=== PATIENT | male | born 1975 | race Caucasian/White ===

== ENCOUNTER 2021-02-22 15:35 | Emergency (ER) | payer OTHER, SELFPAY ==
--- NOTE | ~2021-02-22 | CT_ITS ---
EXAMINATION: CT CHEST, ABDOMEN AND PELVIS WITHOUT CONTRAST. CLINICAL INFORMATION: Back pain. Possible kidney stone or spine arthritis. Cough. Pneumonia? . COMPARISON: 06/17/2017 CT of the abdomen and pelvis. TECHNIQUE: Multidetector volumetric imaging was performed from the thoracic inlet through the pubic symphysis without intravenous contrast. Sagittal and coronal reformatted images were obtained on the technologist workstation. This CT examination was performed using dose optimization techniques as appropriate, variously including the following: *Automated exposure control *Adjustment of mA and/or kV according to patient size (this includes techniques or standardized protocols for targeted exams where dose is matched to indication/reason for exam; i.e. extremities or head) *Use of iterative reconstruction technique DLP: 3230 mGy-cm FINDINGS: CHEST: Lungs: Multiple tiny calcified granulomas are seen bilaterally minimal basilar atelectasis. No suspicious focal nodularity or dense consolidation. Central airways are grossly unremarkable. Mediastinum: Air is seen throughout the esophagus of uncertain etiology. Oral contrast is seen within the stomach but I do not appreciate any oral contrast in the esophagus to suggest significant reflux or dysmotility. Extensive vascular calcification seen within the coronary vessels for age. Shotty mediastinal lymph nodes are noted but no bulky adenopathy Pericardium/Pleura: No significant effusion. No pleural mass or thickening. Chest Wall/Axilla: Unremarkable. ABDOMEN/PELVIS: Peritoneal Space:No significant free air or free fluid identified. Liver, Gallbladder, Biliary Tree: The non contrast liver is normal in size, shape, and attenuation. No focal hepatic lesion or biliary ductal dilatation is present. The gallbladder is unremarkable with no evidence of radiopaque gallstones, gallbladder wall thickening, or obvious pericholecystic inflammatory changes. Pancreas: Unremarkable. Spleen: Unremarkable. Adrenal Glands: Unremarkable. Kidneys and Ureters: Innumerable low-attenuation cysts are seen scattered throughout the renal parenchyma. These cysts are more prominent when compared to the 2017 study. Patient is on dialysis which may explain these multiple bilateral cysts. No obstructive changes to the kidneys. Bladder: Decompressed Gastrointestinal Tract: The small and large bowel are unremarkable. The appendix is unremarkable. Abdominal Wall: No significant hernia is appreciated. Lymphovascular Structures: Vascular calcification within the aorta iliac system. No bulky adenopathy. Pelvic Viscera: Unremarkable. Osseus Structures: Incidental chronic pars defect at L5 with no significant spondylolisthesis. No acute bony abnormality noted. CT/CT abdomen pelvis wo con IMPRESSION: I do not appreciate any acute intra-abdominal process. Tiny calcified granulomas are seen in the lungs without dense consolidation or suspicious nodularity. Patient is on dialysis which likely explains the multiple bilateral renal cysts that are now present. I do not appreciate any obstructive changes to the [place] kidneys. Bladder is decompressed.
--- NOTE | ~2021-02-22 | XR_ITS ---
EXAMINATION: XR CHEST CLINICAL INFORMATION: Cough x1 week COMPARISON: 09/19/2019 TECHNIQUE: Frontal view of the chest was obtained. FINDINGS: Some minimal increased markings are present at both lung bases which may represent atelectasis. Otherwise, no significant abnormality is noted involving the heart, lungs, mediastinum, bony thorax or soft tissues. XR/XR chest 1V IMPRESSION: Bibasilar atelectasis. No gross consolidation.
--- NOTE | ~2021-02-22 | CT_ITS ---
EXAMINATION: CT HEAD WITHOUT CONTRAST CLINICAL INFORMATION: Elevated blood pressure COMPARISON: CT 08/18/2014. TECHNIQUE: Contiguous axial imaging was performed from the skull base to vertex without intravenous administration of contrast. This CT examination was performed using dose optimization techniques as appropriate, variously including the following: *Automated exposure control *Adjustment of mA and/or kV according to patient size (this includes techniques or standardized protocols for targeted exams where dose is matched to indication/reason for exam; i.e. extremities or head) *Use of iterative reconstruction technique DLP: 3230 mGy-cm FINDINGS: There is no evidence of acute intracranial hemorrhage or territorial infarction. No abnormal mass effect or midline shift is seen. Freeman to white matter differentiation is well preserved. No extra-axial fluid collections are identified. The ventricles are normal in size. There is no abnormal attenuation within the brain parenchyma. The osseous structures and soft tissues are normal. Mucocele in the left maxillary sinus. The mastoid air cells and remainder of the visualized portions of the paranasal sinuses are well aerated. CT/CT head/brain wo con IMPRESSION: No CT evidence of acute intracranial pathology.
[2021-02-22 15:38] VITALS: BP 184/81; PULSE 102; RESP 16; BMI 51.7
[2021-02-22 16:37] VITALS: BP 188/102; PULSE 100; RESP 19; TEMP 36.6; O2SAT 97
--- NOTE | 2021-02-22 17:23 | ECG_ITS ---
Test Reason : CHEST PAIN Blood Pressure : / mmHG Vent. Rate : 099 BPM Atrial Rate : 099 BPM P-R Int : 148 ms QRS Dur : 088 ms QT Int : 362 ms P-R-T Axes : 061 065 046 degrees QTc Int : 464 ms Normal sinus rhythm Normal ECG When compared with ECG of 29-MAY-2019 23:02, ST no longer depressed in Lateral leads Referred By: Celestine Lucas Electronically Signed By:MAYRA SHI MD
--- NOTE | 2021-02-22 17:23 | ED_ITS ---
HPI - General Adult General Chief complaint: General Medical Stated complaint: hi bp Time Seen by Provider: 02/22/21 17:07 Source: patient Mode of arrival: ambulatory Limitations: no limitations History of Present Illness HPI narrative: Patient sent to ED by PCP for referral. Patient was sent to the ED for elevated blood pressure. Patient states 1 week of coughing, body aches, chills, and back pain. Patient states chest pain only when he coughs. Patient denies any fever. Denies any chest pain on inspiration. Patient denies any increased swelling of lower extremities or calf pain. Patient due for dialysis tomorrow. Patient has not missed his dialysis. Patient states he is vaccinated with COVID vaccine Patient states history of asthma. Patient has secondary complaint is lower right eyelid swelling and redness with bump in right lower eyelid. patient denies any pain in the eye, change in vision, loss of vision, or blurry vision. Patient denies any discharge from the eye or yellow crusting. patient denies any shortness of breath Related Data Previous Rx's Medication Instructions Recorded benzonatate [Tessalon Perles] 100 mg PO TID PRN #18 cap 02/22/21 oxycodone-acetaminophen [Percocet] 1 tab PO TID PRN #9 tab 02/22/21 Allergies Allergy/AdvReac Type Severity Reaction Status Date / Time iodine [IODINE] Allergy Severe THROAT Unverified 06/04/20 18:16 SWELLING iron [IRON] Allergy Unknown HOT Unverified 06/04/20 18:16 FEELING, ANXIETY, SOB,M TACHYCARDIA shellfish derived Allergy Unknown UNKNOWN Unverified 06/04/20 18:16 [SHELLFISH DERIVED] Benadryl Allergy Unknown hyperactive Uncoded 06/18/18 00:00 From BENADRYL Allergy Unknown HYPERACTIVE Uncoded 06/04/20 18:16 seafood Allergy Unknown swelling Uncoded 06/18/18 00:00 of throat Review of Systems Review of Systems: Yes all other systems are reviewed and are negative Constitutional: Constitutional: Reports as per HPI, Reports no additional constitutional complaints, Reports body ache(s) and Reports chills Eyes: Eyes: Reports as per HPI and Reports no additional eye complaints Comments: Right lower eyelid swelling, redness, with bump in the IN. ENT: Reports system reviewed and no additional complaints, except as docume nted and Reports as per HPI Cardiovascular: Cardiovascular: Reports as per HPI and Reports no additional cardiovascular complaints Respiratory: Respiratory: Reports as per HPI, Reports no additional respiratory complaints, Reports cough and Reports pain with cough Gastrointestinal: Gastrointestinal: Reports as per HPI and Reports no additional gastrointestinal complaints Genitourinary: Genitourinary: Reports no additional male genitourinary complaints and Reports as per HPI Musculoskeletal: Musculoskeletal: Reports no additional musculoskeletal complaints and Reports as per HPI Neurologic: Reports system reviewed and no additional complaints, except as documented and Reports as per HPI Psychiatric: Psychiatric: Reports no additional psychiatric complaints and Reports as per HPI [facility] Past Medical History Medical History (Updated 02/23/21 @ 00:01 by Background Tracy) Asthma Dialysis patient Hypertension Social History Social History Alcohol intake: never Patient Tobacco Use Status: Never used Tobacco Use of substances other than those prescribed or required for medical reasons: No Advance Directives: No Advance Directives Information Provided: No Physical Exam Vital Signs: Vital Signs: Last Vital Signs Temp 97.8 F 02/22/21 16:37 Pulse 101 H 02/22/21 18:12 Resp 18 02/22/21 18:12 BP 154/95 H 02/22/21 18:12 Pulse Ox 98 02/22/21 18:12 Body Mass Index 51.7 Const: General: cooperative, healthy appearing, comfortable, no acute distress, well developed, alert and awake Orientation/consciousness: patient oriented x3 HENMT: Head: Yes normal to inspection, Yes No palpable skull fracture present, Yes normocephalic and No atraumatic Eyes: Other: Right eye: Positive for swelling and redness of lower eyelid with inner stye. Negative for photophobia. Negative for foreign body. Left eye normal General: appearance normal, both eyes and all related structures Neck: Neck: Yes normal visual inspection, Yes full ROM, Yes no lymphadenopathy, Yes no meningeal signs, Yes trachea midline, Yes supple and No tender Chest: Other: Positive for chest wall tenderness on palpation Chest palpation & inspection: normal inspection of the chest Resp: Effort & Inspection: normal respiratory effort and able to speak in complete sentences Auscultation: clear to auscultation bilaterally Cardio: Jugular venous distension: no JVD Heart sounds: S1 normal heart sound present and S2 normal heart sound present GI: Inspection: Yes normal to inspection and No abdominal wall ecchymosis Palpation (GI): Soft to palpation, not firm, nontender, no guarding and not rigid : General: No CVA tenderness and Yes no CVA tenderness Back/Spine/Pelvis: Back: no CVA tenderness, No CVA tenderness and No back tenderness Skin: General skin exam: no rashes or lesions noted and elasticity normal Neuro: General: patient oriented x3, gait normal, no meningeal signs and CN's II-XI intact bilaterally Cranial nerves: Yes CN's II-XII intact bilaterally Extrem: Other: Lower extremities negative for any swelling, pitting edema, calf tenderness. Course Course Course Narrative: Blood pressure monitor on 130/80. Patient will have EKG and troponin. Patient will have chest x-ray to rule out pneumonia. Patient was sent a COVID swab sent. Patient will be given oxycodone and Robitussin. History physical exam indicate viral cough. Reevaluation(s) Reevaluation #1: EKG negative STEMI. Patient came potassium 5.9. Patient state s he will get his dialysis tomorrow. Patient denies any shortness of breath. X-ray negative for signs of fluid overload. Reevaluation #2: Patient was sent for chest CT to to get better patient shows no pneumonia. Patient was sent for head CT due to elevated blood pressure although patient does not have any neuro deficit. Patient is sent for abdominal CT scan to evaluate for back pain is he does kidney stone. Patient does not produce urine. Patient will have dialysis in the morning. Case discussed with Dr. Finch and he reviewed patient labs. He states Kaxyelate is suffice and patient does not need any other hyperkalemia medication or emergent dialysis. patient is not in fluid overload. He states patient can go for dialysis in the morning. Patient blood pressure improved without any meds given. Patient initial elevated blood pressure most likely due to pain from body aches and the pain for cough. troponin did not increased by 50%. BNP is only about 130. Patient does not need emergent dialysis. Patient is not in fluid overload. EKG negative for peaked T-waves. Patient educated on stye and warm compress. Patient will be discharged with oxycodone for pain and Tessalon Perles for cough. Blood pressure 142/81 on monitor before discharge Time: 22:19 Medical Decision Making [facility] Narrative Medical decision making narrative: . URI. Hypertension Lab Data Result diagrams: 02/22/21 18:26 02/22/21 18:26 Labs: Lab Results 02/22/21 02/22/21 02/22/21 Range/Units 18:26 18:26 18:26 WBC 10.5 (4.8-10.8) X10*3/uL RBC 3.65 L (4.60-5.80) X10*6/uL Hgb 11.3 L (14.0-18.0) g/dl Hct 34.8 L (42-52) % MCV 95.3 (80-98) fL MCH 31.0 (27.0-33.0) pg MCHC 32.5 (31.0-36.0) g/dl RDW 15.3 (11.0-16.0) % Plt Count 220 (160-400) X10*3/uL MPV 10.8 (9.4-12.4) fL Immature Gran % (Auto) 0.4 (0.0-0.4) % Neut % (Auto) 76.7 H (45-73) % Lymph % (Auto) 14.1 L (20-40) % [place] % (Auto) 7.0 (2-11) % Eos % (Auto) 1.7 (0-4) % Baso % (Auto) 0.1 (0-2) % Lymph # (Auto) 1.5 (1.2-4.9) X10*3/uL [place] # (Auto) 0.7 (0.1-1.2) X10*3/uL Eos # (Auto) 0.2 (0.0-0.4) X10*3/uL Baso # (Auto) 0.0 (0.0-0.2) X10*3/uL Abs Immat Gran (auto) 0.04 H (0.00-0.03) X10*3/uL Absolute Neuts (auto) 8.1 (2.0-8.3) X10*3/uL Absolute Nucleated RBC 0.000 (0.0-0.012) X10*3/uL Nucleated RBC % (auto) 0.0 (0.0-0.2) /100WBC PT 13.8 H (10.8-13.0) SEC INR 1.2 H (0.9-1.1) APTT 24.5 (24.1-38.0) SEC Sodium 139 (135-145) mmol/L Potassium 5.9 H (3.3-5.1) mmol/L Chloride 95 L (96-108) mmol/L Carbon Dioxide 21 L (22-29) mmol/L Anion Gap 29 H (12-20) BUN 87 H* (9-16) mg/dL Creatinine 14.68 H* (0.5-1.4) mg/dL Estim Creat Clear Calc 9.4 Estimated GFR 4 Random Glucose 78 (60-115) mg/dL Calcium 8.8 (8.4-10.2) mg/dL Total Bilirubin 0.7 (0.0-1.0) mg/dL AST 34 (5-37) U/L ALT 15 (0-40) U/L Alkaline Phosphatase 113 (39-117) U/L Troponin I High Sens (<3.5-35.0) ng/L B-Natriuretic Peptide (<100) pg/mL Total Protein 7.3 (6.5-8.0) g/dL Albumin 3.9 (3.5-5.0) g/dL COVID-19 ([facility]OR) (Negative) COVID-19 Clin Com 02/22/21 02/22/21 02/22/21 Range/Units 18:26 20:49 20:49 WBC (4.8-10.8) X10*3/uL RBC (4.60-5.80) X10*6/uL Hgb (14.0-18.0) g/dl Hct (42-52) % MCV (80-98) fL MCH (27.0-33.0) pg MCHC (31.0-36.0) g/dl RDW (11.0-16.0) % Plt Count (160-400) X10*3/uL MPV (9.4-12.4) fL Immature Gran % (Auto) (0.0-0.4) % Neut % (Auto) (45-73) % Lymph % (Auto) (20-40) % [place] % (Auto) (2-11) % Eos % (Auto) (0-4) % Baso % (Auto) (0-2) % Lymph # (Auto) (1.2-4.9) X10*3/uL [place] # (Auto) (0.1-1.2) X10*3/uL Eos # (Auto) (0.0-0.4) X10*3/uL Baso # (Auto) (0.0-0.2) X10*3/uL Abs Immat Gran (auto) (0.00-0.03) X10*3/uL Absolute Neuts (auto) (2.0-8.3) X10*3/uL Absolute Nucleated RBC (0.0-0.012) X10*3/uL Nucleated RBC % (auto) (0.0-0.2) /100WBC PT (10.8-13.0) SEC INR (0.9-1.1) APTT (24.1-38.0) SEC Sodium (135-145) mmol/L Potassium (3.3-5.1) mmol/L Chloride (96-108) mmol/L Carbon Dioxide (22-29) mmol/L Anion Gap (12-20) BUN (9-16) mg/dL Creatinine (0.5-1.4) mg/dL Estim Creat Clear Calc Estimated GFR Random Glucose (60-115) mg/dL Calcium (8.4-10.2) mg/dL Total Bilirubin (0.0-1.0) mg/dL AST (5-37) U/L ALT (0-40) U/L Alkaline Phosphatase (39-117) U/L Troponin I High Sens 97.6 H* 101.6 H* (<3.5-35.0) ng/L B-Natriuretic Peptide 130 H (<100) pg/mL Total Protein (6.5-8.0) g/dL Albumin (3.5-5.0) g/dL COVID-19 ([facility]STOR) Negative (Negative) COVID-19 Clin Com See Note ECG Data Interpretation: Normal sinus rhythm. Normal EKG. Nuclear rate 99. Pr interval 148. QRS 88. QTC 464. Negative STEMI. Negative peak T-waves. Discharge Plan Discharge Clinical Impression: URI (upper respiratory infection), Hypertension Patient Disposition: Home, Self-Care Instructions: Stye (ED), Upper Respiratory Infection (ED), Hypertension (ED) Additional Instructions: Regrese al servicio de urgencias de inmediato si tiene dolor de sidney, dolor en el pecho en reposo, dificultad para respirar, hinchaz?n de las extremidades inferiores, dolor en la pantorrilla, debilidad, fiebre, escalofr?os, dificultad para hablar, declive facial, par?lisis de las extremidades, desmayo, dolor abdominal o cualquier otro problema. otros s?ntomas preocupantes. Merritt tomograf?a computarizada de t?rax result? negativa para neumon?a. La tomograf?a computarizada de la sidney result? negativa para cualquier sangrado o accidente cerebrovascular. Tomograf?a computarizada de abdomen negativa para cualquier c?lculo renal o cualquier proceso intraabdominal emergente. Tiene artritis de la columna lumbar. Merritt potasio se elev? a 5.9. Te dimos Kayexalate. Matt un seguimiento con merritt di?lisis ma?leonides. Se recomienda presley compresa tibia en el svetlana derecho 4 veces al d?a eunice 15 minutos. Prescriptions: New benzonatate [Tessalon Perles] 100 mg capsule 100 mg PO TID PRN (Reason: cough) Qty: 18 RF: 0 oxycodone-acetaminophen [Percocet] 5-325 mg tablet 1 tab PO TID PRN (Reason: pain) Qty: 9 RF: 0 Referrals: Justino Rivero [Physician] - 2 days (Right eye stye) Debbie Gallardo MD [Primary Care Provider] - 2 days (Hypertension. URI. Chest CT negative for pneumonia. Head CT negative for bleed or stroke. Abdominal CT negative for any acute intra-abdominal process. EKG negative for STEMI or peaked T-waves. Potassium 5.9 patient given Kayexalate. Patient has dialysis in the morning. Patient is not in fluid overload.) Interventions: ED Discharge Assessment Last Done: 02/22/21 22:51 Discharge Date/Time: 02/22/21 22:51 Print Language: Irish
[2021-02-22 18:12] VITALS: BP 154/95; PULSE 101; RESP 18; O2SAT 98
[2021-02-22 18:31] LABS: MANUAL DIFF FLAG NO
[2021-02-22 18:32] LABS: Basophils Percent Auto 0.1 % (0-2); Eosinophils Absolute Auto 0.2 X10*3/uL (0.0-0.4); Eosinophils Percent Auto 1.7 % (0-4); Hematocrit 34.8 % (42-52); Hemoglobin 11.3 g/dl (14.0-18.0); Imm Gran Abs Auto 0.04 X10*3/uL (0.00-0.03); Imm Gran Pct Auto 0.4 % (0.0-0.4); Lymphocytes Absolute Auto 1.5 X10*3/uL (1.2-4.9); Lymphocytes Percent Auto 14.1 % (20-40); Mean Corpuscular HGB Conc 32.5 g/dl (31.0-36.0); Mean Corpuscular Volume 95.3 fL (80-98); Mean Platelet Volume 10.8 fL (9.4-12.4); Monocytes Absolute Auto 0.7 X10*3/uL (0.1-1.2); Neutrophils Absolute Auto 8.1 X10*3/uL (2.0-8.3); Neutrophils Percent Auto 76.7 % (45-73); Platelet Count 220 X10*3/uL (160-400); Red Blood Count 3.65 X10*6/uL (4.60-5.80); Red Cell Distribution Width 15.3 % (11.0-16.0); White Blood Count 10.5 X10*3/uL (4.8-10.8)
[2021-02-22] MEDS: guaiFENesin 200 MG/10 ML 10 ML LIQUID PO (18:34)
[2021-02-22] MEDS: oxyCODONE HCl Immed Release 5 MG TABLET PO (18:34)
[2021-02-22 18:38] LABS: INTERNATIONAL NORM RATIO 1.2 (0.9-1.1); Prothrombin Time 13.8 SEC (10.8-13.0)
[2021-02-22 18:40] LABS: Partial Thromboplastin Time 24.5 SEC (24.1-38.0)
[2021-02-22 18:59] LABS: Alanine Aminotransferase 15 U/L (0-40); Albumin Level 3.9 g/dL (3.5-5.0); Alkaline Phosphatase 113 U/L (39-117); Anion Gap 29 (12-20); Aspartate Amino Transferase 34 U/L (5-37); Bilirubin Total 0.7 mg/dL (0.0-1.0); Blood Urea Nitrogen 87 mg/dL (9-16); Calcium 8.8 mg/dL (8.4-10.2); Carbon Dioxide 21 mmol/L (22-29); Chloride 95 mmol/L (96-108); Creatinine Clr Calc Pharmacy 9.4; Estimated Glomerular Filt Rate 4; Glucose Random 78 mg/dL (60-115); Potassium 5.9 mmol/L (3.3-5.1); Sodium 139 mmol/L (135-145); Total Protein 7.3 g/dL (6.5-8.0)
[2021-02-22 19:13] LABS: Troponin-I High Sensitivity 97.6 ng/L (<3.5-35.0)
[2021-02-22] MEDS: Sodium Polystyrene Sulfon/Sorb 15 GM/60 ML ORAL.SUSP 60 GM PO (19:44)
[2021-02-22 19:48] LABS: B Type Natriuretic Peptide 130 pg/mL (<100)
[2021-02-22 21:10] LABS: COVID-19 Test Negative (Negative); IDNOW Serial# 08D9AD1C
[2021-02-22 21:39] LABS: Troponin-I High Sensitivity 101.6 ng/L (<3.5-35.0)
== END 2021-02-22 22:51 | disposition home or self-care (01) ==
PROVIDERS: Physician Assistant; Emergency Provider Internal Medicine; PCP Family Medicine
DX: J06.9 Acute upper respiratory infection, unspecified (principal); I10 Essential (primary) hypertension; R07.9 Chest pain, unspecified; N19 Unspecified kidney failure; Z99.2 Dependence on renal dialysis; Z20.822 Contact with and (suspected) exposure to COVID-19
CPT/HCPCS: 36415; 70450; 71045; 71250; 74176; 80053; 83880; 84484; 85025; 85610; 85730; 87635; 93005; 99284

== ENCOUNTER 2021-02-28 23:47 | Emergency (ER) | payer OTHER, SELFPAY ==
--- NOTE | ~2021-02-28 | XR_ITS ---
EXAMINATION: XR SHOULDER, LEFT CLINICAL INFORMATION: Pain COMPARISON: Chest x-ray 02/22/2021 TECHNIQUE: Three views of the left shoulder. FINDINGS: Glenohumeral alignment is anatomic. No acute fracture is seen. Calcification superolateral to the humeral head are suspicious for calcific rotator cuff tendinopathy. The acromioclavicular joint is intact with mild degenerative change. Left axillary stent is noted. XR/XR shoulder LT min 2V IMPRESSION: No acute findings. Calcifications near the humeral head suspicious for calcific rotator cuff tendinopathy.
[2021-03-01 00:38] VITALS: BP 181/111; PULSE 100; RESP 20; TEMP 36.6; O2SAT 98; BMI 51.7
--- NOTE | 2021-03-01 01:38 | ED_ITS ---
HPI - Extremity Problem General Chief complaint: Extremity Injury, Upper Stated complaint: shoulder pain (enforcement officer needed) Time Seen by Provider: 03/01/21 00:51 Source: patient Mode of arrival: ambulatory Limitations: no limitations History of Present Illness HPI Narrative: 45-year-old male presents with left-sided clavicular pain that started earlier today. He does not report any trauma, repetitive motions. States that he did take some oxycodone but the oxycodone did not take the pain away. Is not report any weakness, or loss sensation, decreased range of motion, or any other concerning symptoms. MD Complaint: extremity pain Onset (ago): day(s) (1) Pain Consistency: constant Location: left and upper extremity Severity scale (1-10): 10 Quality: aching Radiation: none Relieving factors: nothing Exacerbating factors: range of motion and palpation Associated symptoms: denies other symptoms Related Data Previous Rx's Medication Instructions Recorded benzonatate [Tessalon Perles] 100 mg PO TID PRN #18 cap 02/22/21 oxycodone-acetaminophen [Percocet] 1 tab PO TID PRN #9 tab 02/22/21 Allergies Allergy/AdvReac Type Severity Reaction Status Date / Time iodine [IODINE] Allergy Severe THROAT Verified 03/01/21 00:38 SWELLING iron [IRON] Allergy Unknown HOT Verified 03/01/21 00:38 FEELING, ANXIETY, SOB,M TACHYCARDIA shellfish derived Allergy Unknown UNKNOWN Verified 03/01/21 00:38 [SHELLFISH DERIVED] Benadryl Allergy Unknown hyperactive Uncoded 06/18/18 00:00 From BENADRYL Allergy Unknown HYPERACTIVE Uncoded 06/04/20 18:16 seafood Allergy Unknown swelling Uncoded 06/18/18 00:00 of throat Review of Systems Review of Systems: Constitutional: No Fever, No Chills ENT/Mouth: No Ear Pain, No Hoarseness, No sore throat Eyes: No Eye Pain, No Swelling, No Redness, No Foreign Body Cardiovascular: No Chest Pain, No SOB Respiratory: No Cough, No Dyspnea Gastrointestinal: No Nausea, No Vomiting, No Diarrhea, No abdominal Pain Genitourinary: No Dysuria, No Hematuria Musculoskeletal: positive left shoulder and clavicular pain, No Myalgias, No Joint Swelling Skin: No Skin lacerations, No rash Neuro: No Weakness, No Numbness, No Paresthesias, No Loss of Consciousness, No Dizziness, No Headache Psych: No Anxiety/Panic, No Depression Heme/Lymph: no easy bruising, no Lymphadenopathy Endocrine: No Polyuria, No Polydipsia Yes all other systems are reviewed and are negative [facility] Past Medical History Attestation statement: The following information was validated with the patient. Source: old records reviewed Medical History Asthma Dialysis patient Hypertension Social History Social History Alcohol intake: never Patient Tobacco Use Status: Never used Tobacco Advance Directives: No Physical Exam Vital Signs: Vital Signs: Last Vital Signs Temp 97.9 F 03/01/21 00:38 Pulse 100 03/01/21 00:38 Resp 20 03/01/21 00:38 BP 181/111 H 03/01/21 00:38 Pulse Ox 98 03/01/21 00:38 Body Mass Index 51.7 Appearance: Alert. Oriented X3. No acute distress. Eyes: Pupils equal, round and reactive to light. ENT: Pharynx normal. Neck: Normal inspection. Neck supple. CVS: Normal heart rate and rhythm. Pulses normal. Respiratory: No respiratory distress. Breath sounds normal. Abdomen: Soft and nontender. Skin: Skin warm and dry. Normal skin color. Normal skin turgor. Extremities: Full range of motion to all extremities, strength 5/5, tenderness noted to the lateral clavicular on the left side, no tenderness to the cervical vertebral bodies, no step-off noted, no muscular skeletal tenderness to the scapula. Neuro: No motor deficit. No sensory deficit. Cranial nerves 2-12 intact. Course Course Course Narrative: 45-year-old male presents with left shoulder pain. Does not r eport any trauma or repetitive motions. Did take some oxycodone earlier today but stated that that did not relieve his pain. Will order x-rays. X-rays positive for arthritis and calcific tendinitis. Will refer to orthopedics. He does have a prescription for oxycodone. I will not be prescribing narcotics for this condition. Patient verbalized understanding of and agrees plan of care discharge home. MDM - Extremity (Nontraumatic) MDM Narrative Medical decision making narrative: Arthritis, dislocation, fracture Medical Records Attestation: I reviewed the patient's medical records. Imaging Data Left shoulder: Attestation: I personally reviewed and interpreted this imaging study as follows: Radiologist's impression: TECHNIQUE: Three views of the left shoulder. FINDINGS: Glenohumeral alignment is anatomic. No acute fracture is seen. Calcification superolateral to the humeral head are suspicious for calcific rotator cuff tendinopathy. The acromioclavicular joint is intact with mild degenerative change. Left axillary stent is noted. XR/XR shoulder LT min 2V IMPRESSION: No acute findings. Calcifications near the humeral head suspicious for calcific rotator cuff tendinopathy. Discharge Plan Discharge Clinical Impression: Arthritis, Tendinopathy of left rotator cuff Patient Disposition: Home, Self-Care Instructions: Calcific Tendinitis (ED), Arthritis (ED) Additional Instructions: Fue evaluado por dolor en el [facility]. Las radiograf?as son negativas para los hallazgos agudos que requieren presley intervenci?n urgente. Matt un seguimiento con el m?dico de atenci?n primaria seg?n sea necesario para el manejo de la artritis y la tendinitis calcificante. Paco por elegir santhosh departamento de emergencias para hernandes evaluaci?n. Matt un seguimiento con hernandes m?dico de atenci?n primaria seg?n sea necesario. Regrese al departamento de emergencias por cualquier s?ntoma nuevo, preocupante o que empeore. You were evaluated for left shoulder pain. X-rays are negative for acute findings requiring emergent intervention. Please follow-up with primary care physician as needed for arthritis and calcific tendinitis management. Thank you for choosing this emergency department for evaluation. Please follow-up with primary care physician as needed. Return to the emergency department for any new, concerning, or worsening symptoms. Prescriptions: No Action benzonatate [Tessalon Perles] 100 mg capsule 100 mg PO TID PRN (Reason: cough) Qty: 18 RF: 0 oxycodone-acetaminophen [Percocet] 5-325 mg tablet 1 tab PO TID PRN (Reason: pain) Qty: 9 RF: 0 Referrals: Nicky Grimes PA-C [Physician [employer] Rod Assembler] - 2 days (Arthritis and calcific tendinopathy to left shoulder)
== END 2021-03-01 02:50 | disposition home or self-care (01) ==
PROVIDERS: Emergency Provider Emergency Medicine Emergency Medical Services; PCP Family Medicine
DX: M75.32 Calcific tendinitis of left shoulder (principal); M19.012 Primary osteoarthritis, left shoulder; I10 Essential (primary) hypertension
CPT/HCPCS: 73030; 99283

== ENCOUNTER → 2021-03-18 10:44 | Outpatient (BNVA) | payer OTHER, SELFPAY | PROVIDERS: PCP Family Medicine; Visit Provider Physician Assistant | DX: M75.32 Calcific tendinitis of left shoulder (principal) | CPT/HCPCS: 20610; 99202; J1040 ==

== ENCOUNTER 2021-04-21 12:43 | Outpatient (RCR) | payer OTHER, SELFPAY ==
--- NOTE | 2021-04-21 14:03 | MHC.PT.EP ---
[facility] [place] Office [place] Office [place] Office [address] [phone] F: [phone] F: [phone] F: [phone] F: [phone] Physical Therapy Plan of Care Date of Evaluation: Date of Surgery: Diagnosis: CALCIFIC TENDONITIS Assessment: 45 YO MALE REF TO PT FOR LEFT SH PAIN, CALCIFIC TENDONITIS- 3[address] EVAL HE DECIDED HIS SHOULDER FELT MUCH BETTER AND HE WAS ABLE TO RESUME REG ADLS, HE IS CHOOSING TO DISCHARGE HIMSELF FROM PT, I WLL CONTACT [facility] Frequency and Duration: The patient will be seen NA Short Term 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 Manual therapy to restore motion and function. Therapeutic exercise to improve strength and flexibility. Neuromuscular re-education for posture and balance. Therapeutic activities to return to functional activities of daily living. Electronically signed by: Marti Nair,PT Please sign and return to therapist. Thank you for your referral.
== END 2021-04-21 14:14 | disposition home or self-care (01) ==
LOC: HO.PT 12:43
PROVIDERS: PCP Family Medicine; Visit Provider Physician Assistant
DX: M75.32 Calcific tendinitis of left shoulder (principal)
CPT/HCPCS: 97110; 97161

== ENCOUNTER → 2021-05-10 09:06 | Outpatient (BNVA) | payer OTHER, SELFPAY | PROVIDERS: PCP Family Medicine; Referring Provider Family Medicine; Visit Provider Internal Medicine Cardiovascular Disease | DX: Z01.810 Encounter for preprocedural cardiovascular examination (principal); I50.30 Unspecified diastolic (congestive) heart failure | CPT/HCPCS: 93005; 99212 ==

== ENCOUNTER → 2021-05-12 07:05 | Outpatient (REF) | payer OTHER, SELFPAY ==
--- NOTE | ~2021-05-12 | NM_ITS ---
Myocardial perfusion study Indication: Preoperative cardiovascular risk stratification Technique: The patient was brought in for a Lexiscan perfusion study on 05/12/2021. Patient performed low-level exercise and was injected 0.4 mg of Lexiscan intravenously. Within a minute of injection, 45 mCi of sestamibi was given intravenously. Images were obtained using the SPECT gamma camera interlaced with the gating device. Images were obtained in supine position. Resting perfusion study was performed on 05/14/2021. Patient was administered 45 mCi of sestamibi intravenously at rest. Images were then obtained in supine position. Images obtained with and without CT attenuation. Total DLP 208 mGy-cm. Images were processed with the software and compared side to side in short axis, horizontal long axis and vertical long axis views. Findings: The stress perfusion study showed nonattenuated images show large area of severely reduced uptake in the inferior wall of the LV myocardium. Remainder of the LV myocardium is normally perfused. Attenuation corrected images show minimally reduced uptake in the distal anterior and moderately reduced uptake in the apex of the LV myocardium.. The gated study shows reduced LV systolic function with calculated LVEF of 37%. LV cavity is mildly dilated size. The gated study shows diffusely reduced wall thickening and contraction of segments. Resting study shows nonattenuated images show partially reversible defect in the inferoapical area of the LV myocardium. Attenuation corrected images show improved uptake in the distal anterior and apex of the LV myocardium. Gating at rest reveals diffusely reduced wall motion with ejection fraction at 37%. The findings are consistent with equivocal findings of mildly reversible defect in the apex and distal anterior wall suggest ischemia.. NM/NM karthik perf SPECT rest & str Impression: 1. Myocardial perfusion imaging study shows low risk finding with equivocal ischemia of the distal anterior and apical wall. 2. Gated LVEF is 37% 3. Transient ischemic dilatation not present EKG is nondiagnostic for ischemia
--- NOTE | 2021-05-12 07:14 | CA_ITS ---
Acquisition Time: 2021-05-12 08:55:59 Total Exercise Time: 00:02:00 Test Indications: Dyspnea Medications: CARVEDILOL SEE H Protocol: LEXISCAN Max HR: 116 BPM 66% of Pred: 174 BPM Max BP: 132/070 mmHG Max Work Load: 1.0 METS Pharmacological stress test with Lexiscan injection, while sitting and kicking his legs, without anginal symptoms, without arrythmia, with normotensive response to injection, with nondiagnostic EKG for ischemia. In recovery he reported shortness of breath and lightheadedness and was treated with Aminophylline 75mg IVP to reverse Lexiscan with resolution of symptoms. Nuclear images pending. Test reviewed with Dr Arroyo. Referred By: Reinier Arroyo Overread By: AR DUARTE
--- NOTE | 2021-05-12 07:14 | CA_ITS ---
Transthoracic Echocardiogram Patient (Last, First, Middle): Omari Mares M Gender: Male Date of : 1975 Age: 45 Procedure Date: 05/12/2021 Procedure Type: Transthoracic Echocardiogram Location: OP Height: 175.26 cm Weight: 156.49 kg BSA: 2.60 m2 Heart Rate: bpm BP: 138 / 80 mmHg Employment Program Representative: Referring MD: Reinier Arroyo MD Bindery Worker: Reinier Arroyo MD Symptoms: Z01.810 - Encounter for preprocedural cardiovascular exam... Study Quality: Fair, good with Contrast ECG Rhythm: Sinus Conclusions: - 1. Normal LV systolic function with grade 2 diastolic dysfunction 2. Normal cardiac valvular Doppler 3. Normal RV systolic pressure 4. No pericardial effusion Findings Procedure Information Contrast agent, definity, is being given per protocol without apparent complications. Left Ventricle Normal left ventricular size, thickness, and systolic function. The visually estimated ejection fraction is between 55-60%. Spectral Doppler is indicative of a pseudonormal filling pattern. E/E prime ratio is >15, consistent with elevated filling pressures. Evidence suggests grade II (moderate) diastolic dysfunction. Right Ventricle Normal right ventricular cavity size and systolic function. Atria The left atrium is mildly dilated. Interatrial shunt cannot be excluded. The right atrium was not well visualized. Aortic Valve The aortic valve was not well visualized. There is no aortic valve stenosis. There is no aortic valve regurgitation. Mitral Valve There is mild anterior and posterior mitral leaflet thickening. There is mild mitral annular calcification. There is trace mitral valve regurgitation. There is no mitral valve stenosis. Pulmonic Valve The pulmonic valve was not well visualized. Tricuspid Valve The tricuspid valve was not well visualized. The right ventricular systolic pressure is normal. There is no evidence of pulmonary hypertension. Great Vessels All visible segments of the aorta are normal in size. The pulmonary artery was not well visualized. Venous The inferior vena cava is normal in size and collapses greater than 50% with inspiration. Pericardium/Pleural There is no evidence of pericardial effusion. Prior Study Comparison Changes noted compared to prior study dated: 01/17/2018. RV systolic pressure is within normal limits Measurements 2D Linear Measurements IVSd: 1.03 0.6-0.9/0.6-1.0 cm LVIDd: 5.82 3.9-5.3/4.2-5.9 cm LVIDd Index: 2.24 2.4-3.2/2.2-3.1 cm/m2 LVIDs: 3.68 2.0-3.6 cm LVPWd: 0.95 0.7-1.1 cm Ao Root: 3.30 2.1-3.5 cm LA Diam: 4.60 2.7-3.8/3.0-4.0 cm LAIDs Index: 1.77 1.5-2.3 cm/m2 LV Mass: 289.27 67-162/88-224 g LV Mass Index: 111.26 43-95/49-115 g/m2 LVOT Diam: 2.10 3.0+(-)1.3 cm 2D Systolic Function EF 4C: 61.00 >55% EF 2C: 49.30 >55% EF BiP: 56.30 >55% Mitral Valve MV Pk E: 1.13 MV PK A: 1.02 MV Decel Time: 134.00 E/A: 1.10 E'Lateral: 8.38 E'Medial: 5.33 E/E' Med: 21.20 E/E' Lat: 13.50 PHT: 39.00 MVA PHT: 5.64 Decel [place]: 8.40 Aortic Valve AoV Pk Tan: 1.60 AoV Mn Tan: 1.04 AoV VTI: 0.33 AoV Pk Grad: 10.00 Aov Mn Grad: 5.00 RUMA Cont.VTI: 2.23 LVOT LVOT Pk Tan: 1.06 LVOT Mn Tan: 0.73 LVOT VTI: 0.21 LVOT Pk Grad: 4.00 LVOT Mn Grad: 3.00 LVOT Diam: 2.10 LVOT Area: 3.46 Diastolic Function MV Pk E: 1.13 MV Pk A: 1.02 E/A: 1.10 E'Medial: 5.33 E/E' Med: 21.20 E' Laterial: 8.38 E/E' Lat: 13.50 Tricuspid Valve TR Pk Tan: 1.61 TR Pk Grad: 10.00 RA Press: 3.00 RVSP: 13.00 Great Vessels Aorta Ao Root-2D: 3.30 2.0-3.7 cm Ao Asc: 3.20 2.1-3.4 cm Pulmonary Valve PV Pk Tan: 1.24 Peak PV Grad: 6.00 Updated in Other Vendor System with Status of Final Reinier Arroyo MD electronically signed on 05/12/2021 1:43:01 PM with status of Final
== END ==
LOC: HO.CARD 07:05
PROVIDERS: PCP Family Medicine; Visit Provider Internal Medicine Cardiovascular Disease
DX: Z01.810 Encounter for preprocedural cardiovascular examination (principal)
CPT/HCPCS: 78452; 93017; 93306; A9500; J0280; J2785; Q9957

== ENCOUNTER 2021-08-03 12:46 | Inpatient (IN) | payer OTHER, SELFPAY ==
--- NOTE | ~2021-08-03 | XR_ITS ---
EXAMINATION: XR CHEST CLINICAL INFORMATION: Dyspnea COMPARISON: None TECHNIQUE: 2 views of the chest were obtained. FINDINGS: The lungs are well-expanded and clear of acute pneumonic process. However there is prominent patchy reticular markings in both lungs suspicious for low-grade inflammatory changes. Heart size and pulmonary vascularity is normal. No gross bony abnormality seen. XR/XR chest 2V IMPRESSION: Prominent patchy reticular markings in both lower lobes suspicious for underlying low-grade inflammatory process.
[2021-08-03 13:29] VITALS: BP 142/101; PULSE 91; RESP 18; TEMP 36.4; O2SAT 98; BMI 52.4
[2021-08-03 14:33] LABS: MANUAL DIFF FLAG NO
[2021-08-03 14:36] LABS: Basophils Percent Auto 0.3 % (0-2); Eosinophils Absolute Auto 0.2 X10*3/uL (0.0-0.4); Eosinophils Percent Auto 1.9 % (0-4); Hematocrit 36.9 % (42.0-52.0); Hemoglobin 11.7 g/dl (14.0-18.0); Imm Gran Abs Auto 0.04 X10*3/uL (0.00-0.03); Imm Gran Pct Auto 0.4 % (0.0-0.4); Lymphocytes Absolute Auto 1.3 X10*3/uL (1.2-4.9); Lymphocytes Percent Auto 13.4 % (20-40); Mean Corpuscular HGB Conc 31.7 g/dl (31.0-36.0); Mean Corpuscular Hemoglobin 30.9 pg (27.0-33.0); Mean Corpuscular Volume 97.4 fL (80.0-98.0); Mean Platelet Volume 10.2 fL (9.4-12.4); Monocytes Absolute Auto 0.6 X10*3/uL (0.1-1.2); Monocytes Percent Auto 6.3 % (2-11); Neutrophils Absolute Auto 7.8 x10*3/uL (2.0-8.3); Neutrophils Percent Auto 77.7 % (45-73); Platelet Count 271 X10*3/uL (160-400); Red Blood Count 3.79 X10*6/uL (4.60-5.80); Red Cell Distribution Width 15.7 % (11.0-16.0)
[2021-08-03 15:01] LABS: Anion Gap 27 (12-20); Blood Urea Nitrogen 99 mg/dL (9-16); Calcium 7.7 mg/dL (8.4-10.2); Carbon Dioxide 20 mmol/L (22-29); Chloride 96 mmol/L (96-108); Creatinine Clr Calc Pharmacy 9.3; Estimated Glomerular Filt Rate 4; Glucose Random 95 mg/dL (60-115); Potassium 7.6 mmol/L (3.3-5.1); Sodium 135 mmol/L (135-145)
[2021-08-03 15:05] VITALS: BP 160/87; PULSE 96; RESP 20; TEMP 36.6; O2SAT 95
--- NOTE | 2021-08-03 15:25 | ECG_ITS ---
Test Reason : Elevated Potassium Blood Pressure : / mmHG Vent. Rate : 086 BPM Atrial Rate : 086 BPM P-R Int : 166 ms QRS Dur : 090 ms QT Int : 390 ms P-R-T Axes : 062 046 056 degrees QTc Int : 466 ms Normal sinus rhythm Normal ECG When compared with ECG of 22-FEB-2021 17:43, No significant change was found Referred By: Tej Worley Electronically Signed By:DESEAN KELLEY MD
--- NOTE | 2021-08-03 15:28 | ED_ITS ---
HPI - General Adult General Chief complaint: General Medical Stated complaint: rt swollen arm Time Seen by Provider: 08/03/21 15:09 Source: patient, RN notes reviewed and old records reviewed History of Present Illness HPI narrative: Patient with a history of end-stage renal disease on dialysis Monday and Monday. Today apparently had an infiltrate in his dialysis shunt. His arm was swollen so they were unable to do dialysis. Plan was to complete dialysis tomorrow. He comes in to the emergency department because he is more dyspnea than he was earlier. He feels generally weak. No pain. He gets dialysis and polio. He does not recall who his echocardiograph tech is. Related Data Home Medications Medication Instructions Recorded Confirmed amlodipine 5 mg tablet 5 mg PO DAILY 05/10/21 05/10/21 aspirin 81 mg tablet,delayed 81 mg PO DAILY 05/10/21 05/10/21 release atorvastatin 20 mg tablet 20 mg PO BEDTIME 05/10/21 05/10/21 carvedilol 12.5 mg tablet 12.5 mg PO BEDTIME 05/10/21 05/10/21 docusate sodium 100 mg capsule 100 mg PO BID 05/10/21 05/10/21 duloxetine 20 mg capsule,delayed 20 mg PO DAILY 05/10/21 05/10/21 release ergocalciferol (vitamin D2) 1,250 0 mcg PO 05/10/21 05/10/21 mcg (50,000 unit) capsule (Vitamin D2) famotidine 40 mg tablet 40 mg PO DAILY 05/10/21 05/10/21 fluticasone propionate 50 1 spray INTRANASAL DAILY 05/10/21 05/10/21 mcg/actuation nasal spray,suspension folic acid 1 mg tablet 1 mg PO QAM 05/10/21 05/10/21 gabapentin 100 mg capsule 200 mg PO 05/10/21 05/10/21 lorazepam 1 mg tablet 1.5 mg PO DAILY PRN 05/10/21 05/10/21 methocarbamol 750 mg tablet 750 mg PO BID 05/10/21 05/10/21 montelukast 10 mg tablet 10 mg PO DAILY 05/10/21 05/10/21 ropinirole 0.25 mg tablet 0.25 mg PO BID 05/10/21 05/10/21 vitamin B complex and vitamin C 1 cap PO QAM 05/10/21 05/10/21 no.20-folic acid 1 mg capsule (Triphrocaps) Previous Rx's Medication Instructions Recorded benzonatate 100 mg capsule 100 mg PO TID PRN #18 cap 02/22/21 (Tessalon Perles) oxycodone-acetaminophen 5 mg-325 1 tab PO TID PRN #9 tab 02/22/21 mg tablet (Percocet) Allergies Allergy/AdvReac Type Severity Reaction Status Date / Time iodine [IODINE] Allergy Severe THROAT Verified 03/01/21 00:38 SWELLING iron [IRON] Allergy Unknown HOT Verified 03/01/21 00:38 FEELING, ANXIETY, SOB,M TACHYCARDIA shellfish derived Allergy Unknown UNKNOWN Verified 03/01/21 00:38 [SHELLFISH DERIVED] Benadryl Allergy Unknown hyperactive Uncoded 06/18/18 00:00 Review of Systems Constitutional: Comments: No fevers. General weakness. Cardiovascular: Comments: No chest pain. Respiratory: Comments: Dyspnea. Gastrointestinal: Comments: Nausea without abdominal pain or vomiting Musculoskeletal: Comments: Right arm pain and swelling secondary to hematoma in attempt to dialysis Integumentary/Breasts: Comments: Ecchymosis right arm Neurologic: Comments: No weakness numbness or paresthesias. No right hand pain PMFSH Past Medical History Medical History (HFpEF) heart failure with preserved ejection fraction Asthma Dialysis patient HTN (hypertension) Social History Social History Alcohol intake: never Patient Tobacco Use Status: Never used Tobacco Advance Directives: No Advance Directives Information Provided: Yes Current occupational status: disabled Current occupation: rt handed Physical Exam Vital Signs: Vital Signs: Last Vital Signs Temp 97.8 F 08/03/21 15:05 Pulse 96 08/03/21 15:05 Resp 20 08/03/21 15:05 BP 160/87 H 08/03/21 15:05 Pulse Ox 95 08/03/21 15:05 Body Mass Index 52.4 Const: Other: Awake alert. Appears uncomfortable Resp: Other: Diminished bilaterally. Rales at the bases. Respiratory rate of 20 with a saturation of 95%. He is currently on his own home and CPAP machine. Cardio: Other: Mildly tachycardic. No murmurs rubs or gallops GI: Other: Soft nontender nondistended Skin: Other: Ecchymosis over right forearm. Positive hematoma near shunt site. Skin is not tense. Neuro: Other: Distal circulation is intact in right hand. Extrem: Other: Full range of motion of all 5 fingers. No discomfort with passive or active range of motion of the right hand or wrist. Course Course Course Narrative: Missed dialysis Fluid overload Hyperkalemia No evidence for compartment syndrome in his right arm Shunt failure Workup in emergency department shows potassium of 7.6. Chest x-ray does show some pulmonary edema. Case discussed with Dr. Trujillo, nephrology. Agrees patient needs urgent dialysis. Will hospitalize for stat dialysis. In the meantime treated with calcium chloride IV, albuterol inhaled, Kayexalate p.o.. Medical Decision Making Lab Data Result diagrams: 08/03/21 14:29 08/03/21 14:29 Labs: Lab Results 08/03/21 08/03/21 Range/Units 14:29 14:29 WBC 10.0 (4.8-10.8) X10*3/uL RBC 3.79 L (4.60-5.80) X10*6/uL Hgb 11.7 L (14.0-18.0) g/dl Hct 36.9 L (42.0-52.0) % MCV 97.4 (80.0-98.0) fL MCH 30.9 (27.0-33.0) pg MCHC 31.7 (31.0-36.0) g/dl RDW 15.7 (11.0-16.0) % Plt Count 271 (160-400) X10*3/uL MPV 10.2 (9.4-12.4) fL Immature Gran % (Auto) 0.4 (0.0-0.4) % Neut % (Auto) 77.7 H (45-73) % Lymph % (Auto) 13.4 L (20-40) % [place] % (Auto) 6.3 (2-11) % Eos % (Auto) 1.9 (0-4) % Baso % (Auto) 0.3 (0-2) % Lymph # (Auto) 1.3 (1.2-4.9) X10*3/uL [place] # (Auto) 0.6 (0.1-1.2) X10*3/uL Eos # (Auto) 0.2 (0.0-0.4) X10*3/uL Baso # (Auto) 0.0 (0.0-0.2) X10*3/uL Abs Immat Gran (auto) 0.04 H (0.00-0.03) X10*3/uL Absolute Neuts (auto) 7.8 (2.0-8.3) x10*3/uL Absolute Nucleated RBC 0.000 (0.0-0.012) X10*3/uL Nucleated RBC % (auto) 0.0 (0.0-0.2) /100WBC Sodium 135 (135-145) mmol/L Potassium 7.6 H* D (3.3-5.1) mmol/L Chloride 96 (96-108) mmol/L Carbon Dioxide 20 L (22-29) mmol/L Anion Gap 27 H (12-20) BUN 99 H* (9-16) mg/dL Creatinine 14.72 H* (0.5-1.4) mg/dL Estim Creat Clear Calc 9.3 Estimated GFR 4 Random Glucose 95 (60-115) mg/dL Calcium 7.7 L D (8.4-10.2) mg/dL Critical Care Time Critical Care Time Critical Care Time: Yes Total Critical Care Time: 90 Attestation: Critical care time secondary to pulmonary edema and severe hyper kalemia in the setting of end-stage renal disease with missed dialysis. Critical care time is outside of any separately billable procedures Discharge Plan Discharge Patient Disposition: Admitted As Inpatient Prescriptions: No Action benzonatate [Tessalon Perles] 100 mg capsule 100 mg PO TID PRN (Reason: cough) Qty: 18 RF: 0 oxycodone-acetaminophen [Percocet] 5-325 mg tablet 1 tab PO TID PRN (Reason: pain) Qty: 9 RF: 0 duloxetine 20 mg capsule,delayed release(DR/EC) 20 mg PO DAILY RF: 0 lorazepam 1 mg tablet 1.5 mg PO DAILY PRN (Reason: panic attack) RF: 0 aspirin 81 mg tablet,delayed release (DR/EC) 81 mg PO DAILY RF: 0 fluticasone propionate 50 mcg/actuation spray,suspension 1 spray intranasal DAILY RF: 0 ergocalciferol (vitamin D2) [Vitamin D2] 1,250 mcg (50,000 unit) capsule 0 mcg PO RF: 0 docusate sodium 100 mg capsule 100 mg PO BID RF: 0 ropinirole 0.25 mg tablet 0.25 mg PO BID RF: 0 famotidine 40 mg tablet 40 mg PO DAILY RF: 0 methocarbamol 750 mg tablet 750 mg PO BID RF: 0 Triphrocaps 1 mg capsule 1 cap PO QAM RF: 0 atorvastatin 20 mg tablet 20 mg PO BEDTIME RF: 0 gabapentin 100 mg capsule 200 mg PO RF: 0 montelukast 10 mg tablet 10 mg PO DAILY RF: 0 folic acid 1 mg tablet 1 mg PO QAM RF: 0 amlodipine 5 mg tablet 5 mg PO DAILY RF: 0 carvedilol 12.5 mg tablet 12.5 mg PO BEDTIME RF: 0
[2021-08-03] MEDS: Calcium Chloride 1 GM/10 ML SYRINGE IVPUSH (15:40)
[2021-08-03] MEDS: Sodium Polystyrene Sulfon/Sorb 15 GM/60 ML ORAL.SUSP 30 GM PO (15:40)
[2021-08-03] MEDS: ondansetron HCL 4 MG/2 ML VIAL IVPUSH (15:40)
--- NOTE | 2021-08-03 15:44 | PC.NURSE ---
patient a&ox3, pt has own cpap on that was brought from home, iv inserted, pt medicated per order, ekg performed, monitor and storage bin tender applied- nsr 80s, rt av fistula + bruit/thrill, will continue to monitor.
--- NOTE | 2021-08-03 15:53 | PC.NURSE ---
dialysis nurse came to see patient and evaluate arm, she is going to hopefully bring patient to dialysis in about 1/2 hr
[2021-08-03] MEDS: Albuterol Sulfate (0.083%) 2.5 MG/3 ML VIAL.NEB INHALE (15:59)
[2021-08-03 16:00] VITALS: PULSE 92; O2SAT 95
[2021-08-03 16:44] LABS: COVID-19 Test Negative (Negative)
--- NOTE | 2021-08-03 16:48 | PC.NURSE ---
pt transported to dialysis
--- NOTE | 2021-08-03 18:38 | P.HPHOSP_ITS ---
History of Present Illness Date of Service: 08/03/21 Attending physician on admission: Sarahy Muller Chief Complaint: Shortness of breath 46-year-old gentleman with past medical history significant for grade 2 diastolic dysfunction related to hypertensive heart disease, end-stage renal disease on hemodialysis Monday and Monday, morbid obesity on CPAP for obesity hypoventilation syndrome, came to [facility] since he was not feeling good with shortness of breath unable to eat and drink since he felt he is fluid overloaded he denies any chest pain, no palpitation patient went for hemodialysis this morning but was un able to undergo dialysis since his right arm fistula did not function and he noted to have significant swelling and bruising therefore he was sent back to have hemodialysis tomorrow per since he became short of breath he return to the emergency room and noted to have an elevated potassium of 7.6, a creatinine of 14.72 with an anion gap of 27 with bicarb of 20, case was discussed with patient's Nephrology and they recommended urgent hemodialysis patient treated in the emergency room with Kayexalate 30 g, ventolin inhaler and calcium chloride, patient is using his CPAP therefore most of the history is obtained from patient's daughter at bedside. Review of Systems Review of Systems: General no headache, no dizziness, no fever chills. CVS no chest pain, no palpitation. Respiratory no cough, shortness of breath Gastrointestinal no nausea, no vomiting, no abdominal pain Musculoskeletal no pain Yes all other systems are reviewed and are negative [facility] Medical History (HFpEF) heart failure with preserved ejection fraction Asthma Dialysis patient HTN (hypertension) Pertinent family history: No family history of premature coronary artery disease Social History Household Members: Family Housing: Apartment Do you presently have visiting nurse or other home services: Yes ([employer] - dtr) Alcohol intake: never Patient Tobacco Use Status: Never used Tobacco Use of substances other than those prescribed or required for medical reasons: No Currently Displaying Signs/Symptoms of Drug Intoxication Withdrawal: No Have you been hit, kicked, punched, or otherwise hurt by someone within the past year? If so, by whom?: No Do you feel safe in your current relationship?: No Current Relationship Is there a partner from a previous relationship who is making you feel unsafe now?: No Are you made to feel afraid or neglected: No Advance Directives: No Advance Directives Information Provided: Yes Do you have thoughts of harming others: None Do you have a plan to hurt others: No Plan Recently lost weight without trying: No service: No Current occupational status: disabled Current occupation: rt handed Meds Allergies Allergy/AdvReac Type Severity Reaction Status Date / Time iodine [IODINE] Allergy Severe THROAT Verified 03/01/21 00:38 SWELLING iron [IRON] Allergy Unknown HOT Verified 03/01/21 00:38 FEELING, ANXIETY, SOB,M TACHYCARDIA shellfish derived Allergy Unknown UNKNOWN Verified 03/01/21 00:38 [SHELLFISH DERIVED] Benadryl Allergy Unknown hyperactive Uncoded 06/18/18 00:00 Active Medications: Current Medications Acetaminophen (Acetaminophen 325 Mg Tablet) 650 mg PO Q6H PRN PRN Reason: Pain, Mild (Pain Scale 1-3) Amlodipine Besylate (Amlodipine Besylate 10 Mg Tablet) 10 mg PO DAILY [facility]; Protocol Aspirin (Aspirin Enteric Coated 81 Mg Tablet.) 81 mg PO DAILY [facility] Atorvastatin Calcium (Atorvastatin Calcium 20 Mg Tablet) 20 mg PO BEDTIME [facility] Carvedilol (Carvedilol 12.5 Mg Tablet) 12.5 mg PO BEDTIME [facility]; Protocol Docusate Sodium (Docusate Sodium 100 Mg Capsule) 100 mg PO BID [facility] Duloxetine HCl (Duloxetine Hcl 30 Mg Capsule.) 30 mg PO DAILY [facility] Ergocalciferol (Ergocalciferol (Vitamin D2) 1,250 Mcg Capsule) 1,250 mcg PO Q7D [facility] Famotidine (Famotidine 20 Mg Tablet) 40 mg PO DAILY [facility] Fluticasone Propionate (Fluticasone Propionate Nasal 16 Gm [place]) 1 spray NOSTRIL-B DAILY [facility] Folic Acid (Folic Acid 1 Mg Tablet) 1 mg PO QAM [facility] Gabapentin (Gabapentin 100 Mg Capsule) 200 mg PO BID [facility] Lorazepam (Lorazepam 1 Mg Tablet) 1 mg PO DAILY PRN PRN Reason: panic attack Melatonin (Melatonin 3 Mg Tablet) 6 mg PO BEDTIME PRN PRN Reason: Insomnia Montelukast Sodium (Montelukast Sodium 10 Mg Tablet) 10 mg PO DAILY [facility] Ondansetron HCl (Ondansetron Hcl 4 Mg/2 Ml Vial) 4 mg IVPUSH Q8H PRN PRN Reason: Nausea and Vomiting Pharmacy Consult (Consult Rx Perform Med Rec) 1 each MISCELLANE ONCE PRN PRN Reason: Consult order Ropinirole HCl (Ropinirole Hcl 0.25 Mg Tablet) 0.25 mg PO BID [facility] Sodium Chloride (0.9 % Sodium Chloride Flush 3 Ml Syringe) 3 ml IVFLUSH QSHIFT [facility] Home Medications Medication Instructions Recorded Confirmed Last Taken Type aspirin 81 mg tablet,delayed 81 mg PO DAILY 05/10/21 08/03/21 08/03/21 History release atorvastatin 20 mg tablet 20 mg PO BEDTIME 05/10/21 08/03/21 08/02/21 History carvedilol 12.5 mg tablet 12.5 mg PO BEDTIME 05/10/21 08/03/21 Unknown History docusate sodium 100 mg capsule 100 mg PO BID 05/10/21 08/03/21 08/03/21 History ergocalciferol (vitamin D2) 1,250 1,250 mcg PO Q7D 05/10/21 08/03/21 Unknown History mcg (50,000 unit) capsule (Vitamin D2) famotidine 40 mg tablet 40 mg PO DAILY 05/10/21 08/03/21 08/03/21 History fluticasone propionate 50 1 spray INTRANASAL DAILY 05/10/21 08/03/21 08/03/21 History mcg/actuation nasal spray,suspension folic acid 1 mg tablet 1 mg PO QAM 05/10/21 08/03/21 08/03/21 History gabapentin 100 mg capsule 200 mg PO BID 05/10/21 08/03/21 08/03/21 History lorazepam 1 mg tablet 1 mg PO DAILY PRN 05/10/21 08/03/21 Unknown History montelukast 10 mg tablet 10 mg PO DAILY 05/10/21 08/03/21 08/03/21 History ropinirole 0.25 mg tablet 0.25 mg PO BID 05/10/21 08/03/21 08/03/21 History amlodipine 10 mg tablet 1 tab PO DAILY 08/03/21 08/03/21 08/03/21 History duloxetine 30 mg capsule,delayed 1 cap PO DAILY 08/03/21 08/03/21 08/03/21 History release methylcellulose (laxative) 500 mg 500 mg PO DAILY 08/03/21 08/03/21 08/03/21 History tablet (Fiber Laxative (methylcellulose)) Physical Exam Vital Signs and Narrative: Vital Signs: Last Vital Signs Temp 97.8 F 08/03/21 15:05 Pulse 92 08/03/21 16:00 Resp 20 08/03/21 15:05 BP 160/87 H 08/03/21 15:05 Pulse Ox 95 08/03/21 15:05 Body Mass Index 52.4 General awake alert x3, no acute distress Neck supple, no JVD. CVS regular rate rhythm, Respiratory lungs diminished breath sounds,no respiratory distress, no wheeze, no rhonchi. Gastrointestinal abdomen soft, nontender, bowel sounds audible,no guarding , no rigidity. Extremities no edema. Neuro nonfocal Skin no rash Psych appropriate affect Musculoskeletal no deformity Results Labs CBC and Chem 7: 08/03/21 14:29 08/04/21 05:46 Labs: Laboratory Results - last 24 hr 08/03/21 08/03/21 08/03/21 14:29 14:29 16:25 MCV 97.4 MCH 30.9 MCHC 31.7 RDW 15.7 Plt Count 271 MPV 10.2 Immature Gran % (Auto) 0.4 Neut % (Auto) 77.7 H Lymph % (Auto) 13.4 L [place] % (Auto) 6.3 Eos % (Auto) 1.9 Baso % (Auto) 0.3 Lymph # (Auto) 1.3 [place] # (Auto) 0.6 Eos # (Auto) 0.2 Baso # (Auto) 0.0 Abs Immat Gran (auto) 0.04 H Absolute Neuts (auto) 7.8 Absolute Nucleated RBC 0.000 Nucleated RBC % (auto) 0.0 Anion Gap 27 H Estim Creat Clear Calc 9.3 Estimated GFR 4 Random Glucose 95 Calcium 7.7 L D COVID-19 (NESTOR) Negative COVID-19 Clin Com See Note Imaging Radiologist's Impressions: Impressions Chest X-Ray 08/03/21 14:55 IMPRESSION: Prominent patchy reticular markings in both lower lobes suspicious for underlying low-grade inflammatory process. Assessment and Plan (1) Acute hyperkalemia: Status: Acute (2) End stage chronic kidney disease: Status: Acute (3) HTN (hypertension): Status: Acute (4) (HFpEF) heart failure with preserved ejection fraction: Status: Acute 46-year-old gentleman with past medical history of end-stage renal disease on hemodialysis Monday and Monday, history of obstructive sleep apnea on CPAP, hypertension chronic heart failure with preserved EF presented to [facility] since he was unable to undergo hemodialysis this a.m. due to malfunctioning of right arm fistula, came to [facility] due to shortness of breath and noted to have significant hyperkalemia with an anion gap acidosis End-stage renal disease with hyperkalemia and anion gap metabolic acidosis Since did not undergo go routine hemodialysis today, Patient will undergo urgent hemodialysis arranged by Nephrology Will follow BMP closely, treated in the emergency room with Kayexalate, and albuterol Fluid overload likely due to missing hemodialysis, chest x-ray showed no pulmonary edema, no evidence of heart failure Hemodialysis as above Chest x-ray showed prominent patchy reticular markings in both lower lobe suspicious for low-grade inflammatory process, patient denies cough, no fever chills, has normal WBC follow clinical course History of grade 2 diastolic dysfunction with preserved EF Obstructive sleep apnea Will place on CPAP History of hypertension Continue home antihypertensive follow clinical course Morbid obesity Strongly recommend to follow low-calorie diet and lose weight since contributing to obstructive sleep apnea hypertension DVT prophylaxis with heparin subQ Quality Stroke Does the patient have a stroke diagnosis?: No VTE Prior VTE?: No VTE Risk Level:: Medical - moderate - high VTE Device Contraindication: N/A - Device Ordered VTE Drug Contraindication: Treatment Not Indicated
[2021-08-03 20:00] VITALS: BP 184/100; PULSE 101; RESP 18; TEMP 36.6; O2SAT 94
[2021-08-03 21:00] VITALS: BMI 52.0
[2021-08-03] MEDS: Gabapentin 100 MG CAPSULE 200 MG PO (21:25)
[2021-08-03] MEDS: Heparin Sodium,Porcine 5,000 UNIT/ML VIAL 5000 UNIT SUBCUT (21:25)
[2021-08-03 21:26] VITALS: BP 170/91; PULSE 97
[2021-08-03] MEDS: rOPINIRole HCL 0.25 MG TABLET PO (21:26)
[2021-08-03] MEDS: Docusate Sodium 100 MG CAPSULE PO (21:26)
[2021-08-03] MEDS: Atorvastatin Calcium 20 MG TABLET PO (21:26)
[2021-08-03] MEDS: carvediloL 12.5 MG TABLET PO (21:26)
[2021-08-03] MEDS: 0.9 % Sodium Chloride Flush 3 ML SYRINGE IVFLUSH (21:28)
[2021-08-03 23:24] VITALS: BP 165/78; PULSE 105; RESP 22; TEMP 36.7; O2SAT 95
[2021-08-04 03:38] VITALS: BP 122/59; PULSE 97; RESP 20; TEMP 36.7; O2SAT 96
[2021-08-04] MEDS: Heparin Sodium,Porcine 5,000 UNIT/ML VIAL 5000 UNIT SUBCUT ×2 (04:24→12:45)
[2021-08-04 07:18] LABS: Anion Gap 27 (12-20); Blood Urea Nitrogen 70 mg/dL (9-16); Calcium 8.1 mg/dL (8.4-10.2); Carbon Dioxide 18 mmol/L (22-29); Chloride 98 mmol/L (96-108); Creatinine Clr Calc Pharmacy 11.2; Estimated Glomerular Filt Rate 4; Glucose Random 69 mg/dL (60-115); Potassium 5.2 mmol/L (3.3-5.1); Sodium 138 mmol/L (135-145)
[2021-08-04 07:31] VITALS: BP 155/81; PULSE 101; RESP 20; TEMP 36.7; O2SAT 99
--- NOTE | 2021-08-04 09:47 | P.CONNP_ITS ---
History of Present Illness Reason for Consult Consult date: 08/04/21 Reason for consult: Hyperkalemia Chief Complaint Chief complaint: Hyperkalemia History of Present Illness Narrative: 46-year-old gentleman with end-stage renal disease on hemodialysis Monday and Monday, presented to [facility] since he was not feeling well. He had worsening dyspnea. He went for hemodialysis yesterday morning but was unable to undergo dialysis since he had infiltration on his right arm fistula. He was meant to have HD as outpatient today but presented to ER with worsening SOB and was found to have potassium of 7.6. Nephrology was consulted to assist in his clinical care during his current hospital stay. Review of Systems Review of Systems Yes all other systems are reviewed and are negative [facility] Past Medical History Medical History (HFpEF) heart failure with preserved ejection fraction Asthma Dialysis patient HTN (hypertension) Social History Social History Household Members: Family Housing: Apartment Do you presently have visiting nurse or other home services: Yes ([employer] - dtr) Alcohol intake: never Patient Tobacco Use Status: Never used Tobacco Use of substances other than those prescribed or required for medical reasons: No Currently Displaying Signs/Symptoms of Drug Intoxication Withdrawal: No Have you been hit, kicked, punched, or otherwise hurt by someone within the past year? If so, by whom?: No Do you feel safe in your current relationship?: No Current Relationship Is there a partner from a previous relationship who is making you feel unsafe now?: No Are you made to feel afraid or neglected: No Advance Directives: No Advance Directives Information Provided: Yes Do you have thoughts of harming others: None Do you have a plan to hurt others: No Plan Recently lost weight without trying: No Current occupational status: disabled Current occupation: rt handed Meds Allergies Allergy/AdvReac Type Severity Reaction Status Date / Time iodine [IODINE] Allergy Severe THROAT Verified 03/01/21 00:38 SWELLING iron [IRON] Allergy Unknown HOT Verified 03/01/21 00:38 FEELING, ANXIETY, SOB,M TACHYCARDIA shellfish derived Allergy Unknown UNKNOWN Verified 03/01/21 00:38 [SHELLFISH DERIVED] Benadryl Allergy Unknown hyperactive Uncoded 06/18/18 00:00 Active Medications: Current Medications Acetaminophen (Acetaminophen 325 Mg Tablet) 650 mg PO Q6H PRN PRN Reason: Pain, Mild (Pain Scale 1-3) Amlodipine Besylate (Amlodipine Besylate 10 Mg Tablet) 10 mg PO DAILY [facility]; Protocol Aspirin (Aspirin Enteric Coated 81 Mg Tablet.) 81 mg PO DAILY [facility] Atorvastatin Calcium (Atorvastatin Calcium 20 Mg Tablet) 20 mg PO BEDTIME [facility] Last Admin: 08/03/21 21:26 Dose: 20 mg Documented by: Carvedilol (Carvedilol 12.5 Mg Tablet) 12.5 mg PO BEDTIME [facility]; Protocol Last Admin: 08/03/21 21:26 Dose: 12.5 mg Documented by: Docusate Sodium (Docusate Sodium 100 Mg Capsule) 100 mg PO BID [facility] Last Admin: 08/03/21 21:26 Dose: 100 mg Documented by: Duloxetine HCl (Duloxetine Hcl 30 Mg Capsule.) 30 mg PO DAILY [facility] Ergocalciferol (Ergocalciferol (Vitamin D2) 1,250 Mcg Capsule) 1,250 mcg PO Tu@1000 [facility] Famotidine (Famotidine 20 Mg Tablet) 20 mg PO DAILY [facility] Fluticasone Propionate (Fluticasone Propionate Nasal 16 Gm [place]) 1 spray NOSTRIL-B DAILY [facility] Folic Acid (Folic Acid 1 Mg Tablet) 1 mg PO DAILY [facility] Gabapentin (Gabapentin 100 Mg Capsule) 200 mg PO BID [facility] Last Admin: 08/03/21 21:25 Dose: 200 mg Documented by: Heparin Sodium (Porcine) (Heparin Sodium,Porcine 5,000 Unit/Ml Vial) 5,000 unit SUBCUT Q8H [facility] Last Admin: 08/04/21 04:24 Dose: 5,000 unit Documented by: Lorazepam (Lorazepam 1 Mg Tablet) 1 mg PO DAILY PRN PRN Reason: panic attack Melatonin (Melatonin 3 Mg Tablet) 6 mg PO BEDTIME PRN PRN Reason: Insomnia Montelukast Sodium (Montelukast Sodium 10 Mg Tablet) 10 mg PO DAILY [facility] Ondansetron HCl (Ondansetron Hcl 4 Mg/2 Ml Vial) 4 mg IVPUSH Q8H PRN PRN Reason: Nausea and Vomiting Pharmacy Consult (Consult Rx Perform Med Rec) 1 each MISCELLANE ONCE PRN PRN Reason: Consult order Ropinirole HCl (Ropinirole Hcl 0.25 Mg Tablet) 0.25 mg PO BID [facility] Last Admin: 08/03/21 21:26 Dose: 0.25 mg Documented by: Sodium Chloride (0.9 % Sodium Chloride Flush 3 Ml Syringe) 3 ml IVFLUSH QSHIFT [facility] Last Admin: 08/03/21 21:28 Dose: 3 ml Documented by: Home Medications Medication Instructions Recorded Confirmed Last Taken Type aspirin 81 mg tablet,delayed 81 mg PO DAILY 05/10/21 08/03/21 08/03/21 History release atorvastatin 20 mg tablet 20 mg PO BEDTIME 05/10/21 08/03/21 08/02/21 History carvedilol 12.5 mg tablet 12.5 mg PO BEDTIME 05/10/21 08/03/21 Unknown History docusate sodium 100 mg capsule 100 mg PO BID 05/10/21 08/03/21 08/03/21 History ergocalciferol (vitamin D2) 1,250 1,250 mcg PO Q7D 05/10/21 08/03/21 Unknown History mcg (50,000 unit) capsule (Vitamin D2) famotidine 40 mg tablet 40 mg PO DAILY 05/10/21 08/03/21 08/03/21 History fluticasone propionate 50 1 spray INTRANASAL DAILY 05/10/21 08/03/21 08/03/21 History mcg/actuation nasal spray,suspension folic acid 1 mg tablet 1 mg PO QAM 05/10/21 08/03/21 08/03/21 History gabapentin 100 mg capsule 200 mg PO BID 05/10/21 08/03/21 08/03/21 History lorazepam 1 mg tablet 1 mg PO DAILY PRN 05/10/21 08/03/21 Unknown History montelukast 10 mg tablet 10 mg PO DAILY 05/10/21 08/03/21 08/03/21 History ropinirole 0.25 mg tablet 0.25 mg PO BID 05/10/21 08/03/21 08/03/21 History amlodipine 10 mg tablet 1 tab PO DAILY 08/03/21 08/03/21 08/03/21 History duloxetine 30 mg capsule,delayed 1 cap PO DAILY 08/03/21 08/03/21 08/03/21 History release methylcellulose (laxative) 500 mg 500 mg PO DAILY 08/03/21 08/03/21 08/03/21 History tablet (Fiber Laxative (methylcellulose)) Physical Exam Vital Signs: Last Vital Signs Temp 98.0 F 08/04/21 07:31 Pulse 101 H 08/04/21 07:31 Resp 20 08/04/21 07:31 BP 155/81 H 08/04/21 07:31 Pulse Ox 99 08/04/21 07:31 Body Mass Index 52.0 Const General: no acute distress Eyes EOM: EOMs intact bilaterally Neck Neck: Yes supple Resp Auscultation: diminished lung sounds Cardio Rate: regular rate GI Palpation (GI): Soft to palpation Neuro General: moves all extremities Results Lab Results Result Diagrams: 08/03/21 14:29 08/04/21 05:46 Lab results: Chemistry 08/03/21 08/04/21 14:29 05:46 Sodium 135 138 Potassium 7.6 H* D 5.2 H D Carbon Dioxide 20 L 18 L BUN 99 H* 70 H Creatinine 14.72 H* 12.26 H* Calcium 7.7 L D 8.1 L Hematology 08/03/21 14:29 WBC 10.0 Hgb 11.7 L Plt Count 271 Assessment and Plan (1) End stage chronic kidney disease: Status: Acute Usually gets HD on TTS Had Urgent HD yesterday with K of 7.6 AVF functioning well; Low K diet Needs to bring dry weight down on HD Low Na, Low K diet with phosphorus and fluid restriction Phosphorus binders with meals Could receive Kayexalate 30 Gram today Shall arrange outpatient HD follow up if D/Alejandro Procedures Date of Service Date of Service: 08/04/21
[2021-08-04 09:48] VITALS: BP 155/81; PULSE 101
[2021-08-04] MEDS: amLODIPine Besylate 10 MG TABLET PO (09:48)
[2021-08-04] MEDS: DULoxetine HCl 30 MG CAPSULE.DR PO (09:48)
[2021-08-04] MEDS: rOPINIRole HCL 0.25 MG TABLET PO (09:49)
[2021-08-04] MEDS: Gabapentin 100 MG CAPSULE 200 MG PO (09:49)
[2021-08-04] MEDS: Aspirin Enteric Coated 81 MG TABLET.DR PO (09:49)
[2021-08-04] MEDS: Folic Acid 1 MG TABLET PO (09:50)
[2021-08-04] MEDS: Docusate Sodium 100 MG CAPSULE PO (09:50)
[2021-08-04] MEDS: 0.9 % Sodium Chloride Flush 3 ML SYRINGE IVFLUSH (09:51)
[2021-08-04] MEDS: Famotidine 20 MG TABLET PO (09:51)
--- NOTE | 2021-08-04 11:40 | MHC.CM.PN ---
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
[2021-08-04 12:00] VITALS: BP 174/110; PULSE 107; RESP 20; TEMP 36.2; O2SAT 98
--- NOTE | 2021-08-04 12:26 | PM.DS ---
DS: Providers Provider Date of Service: 08/04/21 Date of admission: 08/03/21 16:39 Primary care physician: Debbie Gallardo MD DS: Diagnosis Discharge Diagnosis (1) Acute hyperkalemia: Status: Acute (2) End stage chronic kidney disease: Status: Acute (3) HTN (hypertension): Status: Acute (4) (HFpEF) heart failure with preserved ejection fraction: Status: Acute DS: Summary Hospital Course Hospital Course: Chief Complaint: Shortness of breath 46-year-old gentleman with past medical history significant for grade 2 diastolic dysfunction related to hypertensive heart disease, end-stage renal disease on hemodialysis Monday and Monday, morbid obesity on CPAP for obesity hypoventilation syndrome, came to [facility] since he was not feeling good with shortness of breath unable to eat and drink since he felt he is fluid overloaded he denies any chest pain, no palpitation patient went for hemodialysis this morning but was un able to undergo dialysis since his right arm fistula did not function and he noted to have significant swelling and bruising therefore he was sent back to have hemodialysis tomorrow per since he became short of breath he return to the emergency room and noted to have an elevated potassium of 7.6, a creatinine of 14.72 with an anion gap of 27 with bicarb of 20, case was discussed with patient's Nephrology and they recommended urgent hemodialysis patient treated in the emergency room with Kayexalate 30 g, ventolin inhaler and calcium chloride, patient is using his CPAP therefore most of the history is obtained from patient's daughter at bedside. Hospital course 46-year-old gentleman with past medical history of end-stage renal disease on hemodialysis Monday and Monday, history of obstructive sleep apnea on CPAP, hypertension chronic heart failure with preserved EF presented to [facility] since he was unable to undergo hemodialysis this a.m. due to malfunctioning of right arm fistula, came to [facility] due to shortness of breath and noted to have significant hyperkalemia with an anion gap acidosis, chest x-ray did not show pulmonary edema, patient was urgently taken for hemodialysis symptoms of shortness of breath have resolved potassium improved, therefore patient is being discharged home on all his baseline medication he has been strongly advised to follow low-calorie diet and lose weight, and to follow low salt diet. Time Spent with Patient Time attestation: Total time spent providing and/or coordinating discharge services: Discharge coordination time: Greater than 30 minutes Quality: Stroke Does the patient have a stroke diagnosis?: No Physical Exam Vital Signs: Vital Signs: Last Vital Signs Temp 97.1 F 08/04/21 12:00 Pulse 107 H 08/04/21 12:00 Resp 20 08/04/21 12:00 BP 174/110 H 08/04/21 12:00 Pulse Ox 98 08/04/21 12:00 Body Mass Index 52.0 General awake aler t x3, no acute dis tress Neck? supple , no JVD. CVS? reg ular rate rhythm, Respiratory lungs diminished breath sounds,no respirat ory distress, no w heeze, no rhonchi. Gastrointestinal abdomen soft, nont simran, bowel sound s audible,no guard ing , no rigidity. Extremities no ed felton. Neuro nonfoca l Skin no rash Psy ch appropriate aff ect Musculoskeleta l no deformity DS: Data Data Completed and Pending Labs on day of discharge: Laboratory Results - last 24 hr 08/03/21 08/03/21 08/03/21 14:29 14:29 16:25 WBC 10.0 RBC 3.79 L Hgb 11.7 L Hct 36.9 L MCV 97.4 MCH 30.9 MCHC 31.7 RDW 15.7 Plt Count 271 MPV 10.2 Immature Gran % (Auto) 0.4 Neut % (Auto) 77.7 H Lymph % (Auto) 13.4 L [place] % (Auto) 6.3 Eos % (Auto) 1.9 Baso % (Auto) 0.3 Lymph # (Auto) 1.3 [place] # (Auto) 0.6 Eos # (Auto) 0.2 Baso # (Auto) 0.0 Abs Immat Gran (auto) 0.04 H Absolute Neuts (auto) 7.8 Absolute Nucleated RBC 0.000 Nucleated RBC % (auto) 0.0 Sodium 135 Potassium 7.6 H* D Chloride 96 Carbon Dioxide 20 L Anion Gap 27 H BUN 99 H* Creatinine 14.72 H* Estim Creat Clear Calc 9.3 Estimated GFR 4 Random Glucose 95 Calcium 7.7 L D COVID-19 (NESTOR) Negative COVID-19 Clin Com See Note 08/04/21 05:46 WBC RBC Hgb Hct MCV MCH MCHC RDW Plt Count MPV Immature Gran % (Auto) Neut % (Auto) Lymph % (Auto) [place] % (Auto) Eos % (Auto) Baso % (Auto) Lymph # (Auto) [place] # (Auto) Eos # (Auto) Baso # (Auto) Abs Immat Gran (auto) Absolute Neuts (auto) Absolute Nucleated RBC Nucleated RBC % (auto) Sodium 138 Potassium 5.2 H D Chloride 98 Carbon Dioxide 18 L Anion Gap 27 H BUN 70 H Creatinine 12.26 H* Estim Creat Clear Calc 11.2 Estimated GFR 4 Random Glucose 69 Calcium 8.1 L COVID-19 ([facility]) COVID-19 Clin Com Discharge Plan Discharge Patient Disposition: Home, Self-Care Discharge Diagnosis: Hyperkalemia Referrals: [facility] [Other] - 1 Week Debbie Gallardo MD [Primary Care Provider] - 1 Week Discharge Medications: Continued amlodipine 10 mg tablet 1 tab PO DAILY RF: 0 Fiber Laxative (methylcellulo) 500 mg tablet 500 mg PO DAILY RF: 0 duloxetine 30 mg capsule,delayed release(DR/EC) 1 cap PO DAILY RF: 0 lorazepam 1 mg tablet 1 mg PO DAILY PRN (Reason: panic attack) RF: 0 aspirin 81 mg tablet,delayed release (DR/EC) 81 mg PO DAILY RF: 0 fluticasone propionate 50 mcg/actuation spray,suspension 1 spray intranasal DAILY RF: 0 ergocalciferol (vitamin D2) [Vitamin D2] 1,250 mcg (50,000 unit) capsule 1,250 mcg PO Q7D RF: 0 docusate sodium 100 mg capsule 100 mg PO BID RF: 0 ropinirole 0.25 mg tablet 0.25 mg PO BID RF: 0 famotidine 40 mg tablet 40 mg PO DAILY RF: 0 atorvastatin 20 mg tablet 20 mg PO BEDTIME RF: 0 gabapentin 100 mg capsule 200 mg PO BID RF: 0 montelukast 10 mg tablet 10 mg PO DAILY RF: 0 folic acid 1 mg tablet 1 mg PO QAM RF: 0 carvedilol 12.5 mg tablet 12.5 mg PO BEDTIME RF: 0 Discharge Orders: Discharge Order (Routine); Ordered 08/04/21 Ordered By: Sarahy Muller Diet: low fat, low cholesterol Activity on Discharge: As tolerated Stand Alone Forms: Patient Portal Discharge page Care Plan Goals: Continue hemodialysis 3 times per week, follow low-calorie and low-fat diet, exercise Health Concerns: End-stage renal disease, heart failure continue all prior medications Plan of Treatment: Outpatient follow-up with primary care physician as well as Nephrology, in 1-2 weeks, continue hemodialysis as before Assessment: as above
[2021-08-04] MEDS: Sodium Polystyrene Sulfon/Sorb 15 GM/60 ML ORAL.SUSP 30 GM PO (12:46)
== END 2021-08-04 14:37 | disposition home or self-care (01) | DRG 640 ==
LOC: HO.ED 15:37 → HO.EDOVER 16:44 → HO.IMC 18:12
PROVIDERS: Admitting Provider Hospitalist; Emergency Provider Emergency Medicine; PCP Family Medicine; Visit Provider Hospitalist
DX: E87.70 Fluid overload, unspecified (principal); N18.6 End stage renal disease; I13.2 Hypertensive heart and chronic kidney disease with heart failure and with stage 5 chronic kidney disease, or end stage renal disease; E66.2 Morbid (severe) obesity with alveolar hypoventilation; Z68.43 Body mass index [BMI] 50.0-59.9, adult; I50.32 Chronic diastolic (congestive) heart failure; E87.5 Hyperkalemia; Z91.15 Patient's noncompliance with renal dialysis; Z99.2 Dependence on renal dialysis; Z99.89 Dependence on other enabling machines and devices; Z20.822 Contact with and (suspected) exposure to COVID-19; Z79.51 Long term (current) use of inhaled steroids; Z79.82 Long term (current) use of aspirin; Z79.899 Other long term (current) drug therapy
CPT/HCPCS: 36415; 71046; 80048; 85025; 87635; 90999; 93005; 94640; 96374; 96375; 99284; 99291; 99292; J2405

== ENCOUNTER 2021-10-23 08:37 | Emergency (ER) | payer OTHER, SELFPAY ==
--- NOTE | ~2021-10-23 | CT_ITS ---
EXAMINATION: CT HEAD WITHOUT CONTRAST CLINICAL INFORMATION: Dizziness. COMPARISON: CT of the head done on 02/22/2021 and 08/18/2014. TECHNIQUE: Contiguous axial imaging was performed from the skull base to vertex without intravenous administration of contrast. This CT examination was performed using dose optimization techniques as appropriate, variously including the following: *Automated exposure control *Adjustment of mA and/or kV according to patient size (this includes techniques or standardized protocols for targeted exams where dose is matched to indication/reason for exam; i.e. extremities or head) *Use of iterative reconstruction technique DLP: 940.0 mGy-cm FINDINGS: There is no evidence of acute intracranial hemorrhage or territorial infarction. No abnormal mass effect or midline shift is seen. Freeman to white matter differentiation is well preserved. No extra-axial fluid collections are identified. The ventricles are normal in size. 1.5 cm hypodensity is noted within the right basal ganglia/subinsular white matter (155:5), appear relatively unchanged since 02/22/2021 and appears slightly more pronounced since 08/18/2014, consistent with old lacunar infarction versus prominent varicose Kyle space. . The osseous structures and soft tissues are normal. The mastoid air cells and visualized portions of the paranasal sinuses are well aerated, except for stable mucous retention cyst versus polyp within the left maxillary sinus, unchanged since 08/18/2014.. CT/CT head/brain wo con IMPRESSION: No acute intracranial pathology. No significant change since prior studies dated 02/22/2021 and 08/18/2014.
--- NOTE | ~2021-10-23 | XR_ITS ---
EXAMINATION: XR CHEST CLINICAL INFORMATION: Dizziness with shortness of breath COMPARISON: August 03, 2021 TECHNIQUE: AP portable view of the chest was obtained. FINDINGS: There is no evidence of acute parenchymal disease, pneumothorax, or pleural effusion. Heart normal size. No evidence of pulmonary edema. Right axillary stent seen in place. XR/XR chest 1V IMPRESSION: No acute disease.
[2021-10-23 08:46] VITALS: BP 150/94; PULSE 83; RESP 16; TEMP 36.7; O2SAT 96
[2021-10-23 09:03] VITALS: BP 138/88; BP 150/94; PULSE 83; PULSE 86; RESP 18; O2SAT 98; BMI 51.3
--- NOTE | 2021-10-23 09:34 | ECG_ITS ---
Test Reason : DIZZINESS Blood Pressure : / mmHG Vent. Rate : 084 BPM Atrial Rate : 084 BPM P-R Int : 160 ms QRS Dur : 098 ms QT Int : 392 ms P-R-T Axes : 116 140 140 degrees QTc Int : 463 ms Suspect limb lead reversal, interpretation assumes no reversal Normal sinus rhythm Right axis deviation Pulmonary disease pattern Abnormal ECG When compared with ECG of 03-AUG-2021 15:36, QRS axis Shifted right Referred By: Ramón Weiss Electronically Signed By:EMIGDIO HERNANDEZ
--- NOTE | 2021-10-23 09:43 | ED_ITS ---
HPI - Nausea/Vomiting/Diarrhea General Chief complaint: Nausea/Vomiting/Diarrhea Stated complaint: DIZZY,NAUSEA @ DIALYSIS: 2HRS 10MIN COMPLETE Time Seen by Provider: 10/23/21 09:31 Source: patient and EMS Mode of arrival: EMS Limitations: no limitations History of Present Illness HPI Narrative: this is a 46 years old patient presented to the emergency department via ambulance with the chief complaint of nausea, dizziness since 04:00 . Patient has history of chronic renal failure is on hemodialysis he was dialyzed this morning of 05:30 am he received a 2.5 hour treatment and then was sent to the emergency room for evaluation, he denies chest pain, shortness of breath. His common BD are hypertension CPAP been obesity cardiomyopathy CHF a chronic renal failure secondary to glomerulonephritis MD elicited complaint: nausea and vomiting Onset (ago): hour(s) (6) Description of vomiting: watery Associated abdominal pain: No Exacerbating factors: none Relieving factors: none Related Data Home Medications Medication Instructions Recorded Confirmed aspirin 81 mg tablet,delayed 81 mg PO DAILY 05/10/21 08/03/21 release atorvastatin 20 mg tablet 20 mg PO BEDTIME 05/10/21 08/03/21 carvedilol 12.5 mg tablet 12.5 mg PO BEDTIME 05/10/21 08/03/21 docusate sodium 100 mg capsule 100 mg PO BID 05/10/21 08/03/21 ergocalciferol (vitamin D2) 1,250 mcg PO Q7D 05/10/21 08/03/21 1,250 mcg (50,000 unit) capsule (Vitamin D2) famotidine 40 mg tablet 40 mg PO DAILY 05/10/21 08/03/21 fluticasone propionate 50 1 spray INTRANASAL DAILY 05/10/21 08/03/21 mcg/actuation nasal spray,suspension folic acid 1 mg tablet 1 mg PO QAM 05/10/21 08/03/21 gabapentin 100 mg capsule 200 mg PO BID 05/10/21 08/03/21 lorazepam 1 mg tablet 1 mg PO DAILY PRN 05/10/21 08/03/21 montelukast 10 mg tablet 10 mg PO DAILY 05/10/21 08/03/21 ropinirole 0.25 mg tablet 0.25 mg PO BID 05/10/21 08/03/21 amlodipine 10 mg tablet 1 tab PO DAILY 08/03/21 08/03/21 duloxetine 30 mg 1 cap PO DAILY 08/03/21 08/03/21 capsule,delayed release methylcellulose (laxative) 500 500 mg PO DAILY 08/03/21 08/03/21 mg tablet (Fiber Laxative (methylcellulose)) Allergies Allergy/AdvReac Type Severity Reaction Status Date / Time iodine [IODINE] Allergy Severe THROAT Verified 03/01/21 00:38 SWELLING iron [IRON] Allergy Unknown HOT Verified 03/01/21 00:38 FEELING, ANXIETY, SOB,M TACHYCARDIA shellfish derived Allergy Unknown UNKNOWN Verified 03/01/21 00:38 [SHELLFISH DERIVED] Benadryl Allergy Unknown hyperactive Uncoded 06/18/18 00:00 Review of Systems Verdana 4l Constitutional: Verdana 4d Constitutional: Verdana 4d Verdana 4d Reports no additional constitutional complaints Verdana 4l ENT: Verdana 4d Reports dizziness Verdana 4l Cardiovascular: Verdana 4d Cardiovascular: Verdana 4d Verdana 4d Reports no additional cardiovascular complaints Verdana 4l Gastrointestinal: Verdana 4d Gastrointestinal: Verdana 4d Verdana 4d Reports no additional gastrointestinal complaints Verdana 4l Neurologic: Verdana 4d Reports dizziness PMFSH Past Medical History Medical History (HFpEF) heart failure with preserved ejection fraction Asthma Dialysis patient End stage chronic kidney disease HTN (hypertension) Pulmonary edema Social History Social History Household Members: Family Housing: Apartment Do you presently have visiting nurse or other home services: Yes (CLINICAL INFORMATICS SPECIALIST - dtr) Alcohol intake: never Patient Tobacco Use Status: Never used Tobacco Use of substances other than those prescribed or required for medical reasons: No Advance Directives: No Advance Directives Information Provided: No service: No Current occupational status: disabled Current occupation: rt handed Physical Exam Verdana 4l Vital Signs: Verdana 4d Verdana 4d Vital Signs: Verdana 4d Verdana 4Bd Last Vital Signs Verdana 4d [employer] Clerk New 4d [employer] Clerk New 4d Temp 98.0 F 10/23/21 08:46 [employer] Library Clerk New 4d Pulse 83 10/23/21 09:03 [employer] Library Clerk New 4d Resp 18 10/23/21 09:03 BP 150/94 H 10/23/21 09:03 Pulse Ox 98 10/23/21 09:03 BMI result Body Mass Index 51.3 Const: General: cooperative and anxious Limitations: no limitations HENMT: Head: Yes normal to inspection Face and sinus: Yes normal facial exam Neck: Neck: Yes normal visual inspection and Yes full ROM Chest: Chest palpation & inspection: normal inspection of the chest Resp: Effort & Inspection: normal respiratory effort Auscultation: clear to auscultation bilaterally Cardio: Jugular venous distension: no JVD Rate: regular rate Rhythm: regular rhythm GI: Inspection: Yes normal to inspection Palpation (GI): Soft to palpation, not firm, nontender and no guarding Skin: General skin exam: no rashes or lesions noted Course Reevaluation(s) Reevaluation #1: patient is feeling much better, no dizziness no nausea head CT was negative his blood work shows a chronic elevated high sensitive troponin which is common in dialysis patient. He wants to go home. Reevaluation #2: STILL ASYMPTOMATIC AMBULATING W/O PROBLEMS,SPOKE WITH PROJECT CONTROL OFFICER dR YENY GRAYSON TO D/C HOME MDM - Nausea/Vomiting/Diarrhea Lab Data Result diagrams: 10/23/21 09:59 10/23/21 09:58 Labs: Lab Results 10/23/21 10/23/21 10/23/21 Range/Units 09:58 09:58 09:58 WBC (4.8-10.8) X10*3/uL RBC (4.60-5.80) X10*6/uL Hgb (14.0-18.0) g/dl Hct (42.0-52.0) % MCV (80.0-98.0) fL MCH (27.0-33.0) pg MCHC (31.0-36.0) g/dl RDW (11.0-16.0) % Plt Count (160-400) X10*3/uL MPV (9.4-12.4) fL Immature Gran % (Auto) (0.0-0.4) % Neut % (Auto) (45-73) % Lymph % (Auto) (20-40) % [place] % (Auto) (2-11) % Eos % (Auto) (0-4) % Baso % (Auto) (0-2) % Lymph # (Auto) (1.2-4.9) X10*3/uL [place] # (Auto) (0.1-1.2) X10*3/uL Eos # (Auto) (0.0-0.4) X10*3/uL Baso # (Auto) (0.0-0.2) X10*3/uL Abs Immat Gran (auto) (0.00-0.03) X10*3/uL Absolute Neuts (auto) (2.0-8.3) x10*3/uL Absolute Nucleated RBC (0.0-0.012) X10*3/uL Nucleated RBC % (auto) (0.0-0.2) /100WBC PT 12.9 (9.9-13.0) SEC INR 1.1 (0.9-1.1) APTT 29.2 (24.1-38.0) SEC Sodium 142 (135-145) mmol/L Potassium 4.4 (3.3-5.1) mmol/L Chloride 96 (96-108) mmol/L Carbon Dioxide 33 H (22-29) mmol/L Anion Gap 17 (12-20) BUN 43 H (9-16) mg/dL Creatinine 10.20 H* (0.5-1.4) mg/dL Estim Creat Clear Calc 13.3 Estimated GFR 5 Random Glucose 104 D (60-115) mg/dL Calcium 10.8 H D (8.4-10.2) mg/dL Total Bilirubin 0.6 (0.0-1.0) mg/dL AST 18 D (5-37) U/L ALT 14 (0-40) U/L Alkaline Phosphatase 88 D (39-117) U/L Troponin I High Sens 92.3 H (<3.5-35.0) ng/L Total Protein 7.7 (6.5-8.0) g/dL Albumin 4.2 (3.5-5.0) g/dL 10/23/21 Range/Units 09:59 WBC 7.9 (4.8-10.8) X10*3/uL RBC 4.34 L (4.60-5.80) X10*6/uL Hgb 13.2 L (14.0-18.0) g/dl Hct 41.1 L (42.0-52.0) % MCV 94.7 (80.0-98.0) fL MCH 30.4 (27.0-33.0) pg MCHC 32.1 (31.0-36.0) g/dl RDW 15.7 (11.0-16.0) % Plt Count 248 (160-400) X10*3/uL MPV 10.6 (9.4-12.4) fL Immature Gran % (Auto) 0.4 (0.0-0.4) % Neut % (Auto) 76.5 H (45-73) % Lymph % (Auto) 14.6 L (20-40) % [place] % (Auto) 5.8 (2-11) % Eos % (Auto) 2.4 (0-4) % Baso % (Auto) 0.3 (0-2) % Lymph # (Auto) 1.2 (1.2-4.9) X10*3/uL [place] # (Auto) 0.5 (0.1-1.2) X10*3/uL Eos # (Auto) 0.2 (0.0-0.4) X10*3/uL Baso # (Auto) 0.0 (0.0-0.2) X10*3/uL Abs Immat Gran (auto) 0.03 (0.00-0.03) X10*3/uL Absolute Neuts (auto) 6.1 (2.0-8.3) x10*3/uL Absolute Nucleated RBC 0.000 (0.0-0.012) X10*3/uL Nucleated RBC % (auto) 0.0 (0.0-0.2) /100WBC PT (9.9-13.0) SEC INR (0.9-1.1) APTT (24.1-38.0) SEC Sodium (135-145) mmol/L Potassium (3.3-5.1) mmol/L Chloride (96-108) mmol/L Carbon Dioxide (22-29) mmol/L Anion Gap (12-20) BUN (9-16) mg/dL Creatinine (0.5-1.4) mg/dL Estim Creat Clear Calc Estimated GFR Random Glucose (60-115) mg/dL Calcium (8.4-10.2) mg/dL Total Bilirubin (0.0-1.0) mg/dL AST (5-37) U/L ALT (0-40) U/L Alkaline Phosphatase (39-117) U/L Troponin I High Sens (<3.5-35.0) ng/L Total Protein (6.5-8.0) g/dL Albumin (3.5-5.0) g/dL Imaging Data CT scan - head: Radiologist's impression: FINDINGS: There is no evidence of acute intracranial hemorrhage or territorial infarction. No abnormal mass effect or midline shift is seen. Freeman to white matter differentiation is well preserved. No extra-axial fluid collections are identified. The ventricles are normal in size. 1.5 cm hypodensity is noted within the right basal ganglia/subinsular white matter (155:5), appear relatively unchanged since 02/22/2021 and appears slightly more pronounced since 08/18/2014, consistent with old lacunar infarction versus prominent varicose Kyle space. . The osseous structures and soft tissues are normal. The mastoid air cells and visualized portions of the paranasal sinuses are well aerated, except for stable mucous retention cyst versus polyp within the left maxillary sinus, unchanged since 08/18/2014.. ? CT/CT head/brain wo con IMPRESSION: No acute intracranial pathology. No significant change since prior studies dated 02/22/2021 and 08/18/2014. Dictated By: HARESH JACK MD Signed By: <Electronically signed by HARESH JACK MD in OV> 10/23/21 1040 Chest x-ray: Radiologist's impression: CLINICAL INFORMATION: Dizziness with shortness of breath COMPARISON: August 03, 2021 TECHNIQUE: AP portable view of the chest was obtained. FINDINGS: There is no evidence of acute parenchymal disease, pneumothorax, or pleural effusion. Heart normal size. No evidence of pulmonary edema. Right axillary stent seen in place. XR/XR chest 1V IMPRESSION: No acute disease. ? Dictated By: Brice Borges MD Signed By: <Electronically signed by Brice Borges MD in OV> 10/23/21 1037 DD/ 1021 ECG Data Attestation: I personally reviewed and interpreted this ECG as follows: ECG interpretation date: 10/23/21 ECG interpretation time: 11:05 Pacemaker model: NSR 84 no ischemic changes Discharge Plan Discharge Clinical Impression: Dizziness Patient Disposition: Home, Self-Care Instructions: Dizziness (ED) Additional Instructions: Return to the emergency room if you worse, fever vomiting recurrent dizziness Prescriptions: No Action amlodipine 10 mg tablet 1 tab PO DAILY 0RF Fiber Laxative (methylcellulo) 500 mg tablet 500 mg PO DAILY 0RF duloxetine 30 mg capsule,delayed release(DR/EC) 1 cap PO DAILY 0RF lorazepam 1 mg tablet 1 mg PO DAILY PRN (Reason: panic attack) 0RF aspirin 81 mg tablet,delayed release (DR/EC) 81 mg PO DAILY 0RF fluticasone propionate 50 mcg/actuation spray,suspension 1 spray intranasal DAILY 0RF ergocalciferol (vitamin D2) [Vitamin D2] 1,250 mcg (50,000 unit) capsule 1,250 mcg PO Q7D 0RF docusate sodium 100 mg capsule 100 mg PO BID 0RF ropinirole 0.25 mg tablet 0.25 mg PO BID 0RF famotidine 40 mg tablet 40 mg PO DAILY 0RF atorvastatin 20 mg tablet 20 mg PO BEDTIME 0RF gabapentin 100 mg capsule 200 mg PO BID 0RF montelukast 10 mg tablet 10 mg PO DAILY 0RF folic acid 1 mg tablet 1 mg PO QAM 0RF carvedilol 12.5 mg tablet 12.5 mg PO BEDTIME 0RF Referrals: Debbie Gallardo MD [Primary Care Provider] - 2 days
[2021-10-23] MEDS: ondansetron HCL 4 MG/2 ML VIAL IVPUSH (10:02)
[2021-10-23] MEDS: Meclizine HCl 25 MG TABLET PO (10:02)
[2021-10-23 10:07] LABS: MANUAL DIFF FLAG NO
[2021-10-23 10:19] LABS: INTERNATIONAL NORM RATIO 1.1 (0.9-1.1); Prothrombin Time 12.9 SEC (9.9-13.0)
[2021-10-23 10:22] LABS: Partial Thromboplastin Time 29.2 SEC (24.1-38.0)
[2021-10-23 10:39] LABS: Troponin-I High Sensitivity 92.3 ng/L (<3.5-35.0)
[2021-10-23 10:47] LABS: Alanine Aminotransferase 14 U/L (0-40); Albumin Level 4.2 g/dL (3.5-5.0); Alkaline Phosphatase 88 U/L (39-117); Anion Gap 17 (12-20); Aspartate Amino Transferase 18 U/L (5-37); Bilirubin Total 0.6 mg/dL (0.0-1.0); Blood Urea Nitrogen 43 mg/dL (9-16); Calcium 10.8 mg/dL (8.4-10.2); Carbon Dioxide 33 mmol/L (22-29); Chloride 96 mmol/L (96-108); Creatinine Clr Calc Pharmacy 13.3; Estimated Glomerular Filt Rate 5; Glucose Random 104 mg/dL (60-115); Potassium 4.4 mmol/L (3.3-5.1); Sodium 142 mmol/L (135-145); Total Protein 7.7 g/dL (6.5-8.0)
[2021-10-23 11:55] LABS: Basophils Percent Auto 0.3 % (0-2); Eosinophils Absolute Auto 0.2 X10*3/uL (0.0-0.4); Eosinophils Percent Auto 2.4 % (0-4); Hematocrit 41.1 % (42.0-52.0); Hemoglobin 13.2 g/dl (14.0-18.0); Imm Gran Abs Auto 0.03 X10*3/uL (0.00-0.03); Imm Gran Pct Auto 0.4 % (0.0-0.4); Lymphocytes Absolute Auto 1.2 X10*3/uL (1.2-4.9); Lymphocytes Percent Auto 14.6 % (20-40); Mean Corpuscular HGB Conc 32.1 g/dl (31.0-36.0); Mean Corpuscular Hemoglobin 30.4 pg (27.0-33.0); Mean Corpuscular Volume 94.7 fL (80.0-98.0); Mean Platelet Volume 10.6 fL (9.4-12.4); Monocytes Absolute Auto 0.5 X10*3/uL (0.1-1.2); Monocytes Percent Auto 5.8 % (2-11); Neutrophils Absolute Auto 6.1 x10*3/uL (2.0-8.3); Neutrophils Percent Auto 76.5 % (45-73); Platelet Count 248 X10*3/uL (160-400); Red Blood Count 4.34 X10*6/uL (4.60-5.80); Red Cell Distribution Width 15.7 % (11.0-16.0); White Blood Count 7.9 X10*3/uL (4.8-10.8)
== END 2021-10-23 13:16 | disposition home or self-care (01) ==
PROVIDERS: Emergency Provider Emergency Medicine; PCP Family Medicine
DX: R42 Dizziness and giddiness (principal); R11.0 Nausea; I13.2 Hypertensive heart and chronic kidney disease with heart failure and with stage 5 chronic kidney disease, or end stage renal disease; N18.6 End stage renal disease; I50.9 Heart failure, unspecified; Z99.2 Dependence on renal dialysis; Z86.711 Personal history of pulmonary embolism; Z79.82 Long term (current) use of aspirin; Z79.02 Long term (current) use of antithrombotics/antiplatelets
CPT/HCPCS: 36415; 70450; 71045; 80053; 84484; 85025; 85610; 85730; 93005; 96374; 99284; J2405

== ENCOUNTER 2022-04-30 09:11 | Emergency (ER) | payer OTHER, SELFPAY ==
--- NOTE | ~2022-04-30 | XR_ITS ---
EXAMINATION: XR CHEST CLINICAL INFORMATION: Chest pain COMPARISON: Previous chest x-ray October 2021 TECHNIQUE: Frontal view of the chest was obtained. FINDINGS: The cardiac and mediastinal contours are stable. The lungs are clear. There is no pleural effusion or pneumothorax. There are degenerative changes of the spine. There is a stent in the left upper arm. XR/XR chest 1V IMPRESSION: No evidence for acute disease in the chest.
--- NOTE | 2022-04-30 09:13 | ECG_ITS ---
Test Reason : CHEST PAIN Blood Pressure : / mmHG Vent. Rate : 091 BPM Atrial Rate : 091 BPM P-R Int : 150 ms QRS Dur : 086 ms QT Int : 394 ms P-R-T Axes : 056 035 083 degrees QTc Int : 484 ms Normal sinus rhythm Cannot rule out Anterior infarct , age undetermined Abnormal ECG When compared with ECG of 23-OCT-2021 10:59, QRS axis Shifted left Referred By: Generic ED Physician Electronically Signed By:EMIGDIO HERNANDEZ
[2022-04-30 09:31] VITALS: BP 134/92; BP 147/81; PULSE 106; PULSE 96; RESP 20; TEMP 37.1; O2SAT 95; O2SAT 98; BMI 52.4
[2022-04-30 09:37] VITALS: PULSE 88; PULSE 94; RESP 20; O2SAT 99
--- NOTE | 2022-04-30 09:54 | ED.CHESTPAIN ---
HPI - Chest Pain General Chief Complaint: Chest Pain Stated Complaint: 06/27 chest pain Time Seen by Provider: 04/30/22 09:27 Source: patient Mode of arrival: ambulatory Limitations: no limitations History of Present Illness HPI narrative: 46-year-old male with a history of morbid obesity, anxiety, HLD, ESRD on HD T//Mon, HTN, asthma, heart failure with preserved EF, AIDA on CPAP who presents to the ER via EMS from dialysis for evaluation of 06/27 chest pain. Patient reports chest pain started 4 days ago, he cannot recall what he was doing the time. It was in the middle and left side of his chest and has been described as constant. He has been worsening over the last few days. He states he was seen at [facility] emergency department yesterday and had a full workup there. He was discharged with improvement in his pain. While at dialysis today patient reports he developed worsening chest pain on the left side that newly radiated to the left arm. He was very anxious. He was given Ativan. He was placed on his own CPAP machine for associated shortness of breath. His blood pressures reportedly 200. He was also given sublingual nitro there. He had no improvement in the pain and was transferred to the ER for further evaluation 1 hour prior to completion of his dialysis. MD complaint: chest pain Pertinent past history: asthma Onset (ago): day(s) (4) Timing of current episode: constant Prior episodes: Yes Onset: during rest Pain location: left chest Pain radiation: left arm Severity: severe Pain scale (0-10): 10 Quality: aching and sharp Relieving factors: nothing Exacerbating factors: inspiration, palpation, movement and stress Context: non compliance with medication (did not take his meds today due to HD) Treatment prior to arrival: nitroglycerin and other (CPAP) Risk Factors Coronary artery disease risk factors: hypertension Related Data Home Medications Medication Instructions Recorded Confirmed aspirin 81 mg tablet,delayed 81 mg PO DAILY 05/10/21 08/03/21 release atorvastatin 20 mg tablet 20 mg PO BEDTIME 05/10/21 08/03/21 carvedilol 12.5 mg tablet 12.5 mg PO BEDTIME 05/10/21 08/03/21 docusate sodium 100 mg capsule 100 mg PO BID 05/10/21 08/03/21 ergocalciferol (vitamin D2) 1,250 1,250 mcg PO Q7D 05/10/21 08/03/21 mcg (50,000 unit) capsule (Vitamin D2) famotidine 40 mg tablet 40 mg PO DAILY 05/10/21 08/03/21 fluticasone propionate 50 1 spray intranasal DAILY 05/10/21 08/03/21 mcg/actuation nasal spray,suspension folic acid 1 mg tablet 1 mg PO QAM 05/10/21 08/03/21 gabapentin 100 mg capsule 200 mg PO BID 05/10/21 08/03/21 lorazepam 1 mg tablet 1 mg PO DAILY PRN panic attack 05/10/21 08/03/21 montelukast 10 mg tablet 10 mg PO DAILY 05/10/21 08/03/21 ropinirole 0.25 mg tablet 0.25 mg PO BID 05/10/21 08/03/21 amlodipine 10 mg tablet 1 tab PO DAILY 08/03/21 08/03/21 duloxetine 30 mg capsule,delayed 1 cap PO DAILY 08/03/21 08/03/21 release methylcellulose (laxative) 500 mg 500 mg PO DAILY 08/03/21 08/03/21 tablet (Fiber Laxative (methylcellulose)) Allergies Allergy/AdvReac Type Severity Reaction Status Date / Time iodine [IODINE] Allergy Severe THROAT Verified 03/01/21 00:38 SWELLING iron [IRON] Allergy Unknown HOT Verified 03/01/21 00:38 FEELING, ANXIETY, SOB,M TACHYCARDIA shellfish derived Allergy Unknown UNKNOWN Verified 03/01/21 00:38 [SHELLFISH DERIVED] Benadryl Allergy Unknown hyperactive Uncoded 06/18/18 00:00 Review of Systems Review of Systems: Constitutional: No Fever, No Chills ENT/Mouth: No sore throat, No Rhinorrhea, No Swallowing Difficulty Eyes: No Eye Pain, No Swelling, No Redness Cardiovascular: + Chest Pain, No SOB, No Orthopnea, No Edema Respiratory: No Cough, No Sputum, No Wheezing, No dyspnea Gastrointestinal: No Nausea, No Vomiting, No Diarrhea, No abdominal Pain, No Hematochezia, No Melena Genitourinary: No Dysuria, No Urinary Frequency, No Hematuria Musculoskeletal: No joint pain, No Myalgias Skin: No Skin Lesions, No rash Neuro: No Weakness, No Numbness, No Dizziness, No Headache Psych: + Anxiety/Panic, No Depression Heme/Lymph: No Bruising, No Lymphadenopathy Endocrine: No Polyuria, No Polydipsia [facility] Past Medical History Medical History (HFpEF) heart failure with preserved ejection fraction Asthma Dialysis patient End stage chronic kidney disease HTN (hypertension) Pulmonary edema Social History Social History Household Members: Family Housing: Apartment Do you presently have visiting nurse or other home services: Yes ([employer] - dtr) Alcohol intake: never Patient Tobacco Use Status: Never used Tobacco Use of substances other than those prescribed or required for medical reasons: No Advance Directives: No Advance Directives Information Provided: No service: No Current occupational status: disabled Current occupation: rt handed Physical Exam Vital Signs: Vital Signs: Last Vital Signs Temp 98.7 F 04/30/22 09:31 Pulse 94 04/30/22 09:37 Resp 20 04/30/22 09:37 BP 147/81 H 04/30/22 09:31 Pulse Ox 99 04/30/22 09:37 O2 Del Method 04/30/22 09:37 BMI result Body Mass Index 52.4 Appearance: Alert. Oriented X3. No acute distress. Eyes: Pupils equal, round and reactive to light. ENT: Pharynx normal. Neck: Normal inspection. Neck supple. CVS: Normal heart rate and rhythm. Pulses normal. Respiratory: No respiratory distress. Breath sounds normal. Anterior chest wall on the left with exquisite tenderness of the soft tissues. Abdomen: Morbidly obese, Soft and nontender. +BS x4 Skin: Skin warm and dry. Normal skin color. Normal skin turgor. No rashes. Extremities: No lower extremity edema. Neuro: Oriented X 3. No motor deficit. No sensory deficit. Course Course Course Narrative: 46-year-old male with hx ESRD on HD, anxiety, HTN, HLD, AIDA on CPAP who presents to the ER with ongoing non-traumatic left sided chest pain for the last 4 days. On exam his pain is very reproducible on the left side. Doubt ACS, no STEMI on EKG. Will get records from [facility] from yesterday and proceed with cardiac workup. Hold off on Nitro for now. Reevaluation(s) Reevaluation #1: Spoke with provider at dialysis center - she reports patient developed acute anxiety during the session and his chest pain went from a 6/10 when he arrived to a 10/10. He was given ativan and SL nitro. His BP shot up to 200 systolic and he was placed on his own CPAP machine. He was never hypoxic. She reported his pain was reproducible on exam as well. EMS was called. Patient's troponin is elevated 108.4. Upon review his troponin is chronically elevated in the 90-100 range on his prior visits. He has had pain for 4 days. There is no clinical need to repeat the troponin today, given the duration of his pain, his physical exam findings. His pain is improved with a dose of oral oxycodone. At this time is asking to go home, he is feeling better. He will follow-up with his doctor next week. MDM - Chest Pain Medical Records Data Attestation: I reviewed the patient's medical records. Lab Data Attestation: I reviewed the patient's lab results. Result diagrams: 04/30/22 09:59 04/30/22 09:59 Labs: Lab Results 04/30/22 04/30/22 04/30/22 Range/Units 09:59 09:59 09:59 WBC 9.1 (4.8-10.8) X10*3/uL RBC 4.56 L (4.60-5.80) X10*6/uL Hgb 13.0 L (14.0-18.0) g/dl Hct 41.0 L (42.0-52.0) % MCV 89.9 (80.0-98.0) fL MCH 28.5 (27.0-33.0) pg MCHC 31.7 (31.0-36.0) g/dl RDW 15.8 (11.0-16.0) % Plt Count 281 (160-400) X10*3/uL MPV 9.9 (9.4-12.4) fL Immature Gran % (Auto) 0.6 H (0.0-0.4) % Neut % (Auto) 74.4 H (45-73) % Lymph % (Auto) 14.5 L (20-40) % Clinton % (Auto) 8.3 (2-11) % Eos % (Auto) 1.9 (0-4) % Baso % (Auto) 0.3 (0-2) % Lymph # (Auto) 1.3 (1.2-4.9) X10*3/uL Clinton # (Auto) 0.8 (0.1-1.2) X10*3/uL Eos # (Auto) 0.2 (0.0-0.4) X10*3/uL Baso # (Auto) 0.0 (0.0-0.2) X10*3/uL Abs Immat Gran (auto) 0.05 H (0.00-0.03) X10*3/uL Absolute Neuts (auto) 6.8 (2.0-8.3) x10*3/uL Absolute Nucleated RBC 0.000 (0.0-0.012) X10*3/uL Nucleated RBC % (auto) 0.0 (0.0-0.2) /100WBC PT 12.1 (10.0-13.1) SEC INR 1.1 (0.9-1.1) APTT 30.9 (26.0-36.4) SEC Sodium 141 (135-145) mmol/L Potassium 4.2 (3.3-5.1) mmol/L Chloride 92 L (96-108) mmol/L Carbon Dioxide 33 H (22-29) mmol/L Anion Gap 20 (12-20) BUN 34 H (9-16) mg/dL Creatinine 7.64 H* (0.5-1.4) mg/dL Estim Creat Clear Calc 18.0 Estimated GFR 8 Random Glucose 107 (60-115) mg/dL Calcium 8.9 D (8.4-10.2) mg/dL Magnesium 1.9 (1.6-2.6) mg/dL Total Bilirubin 0.6 (0.0-1.0) mg/dL Direct Bilirubin 0.2 (0.0-0.5) mg/dL AST 15 (5-37) U/L ALT 18 (0-40) U/L Alkaline Phosphatase 64 D (39-117) U/L Troponin I High Sens (<3.5-35.0) ng/L Total Protein 8.2 H (6.5-8.0) g/dL Albumin 4.4 (3.5-5.0) g/dL COVID-19 (NESTOR) (Negative) COVID-19 Clin Com 04/30/22 04/30/22 Range/Units 09:59 09:59 WBC (4.8-10.8) X10*3/uL RBC (4.60-5.80) X10*6/uL Hgb (14.0-18.0) g/dl Hct (42.0-52.0) % MCV (80.0-98.0) fL MCH (27.0-33.0) pg MCHC (31.0-36.0) g/dl RDW (11.0-16.0) % Plt Count (160-400) X10*3/uL MPV (9.4-12.4) fL Immature Gran % (Auto) (0.0-0.4) % Neut % (Auto) (45-73) % Lymph % (Auto) (20-40) % Clinton % (Auto) (2-11) % Eos % (Auto) (0-4) % Baso % (Auto) (0-2) % Lymph # (Auto) (1.2-4.9) X10*3/uL Clinton # (Auto) (0.1-1.2) X10*3/uL Eos # (Auto) (0.0-0.4) X10*3/uL Baso # (Auto) (0.0-0.2) X10*3/uL Abs Immat Gran (auto) (0.00-0.03) X10*3/uL Absolute Neuts (auto) (2.0-8.3) x10*3/uL Absolute Nucleated RBC (0.0-0.012) X10*3/uL Nucleated RBC % (auto) (0.0-0.2) /100WBC PT (10.0-13.1) SEC INR (0.9-1.1) APTT (26.0-36.4) SEC Sodium (135-145) mmol/L Potassium (3.3-5.1) mmol/L Chloride (96-108) mmol/L Carbon Dioxide (22-29) mmol/L Anion Gap (12-20) BUN (9-16) mg/dL Creatinine (0.5-1.4) mg/dL Estim Creat Clear Calc Estimated GFR Random Glucose (60-115) mg/dL Calcium (8.4-10.2) mg/dL Magnesium (1.6-2.6) mg/dL Total Bilirubin (0.0-1.0) mg/dL Direct Bilirubin (0.0-0.5) mg/dL AST (5-37) U/L ALT (0-40) U/L Alkaline Phosphatase (39-117) U/L Troponin I High Sens 108.4 H* (<3.5-35.0) ng/L Total Protein (6.5-8.0) g/dL Albumin (3.5-5.0) g/dL COVID-19 ([facility]) Negative (Negative) COVID-19 Clin Com See Note ECG Data ECG #1: Attestation: I personally reviewed and interpreted this ECG as follows: ECG interpretation date: 04/30/22 ECG interpretation time: 11:12 Prior ECG tracings: available for review Interpretation: Normal sinus rhythm, ventricular rate 91 beats per minute, normal WV interval, normal QRS, no ST segment elevations or depressions. No concern for acute ischemia. Discharge Plan Discharge Clinical Impression: Anterior chest wall pain Patient Disposition: Home, Self-Care Instructions: Chest Wall Pain (ED) Additional Instructions: Your workup today was unremarkable. Your pain is thought to be due to muscular pain in the chest wall. Recommend taking Tylenol 975 mg every 6 hours around the clock for your pain. Rest, no strenuous activity. Recommend following up with your primary care doctor. If you develop new or worsening symptoms call 911 or come back to the ER for further evaluation. Prescriptions: No Action amlodipine 10 mg tablet 1 tab PO DAILY Fiber Laxative (methylcellulo) 500 mg tablet 500 mg PO DAILY duloxetine 30 mg capsule,delayed release(DR/EC) 1 cap PO DAILY lorazepam 1 mg tablet 1 mg PO DAILY PRN (Reason: panic attack) aspirin 81 mg tablet,delayed release (DR/EC) 81 mg PO DAILY fluticasone propionate 50 mcg/actuation spray,suspension 1 spray intranasal DAILY ergocalciferol (vitamin D2) [Vitamin D2] 1,250 mcg (50,000 unit) capsule 1,250 mcg PO Q7D docusate sodium 100 mg capsule 100 mg PO BID ropinirole 0.25 mg tablet 0.25 mg PO BID famotidine 40 mg tablet 40 mg PO DAILY atorvastatin 20 mg tablet 20 mg PO BEDTIME gabapentin 100 mg capsule 200 mg PO BID montelukast 10 mg tablet 10 mg PO DAILY folic acid 1 mg tablet 1 mg PO QAM carvedilol 12.5 mg tablet 12.5 mg PO BEDTIME Print Language: Botswanan
[2022-04-30 10:07] LABS: MANUAL DIFF FLAG NO
[2022-04-30 10:09] LABS: Basophils Percent Auto 0.3 % (0-2); Eosinophils Absolute Auto 0.2 X10*3/uL (0.0-0.4); Eosinophils Percent Auto 1.9 % (0-4); Imm Gran Abs Auto 0.05 X10*3/uL (0.00-0.03); Imm Gran Pct Auto 0.6 % (0.0-0.4); Lymphocytes Absolute Auto 1.3 X10*3/uL (1.2-4.9); Lymphocytes Percent Auto 14.5 % (20-40); Mean Corpuscular HGB Conc 31.7 g/dl (31.0-36.0); Mean Corpuscular Hemoglobin 28.5 pg (27.0-33.0); Mean Corpuscular Volume 89.9 fL (80.0-98.0); Mean Platelet Volume 9.9 fL (9.4-12.4); Monocytes Absolute Auto 0.8 X10*3/uL (0.1-1.2); Monocytes Percent Auto 8.3 % (2-11); Neutrophils Absolute Auto 6.8 x10*3/uL (2.0-8.3); Neutrophils Percent Auto 74.4 % (45-73); Platelet Count 281 X10*3/uL (160-400); Red Blood Count 4.56 X10*6/uL (4.60-5.80); Red Cell Distribution Width 15.8 % (11.0-16.0); White Blood Count 9.1 X10*3/uL (4.8-10.8)
[2022-04-30 10:16] LABS: INTERNATIONAL NORM RATIO 1.1 (0.9-1.1); Prothrombin Time 12.1 SEC (10.0-13.1)
[2022-04-30 10:19] LABS: Partial Thromboplastin Time 30.9 SEC (26.0-36.4)
[2022-04-30 10:23] LABS: COVID-19 Test Negative (Negative)
[2022-04-30 10:44] LABS: Troponin-I High Sensitivity 108.4 ng/L (<3.5-35.0)
[2022-04-30 10:58] LABS: Alanine Aminotransferase 18 U/L (0-40); Albumin Level 4.4 g/dL (3.5-5.0); Alkaline Phosphatase 64 U/L (39-117); Anion Gap 20 (12-20); Aspartate Amino Transferase 15 U/L (5-37); Bilirubin Direct 0.2 mg/dL (0.0-0.5); Bilirubin Total 0.6 mg/dL (0.0-1.0); Blood Urea Nitrogen 34 mg/dL (9-16); Calcium 8.9 mg/dL (8.4-10.2); Carbon Dioxide 33 mmol/L (22-29); Chloride 92 mmol/L (96-108); Estimated Glomerular Filt Rate 8; Glucose Random 107 mg/dL (60-115); Magnesium 1.9 mg/dL (1.6-2.6); Potassium 4.2 mmol/L (3.3-5.1); Sodium 141 mmol/L (135-145); Total Protein 8.2 g/dL (6.5-8.0)
[2022-04-30] MEDS: oxyCODONE HCl Immed Release 5 MG TABLET PO (11:42)
== END 2022-04-30 12:08 | disposition home or self-care (01) ==
PROVIDERS: Physician Assistant; Emergency Provider Student in an Organized Health Care Education/Training Program
DX: R07.89 Other chest pain (principal); I13.2 Hypertensive heart and chronic kidney disease with heart failure and with stage 5 chronic kidney disease, or end stage renal disease; N18.6 End stage renal disease; I50.9 Heart failure, unspecified; Z99.2 Dependence on renal dialysis; E66.01 Morbid (severe) obesity due to excess calories; Z68.43 Body mass index [BMI] 50.0-59.9, adult; Z79.82 Long term (current) use of aspirin; Z79.02 Long term (current) use of antithrombotics/antiplatelets; Z79.899 Other long term (current) drug therapy; Z20.822 Contact with and (suspected) exposure to COVID-19
CPT/HCPCS: 71045; 80048; 80076; 83735; 84484; 85025; 85610; 85730; 87635; 93005; 99283; 99285

== ENCOUNTER → 2022-10-07 08:52 | Outpatient (BNVA) | payer OTHER, SELFPAY | PROVIDERS: PCP Family Medicine; Visit Provider Nurse Practitioner Family | DX: G47.33 Obstructive sleep apnea (adult) (pediatric) (principal); Z99.89 Dependence on other enabling machines and devices | CPT/HCPCS: 99202 ==

== ENCOUNTER → 2023-01-09 13:11 | Outpatient (BNVA) | payer OTHER, SELFPAY | PROVIDERS: PCP Family Medicine; Referring Provider Family Medicine; Visit Provider Internal Medicine Cardiovascular Disease | DX: I50.30 Unspecified diastolic (congestive) heart failure (principal) | CPT/HCPCS: 99212 ==

== ENCOUNTER → 2023-02-06 08:00 | Outpatient (REF) | payer OTHER, SELFPAY ==
--- NOTE | 2023-02-06 08:03 | CA_ITS ---
Transthoracic Echocardiogram Patient (Last, First, Middle): Omari Mares M Gender: Male Date of : 1975 Age: 47 Procedure Date: 02/06/2023 Procedure Type: Transthoracic Echocardiogram Location: OP Height: 175.26 cm Weight: 158.76 kg BSA: 2.62 m2 Heart Rate: 95 bpm BP: 138 / 82 mmHg Control Systems Technician: Referring MD: Reinier Arroyo MD Symptoms: I50.30 - Unspecified diastolic (congestive) heart failure Study Quality: Fair/Contrast ECG Rhythm: Sinus Conclusions: - The left ventricular systolic function is normal. The visually estimated ejection fraction is between 55-60%. - There is mild mitral annular calcification. - No obvious valvular pathology seen on this study. Findings Procedure Information Contrast agent, definity, is being given per protocol without apparent complications. Left Ventricle Normal left ventricular cavity size. There is mildly increased left ventricular wall thickness. The left ventricular systolic function is normal. The visually estimated ejection fraction is between 55-60%. There is no evidence of regional wall motion abnormalities. Diastolic function is normal for age. Right Ventricle Normal right ventricular cavity size and systolic function. Atria Both atria are normal in size. Aortic Valve There is a normal trileaflet aortic valve. There is no aortic valve stenosis. There is no aortic valve regurgitation. Mitral Valve There is mild mitral annular calcification. There is no mitral valve regurgitation. There is no mitral valve stenosis. Pulmonic Valve The pulmonic valve is likely normal. Tricuspid Valve There is trace tricuspid valve regurgitation. There is no evidence of pulmonary hypertension. Great Vessels The asc aorta is normal in size. Venous The inferior vena cava is normal in size and collapses greater than 50% with inspiration. Pericardium/Pleural There is no evidence of pericardial effusion. Prior Study Comparison Changes noted compared to prior study dated: 05/12/2021. No clear evidence of grade 2 diastolic dysfunction. Recommendations, Care & Conclusions No obvious valvular pathology seen on this study. Measurements 2D Linear Measurements IVSd: 1.23 0.6-0.9/0.6-1.0 cm LVIDd: 5.13 3.9-5.3/4.2-5.9 cm LVIDd Index: 1.96 2.4-3.2/2.2-3.1 cm/m2 LVIDs: 3.47 2.0-3.6 cm LVPWd: 1.23 0.7-1.1 cm LA Diam: 3.80 2.7-3.8/3.0-4.0 cm LAIDs Index: 1.45 1.5-2.3 cm/m2 LV Mass: 314.33 67-162/88-224 g LV Mass Index: 119.97 43-95/49-115 g/m2 LVOT Diam: 2.20 3.0+(-)1.3 cm 2D Systolic Function EF 4C: 57.80 >55% EF 2C: 70.00 >55% EF BiP: 65.80 >55% Mitral Valve MV Pk E: 0.91 MV PK A: 0.92 MV Decel Time: 132.00 E/A: 1.00 E'Lateral: 8.38 E'Medial: 5.87 E/E' Med: 15.50 E/E' Lat: 10.80 PHT: 39.00 MVA PHT: 5.64 Decel Nicol[place]: 6.89 Aortic Valve AoV Pk Tan: 1.60 AoV Mn Tan: 1.02 AoV VTI: 0.31 AoV Pk Grad: 10.00 Aov Mn Grad: 5.00 RUMA Cont.VTI: 2.28 LVOT LVOT Pk Tan: 0.93 LVOT Mn Tan: 0.61 LVOT VTI: 0.18 LVOT Pk Grad: 3.00 LVOT Mn Grad: 2.00 LVOT Diam: 2.20 LVOT Area: 3.80 Diastolic Function MV Pk E: 0.91 MV Pk A: 0.92 E/A: 1.00 E'Medial: 5.87 E/E' Med: 15.50 E' Laterial: 8.38 E/E' Lat: 10.80 Right Ventricle TAPSE (mm): 29.00 TVS' Tan: 14.40 Tricuspid Valve TR Pk Tan: 1.95 TR Pk Grad: 15.00 Great Vessels Aorta Sinus of Valsalva: 2.70 2.0-3.5 cm Ao Asc: 2.80 2.1-3.4 cm Pulmonary Valve PV Pk Tan: 1.44 Peak PV Grad: 8.00 Updated in Other Vendor System with Status of Final Alexys Reece MD electronically signed on 02/06/2023 10:03:33 AM with status of Final
== END ==
LOC: HO.CARD 08:00
PROVIDERS: PCP Family Medicine; Visit Provider Internal Medicine Cardiovascular Disease
DX: I50.30 Unspecified diastolic (congestive) heart failure (principal)
CPT/HCPCS: 93306; Q9957

== ENCOUNTER 2023-04-10 11:42 | Outpatient (AMB) | payer OTHER, SELFPAY ==
--- NOTE | 2023-04-10 12:01 | MHC.OFFVIS ---
Intake Intake Visit Reasons: Penile pain/Penile discharge Intake Note: New Patient presents for penile pain/penile discharge Urology Medications: none Blood Thinner: aspirin Costume Cutter Required: Yes Accompanied by: Unknown Allergies iodine [IODINE] Allergy (Severe, Verified 04/10/23 21:03) THROAT SWELLING iron [IRON] Allergy (Unknown, Verified 04/10/23 21:03) HOT FEELING, ANXIETY, SOB,M TACHYCARDIA shellfish derived [SHELLFISH DERIVED] Allergy (Unknown, Verified 04/10/23 21:03) UNKNOWN Benadryl Allergy (Unknown, Uncoded 04/10/23 21:03) hyperactive Medication List - Last Reconciled 04/10/23 by MARISOL Dao- albuterol sulfate 90 mcg/actuation (Ventolin HFA) 0 mcg inhalation amlodipine 10 mg PO DAILY aspirin 81 mg PO DAILY atorvastatin 20 mg PO BEDTIME B complex with C 20-folic acid 1 mg (Triphrocaps) 1 cap PO DAILY carvedilol 12.5 mg PO .am docusate sodium 100 mg PO BID duloxetine 60 mg PO DAILY duloxetine 20 mg PO DAILY ergocalciferol (vitamin D2) (Vitamin D2) 1,250 mcg PO Q7D famotidine 40 mg PO DAILY ferrous sulfate (FeroSul) 325 mg PO fluticasone propionate 50 mcg/actuation 1 spray intranasal DAILY folic acid 1 mg PO QAM gabapentin 200 mg PO BID lorazepam 1 mg PO DAILY PRN methylcellulose (laxative) (Fiber Laxative (methylcellulose)) 500 mg PO DAILY montelukast 10 mg PO DAILY ropinirole 0.5 mg PO QPM sucroferric oxyhydroxide (Velphoro) 500 mg PO TID HPI HPI Comments History of Present Illness Details Omari is a very pleasant Occitan-speaking 47-year-old male patient of Dr. Gallardo who was accompanied by his daughter and granddaughter at today's visit. He has a past medical history of heart failure with preserved ejection fracture, asthma, end-stage chronic renal disease on dialysis treatment Tuesdays and Saturdays, hypertension, and pulmonary edema. He presents to the office today as a new patient for ongoing penile discharge and pressure for like burning sensation to his penis. He reports symptoms presented approximately 2-3 months ago. He reports following up with his PCP regarding this issue at which time recommendations were made for Urology follow-up. He discusses feeling as episodes of penile pain and discharge are accompanied by his increase in water weight when waiting for his dialysis treatments. When asked he reports to be and uric over the last 10 years. He otherwise denies flank pain, fever, and or chills. During assessment evaluation of the patient today patient declines physical assessment of penis, scrotum, and or testicles as well as in office NELSY. Discussed at length importance of physical examination however he continues to decline assessment at this time. Patient's daughter was accompanied with the patient today reports patient finds it difficult to undergo physical assessment. Offered appointment with Dr. Stanley if more comfortable with male provider. However, patient is not interested at this time. [facility] Medical History (HFpEF) heart failure with preserved ejection fraction Asthma Dialysis patient End stage chronic kidney disease HTN (hypertension) Pulmonary edema Surgical History History of surgery Family History Mother Diabetes Father Heart problem Diabetes Social History Household Members: Family Housing: Apartment Do you presently have visiting nurse or other home services: Yes ([employer] - dtr) Alcohol intake: never Patient Tobacco Use Status: Never used Tobacco service: No Current occupational status: disabled Current occupation: rt handed Review of Systems Const Reports as per HPI Eyes Reports no additional complaints ENT Reports no additional complaints Card Reports as per HPI Resp Reports as per HPI GI Reports no additional complaints Reports as per HPI Musc Reports no additional complaints Neuro Reports no additional complaints Psych Reports no additional complaints Endo Reports no additional complaints Physical Exam Const General: cooperative, comfortable, no acute distress, well developed, alert and awake Nutritional Appearance: overweight Orientation/consciousness: patient oriented x3 Limitations: no limitations HEENT Head: Yes normal to inspection, Yes normocephalic and Yes atraumatic Eyes General: appearance normal, both eyes and all related structures Neck Neck: Yes normal visual inspection Chest Chest palpation & inspection: normal inspection of the chest Cardio Rate: regular rate GI Inspection: Yes normal to inspection and Yes Abdominal panniculus present General: Yes no CVA tenderness Back/Spine/Pelvis Back: no CVA tenderness Skin General skin exam: no rashes or lesions noted Neuro General: patient oriented x3 Extrem General: Yes normal to inspection Psych Appearance: grossly normal Mental Status: mental status grossly normal Speech and movement: Normal speech and movement present Affect: normal affect Attitude: cooperative and Avoids eye contact (attititude/behavior) Thought content: Normal thought content present Insight: Fair insight present (Psych) Judgement: Fair judgement present (Psych) Assessment & Plan Assessment & Plan (1) Penile discharge: Code(s): R36.9 - Urethral discharge, unspecified Plan Unable to obtain urine for urinalysis as patient is anuric and is a dialysis patient Unable to physically assess penis, scrotum, and or testicles Unable to perform NELSY as patient declines at this time Discussed further treatment options penile discharge; however patient declines treatment options at this time Offered male provider for further assessment evaluation however patient continues to refuse assessment Discussed follow up PRN Patient Instructions: The patient had an opportunity to ask questions regarding the treatment plan. All questions were answered. Physical exam, labs, and imaging were discussed and reviewed in detail. As well as risks, benefits, and discussion of treatment choices. No major barriers to understanding were identified. The patient expressed understanding and agreement with the above treatment plan. The patient was made aware they should contact our office by phone for worsening of their current condition, the appearance of new symptoms, or with any questions or concerns. Compliance is encouraged with any medications and follow up testing that is ordered. It is a privilege to be allowed the opportunity to participate in? your urological care.? Again, if you have any questions or concerns If you have any questions or concerns please do not hesitate to contact me. The office is [phone]. This note is constructed using voice recognition software. While every effort has been made to ensure accuracy catering director errors may have been included. Yours sincerely, CANDIDA Dao Coding Level of Care Code New Pt Level 3 (23908) Diagnoses Penile discharge R36.9
== END 2023-04-10 13:39 | disposition home or self-care (01) ==
PROVIDERS: PCP Family Medicine; Visit Provider Nurse Practitioner Family
DX: R36.9 Urethral discharge, unspecified (principal)
CPT/HCPCS: 99203

== ENCOUNTER → 2023-04-10 11:42 | Outpatient (BNVA) | payer OTHER, SELFPAY | PROVIDERS: PCP Family Medicine; Visit Provider Nurse Practitioner Family | DX: R36.9 Urethral discharge, unspecified (principal) | CPT/HCPCS: 99202 ==

== ENCOUNTER 2023-10-09 12:34 | Inpatient (IN) | payer OTHER, SELFPAY ==
[2023-10-09] VITALS (8 sets, daily range): BP systolic 145–167; BP diastolic 72–108; PULSE 99–111; RESP 14–32; TEMP 36.4–36.9; O2SAT 82–95; BMI 51.7
--- NOTE | 2023-10-09 | ECG_ITS ---
Test Reason : SOB Blood Pressure : / mmHG Vent. Rate : 104 BPM Atrial Rate : 104 BPM P-R Int : 162 ms QRS Dur : 084 ms QT Int : 360 ms P-R-T Axes : 072 034 059 degrees QTc Int : 473 ms Sinus tachycardia Anterior infarct (cited on or before 30-APR-2022) Abnormal ECG When compared with ECG of 30-APR-2022 09:20, No significant change was found Referred By: Generic ED Physician Electronically Signed By:Martin Garcia
--- NOTE | ~2023-10-09 | XR_ITS ---
EXAMINATION: XR CHEST CLINICAL INFORMATION: Shortness of breath COMPARISON: 04/30/2022 TECHNIQUE: Frontal view of the chest was obtained. FINDINGS: Heart size upper limits of normal. Compared to the prior study, there is mild increase in interstitial markings with some probable groundglass changes. No focal consolidations with air bronchograms are seen. No large pleural effusions. XR/XR chest 1V IMPRESSION: Mild increase in interstitial markings with some groundglass changes. Findings may represent mild pulmonary edema. Atypical viral infection should be considered in the differential.
--- NOTE | 2023-10-09 13:06 | PC.NURSE ---
a&ox4. vss and up to date. nsr/sinus tachy on the shelter monitor. pt presents to the ED after not feeling well x a few days. pt had sudden onset of sob this morning when waking up. 88% on RA upon EMS arrival. pt received duoneb/IM solumedrol via EMS - went up to 95% on 4L. pt currently sitting in tripod position w/ sob/wob displayed. slight wheezing noted throughout. pt attempted no O2 - 94% on RA. pt states he feels better on O2 - so this RN placed pt back on 3L via NC to promote comfort. swabs obtained/sent to lab. pt seen by ED provider. family bedside for support. call martin placed within reach.
--- NOTE | 2023-10-09 13:08 | ED.SOB ---
HPI - SOB/Dyspnea General Chief Complaint: Dyspnea Stated Complaint: DIFF BREATHING X DAYS,HIGH 80'S, 95%/DUO PER EMS Time Seen by Provider: 10/09/23 13:02 Source: patient and family Mode of arrival: EMS Limitations: no limitations History of Present Illness HPI Narrative: Emergency room complaining of sudden onset of shortness of breath. Patient states that he was doing well morning, suddenly he started wheezing and had chest tightness and severe shortness of breath. EMS was called. Per EMS, oxygen saturation was in the high 80s Patient was given a dose of IM Solu-Medrol and a DuoNeb, patient states that he started feeling much better, breathing normal, oxygen saturation improved to 95% on arrival. Patient denies chest pain, no shortness of breath at this time. No recent illnesses. No URIs Related Data Home Medications Medication Instructions Recorded Confirmed aspirin 81 mg tablet,delayed 81 mg PO DAILY 05/10/21 01/09/23 release atorvastatin 20 mg tablet 20 mg PO BEDTIME 05/10/21 01/09/23 docusate sodium 100 mg capsule 100 mg PO BID 05/10/21 01/09/23 ergocalciferol (vitamin D2) 1,250 1,250 mcg PO Q7D 05/10/21 01/09/23 mcg (50,000 unit) capsule (Vitamin D2) famotidine 40 mg tablet 40 mg PO DAILY 05/10/21 01/09/23 fluticasone propionate 50 1 spray intranasal DAILY 05/10/21 01/09/23 mcg/actuation nasal spray,suspension folic acid 1 mg tablet 1 mg PO QAM 05/10/21 01/09/23 gabapentin 100 mg capsule 200 mg PO BID 05/10/21 01/09/23 lorazepam 1 mg tablet 1 mg PO DAILY PRN panic attack 05/10/21 01/09/23 montelukast 10 mg tablet 10 mg PO DAILY 05/10/21 01/09/23 methylcellulose (laxative) 500 mg 500 mg PO DAILY 08/03/21 01/09/23 tablet (Fiber Laxative (methylcellulose)) albuterol sulfate 90 mcg/actuation 0 mcg inhalation 10/07/22 01/09/23 aerosol inhaler (Ventolin HFA) duloxetine 60 mg capsule,delayed 60 mg PO DAILY 10/07/22 01/09/23 release ferrous sulfate 325 mg (65 mg 325 mg PO 10/07/22 01/09/23 iron) tablet (FeroSul) ropinirole 0.5 mg tablet 0.5 mg PO QPM 10/07/22 01/09/23 sucroferric oxyhydroxide 500 mg 500 mg PO TID 10/07/22 01/09/23 chewable tablet (Velphoro) vitamin B complex and vitamin C 1 cap PO DAILY 10/07/22 01/09/23 no.20-folic acid 1 mg capsule (Triphrocaps) amlodipine 10 mg tablet 10 mg PO DAILY 01/09/23 01/09/23 carvedilol 12.5 mg tablet 12.5 mg PO .am 01/09/23 01/09/23 duloxetine 30 mg capsule,delayed 20 mg PO DAILY 01/09/23 01/09/23 release Allergies Allergy/AdvReac Type Severity Reaction Status Date / Time iodine [IODINE] Allergy Severe THROAT Verified 10/09/23 12:46 SWELLING iron [IRON] Allergy Unknown HOT Verified 10/09/23 12:46 FEELING, ANXIETY, SOB,M TACHYCARDIA shellfish derived Allergy Unknown UNKNOWN Verified 10/09/23 12:46 [SHELLFISH DERIVED] Benadryl Allergy Unknown hyperactive Uncoded 10/09/23 12:46 Review of Systems Review of Systems: Constitutional : No Weight loss, No Fever, No Chills, No Night Sweats, No Fatigue, No Malaise ENT/Mouth : No Hearing loss, No Ear Pain, No Nasal Congestion, No Sinus Pain, No Hoarseness, No sore throat, No Rhinorrhea, No Swallowing Difficulty Eyes: No Eye Pain, No Swelling, No Redness, No Foreign Body, No Discharge, No Vision Changes Cardiovascular : No Chest Pain, No SOB, No Dyspnea on Exertion, No Orthopnea, No Edema, No Palpitations Respiratory : Complaining of shortness of breath, wheezing, chest tightness with no pain Gastrointestinal : No Nausea, No Vomiting, No Diarrhea, No Constipation, No abdominal Pain, No Hematochezia, No Melena Genitourinary : no irregular bleeding, No Dysuria, No Urinary Frequency, No Hematuria, No Urinary Incontinence, No Urgency, No Flank Pain, No Urinary Flow Changes, No Hesitancy Musculoskeletal : No joint pain, No Myalgias, No Joint Swelling Skin : No Skin Lesions, No rash Neuro : No Weakness, No Numbness, No Paresthesias, No Loss of Consciousness, No Dizziness, No Headache Psych : No Anxiety/Panic, No Depression, No SI/HI/AH/VH, No Social Issues, Heme/Lymph: No Bruising, No Bleeding,No Lymphadenopathy Endocrine : No Polyuria, No Polydipsia, No Temperature Intolerance [facility] Past Medical History Medical History Pulmonary edema End stage chronic kidney disease HTN (hypertension) (HFpEF) heart failure with preserved ejection fraction Asthma Dialysis patient Surgical History History of surgery Family History Family History Mother Diabetes Father Heart problem Diabetes Social History Social History Household Members: Family Housing: Apartment Do you presently have visiting nurse or other home services: Yes ([employer] - dtr) Alcohol intake: never Patient Tobacco Use Status: Never used Tobacco Smoked in Last 30 Days: No Use of substances other than those prescribed or required for medical reasons: No Advance Directives: No Advance Directives Information Provided: Yes service: No Current occupational status: disabled Current occupation: rt handed Physical Exam Vital Signs: Vital Signs: Last Vital Signs Temp 97.8 F 10/09/23 16:08 Pulse 102 H 10/09/23 16:08 Resp 22 H 10/09/23 16:08 BP 163/94 H 10/09/23 16:08 Pulse Ox 88 L 10/09/23 17:11 O2 Del Method Nasal Cannula 10/09/23 16:08 O2 Flow Rate 4 10/09/23 16:08 BMI result Body Mass Index 51.7 Const: Other: Appearance: Alert. Oriented X3. No acute distress. Bilirubin Eyes: Pupils equal, round and reactive to light. ENT: Pharynx normal. Neck: Normal inspection. Neck supple. No lymph nodes noted. No crepitus CVS: Normal heart rate and rhythm. Pulses normal. Normal S1 and S2 Respiratory: No respiratory distress. Breath sounds normal. No Wheezing. No rales Abdomen: Soft and nontender. No rigidity. No distention. Skin: Skin warm and dry. Normal skin color. Normal skin turgor. Extremities: No lower extremity edema. No Lacerations. No Rash Neuro: Oriented X 3. No motor deficit. No sensory deficit. Moving all extremities. No slurred speech. CN 2 through 12 grossly intact Psych: calm, cooperative, normal affect Course Course Course Narrative: -patient already received a dose of Solu-Medrol IM and DuoNeb. At this time, patient is not wheezing, moving air normally, no shortness of breath, oxygen saturation 99% on room air -all of patient's labs and imaging pending Medical Decision Making Medical Decision Making [facility] Narrative: -my interpretation of labs: Increased white blood cell count, likely secondary to steroid use prior to arrival. Chemistry shows a creatinine of 11.39, patient is at baseline, patient goes to dialysis, states he is compliant. Troponin 47.9, patient's baseline. BNP not obtained, patient is on dialysis, it will be elevated. -my interpretation of chest x-ray, mild pulmonary edema -radiology report: Mild pulmonary edema -at this time, sepsis is not suspected, patient has a combination of asthma exacerbation and mild CHF exacerbation. -oxygen saturation drops to 87-88% with ambulation, patient is not oxygen dependent. -I discussed the patient with the hospitalist team, patient being admitted Differential Diagnosis Differential Diagnoses: The differential diagnosis associated with the presentation includes (Asthma exacerbation, pneumonia, COVID, CHF) Admission/Observation Consideration of admission/observation: Escalation of care including admission/observation considered Consult Healthcare Provider Management of the patient was discussed with: Hospitalist Lab Data [facility] Lab Attestation statement: I reviewed the patient's lab results. 10/09/23 14:05 10/09/23 13:27 Labs: Lab Results 10/09/23 10/09/23 10/09/23 Range/Units 13:01 13:27 13:56 WBC (4.8-10.8) X10*3/uL RBC (4.60-5.80) X10*6/uL Hgb (14.0-18.0) g/dl Hct (42.0-52.0) % MCV (80.0-98.0) fL MCH (27.0-33.0) pg MCHC (31.0-36.0) g/dl RDW (11.0-16.0) % Plt Count (160-400) X10*3/uL MPV (9.4-12.4) fL Immature Gran % (Auto) (0.0-0.4) % Neut % (Auto) (45-73) % Lymph % (Auto) (20-40) % [place] % (Auto) (2-11) % Eos % (Auto) (0-4) % Baso % (Auto) (0-2) % Lymph # (Auto) (1.2-4.9) X10*3/uL [place] # (Auto) (0.1-1.2) X10*3/uL Eos # (Auto) (0.0-0.4) X10*3/uL Baso # (Auto) (0.0-0.2) X10*3/uL Abs Immat Gran (auto) (0.00-0.03) X10*3/uL Absolute Neuts (auto) (2.0-8.3) x10*3/uL Absolute Nucleated RBC (0.0-0.012) X10*3/uL Nucleated RBC % (auto) (0.0-0.2) /100WBC VBG pH 7.42 (7.32-7.43) VBG pCO2 50 mmHg VBG pO2 40 mmHg VBG HCO3 33 H (22-26) mmol/L VBG O2 Saturation 56.0 % VBG Base Excess 7.7 mmol/L Sodium 141 (135-145) mmol/L Potassium 5.4 H (3.3-5.1) mmol/L Chloride 96 (96-108) mmol/L Carbon Dioxide 30 H (22-29) mmol/L Anion Gap 20 (12-20) BUN 63 H (9-16) mg/dL Creatinine 11.39 H* (0.5-1.4) mg/dL Estim Creat Clear Calc 11.7 Estimated GFR 5 Fasting Glucose 87 (60-99) mg/dL Calcium 9.6 D (8.4-10.2) mg/dL Troponin I High Sens 47.9 H (<3.5-35.0) ng/L COVID-19 ([facility]) Negative (Negative) COVID-19 Clin Com See Note Influenza Type A ([facility]) Invalid (Negative) Influenza Type B ([facility]) Invalid (Negative) Influenza A & B Note See Note 10/09/23 10/09/23 Range/Units 14:05 14:33 WBC 12.0 H (4.8-10.8) X10*3/uL RBC 3.94 L (4.60-5.80) X10*6/uL Hgb 11.8 L (14.0-18.0) g/dl Hct 37.2 L (42.0-52.0) % MCV 94.4 (80.0-98.0) fL MCH 29.9 (27.0-33.0) pg MCHC 31.7 (31.0-36.0) g/dl RDW 15.7 (11.0-16.0) % Plt Count 294 (160-400) X10*3/uL MPV 9.8 (9.4-12.4) fL Immature Gran % (Auto) 0.6 H (0.0-0.4) % Neut % (Auto) 85.4 H (45-73) % Lymph % (Auto) 8.6 L (20-40) % [place] % (Auto) 3.6 (2-11) % Eos % (Auto) 1.5 (0-4) % Baso % (Auto) 0.3 (0-2) % Lymph # (Auto) 1.0 L (1.2-4.9) X10*3/uL [place] # (Auto) 0.4 (0.1-1.2) X10*3/uL Eos # (Auto) 0.2 (0.0-0.4) X10*3/uL Baso # (Auto) 0.0 (0.0-0.2) X10*3/uL Abs Immat Gran (auto) 0.07 H (0.00-0.03) X10*3/uL Absolute Neuts (auto) 10.3 H (2.0-8.3) x10*3/uL Absolute Nucleated RBC 0.000 (0.0-0.012) X10*3/uL Nucleated RBC % (auto) 0.0 (0.0-0.2) /100WBC VBG pH (7.32-7.43) VBG pCO2 mmHg VBG pO2 mmHg VBG HCO3 (22-26) mmol/L VBG O2 Saturation % VBG Base Excess mmol/L Sodium (135-145) mmol/L Potassium (3.3-5.1) mmol/L Chloride (96-108) mmol/L Carbon Dioxide (22-29) mmol/L Anion Gap (12-20) BUN (9-16) mg/dL Creatinine (0.5-1.4) mg/dL Estim Creat Clear Calc Estimated GFR Fasting Glucose (60-99) mg/dL Calcium (8.4-10.2) mg/dL Troponin I High Sens (<3.5-35.0) ng/L COVID-19 ([facility]) (Negative) COVID-19 Clin Com Influenza Type A ([facility]) Negative (Negative) Influenza Type B ([facility]) Negative (Negative) Influenza A & B Note See Note Independent Interpretation I performed an independent interpretation of an: EKG (My interpretation of EKG: Sinus tachycardia, heart rate 104, no ST segment depression or elevation, no T-wave inversion, QTC 473. ) and Plain X-Ray Radiology Impression Discussion of test interpretation with radiology: I have reviewed the radiologist's reading. Radiologist Impression: FINDINGS: Heart size upper limits of normal. Compared to the prior study, there is mild increase in interstitial markings with some probable groundglass changes. No focal consolidations with air bronchograms are seen. No large pleural effusions. XR/XR chest 1V IMPRESSION: Mild increase in interstitial markings with some groundglass changes. Findings may represent mild pulmonary edema. Atypical viral infection should be considered in the differential. Independent Historian Clinical information obtained from an independent historian. History obtained from or confirmed by: Spouse Critical Care Time Critical Care Time Critical Care Time: Yes Total Critical Care Time: 75 Attestation: I have personally provided critical care time. Time includes review of lab data, radiology results, discussion with consultants, and monitoring for potential decompensation. Intervention performed as documented. Discharge Plan Discharge Clinical Impression: Asthma, CHF (congestive heart failure) Patient Disposition: Admitted As Inpatient Prescriptions: No Action Fiber Laxative(methylcellulos) 500 mg tablet 500 mg PO DAILY amlodipine 10 mg tablet 10 mg PO DAILY duloxetine 30 mg capsule,delayed release(DR/EC) 20 mg PO DAILY lorazepam 1 mg tablet 1 mg PO DAILY PRN (Reason: panic attack) aspirin 81 mg tablet,delayed release (DR/EC) 81 mg PO DAILY fluticasone propionate 50 mcg/actuation spray,suspension 1 spray intranasal DAILY ergocalciferol (vitamin D2) [Vitamin D2] 1,250 mcg (50,000 unit) capsule 1,250 mcg PO Q7D docusate sodium 100 mg capsule 100 mg PO BID famotidine 40 mg tablet 40 mg PO DAILY atorvastatin 20 mg tablet 20 mg PO BEDTIME gabapentin 100 mg capsule 200 mg PO BID montelukast 10 mg tablet 10 mg PO DAILY folic acid 1 mg tablet 1 mg PO QAM carvedilol 12.5 mg tablet 12.5 mg PO .am Triphrocaps 1 mg capsule 1 cap PO DAILY duloxetine 60 mg capsule,delayed release(DR/EC) 60 mg PO DAILY ropinirole 0.5 mg tablet 0.5 mg PO QPM ferrous sulfate [FeroSul] 325 mg (65 mg iron) tablet 325 mg PO albuterol sulfate [Ventolin HFA] 90 mcg/actuation HFA aerosol inhaler 0 mcg inhalation Velphoro 500 mg tablet,chewable 500 mg PO TID
[2023-10-09 13:27] LABS: COVID-19 Test Negative (Negative); IDNOW Serial# 08D9AD1C
--- NOTE | 2023-10-09 13:31 | PC.NURSE ---
pt to xray at this time.
--- OUTSIDE RECORDS SUMMARY | 2023-10-09 13:42 | XMS_ITS | Continuity of Care Document ---
Author Name Unknown Organization [facility] Address [address] [place] [address] ve [address] [place] [address]- Care Team Providers Care Land Survey Technician Name Role Phone Paulina NG, Debbie Primary Care Physician [place] [facility] [place] - 02/11/[address] [place] [address]- Attending Physician: Joanie NG, Marquita Referring Physician: Tim Thomson MD Allergies, Adverse Reactions, Alerts Substance Reaction Severity Status shellfish Diff Breathing Active Benadryl very anxious Active Latex 1 skin redness Active 1per patient he uses rubber/latex products all the time without issues Immunizations Given and Recorded Vaccine Date Status Refusal Reason pneumococcal 23-valent vaccine 04/11/13 Given Not Given Vaccine Date Status Refusal Reason influenza virus vaccine, inactivated 07/29/19 Not Given Patient Refuses Medications albuterol 0.083% inhalation solution 3 mL = 2.5 mg, Inhalation, Every 4 hours, PRN for wheezing, # 60 each, 0 Refills, Maintenance, 12/12/17 16:40:12 EDT, Solution Start Date: 12/12/17 Status: Ordered amLODIPine 2.5 mg oral tablet 2.5 mg, 1, tablet, By Mouth, Daily, # 30 tablet, Refills 0, Maintenance, 06/12/19 22:29:16 EDT Start Date: 06/12/19 Status: Ordered Artificial Tears preserved solution 1 drops, Eyes, Both, 2 times a day, PRN for dry eyes, # 5 mL, 0 Refills, Maintenance, 06/23/19 0:21:15 EDT, Solution Start Date: 06/23/19 Stop Date: 06/30/19 Status: Ordered aspirin 81 mg oral tablet, chewable 81 mg, By Mouth, Daily, # 30 tablet, Refills 0, Tot. Refills 0, Maintenance, 06/26/19 12:04:36 EDT,Route to Pharmacy Electronically, [id number], [facility]/pharmacy #[id number] Start Date: 06/26/19 Status: Ordered atorvastatin 20 mg oral tablet = 20 mg, By Mouth, Daily at bedtime, # 30 tablet, 0 Refills, Maintenance, 06/26/19 12:12:53 EDT, Tablet Start Date: 06/26/19 Status: Ordered Auryxia 210 mg oral tablet 3 tablet = 630 mg, By Mouth, 3 times a day with meals, # 200 each, 0 Refills, Maintenance, 06/12/1922:28:36 EDT, Tablet Start Date: 06/12/19 Status: Ordered carvedilol 12.5 mg oral tablet 12.5 mg, 1, tablet, By Mouth, Daily, Refills 0, Maintenance, 02/04/21 15:21:00 EDT, Partial fill upon patient request if the prescription is for a schedule II opioid drug. Start Date: 02/04/21 Status: Ordered carvedilol 25 mg oral tablet TOME WIHT TABLETA POR VIA ORAL DOS VECES AL [place] CON ALIMENTO Start Date: 11/11/14 Status: Ordered Cetirizine = 5 mg, By Mouth, Daily, PRN Other, 0 Refills, Maintenance, 09/18/16 0:52:10 Start Date: 09/18/16 Status: Ordered Colace sodium 100 mg oral capsule 100 mg, 1, capsule, By Mouth, 2 times a day, PRN, # 60 capsule, Refills 3, Tot. Refills 3, Maintenance, for constipation, 09/07/16 14:53:42, Route to Pharmacy Electronically, [id number], [facility]/pharmacy #[id number] Start Date: 09/07/16 Status: Ordered [facility] ASPIRIN 81 MG CHEWABLE TAB TOME WHIT TABLETA TODOS LOS D? Start Date: 07/03/19 Status: Ordered duloxetine 20 mg oral enteric coated capsule 1 capsule = 20 mg, By Mouth, daily, # 180 capsule, 0 Refills, Maintenance, 07/28/19 19:43:10 EST, EC Capsule Start Date: 07/28/19 Status: Ordered ergocalciferol 91435 iu oral capsule 50,000 International_Units, 1, capsule, By Mouth, Every week, # 30 capsule, Refills 0, Maintenance,02/04/21 15:23:00 EDT, Partial fill upon patient request if the prescription is for a schedule II opioid drug. Start Date: 02/04/21 Status: Ordered Flovent HFA 110 mcg/inh inhalation aerosol TAKE 2 PUFFS TWICE A DAY WITH SPACER Start Date: 11/11/14 Status: Ordered fluticasone 50 mcg/inh nasal spray SPRAY 1 SPRAY INTO EACH NOSTRIL TODOS LOS D? Start Date: 07/03/19 Status: Ordered folic acid 1 mg oral tablet 1 tablet = 1 mg, By Mouth, Daily, # 30 tablet, 0 Refills, Maintenance, Tablet Start Date: 03/11/13 Status: Ordered gabapentin 100 mg oral capsule 2 capsule = 200 mg, By Mouth, Daily, 0 Refills, Maintenance, 09/13/12 16:32:10 Start Date: 09/13/12 Status: Ordered Incruse Ellipta 62.5 mcg/inh inhalation powder 1 each, Inhalation, Every 24 hours, doses should be taken at least 24 hours apart, # 30 each, 0 Refills, Maintenance, 02/04/21 15:23:00 EDT, Powder, Partial fill upon patient request if the prescription is for a schedule II opioid drug. Start Date: 02/04/21 Status: Ordered Lorazepam = 1 mg, By Mouth, Daily, PRN as needed for anxiety, 0 Refills, Maintenance, 11/11/14 17:45:49 Start Date: 11/11/14 Status: Ordered omeprazole 20 mg oral enteric coated capsule 1 capsule = 20 mg, By Mouth, Daily, # 30 capsule, 0 Refills, Maintenance, EC Capsule Start Date: 03/11/13 Status: Ordered ProAir HFA 2 puffs, Inhalation, 4 times a day, PRN Wheezing/Shortness of Breath, 0 Refills, Maintenance, 11/11/14 15:26:17 Start Date: 11/11/14 Status: Ordered Renal Caps oral capsule 1 capsule, By Mouth, Daily, # 30 capsule, 0 Refills, Maintenance, 06/12/19 22:30:32 EDT, Capsule Start Date: 06/12/19 Status: Ordered Sensipar 90 mg oral tablet See Instructions, 2 tablet By Mouth Daily, 0 Refills, Maintenance, Tablet Start Date: 04/10/13 Status: Ordered sevelamer carbonate 800 mg oral tablet 3 tablet = 2,400 mg, By Mouth, 3 times a day with meals, # 270 tablet, 1 Refills, Maintenance, 12/26/13 17:35:32, Tablet, 3 tablet By Mouth 3 times a day with meals,x30 days Start Date: 12/26/13 Stop Date: 02/24/14 Status: Ordered Singulair 10 mg oral tablet 10 mg, 1, tablet, By Mouth, Daily in PM, # 30 tablet, Refills 0, Maintenance, 06/12/19 22:28:57 EDT Start Date: 06/12/19 Status: Ordered Triphrocaps oral capsule 1 capsule, By Mouth, Daily, 0 Refills, Maintenance, 02/04/21 15:24:00 EDT, Partial fill upon patient request if the prescription is for a schedule II opioid drug. Start Date: 02/04/21 Status: Ordered venlafaxine 75 mg oral capsule, extended release 1 capsule = 75 mg, By Mouth, Daily, # 30 capsule, 0 Refills, Maintenance, 07/28/19 19:43:36 EST, ERCapsule Start Date: 07/28/19 Status: Ordered Zantac 150 oral tablet 1 tablet = 150 mg, By Mouth, 2 times a day, # 180 tablet, 0 Refills, Maintenance, 06/12/19 22:28:17EDT, Tablet Start Date: 06/12/19 Status: Ordered Problem List Condition Effective Dates Status Health Status Inform ant Anemia(Confirmed) Active Anemia of chronic illness(Confirmed) Active Dialysis patient(Confirmed) Active ESRD on dialysis(Confirmed) Active Encounter for diagnostic col onoscopy due to change in bowel habits(Confirmed) Active GERD (gastroesophageal reflu x disease)(Confirmed) Active Heart failure(Confirmed) Active HLD (hyperlipidemia)(Confirmed) Active Obesity (BMI 30-39.9)(Confirmed) Active Chronic shoulder pain(Confirmed) Active Vital Signs Most recent to oldest [Reference Range]: 1 Height 176 cm (02/04/21 2:27 PM) Weight 155.6 kg (02/04/21 2:27 PM) Pulse Rate [55-90 bpm] 96 bpm *H* (02/04/21 2:27 PM) Body Mass Index [18.5-24.99] 50.23 *>HHI* (02/04/21 2:27 PM) Blood Pressure [90-138/55-84 mm Hg] 123/ 75mm Hg (02/04/21 2:27 PM) Respiratory Rate [16-30 br/min] 18 br/mi n (02/04/21 2:27 PM) Temperature [96.8-100.4 DegF] 98.3 DegF (02/04/21 2:27 PM) Blood pressure sites Arm, left (02/04/21 2:27 PM) Temperature Route Temporal (02/04/21 2:27 PM) Weight Obtained Via Standing scale (02/04/21 2:27 PM) Social History Social History Type Response Smoking Status Never (less than 100 in lifetime) entered on: 06/29/19 Sex Male
--- OUTSIDE RECORDS SUMMARY | 2023-10-09 13:42 | XMS_ITS | Continuity of Care Document ---
Author Name Unknown Organization [facility] As sociates Address [address] [place] [address] [address] [place] [address]- Care Team Providers Care Senior It Security Analyst Name Role Phone Paulina NG, Debbie Primary Care Physician [phone] Encounter [facility] Date(s): 07/12/23 - 08/19/[address] [place] [address]- Attending Physician: Colette MS,RD,LDN, Sandhya Malloy Allergies, Adverse Reactions, Alerts Substance Reaction Severity Status shellfish Diff Breathing Active Benadryl very anxious Active Immunizations Given and Recorded Vaccine Date Status Refusal Reason pneumococcal 23-valent vaccine 04/11/13 Given Medications albuterol 0.083% inhalation solution 3 mL = 2.5 mg, Inhalation, Every 4 hours, PRN for wheezing, # 60 each, 0 Refills, Maintenance, 12/12/17 16:40:12 EDT, Solution Start Date: 12/12/17 Status: Ordered amLODIPine 10 mg oral tablet 10 mg, 1, tablet, By Mouth, Daily, # 30 tablet, Refills 0, Maintenance, 06/06/22 10:04:00 EDT, Partial fill upon patient request if the prescription is for a schedule II opioid drug. Start Date: 06/06/22 Status: Ordered amLODIPine 5 mg oral tablet 1 tablet = 5 mg, By Mouth, Daily, # 30 tablet, 0 Refills, Maintenance, 04/14/21 8:39:00 EDT, Tablet, Partial fill upon patient request if the prescription is for a schedule II opioid drug. Start Date: 04/14/21 Status: Ordered Artificial Tears preserved solution 1 drops, Eyes, Both, 2 times a day, PRN for dry eyes, # 5 mL, 0 Refills, Maintenance, 06/23/19 0:21:15 EDT, Solution Start Date: 06/23/19 Stop Date: 06/30/19 Status: Ordered aspirin 81 mg oral tablet, chewable 81 mg, By Mouth, Daily, # 30 tablet, Refills 0, Tot. Refills 0, Maintenance, 06/26/19 12:04:36 EDT,Route to Pharmacy Electronically, [id number], [facility]/pharmacy #[id number] Start Date: 06/26/19 Status: Ordered atorvastatin 20 [...] EDT, Tablet Start Date: 06/12/19 Status: Ordered calcitriol 0.5 mcg oral capsule 1 capsule = 0.5 mcg, By Mouth, Every 12 hours, # 90 capsule, 0 Refills, Maintenance, 09/06/21 14:06:00 EST, Capsule, [facility]/pharmacy #[id number], Partial fill upon patient request if the prescription is for aschedule II opioid drug., 165.1, cm, 09/02/21 7:42:... Start Date: 09/06/21 Status: Ordered calcium (as citrate)-vitamin D 315 mg-250 intl units oral tablet 4 tablet, By Mouth, 4 times a day, # 480 tablet, 1 Refills, Maintenance, 09/02/21 17:49:00 EST, [facility]/pharmacy #[id number], Partial fill upon patient request if the prescription is for a schedule II opioid drug., 4 tablet By Mouth 4 times a day,x30 days, 165.... Start Date: 09/02/21 Stop Date: 11/01/21 Status: Ordered calcium carbonate 1250 mg (500 mg elemental calcium) oral tablet 1,250 mg, 1, tablet, By Mouth, 2 times a day, Start taking 08/27/21. Take 1 tablet 2 times a day for 5 days before surgery., # 10 tablet, Refills 0, Tot. Refills 0, Maintenance, 08/23/21 11:58:00 EST, Route to Pharmacy Electronically, [facility]/pharmacy #20... Start Date: 08/23/21 Stop Date: 08/29/21 Status: Ordered carvedilol 12.5 mg oral tablet 12.5 mg, 1, tablet, By Mouth, Daily, Refills 0, Maintenance, 02/04/21 15:21:00 EDT, Partial fill upon patient request if the prescription is for a schedule II opioid drug. Start Date: 02/04/21 Status: Ordered Cetirizine = 5 mg, By Mouth, Daily, PRN Other, 0 Refills, Maintenance, 09/18/16 0:52:10 Start Date: 09/18/16 Status: Ordered cholecalciferol 50,000 intl units oral capsule 1 capsule = 50,000 International_Units, By Mouth, Every week, # 100 capsule, 0 Refills, Maintenance, 04/14/21 8:41:00 EDT, Capsule, Partial fill upon patient request if the prescription is for a schedule II opioid drug. Start Date: 04/14/21 Status: Ordered Colace sodium 100 mg oral capsule 100 mg, 1, capsule, By Mouth, 2 times a day, PRN, # 60 capsule, Refills 3, Tot. Refills 3, Maintenance, for constipation, 09/07/16 14:53:42, Route to Pharmacy Electronically, [id number], [facility]/pharmacy #[id number] Start Date: 09/07/16 Status: Ordered famotidine 40 mg oral tablet 1 tablet = 40 mg, By Mouth, Daily at bedtime, # 30 tablet, 0 Refills, Maintenance, 04/14/21 8:41:00EDT, Tablet, Partial fill upon patient request if the prescription is for a schedule II opioid drug. Start Date: 04/14/21 Status: Ordered Flovent HFA 110 mcg/inh inhalation [...] 2 capsule = 200 mg, By Mouth, 2 times a day, 0 Refills, Maintenance, 09/13/12 16:32:10 EST Start Date: 09/13/12 Status: Ordered Incruse Ellipta 62.5 mcg/inh inhalation powder 1 each, Inhalation, Every 24 hours, doses should be taken at least 24 hours apart, # 30 each, 0 Refills, Maintenance, 02/04/21 15:23:00 EDT, Powder, Partial fill upon patient request if the prescription is for a schedule II opioid drug. Start Date: 02/04/21 Status: Ordered lidocaine 5% topical ointment 1 application, Topically, 3 times a day, # 35 Gm, 0 Refills, Maintenance, 04/14/21 8:42:00 EDT, Ointment, Partial fill upon patient request if the prescription is for a schedule II opioid drug. Start Date: 04/14/21 Status: Ordered Lorazepam = 1 mg, By Mouth, Daily, PRN as needed for anxiety, 0 Refills, Maintenance, 11/11/14 17:45:49 Start Date: 11/11/14 Status: Ordered methocarbamol 750 mg oral tablet 2 tablet = 1,500 mg, By Mouth, 3 times a day, # 60 tablet, 0 Refills, Maintenance, 04/14/21 8:43:00EDT, Tablet, Partial fill upon patient request if the prescription is for a schedule II opioid drug. Start Date: 04/14/21 Stop Date: 04/24/21 Status: Ordered omeprazole 20 mg oral enteric coated capsule 1 capsule = 20 mg, By Mouth, Daily, # 30 capsule, 0 Refills, Maintenance, EC Capsule Start Date: 03/11/13 Status: Ordered ProAir HFA 2 puffs, Inhalation, 4 times a day, PRN Wheezing/Shortness of Breath, 0 Refills, Maintenance, 11/11/14 15:26:17 Start Date: 11/11/14 Status: Ordered sevelamer carbonate 800 mg oral [...] opioid drug. Start Date: 02/04/21 Status: Ordered Zantac 150 oral tablet 1 tablet = 150 mg, By Mouth, 2 times a day, # 180 tablet, 0 Refills, Maintenance, 06/12/19 22:28:17EDT, Tablet Start Date: 06/12/19 Status: Ordered Problem List Condition Confirmation Course Effective Dates Status Health St atus Informant Anemia of chronic illness Confirmed Active Morbid obesity with BMI of 50.0-59.9, adult Confirmed Active OA (osteoarthritis) of shoulder Confirmed Active ESRD on dialysis Confirmed Active GERD (gastroesophageal reflux disease) Confirmed Active Heart failure Confirmed Active Chronic heart failure with preserved ejection fraction (HFpEF) Confirmed Active HLD (hyperlipidemia) Confirmed Active HTN (hypertension) Confirmed Active Anxiety and depression Confirmed Active OA (osteoarthritis) of hip Confirmed Active RLS (restless legs syndrome) Confirmed Active Hyperparathyroidis m, secondary Confirmed Active Severe obesity Confirmed Active Chronic shoulder pain Confirmed Active Social History Social History Type Response Smoking Status Never (less than 100 in lifetime) entered on: 06/29/19 Sex Male Patient Care team information Care Team Personnel Name: Ana Maria Oviedo RN Position: [facility] AMB Nurse Member Role: Primary Care Nurse Name: Keron Monson MD Position: [facility] Renal MD Member Role: Lifetime Consulting Physician Address: Address: [address] [place] [address] [address] [place] [address]- Name: Barbara Parr NP Position: [facility] Associate Professional Member Role: Lifetime Consulting Provider Address: Address: [address] [facility], [address] [facility] [place] [address]- [place] Name: Lisa Rogers NP Position: [facility] PCO Associate Professional Member Role: Primary Care Nurse Address: Address: [address] [place] [address]- Name: Kings Bauer RN Position: [facility] RN Member Role: Primary Care Nurse Name: April Wagner RN Position: S RN Member Role: Primary Care Nurse Name: Joanna Burger RN Position: [facility] SN RN Member Role: Primary Care Nurse Name: Peyton Watson Position: [facility] Outreach Member Role: Lifetime Consulting Physician Name: Lewis Borrero RN Position: [facility] RN Member Role: Primary Care Nurse Name: Esperanza Ronquillo RN Position: [facility] RN Member Role: Primary Care Nurse Name: Ken Ma NP Position: [facility] PCO Associate Professional Member Role: Primary Care Nurse Address: Address: [address] [place] [address]- Name: Odin Grider MD Position: [facility] Renal MD Member Role: Lifetime Consulting Physician Address: Address: [address] [place] [address] [address] [facility] [place] [address]- Name: Chad Rivera MD Position: [facility] Renal MD Member Role: Lifetime Consulting Physician Address: Address: [address] [place] [address] [address] [facility] [place] [address]- Name: Debbie Gallardo MD Position: [facility] Outreach Member Role: PCP Address: Address: [address] [place] [address]- Name: Trevor Reyes MD Position: [facility] Renal MD Member Role: Lifetime Consulting Physician Address: Address: [address] [place] [address] [facility] [place] [address]- Name: Katerine Menjivar RN Position: [facility] OB RN Member Role: Primary Care Nurse Name: Leslie Montenegro RN Position: [facility] SN RN Member Role: Primary Care Nurse Name: Myesha Negrete RN Position: S RN Member Role: Primary Care Nurse Name: Sarah Goldsmith RN Position: [facility] RN Member Role: Primary Care Nurse Name: Joanna Perez RN Position: [facility] Onco RN Member Role: Primary Care Nurse Care Team Related Persons Name: LEENA BENJAMIN Address: [address] [address] Name: RANDI BENJAMIN Address: home [address] [address] Name: SHAINA BENJAMIN Address: [address] [address]
--- OUTSIDE RECORDS SUMMARY | 2023-10-09 13:42 | XMS_ITS | Continuity of Care Document ---
Author Name Unknown Organization [facility] As [facility] Address [address] [place] [address] [address] [place] [address]- Care Team Providers Care Settlement Agent Name Role Phone Paulina NG, Debbie Primary Care Physician [phone] Encounter [facility] Date(s): 09/01/23 - 09/08/[address] [place] [address]- Attending Physician: Colette MS,RD,LDN, Sandhya Malloy Allergies, [...] Maintenance, 06/26/19 12:04:36 EDT,Route to Pharmacy Electronically, [id number], [facility]/pharmacy #[id number] Start Date: 06/26/19 Status: Ordered atorvastatin [...] 0 Refills, Maintenance, 09/06/21 14:06:00 EST, Capsule, [facility]/pharmacy #[id number], Partial fill upon patient request if the prescription is for aschedule II opioid drug., 165.1, cm, 09/02/21 7:42:... Start Date: 09/06/21 Status: Ordered calcium (as citrate)-vitamin D 315 mg-250 intl units oral tablet 4 tablet, By Mouth, 4 times a day, # 480 tablet, 1 Refills, Maintenance, 09/02/21 17:49:00 EST, [facility]/pharmacy #[id number], Partial fill upon patient request if [...] 08/23/21 11:58:00 EST, Route to Pharmacy Electronically, [facility]/pharmacy #20... Start Date: 08/23/21 Stop Date: 08/29/21 [...] constipation, 09/07/16 14:53:42, Route to Pharmacy Electronically, [id number], [facility]/pharmacy #[id number] Start Date: 09/07/16 Status: Ordered famotidine 40 [...] Personnel Name: Ana Maria Oviedo RN Position: [facility] AMB Nurse Member Role: Primary Care Nurse Name: Keron Monson MD Position: [facility] Renal MD Member Role: Lifetime Consulting Physician Address: Address: [address] [place] [address] [address] [facility] [place] [address]- Name: Barbara Parr NP Position: [facility] Associate Professional Member Role: Lifetime Consulting Provider Address: Address: [address] [facility], [address] [facility] [place] [address]- [place] Name: Lisa Rogers NP Position: [facility] PCO Associate Professional Member Role: Primary Care Nurse Address: Address: [address] [place] [address]- Name: Kings Bauer RN Position: [facility] RN Member Role: Primary Care Nurse Name: April Wagner RN Position: S RN Member Role: Primary Care Nurse Name: Joanna Burger RN Position: [facility] SN RN Member Role: Primary Care Nurse Name: Peyton Watson Position: [facility] Outreach Member Role: Lifetime Consulting Physician Name: Lewis Borrero RN Position: [facility] RN Member Role: Primary Care Nurse Name: Esperanza Ronquillo RN Position: [facility] RN Member Role: Primary Care Nurse Name: Ken Ma NP Position: [facility] PCO Associate Professional Member Role: Primary Care Nurse Address: Address: [address] [facility] [address] [place] [address]- Name: Odin Grider MD Position: [facility] Renal MD Member Role: Lifetime Consulting Physician Address: Address: [address] [place] [address] [address] [facility] [place] [address]- Name: Chad Rivera MD Position: [facility] Renal MD Member Role: Lifetime Consulting Physician Address: Address: [address] [place] [address] [address] [facility] [place] [address]- Name: Debbie Gallardo MD Position: [facility] Outreach Member Role: PCP Address: Address: [address] [place] [address]- Name: Trevor Reyes MD Position: [facility] Renal MD Member Role: Lifetime Consulting Physician Address: Address: [address] [place] [address] [facility] [place] [address]- Name: Katerine Menjivar RN Position: [facility] OB RN Member Role: Primary Care Nurse Name: Leslie Montenegro RN Position: [facility] SN RN Member Role: Primary Care Nurse Name: Myesha Negrete RN Position: S RN Member Role: Primary Care Nurse Name: Sarah Goldsmith RN Position: [facility] RN Member Role: Primary Care Nurse Name: Joanna Perez RN Position: [facility] Onco RN Member Role: Primary Care Nurse Care Team Related Persons Name: LEENA BENJAMIN Address: [address] [address] Name: RANDI BENJAMIN Address: [address] [address] Name: SHAINA BENJAMIN Address: [address] [address]
--- OUTSIDE RECORDS SUMMARY | 2023-10-09 13:42 | XMS_ITS | Continuity of Care Document ---
Author Name Unknown Organization [facility] Address [address] [place] [address]- Care Team Providers Care Correctional Supervisor Name Role Phone Paulina NG, Debbie Primary Care Physician [place] [facility] [place](s[place] 07/29/23 - 09/27/23 [facility] [address] [place] [address]- Attending Physician: Chad Rivera MD Admitting Physician: Chad Rivera MD Allergies, Adverse Reactions, Alerts Substance Reaction [...] Maintenance, 06/26/19 12:04:36 EDT,Route to Pharmacy Electronically, [id number], [facility]/pharmacy #[id number] Start Date: 06/26/19 Status: Ordered atorvastatin [...] 0 Refills, Maintenance, 09/06/21 14:06:00 EST, Capsule, [facility]/pharmacy #[id number], Partial fill upon patient request if the prescription is for aschedule II opioid drug., 165.1, cm, 09/02/21 7:42:... Start Date: 09/06/21 Status: Ordered calcium (as citrate)-vitamin D 315 mg-250 intl units oral tablet 4 tablet, By Mouth, 4 times a day, # 480 tablet, 1 Refills, Maintenance, 09/02/21 17:49:00 EST, [facility]/pharmacy #[id number], Partial fill upon patient request if [...] 08/23/21 11:58:00 EST, Route to Pharmacy Electronically, [facility]/pharmacy #20... Start Date: 08/23/21 Stop Date: 08/29/21 [...] constipation, 09/07/16 14:53:42, Route to Pharmacy Electronically, [id number], [facility]/pharmacy #[id number] Start Date: 09/07/16 Status: Ordered famotidine 40 [...] Active OA (osteoarthritis) of hip Confirmed Active AIDA (obstructive sleep apnea) Confirmed Active RLS (restless legs syndrome) Confirmed Active Hyperparathyroidis m, secondary Confirmed Active Severe obesity Confirmed Active Chronic shoulder pain Confirmed Active Social History Social History Type Response Smoking Status Never (less than 100 in lifetime) entered on: 06/29/19 Sex Male Patient Care team information Care Team Personnel Name: Ana Maria Oviedo RN Position: [facility] AMB Nurse Member Role: Primary Care Nurse Name: Keron Monson MD Position: [facility] Renal MD Member Role: Lifetime Consulting Physician Address: Address: [address] [place] [address] [address] [facility] [place] [address]- [place] Name: Barbara Parr NP Position: [facility] Associate Professional Member Role: Lifetime Consulting Provider Address: Address: [address] [place] [address], [address] [facility] [place] [address]- Name: Lisa Rogers NP Position: [facility] PCO Associate Professional Member Role: Primary Care Nurse Address: Address: [address] [place] [address]- [place] Name: Kings Bauer RN Position: [facility] RN Member Role: Primary Care Nurse Name: April Wagner RN Position: S RN Member Role: Primary Care Nurse Name: Joanna Burger RN Position: [facility] SN RN Member Role: Primary Care Nurse Name: Peyton Watson Position: [facility] Outreach Member Role: Lifetime Consulting Physician Name: Lewis Borrero RN Position: [facility] RN Member Role: Primary Care Nurse Name: Esperanza Ronquillo RN Position: [facility] RN Member Role: Primary Care Nurse Name: Ken Ma NP Position: [facility] PCO Associate Professional Member Role: Primary Care Nurse Address: Address: [address] [place] [address]- Name: Odin Grider MD Position: [facility] Renal MD Member Role: Lifetime Consulting Physician Address: Address: [address] [place] [address] [address] [facility] [place] [address]- Name: Chad Rivera MD Position: [facility] Renal MD Member Role: Lifetime Consulting Physician Address: Address: [address] [place] [address] [address] [facility] [place] [address]- Name: Debbie Gallardo MD Position: [facility] Outreach Member Role: PCP Address: Address: [address] [place] [address]- Name: Trevor Reyes MD Position: [facility] Renal MD Member Role: Lifetime Consulting Physician Address: Address: [address] [place] [address] [facility] [place] [address]- Name: Katerine Menjivar RN Position: [facility] OB RN Member Role: Primary Care Nurse Name: Leslie Montenegro RN Position: [facility] SN RN Member Role: Primary Care Nurse Name: Myesha Negrete RN Position: [facility] RN Member Role: Primary Care Nurse Name: Sarah Goldsmith RN Position: [facility] RN Member Role: Primary Care Nurse Name: Joanna Perez RN Position: [facility] Onco RN Member Role: Primary Care Nurse Care Team Related Persons Name: LEENA BENJAMIN Address: [address] [address] Name: RANDI BENJAMIN Address: home [address] [address] Name: SHAINA BENJAMIN Address: [address] [address]
--- OUTSIDE RECORDS SUMMARY | 2023-10-09 13:42 | XMS_ITS | Continuity of Care Document ---
Author Name Unknown Organization [facility] Address [address] [place] [address]- Care Team Providers Care Grain Shoveler Name Role Phone Paulina NG, Debbie Primary Care Physician Encounter [facility] Date(s): 09/09/19 - 09/19/19 [facility] [address] [place] [address] [facility] Attending Physician: Nargis Torres Admitting Physician: Nargis Torres Referring Physician: Nargis Torres Referring Physician: Marika De Leon Allergies, Adverse Reactions, Alerts Substance Reaction Severity [...] Maintenance, 06/26/19 12:04:36 EDT,Route to Pharmacy Electronically, [id number], [facility]/pharmacy #[id number] Start Date: 06/26/19 Status: Ordered atorvastatin [...] Tablet Start Date: 06/12/19 Status: Ordered carvedilol 25 mg oral tablet TOME WHIT TABLETA POR VIA ORAL DOS VECES AL [...] constipation, 09/07/16 14:53:42, Route to Pharmacy Electronically, [id number], [facility]/pharmacy #[id number] Start Date: 09/07/16 Status: Ordered [facility] ASPIRIN 81 MG CHEWABLE TAB TOME WHIT TABLETA TODOS LOS D? Start Date: 07/03/19 Status: Ordered duloxetine 20 mg oral enteric coated capsule 1 capsule = 20 mg, By Mouth, daily, # 180 capsule, 0 Refills, Maintenance, 07/28/19 19:43:10 EST, EC Capsule Start Date: 07/28/19 Status: Ordered Flovent HFA 110 mcg/inh inhalation aerosol TAKE 2 PUFFS TWICE A DAY WITH SPACER Start Date: 11/11/14 Status: Ordered fluticasone 50 mcg/inh nasal spray SPRAY 1 SPRAY INTO EACH NOSTRIL TORECIO D? Start Date: 07/03/19 Status: Ordered folic acid 1 mg oral tablet 1 tablet = 1 mg, By Mouth, Daily, # 30 tablet, 0 Refills, Maintenance, Tablet Start Date: 03/11/13 Status: Ordered gabapentin 100 mg oral capsule 2 capsule = 200 mg, By Mouth, Daily, 0 Refills, Maintenance, 09/13/12 16:32:10 Start Date: 09/13/12 Status: Ordered Lorazepam = 1 mg, By [...] 22:28:57 EDT Start Date: 06/12/19 Status: Ordered venlafaxine 75 mg oral capsule, [...] (BMI 30-39.9)(Confirmed) Active Chronic shoulder pain(Confirmed) Active Social History Social History Type Response Smoking Status Never (less than 100 in lifetime) entered on: 06/29/19 Sex Male
--- OUTSIDE RECORDS SUMMARY | 2023-10-09 13:42 | XMS_ITS | Continuity of Care Document ---
Author Name Unknown Organization [facility] Address Unknown Care Team Providers Care Clarifying Plant Operator Name Role Phone Paulina NG, Debbie Primary Care Physician Encounter [facility] [place] Date(s): 03/16/21 - 07/04/21 [facility] Attending Physician: Joanie NG, Marquita Allergies, Adverse Reactions, Alerts Substance Reaction Severity [...] Solution Start Date: 12/12/17 Status: Ordered amLODIPine 5 mg oral tablet [...] Maintenance, 06/26/19 12:04:36 EDT,Route to Pharmacy Electronically, [id number], [facility]/pharmacy #207 Start Date: 06/26/19 Status: Ordered [...] constipation, 09/07/16 14:53:42, Route to Pharmacy Electronically, [id number], [facility]/pharmacy #[id number] Start Date: 09/07/16 Status: Ordered duloxetine 20 mg oral enteric coated capsule 1 capsule = 20 mg, By Mouth, daily, # 180 capsule, 0 Refills, Maintenance, 07/28/19 19:43:10 EST, EC Capsule Start Date: 07/28/19 Status: Ordered famotidine 40 mg oral tablet [...] 11/11/14 15:26:17 Start Date: 11/11/14 Status: Ordered Sensipar 90 mg oral tablet [...] Effective Dates Status Health Status Inform ant Anemia of chronic illness(Confirmed) Active Morbid obesity with BMI of 5 0.0-59.9, adult(Confirmed) Active OA (osteoarthritis) of shoulder(Confirmed) Active ESRD on dialysis(Confirmed) Active GERD (gastroesophageal reflu x disease)(Confirmed) Active Heart failure(Confirmed) Active Chronic heart failure with p reserved ejection fraction (HFpEF)(Confirmed) Active HLD (hyperlipidemia)(Confirmed) Active HTN (hypertension)(Confirmed) Active Anxiety and depression(Confirmed) Active OA (osteoarthritis) of hip(Confirmed) Active RLS (restless legs syndrome)(Confirmed) Active Hyperparathyroidism, secondary(Confirmed) Active Chronic shoulder pain(Confirmed) Active Social History Social History Type Response Smoking Status Never (less than 100 in lifetime) entered on: 06/29/19 Sex Male
--- OUTSIDE RECORDS SUMMARY | 2023-10-09 13:42 | XMS_ITS | Continuity of Care Document ---
Author Name Unknown Organization [facility] Address [address] [place] [address] ve [address] [place] [address]- Care Team Providers Care Zoogler Name Role Phone Paulina NG, Debbie Primary Care Physician [phone] [place] [facility] [place] - 05/03/[address] [place] [address]- Attending Physician: Richi Dillon MD Referring Physician: Debbie Gallardo MD Allergies, Adverse Reactions, Alerts Substance Reaction [...] Maintenance, 06/26/19 12:04:36 EDT,Route to Pharmacy Electronically, [id number], [facility]/pharmacy #207 Start Date: 06/26/19 Status: Ordered atorvastatin [...] constipation, 09/07/16 14:53:42, Route to Pharmacy Electronically, [id number], [facility]/pharmacy #207 Start Date: 09/07/16 Status: Ordered duloxetine 20 [...] Hyperparathyroidism, secondary(Confirmed) Active Chronic shoulder pain(Confirmed) Active Vital Signs Most recent to oldest [Reference Range]: 1 Height 176 cm (04/26/21 1:43 PM) Weight 156.7 kg (04/26/21 1:43 PM) Body Mass Index [18.5-24.99] 50.59 *>HHI* (04/26/21 1:43 PM) Social History Social History Type Response Smoking Status Never (less than 100 in lifetime) entered on: 06/29/19 Sex Male
--- OUTSIDE RECORDS SUMMARY | 2023-10-09 13:42 | XMS_ITS | Continuity of Care Document ---
Author Name Unknown Organization [facility] Address [address] [place] [address]- Care Team Providers Care Urologic Nurse Name Role Phone Paulina NG, Debbie Primary Care Physician Encounter [facility] [place] Date(s): 03/12/21 - 05/14/[address] [address] Attending Physician: Marquita Nair MD Admitting Physician: Marquita Nair MD Allergies, Adverse Reactions, Alerts Substance Reaction [...] Maintenance, 06/26/19 12:04:36 EDT,Route to Pharmacy Electronically, [id number], [facility]/pharmacy #207 Start Date: 06/26/19 [...] constipation, 09/07/16 14:53:42, Route to Pharmacy Electronically, [id number], [facility]/pharmacy #207 Start Date: 09/07/16 Status: Ordered duloxetine [...]
--- OUTSIDE RECORDS SUMMARY | 2023-10-09 13:42 | XMS_ITS | Continuity of Care Document ---
Author Name Unknown Organization [facility] Address [address] [place] [address] [address] [place] [address]- Care Team Providers Care Icebox Worker Name Role Phone Paulina NG, Debbie Primary Care Physician [phone] [place] [facility] [place] - 03/22/[address] [place] [address]- Encounter Diagnosis Morbid obesity with BMI of 50.0-59.9, adult(Discharge Diagnosis) - 03/15/21 Attending Physician: Brice Ray Referring Physician: Debbie Gallardo MD Allergies, Adverse [...] Maintenance, 06/26/19 12:04:36 EDT,Route to Pharmacy Electronically, [id number], [facility]/pharmacy #207 Start Date: 06/26/19 [...] constipation, 09/07/16 14:53:42, Route to Pharmacy Electronically, [id number], [id number] Start Date: 09/07/16 Status: Ordered [facility] ASPIRIN 81 MG CHEWABLE TAB TOME WHIT TABLETA TODOS LOS D? Start Date: 07/03/19 Status: Ordered duloxetine 20 mg oral enteric coated capsule 1 capsule = 20 mg, By Mouth, daily, # 180 capsule, 0 Refills, Maintenance, 07/28/19 19:43:10 EST, EC Capsule Start Date: 07/28/19 Status: Ordered ergocalciferol 91142 iu oral capsule 50,000 International_Units, 1, capsule, [...] Anemia(Confirmed) Active Anemia of chronic illness(Confirmed) Active Morbid obesity with BMI of 5 0.0-59.9, adult(Confirmed) Active Dialysis patient(Confirmed) Active ESRD on dialysis(Confirmed) Active Encounter for diagnostic col onoscopy due to change in bowel habits(Confirmed) Active GERD (gastroesophageal reflu x disease)(Confirmed) Active Heart failure(Confirmed) Active HLD (hyperlipidemia)(Confirmed) Active HTN (hypertension)(Confirmed) Active Chronic shoulder pain(Confirmed) Active Diagnosis Diagnosis Type Effective Dates Health Status Cl inical Service Informant Morbid obesity with BMI of 50.0-59.9, adult Discharge Diagnosis 03/15/21 Vital Signs Most recent to oldest [Reference Range]: 1 Height 176 cm (03/15/21 2:06 PM) Weight 159.9 kg (03/15/21 2:06 PM) Pulse Rate [55-90 bpm] 101 bpm *H* (03/15/21 2:06 PM) Body Mass Index [18.5-24.99] 51.62 *>HHI* (03/15/21 2:06 PM) Blood Pressure [90-138/55-84 mm Hg] 180/ 97mm Hg *H* (03/15/21 2:06 PM) Temperature [96.8-100.4 DegF] 98.5 DegF (03/15/21 2:06 PM) Blood pressure sites Arm, left (03/15/21 2:06 PM) Temperature Route Temporal (03/15/21 2:06 PM) Weight Obtained Via Standing scale (03/15/21 2:06 PM) Social History Social History Type Response Smoking Status Never (less than 100 in lifetime) entered on: 06/29/19 Sex Male
--- OUTSIDE RECORDS SUMMARY | 2023-10-09 13:42 | XMS_ITS | Continuity of Care Document ---
Author Name Unknown Organization [facility] Address [address] [place] [address] [address] [place] [address]- Care Team Providers Care Fortune Teller Name Role Phone Paulina NG, Debbie Primary Care Physician Encounter [facility] [place] Date(s): 02/02/21 - 03/04/[address] [place] [address]- Allergies, Adverse Reactions, Alerts Substance Reaction Severity [...] Maintenance, 06/26/19 12:04:36 EDT,Route to Pharmacy Electronically, [id number], [facility]/pharmacy #207 Start Date: 06/26/19 [...] constipation, 09/07/16 14:53:42, Route to Pharmacy Electronically, [id number], [facility]/pharmacy #[id number] Start Date: 09/07/16 Status: Ordered [facility] ASPIRIN 81 MG CHEWABLE TAB TOME WHIT TABLETA TODOS LOS D? Start Date: 07/03/19 Status: Ordered duloxetine 20 mg oral enteric coated capsule 1 capsule = 20 mg, By Mouth, daily, # 180 capsule, 0 Refills, Maintenance, 07/28/19 19:43:10 EST, EC Capsule Start Date: 07/28/19 Status: Ordered ergocalciferol 45907 iu oral capsule 50,000 International_Units, 1, capsule, [...]
--- OUTSIDE RECORDS SUMMARY | 2023-10-09 13:42 | XMS_ITS | Continuity of Care Document ---
Author Name Unknown Organization [facility] Address [address] [place] [address] [address] [place] [address]- Care Team Providers Care Recruitment And Outreach Assistant Name Role Phone Paulina NG, Debbie Primary Care Physician [phone] Encounter [facility] [place] Date(s): 02/28/23 - 05/24/[address] [place] [address]- Attending Physician: Tejinder Giraldo MD Referring Physician: Debbie Gallardo MD Allergies, [...] Maintenance, 06/26/19 12:04:36 EDT,Route to Pharmacy Electronically, [id number], [facility]/pharmacy #[id number] Start Date: 06/26/19 Status: [...] 0 Refills, Maintenance, 09/06/21 14:06:00 EST, Capsule, [facility]/pharmacy #[id number], Partial fill upon patient request if the prescription is for aschedule II opioid drug., 165.1, cm, 09/02/21 7:42:... Start Date: 09/06/21 Status: Ordered calcium (as citrate)-vitamin D 315 mg-250 intl units oral tablet 4 tablet, By Mouth, 4 times a day, # 480 tablet, 1 Refills, Maintenance, 09/02/21 17:49:00 EST, [facility]/pharmacy #[id number], Partial fill upon patient [...] 08/23/21 11:58:00 EST, Route to Pharmacy Electronically, [facility]/pharmacy #20... Start Date: 08/23/21 Stop [...] constipation, 09/07/16 14:53:42, Route to Pharmacy Electronically, [id number], [facility]/pharmacy #[id number] Start Date: 09/07/16 Status: Ordered duloxetine 20 mg oral enteric coated capsule 1 capsule = 20 mg, By Mouth, daily, # 180 capsule, 0 Refills, Maintenance, 07/28/19 19:43:10 EST, EC Capsule Start Date: 07/28/19 Status: Ordered duloxetine 60 mg oral enteric coated capsule 1 capsule = 60 mg, By Mouth, Daily, # 30 capsule, 0 Refills, Maintenance, 06/06/22 10:04:00 EDT, ECCapsule, Partial fill upon patient request if the prescription is for a schedule II opioid drug. Start Date: 06/06/22 Status: Ordered famotidine 40 mg oral tablet [...] Personnel Name: Ana Maria Oviedo RN Position: [facility] AMB Nurse Member Role: Primary Care Nurse Name: Keron Monson MD Position: [facility] Renal MD Member Role: Lifetime Consulting Physician Address: Address: [address] [place] [address], [facility] [address] [facility] [place] [address]- Name: Keshav POWDER AND PRIMER CANNING LEADER, Barbara Nunez Position: [facility] Associate Professional Member Role: Lifetime Consulting Provider Address: Address: [address] [place] [address], [facility] [address] [facility] [place] [address]- Name: Lisa Rogers NP Position: [facility] Associate Professional Member Role: Primary Care Nurse Address: Address: [address] [place] [address]- Name: Kings Bauer RN Position: [facility] RN Member Role: Primary Care Nurse Name: April Wagner RN Position: [facility] RN Member Role: Primary Care Nurse Name: Joanna Burger RN Position: [facility] SN RN Member Role: Primary Care Nurse Name: Peyton Watson Position: [facility] Outreach Member Role: Lifetime Consulting Physician Name: Lewis Borrero RN Position: [facility] ED RN W/OE and Tasks Member Role: Primary Care Nurse Name: Esperanza Ronquillo RN Position: [facility] RN Member Role: Primary Care Nurse Name: Ken Ma NP Position: [facility] Associate Professional Member Role: Primary Care Nurse Address: Address: [address] [place] [address] [address]rd [place] [address]- [place] Name: Odin Grider MD Position: [facility] Renal MD Member Role: Lifetime Consulting Physician Address: Address: [address] [place] [address] [address] [facility] [place] [address]- [place] Name: Chad Rivera MD Position: [facility] Renal MD Member Role: Lifetime Consulting Physician Address: Address: [address] [place] [address] [address] [facility] [place] [address]- [place] Name: Debbie Gallardo MD Position: [facility] Outreach Member Role: PCP Address: Address: [address] [place] [address]- Name: Trevor Reyes MD Position: [facility] Renal MD Member Role: Lifetime Consulting Physician Address: Address: [address] [place] [address] [facility] [place] [address]- Name: Katerine Menjivar RN Position: [facility] OB RN Member Role: Primary Care Nurse Name: Leslie Montenegro RN Position: [facility] SN RN Member Role: Primary Care Nurse Name: Myesha Negrete RN Position: [facility] RN Member Role: Primary Care Nurse Name: Sarah Goldsmith RN Position: [facility] RN Member Role: Primary Care Nurse Name: Ana RN, Joanna Whitehead Position: [facility] Onco RN Member Role: Primary Care Nurse Care Team Related Persons Name: LEENA BENJAMIN Address: [address] Name: RANDI BENJAMIN Address: [address] Name: SHAINA BENJAMIN Address: [address] [address]
--- OUTSIDE RECORDS SUMMARY | 2023-10-09 13:42 | XMS_ITS | Continuity of Care Document ---
Author Name Unknown Organization [facility] Address [address] [place] [address]- Care Team Providers Care Instrument Technician Name Role Phone Paulina NG, Debbie Primary Care Physician Encounter [facility] [place] Date(s): 11/18/19 - 11/18/[address] [address]- [facility] Discharge Disposition: A-D/C Home Attending Physician: Juan A Addison MD Admitting Physician: Davonte Stephens DO Referring Physician: Not on Staff, Referring MD Allergies, Adverse Reactions, Alerts Substance Reaction [...] Maintenance, 06/26/19 12:04:36 EDT,Route to Pharmacy Electronically, [id number], [facility]/pharmacy #207 Start Date: 06/26/19 Status: [...] constipation, 09/07/16 14:53:42, Route to Pharmacy Electronically, [id number], [facility]/pharmacy #207 Start Date: 09/07/16 Status: Ordered [facility] ASPIRIN 81 MG CHEWABLE TAB TOME WHIT TABLETA TODOS LOS D? Start Date: 07/03/19 Status: Ordered duloxetine 20 mg oral enteric coated capsule 1 capsule = 20 mg, By Mouth, daily, # 180 capsule, 0 Refills, Maintenance, 07/28/19 19:43:10 EST, EC Capsule Start Date: 07/28/19 Status: Ordered Flovent HFA 110 mcg/inh inhalation aerosol TAKE 2 PUFFS TWICE A DAY WITH SPACER Start Date: 2/24/15 Status: Ordered fluticasone 50 mcg/inh nasal spray [...] EC Capsule Start Date: 03/11/13 Status: Ordered Percocet-5/325 325 mg-5 mg oral tablet 1, tablet, By Mouth, Every 6 hours, PRN, for 2 days, # 10 tablet, Refills 0, Tot. Refills 0, Acute,as needed for pain, 11/20/19 8:24:00 EST, 11/18/19 8:24:00 EST, Route to Pharmacy Electronically, [facility]/pharmacy #[id number] Tablet, Partial fill upon patient... Start Date: 11/18/19 Stop Date: 11/20/19 Status: Ordered predniSONE 20 mg oral tablet 2 tablet = 40 mg, By Mouth, Daily, for 5 days, # 10 tablet, 0 Refills, Acute 11/23/19 8:24:00 EST, 11/18/19 8:24:00 EST, Tablet, [facility]/pharmacy #[id number], 176, cm, 07/30/19 12:11:00 EST, Height, 160.1, kg,07/28/19 22:26:00 EST, Dry Weight Start Date: 11/18/19 Stop Date: 11/23/19 Status: Ordered ProAir HFA 2 puffs, Inhalation, [...] (BMI 30-39.9)(Confirmed) Active Chronic shoulder pain(Confirmed) Active Results Radiology Reports * Exam Date Time Procedure Performing Provider Status 11/18/19 3:01 AM Chest 2 Views Frontal and Lat Shaun Stallings (Verified) Notes: (Chest 2 Views Frontal and Lat) Reason For Exam: Chest Pain;Other: RESULT: Chest 2 Views Frontal and Lat Chest 2 Views Frontal and Lat INDICATION: Chest Pain; Clinical Question(s): CHF; Hx of Present Illness: Patient with 10 10 midsternal chest pain and shortness of breath that started at rest. Dialysis patient- last treatment done on Monday.; Other Objective Findings: patient alert, anxious, increased work of breathing. lungs clear mando. skin p w d. COMPARISON: 07/29/2019 FINDINGS: LINES AND TUBES: None. LUNGS AND PLEURA: The central pulmonary vasculature is prominent and indistinct. No pleural effusion. No pneumothorax. HEART, MEDIASTINUM AND DAVID: Mild prominence of the cardiac silhouette, unchanged. Normal mediastinal and hilar contour. BONES AND SOFT TISSUES: No acute abnormality. IMPRESSION: Mild pulmonary vascular congestion. WSN: [id number] Dictated By: Delgado Reyes MD Dictated Date/Time: 11/18/19 9:07 am Reviewed By: Delgado Reyes MD Signed By: Delgado Reyes MD Signed Date/Time: 11/18/19 9:07 am Transcribed By: NICKY Transcribed Date/Time: 11/18/19 9:05 am Vital Signs Most recent to oldest [Reference Range]: 1 2 3 Oxygen Saturation [94-100 %] 97 % (11/18/19 6:29 AM) 98 % (11/18/19 4:13 AM) 100 % (11/18/19 2:18 AM) Pulse Rate [55-90 bpm] 92 bpm *H* (11/18/19 6:29 AM) 87 bpm (11/18/19 4:13 AM) 96 bpm *H* (11/18/19 2:18 AM) Blood Pressure [90-138/55-84 mm Hg] 153/88mm Hg *H* (11/18/19 6:29 AM) 121/72mm Hg (11/18/19 4:13 AM) 168/112mm Hg *H* (11/18/19 2:18 AM) Respiratory Rate [16-30 br/min] 18 br/min (11/18/19 9:36 AM) 22 br/min (11/18/19 6:29 AM) 22 br/min (11/18/19 4:13 AM) Temperature [96.8-100.4 DegF] 97.8 DegF (11/18/19 2:18 AM) Mode of Delivery (Oxygen) Room air (11/18/19 6:29 AM) Nasal CPAP (11/18/19 4:13 AM) Room air (11/18/19 2:18 AM) Blood pressure sites Arm, left (11/18/19 6:29 AM) Arm, left (11/18/19 4:13 AM) Arm, left (11/18/19 2:18 AM) Temperature Route Oral (11/18/19 2:18 AM) Social History Social History Type Response Smoking Status Never (less than 100 in lifetime) entered on: 06/29/19 Sex Male
--- OUTSIDE RECORDS SUMMARY | 2023-10-09 13:42 | XMS_ITS | Continuity of Care Document ---
Author Name Unknown Organization [facility] Address [address] [place] [address]- Care Team Providers Care Grinding Room Supervisor Name Role Phone Paulina NG, Debbie Primary Care Physician [phone] Encounter [facility] [place] Date(s): 06/11/19 - 10/09/19 [facility] [address] [place] [address]- [facility] Attending Physician: Golden Kelly MD Admitting Physician: Golden Kelly MD Referring Physician: Debbie Gallardo MD Allergies, [...] Maintenance, 06/26/19 12:04:36 EDT,Route to Pharmacy Electronically, [id number], [facility]/pharmacy #[id number] Start Date: 06/26/19 Status: Ordered [...] constipation, 09/07/16 14:53:42, Route to Pharmacy Electronically, [id number], [facility]/pharmacy #[id number] Start Date: 09/07/16 Status: Ordered [facility] [...] spray SPRAY 1 SPRAY INTO EACH NOSTRIL TOS LOS D? Start Date: 07/03/19 Status: Ordered [...]
--- OUTSIDE RECORDS SUMMARY | 2023-10-09 13:43 | XMS_ITS | Continuity of Care Document ---
Author Name Unknown Organization [facility] Address Unknown Care Team Providers Care Proofer Apprentice Name Role Phone Paulina NG, Debbie Primary Care Physician [phone] [place] [facility] [place] Date(s): 09/21/21 - 09/28/21 [facility] Encounter Diagnosis Hyperparathyroidism, secondary(Discharge Diagnosis) - 09/21/21 Attending Physician: Not on Staff, Attending MD Referring Physician: Debbie Gallardo MD Allergies, [...] inactivated 07/29/19 Not Given Patient Refuses Medications acetaminophen 325 mg oral tablet 650 mg, 2, tablet, By Mouth, Every 4 hours, # 50 tablet, Refills 0, Tot. Refills 0, Acute 09/02/22 14:39:00 EST, 09/01/21 14:39:00 EST, Route to Pharmacy Electronically, [facility], Partial fill upon patient request if the prescription i... Start Date: 09/01/21 Stop Date: 09/02/22 Status: Ordered albuterol 0.083% inhalation solution 3 mL = [...] Maintenance, 06/26/19 12:04:36 EDT,Route to Pharmacy Electronically, [id number], [facility]/pharmacy #207 Start Date: 06/26/19 Status: [...] 0 Refills, Maintenance, 09/06/21 14:06:00 EST, Capsule, [facility]/pharmacy #[id number], Partial fill upon patient request if the prescription is for aschedule II opioid drug., 165.1, cm, 09/02/21 7:42:... Start Date: 09/06/21 Status: Ordered calcium (as citrate)-vitamin D 315 mg-250 intl units oral tablet 4 tablet, By Mouth, 4 times a day, # 480 tablet, 1 Refills, Maintenance, 09/02/21 17:49:00 EST, [facility]/pharmacy #[id number], Partial fill upon patient [...] 08/23/21 11:58:00 EST, Route to Pharmacy Electronically, [facility]/pharmacy #20... Start Date: 08/23/21 Stop [...] constipation, 09/07/16 14:53:42, Route to Pharmacy Electronically, [id number], [facility]/pharmacy #0904 Start Date: 09/07/16 Status: Ordered duloxetine 20 [...] EC Capsule Start Date: 03/11/13 Status: Ordered oxyCODONE 5 mg oral tablet 5 mg, 1, tablet, By Mouth, Every 6 hours, PRN, # 10 tablet, Refills 0, Tot. Refills 0, Acute 09/02/22 14:40:00 EST, Pain , Severe, 09/01/21 14:39:00 EST, Route to Pharmacy Electronically, [facility], Partial fill upon patient request if... Start Date: 09/01/21 Stop Date: 09/02/22 Status: Ordered ProAir HFA 2 puffs, Inhalation, [...] (restless legs syndrome)(Confirmed) Active Hyperparathyroidism, secondary(Confirmed) Active Severe obesity(Confirmed) Active Chronic shoulder pain(Confirmed) Active Diagnosis Diagnosis Type Effective Dates Health Status Cl inical Service Informant Hyperparathyroid ism, secondary Discharge Diagnosis 09/21/21 Social History Social History Type Response Smoking Status Never (less than 100 in lifetime) entered on: 06/29/19 Sex Male
--- OUTSIDE RECORDS SUMMARY | 2023-10-09 13:43 | XMS_ITS | Continuity of Care Document ---
Author Name Unknown Organization [facility] Address [address] [place] [address]- Care Team Providers Care Customs Guard Name Role Phone Paulina NG, Debbie Primary Care Physician En[place] [facility] [place] Date(s): 09/15/20 - 10/15/20 [facility] [address] [place] [address] Attending Physician: Nargis Torres Admitting Physician: Nargis [...] Maintenance, 06/26/19 12:04:36 EDT,Route to Pharmacy Electronically, [id number], [facility]/pharmacy #[id number] Start Date: 06/26/19 Status: Ordered [...] constipation, 09/07/16 14:53:42, Route to Pharmacy Electronically, [id number], [facility]/pharmacy #[id number] Start Date: 09/07/16 Status: Ordered [facility] ASPIRIN 81 MG CHEWABLE TAB TOME WHIT [...]
--- OUTSIDE RECORDS SUMMARY | 2023-10-09 13:43 | XMS_ITS | Continuity of Care Document ---
Author Name Unknown Organization [facility] Address [address] [place] [address]- Care Team Providers Care Acid Patroller Name Role Phone Paulina NG, Debbie Primary Care Physician Encounter [facility] Date(s): 06/09/21 - 07/09/21 [facility] [address] [place] [id number] Attending Physician: Nargis Torres Admitting Physician: AdmtrNargis Referring Physician: Admtr, Nargis Allergies, Adverse Reactions, Alerts Substance Reaction Severity [...] Maintenance, 06/26/19 12:04:36 EDT,Route to Pharmacy Electronically, [id number], [facility]/pharmacy #[id number] Start [...] constipation, 09/07/16 14:53:42, Route to Pharmacy Electronically, [id number], [facility]/pharmacy #207 Start Date: 09/07/16 Status: Ordered duloxetine [...]
--- OUTSIDE RECORDS SUMMARY | 2023-10-09 13:43 | XMS_ITS | Continuity of Care Document ---
Author Name Unknown Organization [facility] Address [address] [place] [address] [address] [place] [address]- Care Team Providers Care Cribbing Setter Name Role Phone Paulina NG, Debbie Primary Care Physician Encounter [facility] Date(s): 07/20/23 - 08/19/[address] [place] [address]- Attending Physician: Nargis Torres Admitting Physician: AdmtrNargis Referring Physician: Admtr, Ar8 Allergies, Adverse Reactions, Alerts Substance Reaction Severity [...] Maintenance, 06/26/19 12:04:36 EDT,Route to Pharmacy Electronically, [id number], [facility]/pharmacy #[id number] Start Date: 06/26/19 Status: Ordered [...] 0 Refills, Maintenance, 09/06/21 14:06:00 EST, Capsule, [facility]/pharmacy #[id number], Partial fill upon patient request if the prescription is for aschedule II opioid drug., 165.1, cm, 09/02/21 7:42:... Start Date: 09/06/21 Status: Ordered calcium (as citrate)-vitamin D 315 mg-250 intl units oral tablet 4 tablet, By Mouth, 4 times a day, # 480 tablet, 1 Refills, Maintenance, 09/02/21 17:49:00 EST, [facility]/pharmacy #[id number], Partial fill upon patient request [...] 08/23/21 11:58:00 EST, Route to Pharmacy Electronically, [facility]/pharmacy #20... Start Date: 08/23/21 Stop Date: [...] constipation, 09/07/16 14:53:42, Route to Pharmacy Electronically, [id number], [facility]/pharmacy #[id number] Start Date: 09/07/16 Status: Ordered famotidine 40 [...] in lifetime) entered on: 06/29/19 Sex Male Laboratory * Event Display: Non Lab Results Authored Date: Patient Care team information Care Team Personnel Name: Ana Maria Oviedo RN Position: [facility] AMB Nurse Member Role: Primary Care Nurse Name: Keron Monson MD Position: [facility] Renal MD Member Role: Lifetime Consulting Physician Address: Address: [address] [place] [address] [address] [place] [address]- Name: Barbara Parr NP Position: [facility] Associate Professional Member Role: Lifetime Consulting Provider Address: Address: [address] [place] [address], [address] [facility] [place] [address]- Name: Ken SHI, Lisa Pickens Position: [facility] PCO Associate Professional Member Role: Primary Care Nurse Address: Address: [address] [place] [address]- [place] Name: Kings Bauer RN Position: [facility] RN Member Role: Primary Care Nurse Name: April Wagner RN Position: S RN Member Role: Primary Care Nurse Name: Joanna Burger RN Position: [facility] SN RN Member Role: Primary Care Nurse Name: Peyton Watson Position: [facility] Outreach Member Role: Lifetime Consulting Physician Name: Lewis Borrero RN Position: [facility] RN Member Role: Primary Care Nurse Name: Esperanza Ronquillo RN Position: [facility] RN Member Role: Primary Care Nurse Name: Ken Ma NP Position: [facility] PCO Associate Professional Member Role: Primary Care Nurse Address: Address: [address] [place] [address]- [place] Name: Odin Grider MD Position: [facility] Renal MD Member Role: Lifetime Consulting Physician Address: Address: [address] [place] [address] [address] [facility] [place] [address]- [place] Name: Chad Rivera MD Position: [facility] Renal MD Member Role: Lifetime Consulting Physician Address: Address: [address] [place] [address] [address] [facility] [place] [address]- [place] Name: Debbie Gallardo MD Position: [facility] Outreach Member Role: PCP Address: Address: [address] [place] [address]- [place] Name: Trevor Reyes MD Position: [facility] Renal MD Member Role: Lifetime Consulting Physician Address: Address: [address] [place] [address] [facility] [place] [address]- [place] Name: Katerine Menjivar RN Position: [facility] OB RN Member Role: Primary Care Nurse Name: Leslie Montenegro RN Position: [facility] SN RN Member Role: Primary Care Nurse Name: Myesha Negrete RN Position: [facility] RN Member Role: Primary Care Nurse Name: Sarah Goldsmith RN Position: [facility] RN Member Role: Primary Care Nurse Name: Joanna Perez RN Position: [facility] Onco RN Member Role: Primary Care Nurse Care Team Related Persons Name: SOURAV LEENA Address: home [address] [place] [address] Name: RANDI BENJAMIN Address: home [address] [place] [address] Name: SHAINA BENJAMIN Address: home [address] [place] [address]
--- OUTSIDE RECORDS SUMMARY | 2023-10-09 13:43 | XMS_ITS | Continuity of Care Document ---
Author Name Unknown Organization [facility] Address [address] [place] [address] [address] [place] [address]- Care Team Providers Care Time Study Observer Name Role Phone Paulina NG, Debbie Primary Care Physician Encounter [facility] Date(s): 07/12/23 - 07/19/[address] [place] [address]- Attending Physician: Tejinder Giraldo MD Referring Physician: [...] Maintenance, 06/26/19 12:04:36 EDT,Route to Pharmacy Electronically, [id number], [facility]/pharmacy #[id number] Start Date: 06/26/19 Status: Ordered [...] 0 Refills, Maintenance, 09/06/21 14:06:00 EST, Capsule, [facility]/pharmacy #[id number], Partial fill upon patient request if the prescription is for aschedule II opioid drug., 165.1, cm, 09/02/21 7:42:... Start Date: 09/06/21 Status: Ordered calcium (as citrate)-vitamin D 315 mg-250 intl units oral tablet 4 tablet, By Mouth, 4 times a day, # 480 tablet, 1 Refills, Maintenance, 09/02/21 17:49:00 EST, [facility]/pharmacy #[id number], Partial fill upon patient request [...] 08/23/21 11:58:00 EST, Route to Pharmacy Electronically, [facility]/pharmacy #20... Start Date: 08/23/21 Stop Date: [...] constipation, 09/07/16 14:53:42, Route to Pharmacy Electronically, [id number], [facility]/pharmacy #[id number] Start Date: 09/07/16 Status: Ordered famotidine 40 [...] Confirmed Active Chronic shoulder pain Confirmed Active Vital Signs Most recent to oldest [Reference Range]: 1 Height 175.5 cm (07/12/23 1:48 PM) Weight 155.8 kg (07/12/23 1:48 PM) Pulse Rate [55-90 bpm] 97 bpm *H* (07/12/23 1:48 PM) Body Mass Index [18.5-24.99 kg/m2] 50.58 kg/m2 *>HHI* (07/12/23 1:48 PM) Blood Pressure [90-138/55-84 mm Hg] 144/ 85mm Hg *H* (07/12/23 1:48 PM) Temperature [96.8-100.4 DegF] 96.5 DegF *L* (07/12/23 1:48 PM) Blood pressure sites Arm, left (07/12/23 1:48 PM) Temperature Route Temporal (07/12/23 1:48 PM) Social History Social History Type Response Smoking Status Never (less than 100 in lifetime) entered on: 06/29/19 Sex Male Patient Care team information Care Team Personnel Name: Ana Maria Oviedo RN Position: [facility] AMB Nurse Member Role: Primary Care Nurse Name: Keron Monson MD Position: [facility] Renal MD Member Role: Lifetime Consulting Physician Address: Address: [address] [place] [address] [address] [facility] [place] [address]- [place] Name: Barbara Parr NP Position: [facility] Associate Professional Member Role: Lifetime Consulting Provider Address: Address: [address], [address] [facility] [place] [address]- [place] Name: Lisa Rogers NP Position: [facility] Associate Professional Member Role: Primary Care Nurse Address: Address: [address] [place] [address] - Name: Kings Bauer RN Position: [facility] RN Member Role: Primary Care Nurse Name: April Wagner RN Position: [facility] RN Member Role: Primary Care Nurse Name: Joanna Burger RN Position: [facility] SN RN Member Role: Primary Care Nurse Name: Peyton Watson Position: [facility] Outreach Member Role: Lifetime Consulting Physician Name: Lewis Borrero RN Position: [facility] RN Member Role: Primary Care Nurse Name: Esperanza Ronquillo RN Position: [facility] RN Member Role: Primary Care Nurse Name: Ken Ma NP Position: [facility] Associate Professional Member Role: Primary Care Nurse Address: Address: [address] [place] [address] 3rd [place] [address]- [place] Name: Odin Grider MD Position: [facility] Renal MD Member Role: Lifetime Consulting Physician Address: Address: [address] [facility] [address] [facility] [place] [address]- [place] Name: Chad Rivera MD Position: [facility] Renal MD Member Role: Lifetime Consulting Physician Address: Address: [address] [place] [address] [address] [facility] [place], [place] - [place] Name: Debbie Gallardo MD Position: [facility] Outreach Member Role: PCP Address: Address: [address] [place] [address]- [place] Name: Trevor Reyes MD Position: [facility] Renal MD Member Role: Lifetime Consulting Physician Address: Address: [address] [facility] [place] [address]- Name: Katerine Menjivar RN Position: [facility] OB RN Member Role: Primary Care Nurse Name: Leslie Montenegro RN Position: [facility] SN RN Member Role: Primary Care Nurse Name: Myesha Negrete RN Position: [facility] RN Member Role: Primary Care Nurse Name: Agus RNSarah Position: [facility] RN Member Role: Primary Care Nurse Name: Ana RN, Joanna Whitehead Position: [facility] Onco RN Member Role: Primary Care Nurse Care Team Related Persons Name: LUAN BENJAMINS Address: [address] [address] Name: RANDI BENJAMIN Address: home [address] [address] Name: SHAINA BENJAMIN Address: [address] [address]
--- OUTSIDE RECORDS SUMMARY | 2023-10-09 13:43 | XMS_ITS | Continuity of Care Document ---
Author Name Unknown Organization [facility] Address Unknown Care Team Providers Care Ultrasound Technician Name Role Phone Paulina NG, Debbie Primary Care Physician [phone] [place] [facility] Date(s): 06/04/21 - 07/04/21 [facility] Attending Physician: Nargis Torres Admitting Physician: Nargis Torres Referring Physician: AdmtrNargis Allergies, Adverse Reactions, Alerts Substance Reaction Severity [...] Maintenance, 06/26/19 12:04:36 EDT,Route to Pharmacy Electronically, [id number], [facility]/pharmacy #[id number] Start Date: 06/26/19 Status: [...] constipation, 09/07/16 14:53:42, Route to Pharmacy Electronically, [id number], [facility]/pharmacy #[id number] Start Date: 09/07/16 Status: Ordered duloxetine 20 [...]
--- OUTSIDE RECORDS SUMMARY | 2023-10-09 13:43 | XMS_ITS | Continuity of Care Document ---
Author Name Unknown Organization [facility] Address [address] [place] [address] [address] [place] [address]- Care Team Providers Care Electric Utility Lineworker Name Role Phone Paulina NG, Debbie Primary Care Physician [phone] Encounter [facility] Date(s): 04/21/21 - 04/28/[address] [place] [address]- Attending Physician: Colette MS,RD,LDN, Sandhya Malloy Referring Physician: Brice Ray Allergies, Adverse Reactions, Alerts Substance Reaction Severity [...] Maintenance, 06/26/19 12:04:36 EDT,Route to Pharmacy Electronically, [id number], [facility]/pharmacy #207 Start Date: 06/26/19 Status: Ordered [...] constipation, 09/07/16 14:53:42, Route to Pharmacy Electronically, [id number], [facility]/pharmacy #[id number] Start Date: 09/07/16 Status: Ordered duloxetine 20 [...] 0 Refills, Maintenance, 11/11/14 17:45:49 Start Date: 2/24/15 Status: Ordered methocarbamol 750 mg oral tablet [...]
--- OUTSIDE RECORDS SUMMARY | 2023-10-09 13:43 | XMS_ITS | Continuity of Care Document ---
Author Name Unknown Organization [facility] Address [address] [place] [address]- Care Team Providers Care Patient Ombudsperson Name Role Phone Paulina NG, Debbie Primary Care Physician Encounter [facility] Date(s): 09/01/21 - 09/02/[address] [address] Discharge Disposition: A-D/C Home Attending Physician: Marquita Nair MD Admitting Physician: Marquita Nair MD Referring Physician: Marquita Nair MD Allergies, Adverse Reactions, [...] acetaminophen 325 mg oral tablet 650 mg, Tablet, By Mouth, 09/02/21 18:00:00 EST Start Date: 09/02/21 Stop Date: 09/02/21 Status: Completed acetaminophen 325 mg oral tablet 650 mg, 2, tablet, By Mouth, Every 4 hours, # 50 tablet, Refills 0, Tot. Refills 0, Acute 09/02/22 14:39:00 EST, 09/01/21 14:39:00 EST, Route to Pharmacy Electronically, [facility], Partial fill upon patient request if the prescription i... Start Date: 09/01/21 Stop Date: 09/02/22 Status: Ordered acetaminophen 325 mg oral tablet 650 mg, Tablet, By Mouth, 09/02/21 10:00:00 EST Start Date: 09/02/21 Stop Date: 09/02/21 Status: Completed albuterol 0.083% inhalation solution 3 mL = 2.5 mg, Inhalation, Every 4 hours, PRN for wheezing, # 60 each, 0 Refills, Maintenance, 12/12/17 16:40:12 EDT, Solution Start Date: 12/12/17 Status: Ordered amLODIPine 5 mg oral tablet 5 mg, Tablet, By Mouth, 09/02/21 9:00:00 EST Start Date: 09/02/21 Stop Date: 09/02/21 Status: Completed amLODIPine 5 mg oral tablet 1 tablet [...] Maintenance, 06/26/19 12:04:36 EDT,Route to Pharmacy Electronically, [id number], [facility]/pharmacy #207 Start Date: 06/26/19 Status: Ordered [...] Tablet Start Date: 06/12/19 Status: Ordered calcitriol 0.25 mcg oral capsule 3 capsule = 0.75 mcg, By Mouth, 2 times a day, # 180 capsule, 0 Refills, Maintenance, 09/02/21 16:29:00 EST, Capsule, [facility]/pharmacy #[id number], Partial fill upon patient request if the prescription is for a schedule II opioid drug., 165.1, cm, 09/02/21 7:42... Start Date: 09/02/21 Status: Ordered calcium (as citrate)-vitamin D 315 mg-250 intl units oral tablet 4 tablet, By Mouth, 4 times a day, # 480 tablet, 1 Refills, Maintenance, 09/02/21 17:49:00 EST, [facility]/pharmacy #[id number], Partial fill upon patient request [...] 08/23/21 11:58:00 EST, Route to Pharmacy Electronically, [facility]/pharmacy #20... Start Date: 08/23/21 Stop Date: 08/29/21 Status: Ordered carvedilol 12.5 mg oral tablet 12.5 mg, Tablet, By Mouth, 09/02/21 9:00:00 EST Start Date: 09/02/21 Stop Date: 09/02/21 Status: Completed carvedilol 12.5 mg oral tablet 12.5 mg, [...] constipation, 09/07/16 14:53:42, Route to Pharmacy Electronically, [id number], [facility]/pharmacy #[id number] Start Date: 09/07/16 Status: Ordered duloxetine 20 [...] 09/01/21 14:39:00 EST, Route to Pharmacy Electronically, [facility], Partial fill upon patient request [...] Severe obesity(Confirmed) Active Chronic shoulder pain(Confirmed) Active Procedures Procedure Date Related Diagnosis Body Site Status Subtotal Parathyroidectomy 09/01/21 Completed Vital Signs Most recent to oldest [Reference Range]: 1 2 3 Height 165.1 cm (09/02/21 7:42 AM) 165.1 cm (09/01/21 10:14 AM) 165.1 cm (08/30/21 8:45 AM) Weight 155 kg (09/01/21 10:14 AM) 161.3 kg (08/30/21 8:45 AM) Oxygen Saturation [94-100 %] 99 % (09/02/21 7:42 AM) 100 % (09/02/21 3:00 AM) 100 % (09/01/21 11:00 PM) Pulse Rate [55-90 bpm] 91 bpm *H* (09/02/21 8:28 AM) 91 bpm *H* (09/02/21 7:42 AM) 94 bpm *H* (09/02/21 3:00 AM) Body Mass Index [18.5-24.99] 56.86 *>HHI* (09/01/21 10:14 AM) 59.18 *>HHI* (08/30/21 8:45 AM) Blood Pressure [90-138/55-84 mm Hg] 171/98mm Hg *H* (09/02/21 8:28 AM) 171/98mm Hg *H* (09/02/21 8:28 AM) 171/98mm Hg *H* (09/02/21 7:42 AM) Respiratory Rate [16-30 br/min] 20 br/min (09/02/21 4:40 PM) 20 br/min (09/02/21 9:28 AM) 19 br/min (09/02/21 7:42 AM) Temperature [96.8-100.4 DegF] 98.0 DegF (09/02/21 3:00 AM) 97.6 DegF (09/01/21 11:00 PM) 97.6 DegF (09/01/21 7:00 PM) Liters per Minute 2 L/min (09/01/21 7:00 PM) 2 L/min (09/01/21 4:30 PM) 2 L/min (09/01/21 4:00 PM) Mode of Delivery (Oxygen) Room air (09/02/21 7:42 AM) Room air (09/02/21 3:00 AM) Room air (09/01/21 11:00 PM) Blood pressure sites Arm, left (09/02/21 3:00 AM) Arm, left (09/01/21 11:00 PM) Arm, left (09/01/21 7:00 PM) Temperature Route Oral (09/02/21 3:00 AM) Oral (09/01/21 11:00 PM) Oral (09/01/21 7:00 PM) Dry Weight 155 kg (09/01/21 10:14 AM) Social History Social History Type Response Smoking Status Never (less than 100 in lifetime) entered on: 06/29/19 Sex Male
--- OUTSIDE RECORDS SUMMARY | 2023-10-09 13:43 | XMS_ITS | Continuity of Care Document ---
Author Name Unknown Organization [facility] Address [address] [place] [address] [address] [place] [address]- Care Team Providers Care Player Services Representative Name Role Phone Paulina NG, Debbie Primary Care Physician Encounter [facility] Date(s): 04/24/23 - 05/24/[address] [place] [address]- Attending Physician: Nargis Torres Admitting Physician: AdmtrNargis [...] Maintenance, 06/26/19 12:04:36 EDT,Route to Pharmacy Electronically, [id number], [facility]/pharmacy #[id number] Start Date: 06/26/19 Status: Ordered atorvastatin [...] Refills, Maintenance, 09/06/21 14:06:00 EST, Capsule, [facility]/pharmacy #[id number], Partial fill upon patient request if the prescription is for aschedule II opioid drug., 165.1, cm, 09/02/21 7:42:... Start Date: 09/06/21 Status: Ordered calcium (as citrate)-vitamin D 315 mg-250 intl units oral tablet 4 tablet, By Mouth, 4 times a day, # 480 tablet, 1 Refills, Maintenance, 09/02/21 17:49:00 EST, [facility]/pharmacy #[id number], Partial fill upon patient request if [...] 11:58:00 EST, Route to Pharmacy Electronically, [facility]/pharmacy #20... Start Date: 08/23/21 Stop Date: 08/29/21 [...] constipation, 09/07/16 14:53:42, Route to Pharmacy Electronically, [id number], [facility]/pharmacy #[id number] Start Date: 09/07/16 Status: Ordered duloxetine 20 [...] Member Role: Lifetime Consulting Physician Address: Address: [address] [place] [address], [address] [facility] [place] [address]- Name: Barbara Parr NP Position: [facility] Associate Professional Member Role: Lifetime Consulting Provider Address: Address: [address] [place] [address], [address] [facility] [place] [address]- Name: Lisa Rogers NP [facility] Associate Professional Member Role: Primary Care Nurse Address: Address: [address] [place] [address]- [place] Name: Kings Bauer RN [facility] Care Nurse Name: Ken Ma NP Position: [facility] Associate Professional Member Role: Primary Care Nurse Address: Address: [address] [place] [address] 3rd [place] [address]- [place] Name: Odin Grider MD Position: [facility] Renal MD Member Role: Lifetime Consulting Physician Address: Address: [address] [place] [address] [address] [facility] [place] [address]- [place] Name: Chad Rivera MD Position: [facility] Renal MD Member Role: Lifetime Consulting Physician Address: Address: [address] [facility] [address] [facility] [place] [address]- [place] Name: Debbie Gallardo MD Position: [facility] Outreach Member Role: PCP Address: Address: [address] [place] [address]- [place] Name: Trevor Reyes MD Position: [facility] Renal MD Member Role: Lifetime Consulting Physician Address: Address: [address] [facility] [place] [address]- [place] Name: Katerine Menjivar RN Position: [facility] OB RN Member Role: Primary Care Nurse Name: Leslie Montenegro RN Position: [facility] SN RN Member Role: Primary Care Nurse Name: Myesha Negrete RN Position: [facility] RN Member Role: Primary Care Nurse Name: Sarah Goldsmith RN Position: [facility] RN Member Role: Primary Care Nurse Name: Joanna Perez RN Position: [facility] Onco RN Member Role: Primary Care Nurse Care Team Related Persons Name: LEENA BENJAMIN Address: home [address] [address] Name: RANDI BENJAMIN Address: home [address] [address] Name: SHAINA BENJAMIN Address: home [address] [place] [address]
--- OUTSIDE RECORDS SUMMARY | 2023-10-09 13:43 | XMS_ITS | Continuity of Care Document ---
Author Name Unknown Organization [facility] ter Address [address] [place] [address]- Care Team Providers Care Detective Homicide Squad Name Role Phone Paulina NG, Debbie Primary Care Physician [place] [facility] [place]/07/[place] - 09/18/[address] [address]- [facility] Attending Physician: Farida Bauer MD Admitting Physician: Farida Bauer MD Referring Physician: Paddy Stover DO Allergies, Adverse Reactions, Alerts Substance Reaction Severity [...] Maintenance, 06/26/19 12:04:36 EDT,Route to Pharmacy Electronically, [id number], [facility]/pharmacy #207 Start Date: 06/26/19 Status: Ordered [...] constipation, 09/07/16 14:53:42, Route to Pharmacy Electronically, [id number], [facility]/pharmacy #207 Start Date: 09/07/16 Status: Ordered [facility] ASPIRIN 81 MG CHEWABLE TAB TOME [...] spray SPRAY 1 SPRAY INTO EACH NOSTRIL JACINTA Ramos Start Date: 07/03/19 Status: Ordered folic acid [...]
--- OUTSIDE RECORDS SUMMARY | 2023-10-09 13:43 | XMS_ITS | Continuity of Care Document ---
Author Name Unknown Organization Pre Op Overflow Address [address] [place] [id number]- Care Team Providers Care Masonry Supervisor Name Role Phone Paulina NG, Debbie Primary Care Physician [place] [facility] [id number] Date(s): 04/23/21 - 06/11/21 Pre Op Overflow [address] [place] [id number] Attending Physician: Anne Marie Valles MD Admitting Physician: Anne Marie Valles MD Referring Physician: Wilfredo Louis MD Allergies, Adverse Reactions, Alerts Substance Reaction [...] Maintenance, 06/26/19 12:04:36 EDT,Route to Pharmacy Electronically, [id number], [facility]/pharmacy #[id number] Start Date: 06/26/19 Status: Ordered atorvastatin [...] constipation, 09/07/16 14:53:42, Route to Pharmacy Electronically, [id number], [facility]/pharmacy #[id number] Start Date: 09/07/16 Status: Ordered duloxetine 20 [...]
--- OUTSIDE RECORDS SUMMARY | 2023-10-09 13:43 | XMS_ITS | Continuity of Care Document ---
Author Name Unknown Organization [facility] Address Unknown Care Team Providers Care Professor Computer Science Name Role Phone Paulina NG, Debbie Primary Care Physician [place] [facility] [place]21 [place] 10[place]21/21 [facility] Attending Physician: Nargis Torres Admitting Physician: AdmtrNargis [...] 09/01/21 14:39:00 EST, Route to Pharmacy Electronically, [facility], Partial fill upon patient request [...] Maintenance, 06/26/19 12:04:36 EDT,Route to Pharmacy Electronically, [id number], [facility]/pharmacy #[id number] Start Date: 06/26/19 Status: Ordered [...] 0 Refills, Maintenance, 09/06/21 14:06:00 EST, Capsule, [facility]/pharmacy #[id number], Partial fill upon patient request if the prescription is for aschedule II opioid drug., 165.1, cm, 09/02/21 7:42:... Start Date: 09/06/21 Status: Ordered calcium (as citrate)-vitamin D 315 mg-250 intl units oral tablet 4 tablet, By Mouth, 4 times a day, # 480 tablet, 1 Refills, Maintenance, 09/02/21 17:49:00 EST, [facility]/pharmacy #[id number], Partial fill upon patient request [...] 08/23/21 11:58:00 EST, Route to Pharmacy Electronically, [facility]/pharmacy #20... Start Date: 08/23/21 Stop Date: [...] constipation, 09/07/16 14:53:42, Route to Pharmacy Electronically, [id number], [facility]/pharmacy #[id number] Start Date: 09/07/16 Status: Ordered duloxetine 20 [...] 09/01/21 14:39:00 EST, Route to Pharmacy Electronically, [facility], Partial fill upon patient request if... [...] Severe obesity(Confirmed) Active Chronic shoulder pain(Confirmed) Active Social History Social History Type Response Smoking Status Never (less than 100 in lifetime) entered on: 06/29/19 Sex Male
--- OUTSIDE RECORDS SUMMARY | 2023-10-09 13:43 | XMS_ITS | Continuity of Care Document ---
Author Name Unknown Organization [facility] ter Address [address] [place] [id number]- Care Team Providers Care Business Executive Name Role Phone Paulina NG, Debbie Primary Care Physician Encounter [facility] [place] Date(s): 09/13/19 - 10/27/[address] [address]- [facility] Attending Physician: Paddy Stover DO Admitting Physician: Paddy Stover DO Allergies, Adverse Reactions, [...] Maintenance, 06/26/19 12:04:36 EDT,Route to Pharmacy Electronically, [id number], [facility]/pharmacy #[id number] Start Date: 06/26/19 Status: Ordered [...] constipation, 09/07/16 14:53:42, Route to Pharmacy Electronically, [id number], [facility]/pharmacy #[id number] Start Date: 09/07/16 Status: Ordered [facility] ASPIRIN 81 MG CHEWABLE TAB TOME [...] SPRAY 1 SPRAY INTO EACH NOSTRIL TODOS MYAH Rachel Start Date: 07/03/19 Status: Ordered folic acid [...]
[2023-10-09 13:49] LABS: IDNOW Serial# 08D9AD1C
[2023-10-09 13:50] LABS: Influenza A Invalid (Negative); Influenza B2 Invalid (Negative)
[2023-10-09 14:01] LABS: Venous Blood Gas Refer to POC result
[2023-10-09 14:02] LABS: VBG Base Excess 7.7 mmol/L; VBG HCO3 33 mmol/L (22-26); VBG pCO2 50 mmHg; VBG pH 7.42 (7.32-7.43); VBG pO2 40 mmHg
[2023-10-09 14:11] LABS: Basophils Percent Auto 0.3 % (0-2); Eosinophils Absolute Auto 0.2 X10*3/uL (0.0-0.4); Eosinophils Percent Auto 1.5 % (0-4); Hematocrit 37.2 % (42.0-52.0); Hemoglobin 11.8 g/dl (14.0-18.0); Imm Gran Abs Auto 0.07 X10*3/uL (0.00-0.03); Imm Gran Pct Auto 0.6 % (0.0-0.4); Lymphocytes Percent Auto 8.6 % (20-40); Mean Corpuscular HGB Conc 31.7 g/dl (31.0-36.0); Mean Corpuscular Hemoglobin 29.9 pg (27.0-33.0); Mean Corpuscular Volume 94.4 fL (80.0-98.0); Mean Platelet Volume 9.8 fL (9.4-12.4); Monocytes Absolute Auto 0.4 X10*3/uL (0.1-1.2); Monocytes Percent Auto 3.6 % (2-11); Neutrophils Absolute Auto 10.3 x10*3/uL (2.0-8.3); Neutrophils Percent Auto 85.4 % (45-73); Platelet Count 294 X10*3/uL (160-400); Red Blood Count 3.94 X10*6/uL (4.60-5.80); Red Cell Distribution Width 15.7 % (11.0-16.0)
[2023-10-09 14:12] LABS: Troponin-I High Sensitivity 47.9 ng/L (<3.5-35.0)
[2023-10-09 14:24] LABS: Anion Gap 20 (12-20); Blood Urea Nitrogen 63 mg/dL (9-16); Calcium 9.6 mg/dL (8.4-10.2); Carbon Dioxide 30 mmol/L (22-29); Chloride 96 mmol/L (96-108); Creatinine Clr Calc Pharmacy 11.7; Estimated Glomerular Filt Rate 5; Glucose Fasting 87 mg/dL (60-99); Potassium 5.4 mmol/L (3.3-5.1); Sodium 141 mmol/L (135-145)
--- NOTE | 2023-10-09 14:58 | PC.NURSE ---
vss and up to date. pt remains sinus tachy on the teletypesetter monitor. pt still presenting in tripod position/sob at this time. respirations even/slightly labored. pt denies pain at this time. tech performing ekg. pt waiting on xray results at this time. family bedside. call martin placed within reach.
[2023-10-09 15:05] LABS: IDNOW Serial# 58CA691E; Influenza A Negative (Negative); Influenza B2 Negative (Negative)
[2023-10-09 15:24] LABS: MANUAL DIFF FLAG NO
--- NOTE | 2023-10-09 17:39 | PM.IMHP ---
History of Present Illness Date of Service: 10/09/23 Attending physician on admission: Justino Cheng Chief Complaint: sob, wheezing 48-year-old male with history of heart failure preserved ejection fraction, hypertension, AIDA compliant with CPAP, ESRD on dialysis TTHSa with RUE fistula, who is morbidly obese with BMI greater than 51 presented to the ED via EMS earlier today for evaluation of shortness of breath and wheezing. The patient reports he has been experiencing dyspnea on exertion for several days but felt symptoms acutely worsened earlier today. There has been associated wheezing and occasional cough with clear sputum production. He is also noted increasing bilateral lower extremity edema today. Reports chronic orthopnea, no PND. Reports compliance with dialysis schedule and medications. 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 No known sick contacts. No fevers, shaking chills, sore throat, congestion, abd pain, n/v/d, lightheadedness, sob at rest, palps, chest pain. On arrival, pt slightly tachycardic in the 100s, tachypneic to 22. Afebile, no hypotension. Sat 80s per EMS placed on 2L supplemental O2, desat to 88% with ambulation. No leukocytosis. Creat 11.39, BUN 63. K 5.4. VBG with ph 7.42, pCO2 50, bicarb 33. Trop 47.9. Negative for COVID-19, influenza. CXR with mild increase in interstitial markings with some groundglass changes possibly representing pulmonary edema vs atypical viral infection. He was given 125mg IV solumedrol and duoneb by EMS with some improvement in symptoms. Review of Systems Review of Systems: General: No fevers, malaise, unintentional weight loss HEENT: No blurred vision, diplopia. No sore throat, nasal congestion, rhinorrhea, sinus pain, ear pain Cardiovascular: No chest pain, palpitations, or leg edema Respiratory: +jama, +wheezing, +cough, +orthopnea. No sob at rest, PND GI: No abdominal pain, nausea, vomiting, diarrhea : No dysuria, hematuria, increased urinary frequency MSK: No myalgia, back pain Neuro: No headaches, weakness, paresthesias Skin: No rashes or lesions [facility] Medical History Pulmonary edema End stage chronic kidney disease HTN (hypertension) (HFpEF) heart failure with preserved ejection fraction Asthma Dialysis patient Family History Mother Diabetes Father Heart problem Diabetes Surgical History History of surgery Social History Household Members: Family Housing: Apartment Do you presently have visiting nurse or other home services: Yes ([employer]TRESS [employer]KER - dtr) Alcohol intake: never Patient Tobacco Use Status: Never used Tobacco Smoked in Last 30 Days: No Use of substances other than those prescribed or required for medical reasons: No Advance Directives: No Advance Directives Information Provided: Yes service: No Current occupational status: disabled Current occupation: rt handed Meds Allergies Allergy/AdvReac Type Severity Reaction Status Date / Time iodine [IODINE] Allergy Severe THROAT Verified 10/09/23 12:46 SWELLING iron [IRON] Allergy Unknown HOT Verified 10/09/23 12:46 FEELING, ANXIETY, SOB,M TACHYCARDIA shellfish derived Allergy Unknown UNKNOWN Verified 10/09/23 12:46 [SHELLFISH DERIVED] Benadryl Allergy Unknown hyperactive Uncoded 10/09/23 12:46 Home Medications Medication Instructions Recorded Confirmed Last Taken Type aspirin 81 mg tablet,delayed 81 mg PO DAILY 05/10/21 01/09/23 08/03/21 History release atorvastatin 20 mg tablet 20 mg PO BEDTIME 05/10/21 01/09/23 08/02/21 History docusate sodium 100 mg capsule 100 mg PO BID 05/10/21 01/09/23 08/03/21 History ergocalciferol (vitamin D2) 1,250 1,250 mcg PO Q7D 05/10/21 01/09/23 Unknown History mcg (50,000 unit) capsule (Vitamin D2) famotidine 40 mg tablet 40 mg PO DAILY 05/10/21 01/09/23 08/03/21 History fluticasone propionate 50 1 spray intranasal DAILY 05/10/21 01/09/23 08/03/21 History mcg/actuation nasal spray,suspension folic acid 1 mg tablet 1 mg PO QAM 05/10/21 01/09/23 08/03/21 History gabapentin 100 mg capsule 200 mg PO BID 05/10/21 01/09/23 08/03/21 History lorazepam 1 mg tablet 1 mg PO DAILY PRN panic attack 05/10/21 01/09/23 Unknown History montelukast 10 mg tablet 10 mg PO DAILY 05/10/21 01/09/23 08/03/21 History methylcellulose (laxative) 500 mg 500 mg PO DAILY 08/03/21 01/09/23 08/03/21 History tablet (Fiber Laxative (methylcellulose)) albuterol sulfate 90 mcg/actuation 0 mcg inhalation 10/07/22 01/09/23 Unknown History aerosol inhaler (Ventolin HFA) duloxetine 60 mg capsule,delayed 60 mg PO DAILY 10/07/22 01/09/23 Unknown History release ferrous sulfate 325 mg (65 mg 325 mg PO 10/07/22 01/09/23 Unknown History iron) tablet (FeroSul) ropinirole 0.5 mg tablet 0.5 mg PO QPM 10/07/22 01/09/23 Unknown History sucroferric oxyhydroxide 500 mg 500 mg PO TID 10/07/22 01/09/23 Unknown History chewable tablet (Velphoro) vitamin B complex and vitamin C 1 cap PO DAILY 10/07/22 01/09/23 Unknown History no.20-folic acid 1 mg capsule (Triphrocaps) amlodipine 10 mg tablet 10 mg PO DAILY 01/09/23 01/09/23 Unknown History carvedilol 12.5 mg tablet 12.5 mg PO .am 01/09/23 01/09/23 Unknown History duloxetine 30 mg capsule,delayed 20 mg PO DAILY 01/09/23 01/09/23 Unknown History release Physical Exam Vital Signs and Narrative: Vital Signs: Last Vital Signs Temp 97.8 F 10/09/23 16:08 Pulse 102 H 10/09/23 16:08 Resp 22 H 10/09/23 16:08 BP 163/94 H 10/09/23 16:08 Pulse Ox 88 L 10/09/23 17:11 O2 Del Method Nasal Cannula 10/09/23 16:08 O2 Flow Rate 4 10/09/23 16:08 BMI result Body Mass Index 51.7 Constitutional - Awake and Alert, No apparent distress Eyes - PERRLA, EOMI Cardiovascular - S1S2, RRR, 1+ ble edema Respiratory - Normal lung expansion, Normal respiratory effort, No respiratory distress on 2L supplemental O2, CTA bilaterally Gastrointestinal - NT / ND; +BS; No rebound or guarding Extremities - no calf tenderness bilaterally, no swelling Skin - Warm/Dry Neurological - Alert & oriented x3 Psychological - Appropriate affect Results Labs 10/09/23 14:05 10/09/23 13:27 Labs: Laboratory Results - last 24 hr 10/09/23 10/09/23 10/09/23 13:01 13:27 13:56 MCV MCH MCHC RDW Plt Count MPV Immature Gran % (Auto) Neut % (Auto) Lymph % (Auto) [place] % (Auto) Eos % (Auto) Baso % (Auto) Lymph # (Auto) [place] # (Auto) Eos # (Auto) Baso # (Auto) Abs Immat Gran (auto) Absolute Neuts (auto) Absolute Nucleated RBC Nucleated RBC % (auto) VBG pH 7.42 VBG pCO2 50 VBG pO2 40 VBG HCO3 33 H VBG O2 Saturation 56.0 VBG Base Excess 7.7 Anion Gap 20 Estim Creat Clear Calc 11.7 Estimated GFR 5 Fasting Glucose 87 Calcium 9.6 D COVID-19 (NESTOR) Negative COVID-19 Clin Com See Note Influenza Type A (LULU) Invalid Influenza Type B (LULU) Invalid Influenza A & B Note See Note 10/09/23 10/09/23 14:05 14:33 MCV 94.4 MCH 29.9 MCHC 31.7 RDW 15.7 Plt Count 294 MPV 9.8 Immature Gran % (Auto) 0.6 H Neut % (Auto) 85.4 H Lymph % (Auto) 8.6 L [place] % (Auto) 3.6 Eos % (Auto) 1.5 Baso % (Auto) 0.3 Lymph # (Auto) 1.0 L [place] # (Auto) 0.4 Eos # (Auto) 0.2 Baso # (Auto) 0.0 Abs Immat Gran (auto) 0.07 H Absolute Neuts (auto) 10.3 H Absolute Nucleated RBC 0.000 Nucleated RBC % (auto) 0.0 VBG pH VBG pCO2 VBG pO2 VBG HCO3 VBG O2 Saturation VBG Base Excess Anion Gap Estim Creat Clear Calc Estimated GFR Fasting Glucose Calcium COVID-19 (NESTOR) COVID-19 Clin Com Influenza Type A (LULU) Negative Influenza Type B (LULU) Negative Influenza A & B Note See Note Imaging Radiologist's Impressions: Impressions Chest X-Ray 10/09/23 13:34 IMPRESSION: Mild increase in interstitial markings with some groundglass changes. Findings may represent mild pulmonary edema. Atypical viral infection should be considered in the differential. Assessment and Plan (1) CHF (congestive heart failure): Status: Acute (2) Asthma: Status: Acute (3) Acute hypoxemic respiratory failure: Status: Acute Plan 48-year-old male with history of heart failure preserved ejection fraction, hypertension, AIDA compliant with CPAP, ESRD on dialysis TTHSa with RUE fistula, who is morbidly obese with BMI greater than 51 admitted for further management of CHF exacerbation with acute hypoxemic respiratory failure. #Acute CHF exacerbation with acute hypoxemic respiratory failure (likely has underlying obesity hypoventilation syndrome as well) -backround HFpEF in ESRD pt -CXR with increased interstitial markings. BNP unlikely to be diagnostic/useful given ESRD. Clinically pt volume overloaded -IV lasix 40mg daily -strict I&O -daily weights -low sodium diet, fluid restrict to 1.2 L -Echo 02/06/23: Normal LV systolic fx with EF 55-60% -continue supplemental O2 to maintain oximetry >92% -Continue HD as scheduled -Follow renal function/lytes #Acute mild asthma exacerbation -lungs cta with clinical improvement following iv steroid/nebs, however appear volume overloaded as above -neg for covid-19, flu. CXR shows possible atypical viral infection. Full viral resp panel ordered -hold on abx at this time -hold on addl steroids for now -duonebs prn -continue maintenance inhalers #ESRD on HD -unsure who player development manager is, but on review on chart there does not appear to be any notes from [facility] [place]. Will place consult to RTANE -Continue HD TThSa, RUE fistula in place -follow renal fx, lytes #Acute hyperkalemia -due to esrd -10mg lokelma x 1 -HD as above -follow renal fx/lytes #HTN -bp reasonably controlled -continue home meds #Tachycardia -due to albuterol administration, no sepsis #AIDA -cpap bedtime #Morbid obesity with BMI >51 -weight loss efforts encouraged #Unspecified mood disorder -continue home meds DVT prophylaxis- heparin subq Full code Pt requires inpt stay at least 2 midnights for IV diuresis given volume overload in setting on CHF exacerbation and ESRD requiring HD as well as electrolyte abnormality. He will require expert consultation, HD, and close monitoring of renal function and electrolyte levels Quality Stroke Does the patient have a stroke diagnosis?: No VTE Prior VTE?: No VTE Risk Level:: Medical - moderate - high VTE Device Contraindication: Treatment Not Indicated VTE Drug Contraindication: N/A - Med Ordered
[2023-10-09] MEDS: Furosemide 40 MG/4 ML VIAL IVPUSH (18:28)
[2023-10-09] MEDS: Heparin Sodium,Porcine 5,000 UNIT/ML VIAL 5000 UNIT SUBCUT (18:28)
[2023-10-09] MEDS: Sodium Zirconium Cyclosilicate 10 GM POWD.PACK PO (18:28)
--- NOTE | 2023-10-09 18:33 | PC.NURSE ---
pt medicated per mar.
--- NOTE | 2023-10-09 18:41 | PC.NURSE ---
pt set up with dinner at this time. no acute distress noted.
--- NOTE | 2023-10-09 19:54 | MHC.EDTECH ---
2000 ROUNDING DONE ,VITALS TAKEN ,PT HAD 2 HAM SANDWICH AND NADER KALIE FOR SNACK .
--- NOTE | 2023-10-09 21:41 | PM.EVENT ---
Event Note Date of Service: 10/09/23 Event Note: Chart reviewed / Full consult to follow Pt with ESRD on HD SOB/ CHF/ Vol Overload High K HD arranged for AM HD TTS Low Na diet Fluid restriction 1.2 liters Lasix 60 mg x 1 extra dose ordered Low K diet Lokelma as ordered Thx Dr. Galvan Time Spent With Patient Time: Total time managing care of this patient today ____ minutes.
--- NOTE | 2023-10-09 22:24 | PHA.MEDREC ---
Pharmacy Consult ? Medication Reconciliation Pharmacy has completed the medication reconciliation. Spoke to daughter Charity over the phone and she read off of the prescription bottles that are at home. The medications that are entered and confirmed are the ones that daughter says patient takes right now.
[2023-10-09] MEDS: Furosemide 100 MG/10 ML VIAL 60 MG IVPUSH (22:33)
[2023-10-09] MEDS: 0.9 % Sodium Chloride Flush 3 ML SYRINGE IVFLUSH (22:34)
--- NOTE | 2023-10-09 22:50 | PC.NURSE ---
this rn reached out to patient sitter dr Galvan regarding lasix dose as pt states to this rn does not urinate at all. this rn made md aware. per md precede with lasix dose to aid with venodialation and reducing after load. per md may urinate 100-200 ml and may improve BP . this rn medicated pt according to mar. fire extinguisher charger aware
[2023-10-10] VITALS (8 sets, daily range): BP systolic 111–175; BP diastolic 67–94; PULSE 91–108; RESP 16–20; TEMP 36.4–37.1; O2SAT 92–97; BMI 50.8
[2023-10-10] MEDS: Gabapentin 100 MG CAPSULE 200 MG PO ×3 (02:18→20:43)
[2023-10-10] MEDS: Heparin Sodium,Porcine 5,000 UNIT/ML VIAL 5000 UNIT SUBCUT ×2 (04:49→16:52)
[2023-10-10] MEDS: amLODIPine Besylate 10 MG TABLET PO ×2 (04:49→08:03)
[2023-10-10] MEDS: carvediloL 12.5 MG TABLET PO ×2 (04:49→08:03)
[2023-10-10 06:51] LABS: Basophils Percent Auto 0.1 % (0-2); Hematocrit 34.5 % (42.0-52.0); Hemoglobin 11.3 g/dl (14.0-18.0); Imm Gran Abs Auto 0.11 X10*3/uL (0.00-0.03); Imm Gran Pct Auto 0.9 % (0.0-0.4); Lymphocytes Absolute Auto 0.7 X10*3/uL (1.2-4.9); Lymphocytes Percent Auto 5.5 % (20-40); MANUAL DIFF FLAG SCAN; Mean Corpuscular HGB Conc 32.8 g/dl (31.0-36.0); Mean Corpuscular Hemoglobin 30.5 pg (27.0-33.0); Mean Platelet Volume 10.2 fL (9.4-12.4); Monocytes Absolute Auto 0.2 X10*3/uL (0.1-1.2); Monocytes Percent Auto 1.8 % (2-11); Neutrophils Absolute Auto 11.6 x10*3/uL (2.0-8.3); Neutrophils Percent Auto 91.7 % (45-73); Platelet Count 279 X10*3/uL (160-400); Red Blood Count 3.71 X10*6/uL (4.60-5.80); Red Cell Distribution Width 15.5 % (11.0-16.0); SCAN SMEAR FLAG 1; White Blood Count 12.7 X10*3/uL (4.8-10.8)
--- NOTE | 2023-10-10 07:00 | CA_ITS ---
Transthoracic Echocardiogram Patient (Last, First, Middle): Omari Mares M Gender: Male Date of : 1975 Age: 48 Procedure Date: 10/10/2023 Procedure Type: Transthoracic Echocardiogram Location: [facility] [place] Height: 175.26 cm Weight: 155.58 kg BSA: 2.60 m2 Heart Rate: 95 bpm BP: 167 / 92 mmHg Field Talent Qualification Specialist: DANYELLE Referring MD: Justino Cheng DO Symptoms: CHF Study Quality: Fair/w Contrast ECG Rhythm: Sinus Conclusions: - Mildly increased left ventricular cavity size. There is normal left ventricular wall thickness. The left ventricular systolic function is normal. The visually estimated ejection fraction is between 55-60%. - Mildly increased right ventricular cavity size. There is normal right ventricular systolic function. Findings Procedure Information Contrast agent, definity, is being given per protocol without apparent complications. Left Ventricle Mildly increased left ventricular cavity size. There is normal left ventricular wall thickness. The left ventricular systolic function is normal. The visually estimated ejection fraction is between 55-60%. There is no evidence of regional wall motion abnormalities. Diastolic function is indeterminate on the basis of available data. Right Ventricle Mildly increased right ventricular cavity size. There is normal right ventricular systolic function. Atria The left atrium is normal in size. The right atrium is normal in size. Aortic Valve Normal aortic valve structure and function. There is no aortic valve stenosis. There is no aortic valve regurgitation. Mitral Valve There is mild mitral annular calcification. There is no mitral valve regurgitation. There is no mitral valve stenosis. Pulmonic Valve Normal pulmonic valve structure and function. There is no pulmonic valve regurgitation. Tricuspid Valve Normal tricuspid valve structure. There is no tricuspid valve regurgitation. Tricuspid regurgitation envelope is inadequate for calculation of right ventricular systolic pressure. Normal right atrial pressure. Great Vessels There is mild dilatation of the ascending aorta measuring 3.40 cm. The visualized portions of the pulmonary artery and branches are normal. Venous The inferior vena cava is normal in size and collapses greater than 50% with inspiration. Pericardium/Pleural There is no evidence of pericardial effusion. Prior Study Comparison Changes noted compared to prior study dated: 02/06/2023. LV cavity is mildly dilated. Measurements 2D Linear Measurements IVSd: 0.98 0.6-0.9/0.6-1.0 cm LVIDd: 6.03 3.9-5.3/4.2-5.9 cm LVIDd Index: 2.32 2.4-3.2/2.2-3.1 cm/m2 LVIDs: 3.70 2.0-3.6 cm LVPWd: 1.06 0.7-1.1 cm LA Diam: 4.10 2.7-3.8/3.0-4.0 cm LAIDs Index: 1.58 1.5-2.3 cm/m2 LV Mass: 317.54 67-162/88-224 g LV Mass Index: 122.13 43-95/49-115 g/m2 LVOT Diam: 2.10 3.0+(-)1.3 cm 2D Systolic Function EF 4C: 40.50 >55% EF 2C: 39.40 >55% EF BiP: 37.70 >55% Mitral Valve MV Pk E: 1.38 MV PK A: 1.16 MV Decel Time: 144.00 E/A: 1.20 E'Lateral: 6.92 E'Medial: 5.34 E/E' Med: 25.80 E/E' Lat: 19.90 PHT: 42.00 MVA PHT: 5.24 Decel [place]: 9.56 Aortic Valve AoV Pk Tan: 1.70 AoV Mn Tan: 1.29 AoV VTI: 0.34 AoV Pk Grad: 12.00 Aov Mn Grad: 7.00 RUMA Cont.VTI: 2.93 LVOT LVOT Pk Tan: 1.49 LVOT Mn Tan: 1.02 LVOT VTI: 0.29 LVOT Pk Grad: 9.00 LVOT Mn Grad: 5.00 LVOT Diam: 2.10 LVOT Area: 3.46 Diastolic Function MV Pk E: 1.38 MV Pk A: 1.16 E/A: 1.20 E'Medial: 5.34 E/E' Med: 25.80 E' Laterial: 6.92 E/E' Lat: 19.90 Right Ventricle TAPSE (mm): 22.50 TVS' Tan: 11.50 Tricuspid Valve RA Press: 3.00 Great Vessels Aorta Sinus of Valsalva: 3.20 2.0-3.5 cm Ao Asc: 3.40 2.1-3.4 cm Pulmonary Valve PV Pk Tan: 1.13 Peak PV Grad: 5.00 Updated in Other Vendor System with Status of Final Martin Garcia MD electronically signed on 10/10/2023 6:13:38 PM with status of Final
[2023-10-10 07:25] LABS: Anion Gap 24 (12-20); Blood Urea Nitrogen 92 mg/dL (9-16); Calcium 9.3 mg/dL (8.4-10.2); Carbon Dioxide 27 mmol/L (22-29); Chloride 95 mmol/L (96-108); Creatinine Clr Calc Pharmacy 10.1; Estimated Glomerular Filt Rate 4; Glucose Random 170 mg/dL (60-115); Potassium 6.2 mmol/L (3.3-5.1); Sodium 140 mmol/L (135-145)
[2023-10-10 07:39] LABS: SLIDE REVIEW VERIFIED
[2023-10-10] MEDS: Folic Acid 1 MG TABLET PO (08:02)
[2023-10-10] MEDS: Multivitamin TABLET 1 TAB PO (08:02)
[2023-10-10] MEDS: Sodium Zirconium Cyclosilicate 10 GM POWD.PACK PO (08:03)
[2023-10-10] MEDS: Furosemide 40 MG/4 ML VIAL IVPUSH (08:03)
[2023-10-10] MEDS: Montelukast Sodium 10 MG TABLET PO (08:03)
[2023-10-10] MEDS: 0.9 % Sodium Chloride Flush 3 ML SYRINGE IVFLUSH ×2 (08:04→16:52)
--- NOTE | 2023-10-10 11:35 | MHC.CM.PN ---
IMM 10/10/23, CM met with pt. with this assistance of an commercial helicopter pilot. He lives with his daughter and she is his SSRS REPORT DEVELOPER. He gets the SSRS REPORT DEVELOPER hours from [facility], he could not say # of hours, he did say that he does have enough assistance. He said that a nurse from [facility] visits him once a month. He has used VNA services in the past, but could not recall which agency. He said his daughter Jodi is his HCP, for med equip he has a CPAP machine, a cane and a shower chair. Family will transport him home upon DC.
[2023-10-10 11:37] LABS: Adenovirus PCR Not Detected (Not Detect.); Bordetella parapertussis PCR Not Detected (Not Detect.); Bordetella pertussis PCR Not Detected (Not Detect.); Chlamydia pneumoniae PCR Not Detected (Not Detect.); Coronavirus 229E PCR Not Detected (Not Detect.); Coronavirus HKU1 PCR Not Detected (Not Detect.); Coronavirus NL63 PCR Not Detected (Not Detect.); Coronavirus OC43 PCR Not Detected (Not Detect.); Human metapneumovirus PCR Not Detected (Not Detect.); Influenza A PCR Not Detected (Not Detect.); Influenza B PCR Not Detected (Not Detect.); Mycoplasma pneumoniae PCR Not Detected (Not Detect.); Parainfluenza 1 PCR Not Detected (Not Detect.); Parainfluenza 2 PCR Not Detected (Not Detect.); Parainfluenza 3 PCR Not Detected (Not Detect.); Parainfluenza 4 PCR Not Detected (Not Detect.); RSV PCR Not Detected (Not Detect.); Rhino/Enterovirus PCR Not Detected (Not Detect.)
--- NOTE | 2023-10-10 11:39 | P.PNNP_ITS ---
Subjective Subjective Date of Service: 10/10/23 Physical Exam 2 Vital Signs: Vital Signs: Last Vital Signs Temp 98.4 F 10/10/23 07:21 Pulse 104 H 10/10/23 07:21 Resp 20 10/10/23 07:21 BP 167/92 H 10/10/23 07:21 Pulse Ox 94 10/10/23 07:21 O2 Del Method Room Air 10/10/23 07:21 O2 Flow Rate 2 10/10/23 01:44 BMI result Body Mass Index 50.8 Const: Other: Appearance: Alert. Oriented X3. No acute distress. Bilirubin Eyes: Pupils equal, round and reactive to light. ENT: Pharynx normal. Neck: Normal inspection. Neck supple. No lymph nodes noted. No crepitus CVS: Normal heart rate and rhythm. Pulses normal. Normal S1 and S2 Respiratory: No respiratory distress. Breath sounds normal. No Wheezing. No rales Abdomen: Soft and nontender. No rigidity. No distention. Skin: Skin warm and dry. Normal skin color. Normal skin turgor. Extremities: No lower extremity edema. No Lacerations. No Rash Neuro: Oriented X 3. No motor deficit. No sensory deficit. Moving all extremities. No slurred speech. CN 2 through 12 grossly intact Psych: calm, cooperative, normal affect Objective Data Labs 10/10/23 06:13 10/10/23 06:13 Labs: Laboratory Results - last 24 hr 10/09/23 10/09/23 10/09/23 13:01 13:27 13:56 WBC RBC Hgb Hct MCV MCH MCHC RDW Plt Count MPV Immature Gran % (Auto) Neut % (Auto) Lymph % (Auto) [place] % (Auto) Eos % (Auto) Baso % (Auto) Lymph # (Auto) [place] # (Auto) Eos # (Auto) Baso # (Auto) Abs Immat Gran (auto) Absolute Neuts (auto) Absolute Nucleated RBC Nucleated RBC % (auto) Smear Tech's Comments VBG pH 7.42 VBG pCO2 50 VBG pO2 40 VBG HCO3 33 H VBG O2 Saturation 56.0 VBG Base Excess 7.7 Sodium 141 Potassium 5.4 H Chloride 96 Carbon Dioxide 30 H Anion Gap 20 BUN 63 H Creatinine 11.39 H* Estim Creat Clear Calc 11.7 Estimated GFR 5 Random Glucose Fasting Glucose 87 Calcium 9.6 D Troponin I High Sens 47.9 H COVID-19 ([facility]) Negative COVID-19 Clin Com See Note Influenza Type A ([facility]) Invalid Influenza Type B ([facility]) Invalid Influenza A & B Note See Note 10/09/23 10/09/23 10/10/23 14:05 14:33 06:13 WBC 12.0 H 12.7 H RBC 3.94 L 3.71 L Hgb 11.8 L 11.3 L Hct 37.2 L 34.5 L MCV 94.4 93.0 MCH 29.9 30.5 MCHC 31.7 32.8 RDW 15.7 15.5 Plt Count 294 279 MPV 9.8 10.2 Immature Gran % (Auto) 0.6 H 0.9 H Neut % (Auto) 85.4 H 91.7 H Lymph % (Auto) 8.6 L 5.5 L [place] % (Auto) 3.6 1.8 L Eos % (Auto) 1.5 0.0 Baso % (Auto) 0.3 0.1 Lymph # (Auto) 1.0 L 0.7 L [place] # (Auto) 0.4 0.2 Eos # (Auto) 0.2 0.0 Baso # (Auto) 0.0 0.0 Abs Immat Gran (auto) 0.07 H 0.11 H Absolute Neuts (auto) 10.3 H 11.6 H Absolute Nucleated RBC 0.000 0.000 Nucleated RBC % (auto) 0.0 0.0 Smear Tech's Comments VERIFIED VBG pH VBG pCO2 VBG pO2 VBG HCO3 VBG O2 Saturation VBG Base Excess Sodium 140 Potassium 6.2 H* Chloride 95 L Carbon Dioxide 27 Anion Gap 24 H BUN 92 H Creatinine 12.99 H* Estim Creat Clear Calc 10.1 Estimated GFR 4 Random Glucose 170 H Fasting Glucose Calcium 9.3 Troponin I High Sens COVID-19 ([facility]) COVID-19 Clin Com Influenza Type A ([facility]) Negative Influenza Type B ([facility]) Negative Influenza A & B Note See Note Procedures Date of Service Date of Service: 10/10/23 Assessment & Plan Assessment and plan (1) Acute hypoxemic respiratory failure: Status: Acute Assessment and Plan: Pt with ESRD on HD SOB/ CHF/ Vol Overload High K Continue Hd today HD TTS Low Na diet Fluid restriction 1.2 liters Low K diet Lokelma as needed (2) CHF (congestive heart failure): Status: Acute (3) AIDA on CPAP: Status: Acute Time Spent With Patient Time: Total time managing care of this patient today ____ minutes. Progress Note: Quality Stroke Does the patient have a stroke diagnosis?: No
--- NOTE | 2023-10-10 11:39 | HO.PM.IMPN ---
Subjective Subjective Date of Service: 10/10/23 Interval History: Notes improvement overnight after Solu-Medrol. States improvement started prior to dialysis. Review of Systems Denies chest pain Denies shortness of breath Denies nausea vomiting diarrhea Denies fever chills Physical Exam Vital Signs: Vital Signs: Last Vital Signs Temp 98.4 F 10/10/23 07:21 Pulse 104 H 10/10/23 07:21 Resp 20 10/10/23 07:21 BP 167/92 H 10/10/23 07:21 Pulse Ox 94 10/10/23 07:21 O2 Del Method Room Air 10/10/23 07:21 O2 Flow Rate 2 10/10/23 01:44 BMI result Body Mass Index 50.8 Const: Other: Awake alert no acute distress Resp: Other: Clear to auscultation bilaterally no rales rhonchi or wheezes Cardio: Other: No S4; positive S1-S2; no S3 murmurs rubs or gallops GI: Other: Soft nontender nondistended normoactive bowel sounds Extrem: Other: No edema bilaterally Objective Data Active Medications Acetaminophen (Acetaminophen 325 Mg Tablet) 650 mg PO Q6H PRN PRN Reason: Pain, Mild (Pain Scale 1-3) Albuterol/Ipratropium (Albuterol/Iprat 2.5/0.5mg 3 Ml Ampul.Neb) 3 ml INHALE RQ4H WHILE AWAKE PRN PRN Reason: shortness of breath/wheezing Amlodipine Besylate (Amlodipine Besylate 10 Mg Tablet) 10 mg PO DAILY [facility]; Protocol Last Admin: 10/10/23 08:03 Dose: 10 mg Documented By: GUIDO Atorvastatin Calcium (Atorvastatin Calcium 20 Mg Tablet) 20 mg PO BEDTIME [facility] Carvedilol (Carvedilol 12.5 Mg Tablet) 12.5 mg PO DAILY@0900 [facility]; Protocol Last Admin: 10/10/23 08:03 Dose: 12.5 mg Documented By: GUIDO Ergocalciferol (Ergocalciferol (Vitamin D2) 1,250 Mcg Capsule) 1,250 mcg PO [place]@0900 [facility] Folic Acid (Folic Acid 1 Mg Tablet) 1 mg PO DAILY [facility] Last Admin: 10/10/23 08:02 Dose: 1 mg Documented By: GUIDO Furosemide (Furosemide 40 Mg/4 Ml Vial) 40 mg IVPUSH DAILY [facility]; Protocol Last Admin: 10/10/23 08:03 Dose: 40 mg Documented By: GUIDO Gabapentin (Gabapentin 100 Mg Capsule) 200 mg PO BID [facility] Last Admin: 10/10/23 08:02 Dose: 200 mg Documented By: GUIDO Heparin Sodium (Porcine) (Heparin Sodium,Porcine 5,000 Unit/Ml Vial) 5,000 unit SUBCUT Q12H [facility] Last Admin: 10/10/23 04:49 Dose: 5,000 unit Documented By: HIRO Montelukast Sodium (Montelukast Sodium 10 Mg Tablet) 10 mg PO DAILY [facility] Last Admin: 10/10/23 08:03 Dose: 10 mg Documented By: GUIDO Multivitamins/Vitamin C (Multivitamin Tablet) 1 tab PO DAILY [facility] Last Admin: 10/10/23 08:02 Dose: 1 tab Documented By: GUIDO Ondansetron HCl (Ondansetron Hcl 4 Mg/2 Ml Vial) 4 mg IVPUSH Q8H PRN PRN Reason: Nausea and Vomiting Senna (Sennosides 8.6 Mg Tablet) 17.2 mg PO BEDTIME PRN PRN Reason: Constipation Sodium Chloride (0.9 % Sodium Chloride Flush 3 Ml Syringe) 3 ml IVFLUSH QSHIFT [facility] Last Admin: 10/10/23 08:04 Dose: 3 ml Documented By: GUIDO Labs 10/10/23 06:13 10/10/23 06:13 Labs: Laboratory Results - last 24 hr 10/09/23 10/09/23 10/09/23 13:01 13:27 13:56 MCV MCH MCHC RDW Plt Count MPV Immature Gran % (Auto) Neut % (Auto) Lymph % (Auto) [place] % (Auto) Eos % (Auto) Baso % (Auto) Lymph # (Auto) [place] # (Auto) Eos # (Auto) Baso # (Auto) Abs Immat Gran (auto) Absolute Neuts (auto) Absolute Nucleated RBC Nucleated RBC % (auto) Smear Tech's Comments VBG pH 7.42 VBG pCO2 50 VBG pO2 40 VBG HCO3 33 H VBG O2 Saturation 56.0 VBG Base Excess 7.7 Anion Gap 20 Estim Creat Clear Calc 11.7 Estimated GFR 5 Random Glucose Fasting Glucose 87 Calcium 9.6 D COVID-19 ([facility]) Negative COVID-19 Clin Com See Note Influenza Type A ([facility]) Invalid Influenza Type B ([facility]) Invalid Influenza A & B Note See Note 10/09/23 10/09/23 10/10/23 14:05 14:33 06:13 MCV 94.4 93.0 MCH 29.9 30.5 MCHC 31.7 32.8 RDW 15.7 15.5 Plt Count 294 279 MPV 9.8 10.2 Immature Gran % (Auto) 0.6 H 0.9 H Neut % (Auto) 85.4 H 91.7 H Lymph % (Auto) 8.6 L 5.5 L [place] % (Auto) 3.6 1.8 L Eos % (Auto) 1.5 0.0 Baso % (Auto) 0.3 0.1 Lymph # (Auto) 1.0 L 0.7 L [place] # (Auto) 0.4 0.2 Eos # (Auto) 0.2 0.0 Baso # (Auto) 0.0 0.0 Abs Immat Gran (auto) 0.07 H 0.11 H Absolute Neuts (auto) 10.3 H 11.6 H Absolute Nucleated RBC 0.000 0.000 Nucleated RBC % (auto) 0.0 0.0 Smear Tech's Comments VERIFIED VBG pH VBG pCO2 VBG pO2 VBG HCO3 VBG O2 Saturation VBG Base Excess Anion Gap 24 H Estim Creat Clear Calc 10.1 Estimated GFR 4 Random Glucose 170 H Fasting Glucose Calcium 9.3 COVID-19 ([facility]) COVID-19 Clin Com Influenza Type A ([facility]) Negative Influenza Type B ([facility]) Negative Influenza A & B Note See Note Assessment and Plan (1) Acute diastolic CHF (congestive heart failure): Status: Acute (2) (HFpEF) heart failure with preserved ejection fraction: Status: Acute (3) Asthma: Status: Acute Plan 48-year-old male with history of heart failure preserved ejection fraction, hypertension, AIDA compliant with CPAP, ESRD on dialysis TTHSa with RUE fistula, who is morbidly obese with BMI greater than 51 admitted for further management of CHF exacerbation with acute hypoxemic respiratory failure. 1.Hypoxemic respiratory failure from likely diastolic congestive heart failure -backround HFpEF in ESRD pt -IV lasix 40mg daily -Echo 02/06/23: Normal LV systolic fx with EF 55-60% -continue supplemental O2 to maintain oximetry >92% 2.Acute mild asthma exacerbation -no acute issues this admission -duonebs prn -continue maintenance inhalers 3.ESRD on HD -Continue HD TThSa, RUE fistula in place -follow renals/divalents 4.Acute hyperkalemia -10mg lokelma x 1 -HD as above -follow renal/divalents 5.HTN -bp reasonably controlled... Follow after dialysis -continue home meds heparin Full code Patient requires ongoing hospitalization to complete dialysis and follow-up respiratory status Quality Stroke Does the patient have a stroke diagnosis?: No VTE Prior VTE?: No VTE Risk Level:: Medical - moderate - high VTE Device Contraindication: Treatment Not Indicated VTE Drug Contraindication: N/A - Med Ordered
[2023-10-10 11:55] LABS: SARS-CoV-2 PCR Not Detected (Not Detect.)
--- NOTE | 2023-10-10 14:03 | CONS_ITS ---
DATE OF SERVICE: 10/10/2023 REASON FOR CONSULTATION: Consult requested by the medical team to evaluate and help in management of patient with ESRD on hemodialysis, admitted with shortness of breath and wheezing. HISTORY OF PRESENT ILLNESS: The patient is a 48-year-old male with past medical history of CHF with preserved ejection fraction, history of hypertension, obstructive sleep apnea, compliant with CPAP, ESRD on hemodialysis on Monday, , Monday, who presents to the hospital with the above-mentioned complaint. He has been experiencing dyspnea for several days, but the symptoms worsened yesterday. He also had wheezing and cough. He does complain of orthopnea and PND, which is chronic. He apparently has been complaint with his medication regimen. REVIEW OF SYSTEMS: As noted above. Other system review negative. PAST MEDICAL HISTORY: History of ESRD on hemodialysis, pulmonary edema, hypertension, history of heart failure with preserved ejection fraction, and asthma. FAMILY HISTORY: History of mother who is with diabetes. Father had heart problem. PAST SURGICAL HISTORY: History of AV fistula surgery. PERSONAL AND SOCIAL HISTORY: The patient lives with his family, but does not drink alcohol. Does not use drugs or tobacco. ALLERGIES: TO IODINE, IRON, SELFISH, AND BENADRYL. MEDICATIONS: As an outpatient were reviewed in detail. PHYSICAL EXAMINATION: GENERAL: The patient is resting in the bed. Awake, alert, oriented x3. VITAL SIGNS: Blood pressure was 148/76, pulse is 88, afebrile. HEENT: Shows pupils are equal, round and reactive bilaterally to light. No jugular venous distention is noted. NECK: Supple. CARDIOVASCULAR SYSTEM: S1, S2 without rub or murmur. RESPIRATORY SYSTEM: Mildly decreased in the bases. ABDOMEN: Obese, soft. Bowel sounds normal. EXTREMITIES: Show no edema. Upper extremity AV fistula with good bruit and thrill was noted. LABORATORY DATA: Labs done recently: Sodium 140, potassium 6.2, chloride 95, CO2 of 27, BUN 92, creatinine 12.99, glucose 170, calcium 9.3. Hemoglobin 11.2, hematocrit 34.5, platelets were normal. IMPRESSION: A middle-aged male with, 1. End-stage renal disease, on hemodialysis. 2. Congestive heart failure/volume overload. 3. Asthma exacerbation. 4. Anemia of chronic disease. 5. Mild hyperkalemia. RECOMMENDATIONS: We will arrange for hemodialysis for the patient as an inpatient dialysis unit. We will try to remove fluid as tolerated. Potassium per protocol. The patient needs to be on a low-potassium diet and fluid restriction. He also needs to be on a sodium restrictive diet. Asthma management as per medical team and rule out other cardiac causes for CHF. No need for erythropoietin injection at the present time. We will continue with phosphate binders for now. Thank you for allowing me to participate in medical management of the patient. MD TOMMY Christopher/BECCA / [id number]
--- NOTE | 2023-10-10 15:09 | P.CDIM_ITS ---
PROVIDER RESPONSE TEXT: To clarify, the appropriate diagnosis supported by the clinical indicators: Mild intermittent: without exacerbation QUERY TEXT: PHYSICIAN'S DOCUMENTATION REQUEST Date of Query: 10/10/2023 11:38 AM EST Patient Name: Omari Mares Admit Date: 10/09/2023 Dear Justino Cheng, A review of the medical record indicates additional documentation may be needed. Please review below and update the documentation accordingly. Clinical indicators: H&P: Acute mild asthma exacerbation hold on addl steroids for now duonebs prn continue maintenance inhalers Based on the above, please clarify in the Progress Notes further specificity regarding the type and a cuity of the asthma: Mild intermittent Please specify if with or without acute exacerbation or status asthmaticus Mild persistent Please specify if with or without acute exacerbation or status asthmaticus Moderate persistent Please specify if with or without acute exacerbation or status asthmaticus Severe persistent Please specify if with or without acute exacerbation or status asthmaticus Exercise induced Please specify if with or without acute exacerbation or status asthmaticus Other (explain) Clinically unable to determine (explain) Thank you, Melanie Taylor, CCS, CDIS Use of terms such as suspected, likely, concern for, or probable (associated with a specific diagnosi s that is being evaluated, monitored, or treated as if it exists) are acceptable and can be coded in the inpatient se tting, when documented at the time of discharge. Please use your independent medical judgment in providing your response. THIS QUERY IS PART OF THE PERMANENT MEDICAL RECORD
[2023-10-10] MEDS: Atorvastatin Calcium 20 MG TABLET PO (20:43)
[2023-10-11] MEDS: 0.9 % Sodium Chloride Flush 3 ML SYRINGE IVFLUSH ×2 (00:49→07:40)
[2023-10-11 04:00] VITALS: BP 165/91; PULSE 88; RESP 18; TEMP 36; O2SAT 97
[2023-10-11 06:00] VITALS: BMI 50.5
[2023-10-11] MEDS: Heparin Sodium,Porcine 5,000 UNIT/ML VIAL 5000 UNIT SUBCUT (06:04)
[2023-10-11 07:26] VITALS: BP 146/102; PULSE 88; RESP 20; TEMP 36.2; O2SAT 96
[2023-10-11] MEDS: Montelukast Sodium 10 MG TABLET PO (07:39)
[2023-10-11] MEDS: carvediloL 12.5 MG TABLET PO (07:39)
[2023-10-11] MEDS: Furosemide 40 MG/4 ML VIAL IVPUSH (07:39)
[2023-10-11] MEDS: Gabapentin 100 MG CAPSULE 200 MG PO (07:39)
[2023-10-11] MEDS: Folic Acid 1 MG TABLET PO (07:39)
[2023-10-11] MEDS: amLODIPine Besylate 10 MG TABLET PO (07:40)
[2023-10-11] MEDS: Multivitamin TABLET 1 TAB PO (07:40)
[2023-10-11 11:05] VITALS: BP 144/89; PULSE 86; RESP 18; TEMP 36.3
[2023-10-11 11:08] VITALS: O2SAT 98
--- NOTE | 2023-10-11 11:10 | MHC.CM.PN ---
Pt has been medically cleared for DC. His family will transport him home. Update HCP completed and added to paper and electronic chart, copies given to pt.
--- NOTE | 2023-10-11 13:20 | PM.DS ---
DS: Providers Provider Date of Service: 10/11/23 Date of admission: 10/09/23 17:37 Date of discharge: 10/11/23 Primary care physician: Debbie Gallardo MD Consults: 10/09/23 17:43 Consult to Nephrology Routine Consulting Provider: Trevor Reyes Reason for consultation: ESRD on dialysis DS: Diagnosis Discharge Diagnosis (1) Acute diastolic CHF (congestive heart failure): Status: Acute (2) (HFpEF) heart failure with preserved ejection fraction: Status: Acute (3) Asthma: Status: Acute (4) AIDA on CPAP: Status: Acute DS: Summary Hospital Course Hospital Course: 48-year-old male with history of heart failure preserved ejection fraction, hypertension, AIDA compliant with CPAP, ESRD on dialysis TTHSa with RUE fistula, who is morbidly obese with BMI greater than 51 presented to the ED via EMS earlier today for evaluation of shortness of breath and wheezing. The patient reports he has been experiencing dyspnea on exertion for several days but felt symptoms acutely worsened earlier today. There has been associated wheezing and occasional cough with clear sputum production. He is also noted increasing bilateral lower extremity edema today. Reports chronic orthopnea, no PND. Reports compliance with dialysis schedule and medications. 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 No known sick contacts. No fevers, shaking chills, sore throat, congestion, abd pain, n/v/d, lightheadedness, sob at rest, palps, chest pain. On arrival, pt slightly tachycardic in the 100s, tachypneic to 22. Afebile, no hypotension. Sat 80s per EMS placed on 2L supplemental O2, desat to 88% with ambulation. No leukocytosis. Creat 11.39, BUN 63. K 5.4. VBG with ph 7.42, pCO2 50, bicarb 33. Trop 47.9. Negative for COVID-19, influenza. CXR with mild increase in interstitial markings with some groundglass changes possibly representing pulmonary edema vs atypical viral infection. He was given 125mg IV solumedrol and duoneb by EMS with some improvement in symptoms. Hospital Course Patient admitted to telemetry where his rhythm remained stable. He was given 2 doses of IV Lasix with complete resolution of his symptoms. Repeat echo was done and failed to demonstrate any changes from last. 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 Time Attestation Discharge coordination time: Greater than 30 minutes Quality: Safe Use of Opioids Does Pt have an Active Cancer Diagnosis on the Problem List?: No Quality: Stroke Does the patient have a stroke diagnosis?: No Physical Exam Vital Signs: Vital Signs: Last Vital Signs Temp 97.4 F 10/11/23 11:05 Pulse 86 10/11/23 11:05 Resp 18 10/11/23 11:05 BP 144/89 H 10/11/23 11:05 Pulse Ox 98 10/11/23 11:08 O2 Del Method Room Air 10/11/23 11:08 O2 Flow Rate 2 10/10/23 01:44 BMI result Body Mass Index 50.5 Const: Other: Awake alert no acute distress Resp: Other: Clear to auscultation bilaterally no rales rhonchi or wheezes Cardio: Other: No S4; positive S1-S2; no S3 murmurs rubs or gallops GI: Other: Soft nontender nondistended normoactive bowel sounds Extrem: Other: No edema bilaterally DS: Data Data Completed and Pending Completed studies during hospitalization [Text1]: Procedures Assistance with Respiratory Ventilation, Less than 24 Consecutive Hours, Continuous Positive Airway Pressure (08/03/21) Performance of Urinary Filtration, Intermittent, Less than 6 Hours Per Day (08/03/21) Discharge Plan Discharge Anticipated Discharge Date/Time: 10/11/23 13:18 Patient Disposition: Home, Self-Care Discharge Diagnosis: Acute diastolic congestive heart failure Referrals: Debbie Gallardo MD [Primary Care Provider] - 1 Week Discharge Medications: Continued Fiber Laxative(methylcellulos) 500 mg tablet 500 mg PO BID amlodipine 10 mg tablet 10 mg PO DAILY Triphrocaps 1 mg capsule 1 cap PO DAILY gabapentin 100 mg capsule 200 mg PO lorazepam 1 mg tablet 1.5 mg PO DAILY PRN (Reason: panic attack) aspirin 81 mg tablet,delayed release (DR/EC) 81 mg PO DAILY ergocalciferol (vitamin D2) [Vitamin D2] 1,250 mcg (50,000 unit) capsule 1,250 mcg PO Q7D docusate sodium 100 mg capsule 100 mg PO BID atorvastatin 20 mg tablet 20 mg PO BEDTIME gabapentin 100 mg capsule 200 mg PO BID montelukast 10 mg tablet 10 mg PO DAILY folic acid 1 mg tablet 1 mg PO QAM carvedilol 12.5 mg tablet 12.5 mg PO DAILY@0900 duloxetine 60 mg capsule,delayed release(DR/EC) 60 mg PO DAILY ferrous sulfate [FeroSul] 325 mg (65 mg iron) tablet 325 mg PO DAILY albuterol sulfate [Ventolin HFA] 90 mcg/actuation HFA aerosol inhaler 2 puff inhalation Q4H PRN (Reason: Shortness Of Breath Or Wheezing) Velphoro 500 mg tablet,chewable 1,500 mg PO TID Discharge Orders: Discharge Order (Routine); Ordered 10/11/23 Ordered By: Justino Cheng Diet: Advance to usual diet Activity on Discharge: As tolerated Stand Alone Forms: Patient Portal Discharge page Care Plan Goals: Resume all medicines as taken prior to hospitalization Health Concerns: Follow-up with cardiology next available appointment Plan of Treatment: Follow-up with PCP next available appointment. Return if symptoms reoccur Assessment: See discharge summary
== END 2023-10-11 13:53 | disposition home or self-care (01) | DRG 291 ==
LOC: HO.ED 17:24 → HO.EDOVER 17:45 → HO.IMC 10-10 00:33
PROVIDERS: Admitting Provider Physician Assistant; Emergency Provider Emergency Medicine; PCP Family Medicine; Visit Provider Hospitalist
DX: I13.2 Hypertensive heart and chronic kidney disease with heart failure and with stage 5 chronic kidney disease, or end stage renal disease (principal); I50.33 Acute on chronic diastolic (congestive) heart failure; N18.6 End stage renal disease; E66.2 Morbid (severe) obesity with alveolar hypoventilation; Z68.43 Body mass index [BMI] 50.0-59.9, adult; D63.1 Anemia in chronic kidney disease; E87.5 Hyperkalemia; J45.20 Mild intermittent asthma, uncomplicated; Z20.822 Contact with and (suspected) exposure to COVID-19; Z99.2 Dependence on renal dialysis; Z79.82 Long term (current) use of aspirin; Z79.899 Other long term (current) drug therapy
CPT/HCPCS: 36415; 71045; 80048; 82803; 84484; 85025; 87502; 87633; 87635; 90999; 93005; 93306; 94660; 99285; J1644; J1940; Q9957

== ENCOUNTER → 2023-10-09 15:03 | Outpatient (BNV) | payer OTHER, SELFPAY | PROVIDERS: Emergency Provider Emergency Medicine; PCP Family Medicine; Visit Provider Internal Medicine Cardiovascular Disease | DX: R00.0 Tachycardia, unspecified (principal) | CPT/HCPCS: 93010 ==

== ENCOUNTER 2023-10-09 17:37 | Outpatient (BNV) | payer OTHER, SELFPAY | END 2023-10-10 07:00 | PROVIDERS: Admitting Provider Physician Assistant; Emergency Provider Emergency Medicine; PCP Family Medicine; Visit Provider Internal Medicine Cardiovascular Disease | DX: I34.81 Nonrheumatic mitral (valve) annulus calcification (principal) | CPT/HCPCS: 93306 ==

== ENCOUNTER → 2023-10-09 17:37 | Outpatient (BNV) | payer OTHER, SELFPAY | PROVIDERS: Admitting Provider Physician Assistant; Emergency Provider Emergency Medicine; PCP Family Medicine; Visit Provider Physician Assistant | DX: I50.31 Acute diastolic (congestive) heart failure (principal); J45.909 Unspecified asthma, uncomplicated; G47.33 Obstructive sleep apnea (adult) (pediatric); Z99.89 Dependence on other enabling machines and devices | CPT/HCPCS: 99223; 99233; 99239 ==

== ENCOUNTER 2023-10-19 05:49 | Inpatient (IN) | payer OTHER, SELFPAY ==
[2023-10-19] VITALS (9 sets, daily range): BP systolic 124–154; BP diastolic 75–97; PULSE 90–112; RESP 18–24; TEMP 36.7–37.9; O2SAT 86–98; BMI 51.3
--- NOTE | 2023-10-19 | ECG_ITS ---
Test Reason : CHEST PAIN Blood Pressure : / mmHG Vent. Rate : 095 BPM Atrial Rate : 095 BPM P-R Int : 166 ms QRS Dur : 086 ms QT Int : 378 ms P-R-T Axes : 064 021 080 degrees QTc Int : 475 ms Normal sinus rhythm Cannot rule out Inferior infarct , age undetermined Cannot rule out Anterior infarct (cited on or before 30-APR-2022) Abnormal ECG When compared with ECG of 09-OCT-2023 15:03, No significant change was found Referred By: Generic ED Physician Electronically Signed By:MAYRA SHI MD
--- NOTE | ~2023-10-19 | XR_ITS ---
EXAMINATION: XR CHEST CLINICAL INFORMATION: Shortness of breath. Cough COMPARISON: 10/09/2023 TECHNIQUE: 2 views of the chest were obtained. FINDINGS: Mild cardiomegaly with mild distention of the pulmonary vessels. Mild bibasilar edema. Findings however are improved. ekg monitor tech leads are present. XR/XR chest 2V IMPRESSION: Congestive changes noted with some improvement from the prior study.
--- NOTE | ~2023-10-19 | US_ITS ---
EXAMINATION: BILATERAL LOWER EXTREMITY DEEP VENOUS ULTRASOUND CLINICAL INFORMATION: Edema COMPARISON: No similar prior examinations are available for comparison. TECHNIQUE: Duplex Doppler imaging with compression maneuvers were performed of the bilateral lower extremity deep venous systems. FINDINGS: The bilateral visualized common femoral, femoral and popliteal veins demonstrate normal compressibility and color flow without evidence of venous thrombosis. Visualized portions of the bilateral calf veins demonstrate normal color fill-in suggesting patency. There is no evidence of a Bryant's cyst. US/US venous duplex LE BI IMPRESSION: No evidence of deep venous thrombosis involving the bilateral lower extremities.
[2023-10-19 06:24] LABS: Basophils Percent Auto 0.2 % (0-2); Eosinophils Absolute Auto 0.2 X10*3/uL (0.0-0.4); Eosinophils Percent Auto 2.2 % (0-4); Hematocrit 31.7 % (42.0-52.0); Hemoglobin 10.5 g/dl (14.0-18.0); Imm Gran Abs Auto 0.06 X10*3/uL (0.00-0.03); Imm Gran Pct Auto 0.6 % (0.0-0.4); Lymphocytes Absolute Auto 1.2 X10*3/uL (1.2-4.9); Lymphocytes Percent Auto 12.1 % (20-40); MANUAL DIFF FLAG NO; Mean Corpuscular HGB Conc 33.1 g/dl (31.0-36.0); Mean Corpuscular Hemoglobin 30.4 pg (27.0-33.0); Mean Corpuscular Volume 91.9 fL (80.0-98.0); Mean Platelet Volume 9.5 fL (9.4-12.4); Monocytes Absolute Auto 0.6 X10*3/uL (0.1-1.2); Monocytes Percent Auto 5.8 % (2-11); Neutrophils Percent Auto 79.1 % (45-73); Platelet Count 278 X10*3/uL (160-400); Red Blood Count 3.45 X10*6/uL (4.60-5.80); Red Cell Distribution Width 15.4 % (11.0-16.0); White Blood Count 10.1 X10*3/uL (4.8-10.8)
[2023-10-19 06:42] LABS: COVID-19 Test Negative (Negative); IDNOW Serial# 152EDE1D
[2023-10-19 06:44] LABS: IDNOW Serial# 08D9AD1C; Influenza A Negative (Negative); Influenza B2 Negative (Negative)
[2023-10-19 06:45] LABS: Alanine Aminotransferase 16 U/L (0-40); Albumin Level 3.9 g/dL (3.5-5.0); Alkaline Phosphatase 62 U/L (39-117); Anion Gap 23 (12-20); Aspartate Amino Transferase 10 U/L (5-37); Bilirubin Total 0.5 mg/dL (0.0-1.0); Blood Urea Nitrogen 80 mg/dL (9-16); Calcium 8.7 mg/dL (8.4-10.2); Carbon Dioxide 27 mmol/L (22-29); Chloride 95 mmol/L (96-108); Glucose Random 80 mg/dL (60-115); Potassium 4.8 mmol/L (3.3-5.1); Sodium 140 mmol/L (135-145); Total Protein 7.6 g/dL (6.5-8.0); Troponin-I High Sensitivity 69.7 ng/L (<3.5-35.0)
[2023-10-19 06:46] LABS: Creatinine Clr Calc Pharmacy 10.4; Estimated Glomerular Filt Rate 4
--- NOTE | 2023-10-19 07:24 | PC.NURSE ---
Alert and oriented, reports feeling better, denies pain or discomfort. VSS.
--- NOTE | 2023-10-19 07:46 | ED.CHESTPAIN ---
HPI - Chest Pain General Chief Complaint: Chest Pain Stated Complaint: cp Time Seen by Provider: 10/19/23 07:45 Source: patient and RN notes reviewed Mode of arrival: ambulatory Limitations: no limitations History of Present Illness HPI narrative: This is a 48-year-old male, with a history of history of heart failure preserved ejection fraction, hypertension, AIDA compliant with CPAP, ESRD on dialysis [facility] with RUE fistula, who is morbidly obese with BMI greater than 51 presented to the ED, presenting to the emergency department for evaluation of ongoing shortness of breath and chest pain. Patient states that over the last month he has had a dry cough, shortness of breath, and intermittent chest pain. He states that while he was at his dialysis center he had a coughing fit where he had worsening chest pain shortness and breath and was brought via EMS for further evaluation. He was recently admitted to the hospital on 10/09/2023 due to acute CHF exacerbation with acute hypoxemic respiratory failure. He denies any fevers. He states that he is unable to walk around or lay flat given worsening shortness of breath and cough. He states that while he was in dialysis he did experience tightening in his chest which lasted for several minutes and had associated coughing. He denies any pain radiating from his chest. Reports that the pain resolved on its own. MD complaint: chest pain Timing of current episode: episodic Prior episodes: Yes Onset: during rest and during exertion Pain location: substernal Pain radiation: none Severity: moderate Quality: tightness Relieving factors: sitting upright Exacerbating factors: nothing Treatment prior to arrival: none Risk Factors Coronary artery disease risk factors: diabetes, hyperlipidemia and hypertension Pulmonary embolism risk factors: morbid obesity Related Data Home Medications Medication Instructions Recorded Confirmed aspirin 81 mg tablet,delayed 81 mg PO DAILY 05/10/21 10/19/23 release atorvastatin 20 mg tablet 20 mg PO BEDTIME 05/10/21 10/19/23 docusate sodium 100 mg capsule 100 mg PO BID 05/10/21 10/19/23 ergocalciferol (vitamin D2) 1,250 1,250 mcg PO FRASER 05/10/21 10/19/23 mcg (50,000 unit) capsule (Vitamin D2) folic acid 1 mg tablet 1 mg PO DAILY 05/10/21 10/19/23 gabapentin 100 mg capsule 200 mg PO BID 05/10/21 10/19/23 lorazepam 1 mg tablet 1.5 mg PO DAILY PRN panic attack 05/10/21 10/19/23 montelukast 10 mg tablet 10 mg PO DAILY 05/10/21 10/19/23 albuterol sulfate 90 mcg/actuation 2 puff inhalation Q4H PRN 10/07/22 10/19/23 aerosol inhaler (Ventolin HFA) Shortness Of Breath Or Wheezing duloxetine 60 mg capsule,delayed 60 mg PO DAILY 10/07/22 10/19/23 release ferrous sulfate 325 mg (65 mg 325 mg PO DAILY 10/07/22 10/19/23 iron) tablet (FeroSul) sucroferric oxyhydroxide 500 mg 1,500 mg PO TID 10/07/22 10/19/23 chewable tablet (Velphoro) amlodipine 10 mg tablet 10 mg PO DAILY 01/09/23 10/19/23 carvedilol 12.5 mg tablet 12.5 mg PO DAILY 01/09/23 10/19/23 vitamin B complex and vitamin C 1 cap PO DAILY 10/09/23 10/19/23 no.20-folic acid 1 mg capsule (Triphrocaps) calcium acetate(phosphat bind) 667 1,334 mg PO TID 10/19/23 10/19/23 mg capsule calcium acetate(phosphat bind) 667 667 mg PO DAILY 10/19/23 10/19/23 mg capsule calcium polycarbophil 625 mg 625 mg PO BID 10/19/23 10/19/23 tablet (Fiber-Lax) fluticasone propionate 45 1 puff inhalation BID 10/19/23 10/19/23 mcg-salmeterol 21 mcg/actuation HFA inhaler (Advair HFA) fluticasone propionate 50 1 spray intranasal DAILY 10/19/23 10/19/23 mcg/actuation nasal spray,suspension ropinirole 0.5 mg tablet 0.5 mg PO BEDTIME 10/19/23 10/19/23 sevelamer carbonate 800 mg tablet 800 mg PO TIDWMEAL 10/19/23 10/19/23 Allergies Allergy/AdvReac Type Severity Reaction Status Date / Time iodine [IODINE] Allergy Severe THROAT Verified 10/09/23 12:46 SWELLING iron [IRON] Allergy Unknown HOT Verified 10/09/23 12:46 FEELING, ANXIETY, SOB,M TACHYCARDIA shellfish derived Allergy Unknown UNKNOWN Verified 10/09/23 12:46 [SHELLFISH DERIVED] Benadryl Allergy Unknown hyperactive Uncoded 10/09/23 12:46 Review of Systems Review of Systems: Yes all other systems are reviewed and are negative Constitutional: Constitutional: Reports as per HPI [facility] Past Medical History Medical History CHF (congestive heart failure) Asthma AIDA on CPAP Pulmonary edema End stage chronic kidney disease HTN (hypertension) (HFpEF) heart failure with preserved ejection fraction Asthma Dialysis patient Surgical History History of surgery Family History Family History Mother Diabetes Father Heart problem Diabetes Social History Social History Household Members: Family Housing: Apartment Do you presently have visiting nurse or other home services: Yes (drt is [employer]) Alcohol intake: never Patient Tobacco Use Status: Never used Tobacco Advance Directives Date on File: 10/12/23 service: No Current occupational status: disabled Current occupation: rt handed Physical Exam Vital Signs: Vital Signs: Last Vital Signs Temp 98.0 F 10/19/23 15:17 Pulse 102 H 10/19/23 15:17 Resp 24 H 10/19/23 15:17 BP 152/87 H 10/19/23 15:17 Pulse Ox 89 L 10/19/23 15:17 O2 Del Method CPAP 10/19/23 15:17 BMI result Body Mass Index 51.3 Const: General: cooperative, comfortable and no acute distress Nutritional Appearance: obese Orientation/consciousness: patient oriented x3 Limitations: no limitations HEENT: Head: Yes normal to inspection, Yes normocephalic and Yes atraumatic Ears: hearing grossly normal bilaterally General nose exam: Normal external nose present Face and sinus: Yes normal facial exam Mouth: Normal oral and palatal mucosa present, oropharynx normal and moist mucous membranes Throat: Yes posterior oropharynx normal Eyes: General: appearance normal, both eyes and all related structures Eyelids: Yes eyelids normal Conjunctivae: conjunctivae normal Sclerae: sclerae normal Pupils: Equal, round and reactive pupils present EOM: EOMs intact bilaterally Neck: Neck: Yes normal visual inspection, Yes full ROM and Yes no lymphadenopathy Lymphatic: no lymphadenopathy noted Chest: Chest palpation & inspection: normal inspection of the chest Resp: Other: Diminished lung sounds throughout all lung hernández, no wheezes, rales, or rhonchi Effort & Inspection: normal respiratory effort and able to speak in complete sentences Cardio: Rate: regular rate Rhythm: regular rhythm Heart sounds: S1 normal heart sound present and S2 normal heart sound present GI: Inspection: Yes normal to inspection Skin: General skin exam: no rashes or lesions noted Trauma: no lacerations or abrasions Wounds: no wounds Neuro: General: patient oriented x3 and moves all extremities Cranial nerves: Yes Equal, round and reactive pupils present Extrem: Other: 1+ pitting edema noted bilaterally, no calf tenderness, negative Homans' sign General: Yes normal to inspection Right upper extremity: normal to inspection Left upper extremity: normal to inspection Course Reevaluation(s) Reevaluation #1: Labs return, no leukocytosis, normocytic anemia noted at 10.5/31.7, normal sodium, chloride 95, patient does have a creatinine of 12.76, he is on dialysis and was supposed to receive this today. BUN 80 troponin 69.7, repeat after 3 hours was 60.0, BNP today 147. Patient tested negative for COVID and flu. Ultrasound of lower extremities did not reveal any DVTs. Chest x-ray revealing congestive changes noted with some improvement from the prior study. Ambulation trial was performed, and hypoxia did occur at 89% on room air. Given hypoxia, will attempt to admit for CHF exacerbation and CKD. Time: 10:56 Reevaluation #2: Patient was seen and evaluated by my attending physician, Dr. Hays. He recommends Lasix 80 mg IV to offset CHF exacerbation and to help with shortness of breath. Will continue to closely monitor. Time: 11:30 Reevaluation #3: Repeat ambulation trial revealing 86% on RA. Discussed case with Dr. Huerta, hospitalist. Given hypoxemia and CHF, will need to be admitted for further care, Transfer of care initiated. Time: 12:23 Medications Administered Generic Name Dose Route Start Last Admin Trade Name Freq PRN Reason Stop Dose Admin Calcium Acetate 1,334 mg 10/19/23 15:00 10/19/23 17:47 Calcium Acetate 667 Mg Capsule PO Not Given TID SMILEY Heparin Sodium (Porcine) 5,000 unit 10/19/23 15:00 10/19/23 17:47 Heparin Sodium,Porcine 5,000 Unit/Ml Vial SUBCUT Not Given Q8H SMILEY Sevelamer Carbonate 800 mg 10/19/23 17:00 10/19/23 18:01 Sevelamer Carbonate Tablet 800 Mg Tablet PO Not Given TIDWM SMILEY Sodium Chloride 3 ml 10/19/23 16:00 10/19/23 17:48 0.9 % Sodium Chloride Flush 3 Ml Syringe IVFLUSH Not Given QSHIFT SMILEY Discontinued Medications Generic Name Dose Route Start Last Admin Trade Name Freq PRN Reason Stop Dose Admin Albuterol/Ipratropium 3 ml 10/19/23 08:36 10/19/23 08:39 Albuterol/Iprat 2.5/0.5mg 3 Ml Ampul.Neb INHALE 10/19/23 08:37 3 ml ONCE ONE Administration Furosemide 80 mg 10/19/23 11:39 10/19/23 11:48 Furosemide 100 Mg/10 Ml Vial IVPUSH 10/19/23 11:40 80 mg ONCE ONE Administration Protocol Medical Decision Making Medical Decision Making MDM Narrative: This is a 48-year-old male, with a history of history of heart failure preserved ejection fraction, hypertension, AIDA compliant with CPAP, ESRD on dialysis [facility] with RUE fistula, who is morbidly obese with BMI greater than 51 presenting to the ED with complaints of cough, shortness of breath, and chest pain x1 month. He was recently admitted to the hospital for heart failure, discharged after receiving IV Lasix in symptomatic improvement. He had an episode of chest pain, shortness for breath while he was at his dialysis this morning and was brought to the emergency room for further evaluation. On arrival, blood pressure mildly elevated at 154/97, respirations 21. Oxygen saturation 96% on room air. Lungs are clear to auscultation bilaterally however diminished in all lung hernández. Patient has 1+ pitting edema noted bilaterally. Respirations 21. Frequent dry cough heard during examination. Plan: Labs, EKG, chest x-ray, viral swabs, ultrasound bilateral lower extremities given 1+ pitting edema noted bilaterally, and recent hospitalization and shortness of breath. Differential Diagnosis Differential Diagnoses: The differential diagnosis associated with the presentation includes CHF, pneumonia, asthma exacerbatio. Admission/Observation Consideration of admission/observation: Escalation of care including admission/observation considered Lab Data MDM Lab Attestation statement: I reviewed the patient's lab results. 10/19/23 06:19 10/19/23 06:19 Labs: Lab Results 10/19/23 10/19/23 Range/Units 06:19 09:30 WBC 10.1 (4.8-10.8) X10*3/uL RBC 3.45 L (4.60-5.80) X10*6/uL Hgb 10.5 L (14.0-18.0) g/dl Hct 31.7 L (42.0-52.0) % MCV 91.9 (80.0-98.0) fL MCH 30.4 (27.0-33.0) pg MCHC 33.1 (31.0-36.0) g/dl RDW 15.4 (11.0-16.0) % Plt Count 278 (160-400) X10*3/uL MPV 9.5 (9.4-12.4) fL Immature Gran % (Auto) 0.6 H (0.0-0.4) % Neut % (Auto) 79.1 H (45-73) % Lymph % (Auto) 12.1 L (20-40) % [place] % (Auto) 5.8 (2-11) % Eos % (Auto) 2.2 (0-4) % Baso % (Auto) 0.2 (0-2) % Lymph # (Auto) 1.2 (1.2-4.9) X10*3/uL [place] # (Auto) 0.6 (0.1-1.2) X10*3/uL Eos # (Auto) 0.2 (0.0-0.4) X10*3/uL Baso # (Auto) 0.0 (0.0-0.2) X10*3/uL Abs Immat Gran (auto) 0.06 H (0.00-0.03) X10*3/uL Absolute Neuts (auto) 8.0 (2.0-8.3) x10*3/uL Absolute Nucleated RBC 0.000 (0.0-0.012) X10*3/uL Nucleated RBC % (auto) 0.0 (0.0-0.2) /100WBC Sodium 140 (135-145) mmol/L Potassium 4.8 D (3.3-5.1) mmol/L Chloride 95 L (96-108) mmol/L Carbon Dioxide 27 (22-29) mmol/L Anion Gap 23 H (12-20) BUN 80 H (9-16) mg/dL Creatinine 12.76 H* (0.5-1.4) mg/dL Estim Creat Clear Calc 10.4 Estimated GFR 4 Random Glucose 80 (60-115) mg/dL Calcium 8.7 D (8.4-10.2) mg/dL Total Bilirubin 0.5 (0.0-1.0) mg/dL AST 10 (5-37) U/L ALT 16 (0-40) U/L Alkaline Phosphatase 62 (39-117) U/L Troponin I High Sens 69.7 H 60.0 H (<3.5-35.0) ng/L B-Natriuretic Peptide 147 H (<100) pg/mL Total Protein 7.6 (6.5-8.0) g/dL Albumin 3.9 (3.5-5.0) g/dL COVID-19 ([facility]STOR) Negative (Negative) COVID-19 Clin Com See Note Influenza Type A ([facility]) Negative (Negative) Influenza Type B ([facility]) Negative (Negative) Influenza A & B Note See Note Independent Interpretation I performed an independent interpretation of an: EKG and Plain X-Ray Interpretation: EKG NSR at a venticular rate of 95BPM, no ST elevation or depression, QTCC 475 I have reviewed the CXR and agree with the radiology report. Radiology Impression Discussion of test interpretation with radiology: I have reviewed the radiologist's reading. Radiologist Impression: EXAMINATION: BILATERAL LOWER EXTREMITY DEEP VENOUS ULTRASOUND CLINICAL INFORMATION: Edema COMPARISON: No similar prior examinations are available for comparison. TECHNIQUE: Duplex Doppler imaging with compression maneuvers were performed of the bilateral lower extremity deep venous systems. FINDINGS: The bilateral visualized common femoral, femoral and popliteal veins demonstrate normal compressibility and color flow without evidence of venous thrombosis. Visualized portions of the bilateral calf veins demonstrate normal color fill-in suggesting patency. There is no evidence of a Bryant's cyst. US/US venous duplex LE BI IMPRESSION: No evidence of deep venous thrombosis involving the bilateral lower extremities. Dictated By: Aayush Culp MD EXAMINATION: XR CHEST CLINICAL INFORMATION: Shortness of breath. Cough COMPARISON: 10/09/2023 TECHNIQUE: 2 views of the chest were obtained. FINDINGS: Mild cardiomegaly with mild distention of the pulmonary vessels. Mild bibasilar edema. Findings however are improved. clinical research monitor leads are present. XR/XR chest 2V IMPRESSION: Congestive changes noted with some improvement from the prior study. Dictated By: Sergo Bradley MD Chronic Conditions Patient?s care impacted by: Diabetes, Hypertension and Other Chronic kidney disease Critical Care Time Critical Care Time Critical Care Time: Yes Total Critical Care Time: 40 Attestation: I have personally provided critical care time exclusive of time spent on separately billable procedures. Time includes review of lab data, radiology results, discussion with consultants, and monitoring for potential decompensation. Intervention performed as documented. Discharge Plan Discharge Clinical Impression: CHF exacerbation, Hypoxia Patient Disposition: Admitted As Inpatient Interventions: Admission Worksheet (ED) Last Done: 10/19/23 15:53 Discharge Date/Time: 10/19/23 16:38
[2023-10-19] MEDS: Albuterol/Iprat 2.5/0.5MG 3 ML AMPUL.NEB INHALE (08:39)
[2023-10-19 08:58] LABS: B Type Natriuretic Peptide 147 pg/mL (<100)
[2023-10-19] MEDS: Furosemide 100 MG/10 ML VIAL 80 MG IVPUSH (11:48)
--- NOTE | 2023-10-19 11:54 | PC.NURSE ---
Walking trial completed, patient became sob, coughing dropping down to 86% on RA. Returned to room,patient placed cpap on sating 93%
--- NOTE | 2023-10-19 13:41 | P.HPHOSP_ITS ---
History of Present Illness Date of Service: 10/19/23 Attending physician on admission: Jesus Newsome Chief Complaint: SOB, cough Pt is a 48-year-old male with a PMH significant for?HFpEF, HTN, AIDA on CPAP, ESRD on hemodialysis T/Th/Sat with RUE fistula, and moderate persistent asthma who presents to the ED from hemodialysis with nonproductive cough and shortness of breath. Pt was recently admitted to the hospital for similar symptoms last week on 10/09-10/11 and was treated for acute hypoxic respiratory failure in the setting of CHF exacerbation. Patient was treated with 2 doses of IV Lasix and had repeat echocardiogram which failed to show any significant changes from previous. Patient received dialysis in the hospital and was discharged home. Patient states that since discharge symptoms have not improved much, complains of having persistent nonproductive cough, difficult time breathing, and central chest pressure/tightness associated with cough and deep breathing. Patient says he has been compliant with all of his medications and has not missed any dialysis appointments. Presented today for dialysis but experienced persistent nonproductive cough and was unable to get dialysis, and was instead sent to ED for further evaluation. He has also been having some chills and nausea, but no vomiting. No measurable fever. Patient reports that he does not make any urine. Patient received DuoNebs while in the ED, but states they did not help. Does get some relief though from CPAP. In the ED pt was tachycardic up to 108, tachypneic up to 22, hypertensive up to 154/97, and satting as low as 86% on RA. Labs were significant for stable microcytic anemia of 10.5/31.7, BUN of 80, creatinine 12.76, troponin 69.7 with repeat 60.0, BNP 147. Tested negative for COVID and influenza type a and B. CXR showed cardiomegaly, mildly distended pulmonary vessels, and mild bibasilar edema, improved from prior study. Venous duplex studies of bilateral lower extremities found no evidence of DVT. EKG demonstrated normal sinus rhythm with no evidence of significant ST elevations or depressions. Pt was treated with furosemide 80 mg IV and DuoNebs. Pt will be admitted to the hospital for treatment further evaluation of acute hypoxic respiratory failure in the setting of HFpEF exacerbation in a patient on hemodialysis. Review of Systems 2 Review of Systems: Shortness of breath, difficulty breathing Central nonradiating chest pressure/tightness Nonproductive cough Nausea, no vomiting Chills, no via Denies abdominal pain [facility] Medical History CHF (congestive heart failure) Asthma AIDA on CPAP Pulmonary edema End stage chronic kidney disease HTN (hypertension) (HFpEF) heart failure with preserved ejection fraction Asthma Dialysis patient Family History Mother Diabetes Father Heart problem Diabetes Surgical History History of surgery Social History Household Members: Family Housing: Apartment Do you presently have visiting nurse or other home services: Yes (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) Alcohol intake: never Patient Tobacco Use Status: Never used Tobacco Smoked in Last 30 Days: No Use of substances other than those prescribed or required for medical reasons: No Advance Directives: Yes Advance Directives on File: Yes Advance Directives Date on File: 10/12/23 service: No Current occupational status: disabled Current occupation: rt handed Meds Allergies Allergy/AdvReac Type Severity Reaction Status Date / Time iodine [IODINE] Allergy Severe THROAT Verified 10/09/23 12:46 SWELLING iron [IRON] Allergy Unknown HOT Verified 10/09/23 12:46 FEELING, ANXIETY, SOB,M TACHYCARDIA shellfish derived Allergy Unknown UNKNOWN Verified 10/09/23 12:46 [SHELLFISH DERIVED] Benadryl Allergy Unknown hyperactive Uncoded 10/09/23 12:46 Home Medications Medication Instructions Recorded Confirmed Last Taken Type aspirin 81 mg tablet,delayed 81 mg PO DAILY 05/10/21 10/19/23 10/18/23 History release atorvastatin 20 mg tablet 20 mg PO BEDTIME 05/10/21 10/19/23 10/18/23 History docusate sodium 100 mg capsule 100 mg PO BID 05/10/21 10/19/23 10/18/23 History ergocalciferol (vitamin D2) 1,250 1,250 mcg PO FRASER 05/10/21 10/19/23 Unknown History mcg (50,000 unit) capsule (Vitamin D2) folic acid 1 mg tablet 1 mg PO DAILY 05/10/21 10/19/23 10/18/23 History gabapentin 100 mg capsule 200 mg PO BID 05/10/21 10/19/23 10/18/23 History lorazepam 1 mg tablet 1.5 mg PO DAILY PRN panic attack 05/10/21 10/19/23 Unknown History montelukast 10 mg tablet 10 mg PO DAILY 05/10/21 10/19/23 10/18/23 History albuterol sulfate 90 mcg/actuation 2 puff inhalation Q4H PRN 10/07/22 10/19/23 Unknown History aerosol inhaler (Ventolin HFA) Shortness Of Breath Or Wheezing duloxetine 60 mg capsule,delayed 60 mg PO DAILY 10/07/22 10/19/23 10/18/23 History release ferrous sulfate 325 mg (65 mg 325 mg PO DAILY 10/07/22 10/19/23 10/18/23 History iron) tablet (FeroSul) sucroferric oxyhydroxide 500 mg 1,500 mg PO TID 10/07/22 10/19/23 10/18/23 History chewable tablet (Velphoro) amlodipine 10 mg tablet 10 mg PO DAILY 01/09/23 10/19/23 10/18/23 History carvedilol 12.5 mg tablet 12.5 mg PO DAILY 01/09/23 10/19/23 10/18/23 History vitamin B complex and vitamin C 1 cap PO DAILY 10/09/23 10/19/23 10/18/23 History no.20-folic acid 1 mg capsule (Triphrocaps) calcium acetate(phosphat bind) 667 1,334 mg PO TID 10/19/23 10/19/23 10/18/23 History mg capsule calcium acetate(phosphat bind) 667 667 mg PO DAILY 10/19/23 10/19/23 Unknown History mg capsule calcium polycarbophil 625 mg 625 mg PO BID 10/19/23 10/19/23 10/18/23 History tablet (Fiber-Lax) fluticasone propionate 45 1 puff inhalation BID 10/19/23 10/19/23 10/18/23 History mcg-salmeterol 21 mcg/actuation HFA inhaler (Advair HFA) fluticasone propionate 50 1 spray intranasal DAILY 10/19/23 10/19/23 10/18/23 History mcg/actuation nasal spray,suspension ropinirole 0.5 mg tablet 0.5 mg PO BEDTIME 10/19/23 10/19/23 10/18/23 History sevelamer carbonate 800 mg tablet 800 mg PO TIDWMEAL 10/19/23 10/19/23 10/18/23 History Physical Exam 2 Vital Signs and Narrative: Vital Signs: Last Vital Signs Temp 98.7 F 10/19/23 11:50 Pulse 108 H 10/19/23 11:54 Resp 20 10/19/23 11:50 BP 124/91 H 10/19/23 11:50 Pulse Ox 86 L 10/19/23 11:54 O2 Del Method Room Air 10/19/23 11:54 BMI result Body Mass Index 51.3 Constitutional: Alert, looking uncomfortable, in no acute distress. Mental Status: Oriented to person, place and time. Eyes: Pupils are equal, round, and reactive to light. Ear, Nose, and Throat: Oropharynx clear, mucous membranes moist. Ears and nose without deformities. Trachea midline. Respiratory: Clear to auscultation bilaterally. No wheezing, rales, or rhonchi. Cardiovascular: S1, S2, tachy. No murmurs, rubs, or gallops. Gastrointestinal: Abdomen soft, non-tender, obese. Normal bowel sounds. Neurologic: Cranial nerves II-XII are grossly intact bilaterally. No focal neurological deficits. Moves all extremities spontaneously. Skin: Warm, dry. Musculoskeletal: No cyanosis or clubbing. Extremities: 2+ edema. Psychiatric: Normal mood and affect. Results Labs 10/19/23 06:19 10/19/23 06:19 Labs: Laboratory Results - last 24 hr 10/19/23 06:19 MCV 91.9 MCH 30.4 MCHC 33.1 RDW 15.4 Plt Count 278 MPV 9.5 Immature Gran % (Auto) 0.6 H Neut % (Auto) 79.1 H Lymph % (Auto) 12.1 L [place] % (Auto) 5.8 Eos % (Auto) 2.2 Baso % (Auto) 0.2 Lymph # (Auto) 1.2 [place] # (Auto) 0.6 Eos # (Auto) 0.2 Baso # (Auto) 0.0 Abs Immat Gran (auto) 0.06 H Absolute Neuts (auto) 8.0 Absolute Nucleated RBC 0.000 Nucleated RBC % (auto) 0.0 Anion Gap 23 H Estim Creat Clear Calc 10.4 Estimated GFR 4 Random Glucose 80 Calcium 8.7 D Total Bilirubin 0.5 AST 10 ALT 16 Alkaline Phosphatase 62 B-Natriuretic Peptide 147 H Total Protein 7.6 Albumin 3.9 COVID-19 ([facility]) Negative COVID-19 Clin Com See Note Influenza Type A ([facility]) Negative Influenza Type B ([facility]) Negative Influenza A & B Note See Note Imaging Radiologist's Impressions: Impressions Chest X-Ray 10/19/23 08:20 IMPRESSION: Congestive changes noted with some improvement from the prior study. Venous Duplex 10/19/23 09:43 IMPRESSION: No evidence of deep venous thrombosis involving the bilateral lower extremities. Assessment and Plan (1) Hypoxia: Status: Acute (2) CHF exacerbation: Status: Acute Plan Pt is a 48-year-old male with a PMH significant for?HFpEF, HTN, AIDA on CPAP, ESRD on hemodialysis //Mon with RUE fistula, and moderate persistent asthma who presents to the ED from hemodialysis with nonproductive cough and shortness of breath. Pt will be admitted to the hospital for treatment further evaluation of acute hypoxic respiratory failure in the setting of HFpEF exacerbation in a patient on hemodialysis. Acute hypoxic respiratory failure in the setting of HFpEF exacerbation in pt with ESRD Increasing shortness of breath, difficulty breathing, nonproductive cough, satting at 86% on RA, 2+ pitting edema CXR showing cardiomegaly, mildly distended pulmonary vessels, and mild bibasilar edema Admitted for similar volume overload 10 days prior on 10/09-10/11 Received Lasix 80 mg IV in ED, will hold on additional diuretics pending nephrology consult; pt reports he does not make urine Strict I&O Daily weights Low sodium and potassium diet, fluid restrict to 1.2 L Echo 10/10/2023: Normal LV systolic fx with EF 55-60% Continue supplemental O2 to maintain oximetry >92% Continue HD as scheduled Follow renal function/lytes ESRD on HD Mon//Mon Unable to receive HD today d/t symptoms Nephrology consult: Dr. Galvan Continue HD inhospital Follow BMP Tacycardia Secondary to albuterol use, not sepsis No evidence of bacterial infection Moderate persistent asthma Not in acute exacerbation: lungs CTA Continue home inhalers AIDA CPAP at nighttime Obesity Class III Weight loss encouraged Mood disorder Continue home meds Full Code Attending:?Dr. Newsome DVT Prophylaxis: Heparin Pt will require a hospitalization of at least two nights for treatment of? with . Quality Stroke Does the patient have a stroke diagnosis?: No VTE Prior VTE?: No VTE Risk Level:: Medical - moderate - high VTE Device Contraindication: Treatment Not Indicated VTE Drug Contraindication: N/A - Med Ordered
--- NOTE | 2023-10-19 13:53 | PHA.MEDREC ---
Pharmacy Consult ? Medication Reconciliation Pharmacy has completed the medication reconciliation. Patient was unable to confirm any medication except gabapentin. He said he takes whatever medications are in the med box from [facility] so med rec was done according to pharmacy claim history.
--- NOTE | 2023-10-19 15:48 | P.CONNP_ITS ---
History of Present Illness Reason for Consult Consult date: 10/19/23 Reason for consult: ESRD management Chief Complaint Chief complaint: CHF Exacerbation History of Present Illness Narrative: Pt is a 48-year-old male with a PMH significant for?HFpEF, HTN, AIDA on CPAP, ESRD on hemodialysis T//Sat with RUE fistula, and moderate persistent asthma who presents to the ED from hemodialysis with nonproductive cough and shortness of breath. Was at the dialysis unit but did not undergo dialysis and was sent straight to the ED. Admitted for CHF. Currently patient is placed on BIPAP. Review of Systems Constitutional: Reports no additional constitutional complaints Cardiovascular: Reports dyspnea Respiratory: Reports cough and Reports dyspnea Gastrointestinal: Denies nausea and Denies vomiting PMFSH Past Medical History Medical History CHF (congestive heart failure) Asthma AIDA on CPAP Pulmonary edema End stage chronic kidney disease HTN (hypertension) (HFpEF) heart failure with preserved ejection fraction Asthma Dialysis patient Family History Family History Mother Diabetes Father Heart problem Diabetes Surgical History Surgical History History of surgery Social History Social History Household Members: Family Housing: Apartment Do you presently have visiting nurse or other home services: Yes (drt is [employer]) Alcohol intake: never Patient Tobacco Use Status: Never used Tobacco Smoked in Last 30 Days: No Use of substances other than those prescribed or required for medical reasons: No Advance Directives: Yes Advance Directives on File: Yes Advance Directives Date on File: 10/12/23 service: No Current occupational status: disabled Current occupation: rt handed Meds Allergies Allergy/AdvReac Type Severity Reaction Status Date / Time iodine [IODINE] Allergy Severe THROAT Verified 10/09/23 12:46 SWELLING iron [IRON] Allergy Unknown HOT Verified 10/09/23 12:46 FEELING, ANXIETY, SOB,M TACHYCARDIA shellfish derived Allergy Unknown UNKNOWN Verified 10/09/23 12:46 [SHELLFISH DERIVED] Benadryl Allergy Unknown hyperactive Uncoded 10/09/23 12:46 Active Medications: Current Medications Acetaminophen (Acetaminophen 325 Mg Tablet) 650 mg PO Q6H PRN PRN Reason: Pain, Mild (Pain Scale 1-3) Albuterol Sulfate (Albuterol Sulfate 90 Mcg 8 Gm Inhaler) 2 puff INHALE Q4H PRN PRN Reason: Shortness Of Breath Or Wheezing Amlodipine Besylate (Amlodipine Besylate 10 Mg Tablet) 10 mg PO DAILY [facility]; Protocol Aspirin (Aspirin Enteric Coated 81 Mg Tablet.) 81 mg PO DAILY [facility] Atorvastatin Calcium (Atorvastatin Calcium 20 Mg Tablet) 20 mg PO BEDTIME [facility] Benzonatate (Benzonatate 100 Mg Capsule) 100 mg PO TID PRN PRN Reason: Cough Calcium Acetate (Calcium Acetate 667 Mg Capsule) 667 mg PO DAILY PRN PRN Reason: WITH SNACK Calcium Acetate (Calcium Acetate 667 Mg Capsule) 1,334 mg PO TID [facility] Calcium Polycarbophil (Calcium Polycarbophil Tablet) 1 tab PO BID [facility] Carvedilol (Carvedilol 12.5 Mg Tablet) 12.5 mg PO DAILY [facility]; Protocol Docusate Sodium (Docusate Sodium 100 Mg Capsule) 100 mg PO BID [facility] Duloxetine HCl (Duloxetine Hcl 60 Mg Capsule.) 60 mg PO DAILY [facility] Ergocalciferol (Ergocalciferol (Vitamin D2) 1,250 Mcg Capsule) 1,250 mcg PO FRASER [facility] Ferrous Sulfate (Ferrous Sulfate 324 Mg Tablet.) 324 mg PO DAILY [facility] Fluticasone Propionate (Fluticasone Propionate Nasal 16 Gm [place]) 1 spray NOSTRIL-B DAILY [facility] Fluticasone/Vilanterol (Fluticasone/Vilanterol 100/25 Blst.W.Dev) 1 puff INHALE RDAILY [facility] Folic Acid (Folic Acid 1 Mg Tablet) 1 mg PO DAILY [facility] Gabapentin (Gabapentin 100 Mg Capsule) 200 mg PO BID [facility] Heparin Sodium (Porcine) (Heparin Sodium,Porcine 5,000 Unit/Ml Vial) 5,000 unit SUBCUT Q8H [facility] Lorazepam (Lorazepam 0.5 Mg Tablet) 1.5 mg PO DAILY PRN PRN Reason: panic attack Melatonin (Melatonin 3 Mg Tablet) 6 mg PO BEDTIME PRN PRN Reason: Insomnia Montelukast Sodium (Montelukast Sodium 10 Mg Tablet) 10 mg PO DAILY [facility] Multivitamins/Vitamin C (Multivitamin Tablet) 1 tab PO DAILY [facility] Non-Formulary Medication (Sucroferric Oxyhydroxide [Velphoro]) 1,500 mg PO TID [facility] Ondansetron HCl (Ondansetron Hcl 4 Mg/2 Ml Vial) 4 mg IVPUSH Q8H PRN PRN Reason: Nausea and Vomiting Ropinirole HCl (Ropinirole Hcl 0.5 Mg Tablet) 0.5 mg PO BEDTIME [facility] Sevelamer Carbonate (Sevelamer Carbonate Tablet 800 Mg Tablet) 800 mg PO TIDWM [facility] Sodium Chloride (0.9 % Sodium Chloride Flush 3 Ml Syringe) 3 ml IVFLUSH QSHIFT [facility] Home Medications Medication Instructions Recorded Confirmed Last Taken Type aspirin 81 mg tablet,delayed 81 mg PO DAILY 05/10/21 10/19/23 10/18/23 History release atorvastatin 20 mg tablet 20 mg PO BEDTIME 05/10/21 10/19/23 10/18/23 History docusate sodium 100 mg capsule 100 mg PO BID 05/10/21 10/19/23 10/18/23 History ergocalciferol (vitamin D2) 1,250 1,250 mcg PO FRASER 05/10/21 10/19/23 Unknown History mcg (50,000 unit) capsule (Vitamin D2) folic acid 1 mg tablet 1 mg PO DAILY 05/10/21 10/19/23 10/18/23 History gabapentin 100 mg capsule 200 mg PO BID 05/10/21 10/19/23 10/18/23 History lorazepam 1 mg tablet 1.5 mg PO DAILY PRN panic attack 05/10/21 10/19/23 Unknown History montelukast 10 mg tablet 10 mg PO DAILY 05/10/21 10/19/23 10/18/23 History albuterol sulfate 90 mcg/actuation 2 puff inhalation Q4H PRN 10/07/22 10/19/23 Unknown History aerosol inhaler (Ventolin HFA) Shortness Of Breath Or Wheezing duloxetine 60 mg capsule,delayed 60 mg PO DAILY 10/07/22 10/19/23 10/18/23 History release ferrous sulfate 325 mg (65 mg 325 mg PO DAILY 10/07/22 10/19/23 10/18/23 History iron) tablet (FeroSul) sucroferric oxyhydroxide 500 mg 1,500 mg PO TID 10/07/22 10/19/23 10/18/23 History chewable tablet (Velphoro) amlodipine 10 mg tablet 10 mg PO DAILY 01/09/23 10/19/23 10/18/23 History carvedilol 12.5 mg tablet 12.5 mg PO DAILY 01/09/23 10/19/23 10/18/23 History vitamin B complex and vitamin C 1 cap PO DAILY 10/09/23 10/19/23 10/18/23 History no.20-folic acid 1 mg capsule (Triphrocaps) calcium acetate(phosphat bind) 667 1,334 mg PO TID 10/19/23 10/19/23 10/18/23 History mg capsule calcium acetate(phosphat bind) 667 667 mg PO DAILY 10/19/23 10/19/23 Unknown History mg capsule calcium polycarbophil 625 mg 625 mg PO BID 10/19/23 10/19/23 10/18/23 History tablet (Fiber-Lax) fluticasone propionate 45 1 puff inhalation BID 10/19/23 10/19/23 10/18/23 History mcg-salmeterol 21 mcg/actuation HFA inhaler (Advair HFA) fluticasone propionate 50 1 spray intranasal DAILY 10/19/23 10/19/23 10/18/23 History mcg/actuation nasal spray,suspension ropinirole 0.5 mg tablet 0.5 mg PO BEDTIME 10/19/23 10/19/23 10/18/23 History sevelamer carbonate 800 mg tablet 800 mg PO TIDWMEAL 10/19/23 10/19/23 10/18/23 History Physical Exam Vital Signs: Last Vital Signs Temp 98.0 F 10/19/23 15:17 Pulse 102 H 10/19/23 15:17 Resp 24 H 10/19/23 15:17 BP 152/87 H 10/19/23 15:17 Pulse Ox 89 L 10/19/23 15:17 O2 Del Method CPAP 10/19/23 15:17 BMI result Body Mass Index 51.3 Const Other: on BIPAP, obese male General: no acute distress Orientation/consciousness: oriented to person, oriented to place, oriented to time and patient oriented x3 Resp Auscultation: no crackles, no rales, no rhonchi, no wheezes and diminished lung sounds Cardio Rate: regular rate Rhythm: regular rhythm Heart sounds: S1 normal heart sound present and S2 normal heart sound present GI Auscultation: normal bowel sounds Neuro General: oriented to person, oriented to place, oriented to time and patient oriented x3 Results Lab Results 10/19/23 06:19 10/19/23 06:19 Lab results: Chemistry 10/19/23 06:19 Sodium 140 Potassium 4.8 D Carbon Dioxide 27 BUN 80 H Creatinine 12.76 H* Calcium 8.7 D Hematology 10/19/23 06:19 WBC 10.1 Hgb 10.5 L Plt Count 278 Assessment and Plan (1) ESRD (end stage renal disease) on dialysis: Status: Acute Plan Pt is a 48-year-old male with a PMH significant for?HFpEF, HTN, AIDA on CPAP, ESRD on hemodialysis //Mon with RUE fistula, and moderate persistent asthma who presents to the ED from hemodialysis with nonproductive cough and shortness of breath. Admitted for CHF. Nephrology consulted for ESRD management. 1. ESRD On HD TTS Last HD was on Monday 2. HTN BP at target range Pt takes Norvasc 10 mg oral daily and coreg 12.5 mg oral BID at home 3. Anemia Hb currently at target range 4. Bone metabolism On sevelemer 800 mg oral TID with meals Recommendations: Will arrange for HD today for volume overload, and continue his TTS schedule Resume home BP meds Resume home phos binders Dose meds per hd Procedures Date of Service Date of Service: 10/19/23
[2023-10-19] MEDS: Atorvastatin Calcium 20 MG TABLET PO (23:29)
[2023-10-19] MEDS: Calcium Acetate 667 MG CAPSULE 1334 MG PO (23:30)
[2023-10-19] MEDS: Gabapentin 100 MG CAPSULE 200 MG PO (23:31)
[2023-10-19] MEDS: rOPINIRole HCL 0.5 MG TABLET PO (23:31)
[2023-10-19] MEDS: calcium polycarbophiL TABLET 1 TAB PO (23:32)
[2023-10-19] MEDS: Docusate Sodium 100 MG CAPSULE PO (23:32)
[2023-10-19] MEDS: 0.9 % Sodium Chloride Flush 3 ML SYRINGE IVFLUSH (23:35)
[2023-10-19] MEDS: Heparin Sodium,Porcine 5,000 UNIT/ML VIAL 5000 UNIT SUBCUT (23:36)
[2023-10-20 04:00] VITALS: BP 165/79; PULSE 106; RESP 18; TEMP 37.7; O2SAT 98
[2023-10-20] MEDS: Heparin Sodium,Porcine 5,000 UNIT/ML VIAL 5000 UNIT SUBCUT (06:59)
[2023-10-20 07:08] LABS: Anion Gap 18 (12-20); Blood Urea Nitrogen 51 mg/dL (9-16); Calcium 8.1 mg/dL (8.4-10.2); Carbon Dioxide 26 mmol/L (22-29); Chloride 97 mmol/L (96-108); Creatinine Clr Calc Pharmacy 13.5; Estimated Glomerular Filt Rate 6; Glucose Random 103 mg/dL (60-115); Potassium 4.4 mmol/L (3.3-5.1); Sodium 137 mmol/L (135-145)
[2023-10-20 07:24] VITALS: BP 118/71; PULSE 91; RESP 20; TEMP 36.2; O2SAT 98
[2023-10-20] MEDS: Fluticasone/Vilanterol 100/25 BLST.W.DEV 1 PUFF INHALE (08:12)
[2023-10-20] MEDS: calcium polycarbophiL TABLET 1 TAB PO (08:38)
[2023-10-20] MEDS: Montelukast Sodium 10 MG TABLET PO (08:38)
[2023-10-20] MEDS: Sevelamer Carbonate Tablet 800 MG TABLET PO (08:38)
--- NOTE | 2023-10-20 08:38 | P.DS_ITS ---
DS: Providers Provider Date of Service: 10/20/23 Date of admission: 10/19/23 14:25 Primary care physician: Unknown Physician Consults: 10/19/23 14:30 Consult to Nephrology Routine Consulting Provider: Emmanuel Galvan Reason for consultation: Pt missed HD today, CHF exacerbation -- second in past 10 days DS: Diagnosis Discharge Diagnosis (1) ESRD (end stage renal disease) on dialysis: Status: Acute DS: Summary Hospital Course Hospital Course: from initial hpi: 48-year-old male with a PMH significant for?HFpEF, HTN, AIDA on CPAP, ESRD on hemodialysis T/Th/Sat with RUE fistula, and moderate persistent asthma who presents to the ED from hemodialysis with nonproductive cough and shortness of breath. Pt was recently admitted to the hospital for similar symptoms last week on 10/09-10/11 and was treated for acute hypoxic respiratory failure in the setting of CHF exacerbation. Patient was treated with 2 doses of IV Lasix and had repeat echocardiogram which failed to show any significant changes from previous. Patient received dialysis in the hospital and was discharged home. Patient states that since discharge symptoms have not improved much, complains of having persistent nonproductive cough, difficult time breathing, and central chest pressure/tightness associated with cough and deep breathing. Patient says he has been compliant with all of his medications and has not missed any kimberly lysis appointments. Presented today for dialysis but experienced persistent nonproductive cough and was unable to get dialysis, and was instead sent to ED for further evaluation. He has also been having some chills and nausea, but no vomiting. No measurable fever. Patient reports that he does not make any urine. Patient received DuoNebs while in the ED, but states they did not help. Does get some relief though from CPAP. In the ED pt was tachycardic up to 108, tachypneic up to 22, hypertensive up to 154/97, and satting as low as 86% on RA. Labs were significant for stable microcytic anemia of 10.5/31.7, BUN of 80, creatinine 12.76, troponin 69.7 with repeat 60.0, BNP 147. Tested negative for COVID and influenza type a and B. CXR showed cardiomegaly, mildly distended pulmonary vessels, and mild bibasilar edema, improved from prior study. Venous duplex studies of bilateral lower extremities found no evidence of DVT. EKG demonstrated normal sinus rhythm with no evidence of significant ST elevations or depressions. Pt was treated with furosemide 80 mg IV and DuoNebs. Pt will be admitted to the hospital for treatment further evaluation of acute hypoxic respiratory failure in the setting of HFpEF exacerbation in a patient on hemodialysis. hospital course: Patient was admitted for acute hypoxic respiratory failure secondary to acute on chronic diastolic CHF in the setting of end-stage renal disease. He underwent hemodialysis with significant improvement in symptoms and weaned off oxygen. Patient was educated on importance of low-salt, low fluid diet. For moderate p ersistent asthma he remained stable. For AIDA he uses CPAP at night. For morbid obesity weight loss is recommended. For mood disorder he was continued on Cymbalta. Patient is feeling back to baseline and will be discharged home. Time Attestation Discharge coordination time: Greater than 30 minutes Quality: Safe Use of Opioids Does Pt have an Active Cancer Diagnosis on the Problem List?: No Quality: Stroke Does the patient have a stroke diagnosis?: No Physical Exam Vital Signs: Vital Signs: Last Vital Signs Temp 97.1 F 10/20/23 07:24 Pulse 91 10/20/23 07:24 Resp 20 10/20/23 07:24 BP 118/71 10/20/23 07:24 Pulse Ox 98 10/20/23 07:24 O2 Del Method CPAP 10/20/23 07:24 BMI result Body Mass Index 51.3 General: AO X 3, no acute distress Resp: CTA bilateral, no accessory muscles used CVS: S1,S2,RRR GI: soft, non tender, non distended Neuro: motor grossly intact, alert Psych: appropriate affect, appropriate insight DS: Data Data Completed and Pending Completed studies during hospitalization [Text1]: Procedures Assistance with Respiratory Ventilation, Less than 24 Consecutive Hours, Continuous Positive Airway Pressure (10/09/23) Performance of Urinary Filtration, Intermittent, Less than 6 Hours Per Day (10/09/23) Labs on day of discharge: Laboratory Results - last 24 hr 10/19/23 10/19/23 10/20/23 06:19 09:30 06:01 Hold Purple Top SEE NOTE Sodium 137 Potassium 4.4 Chloride 97 Carbon Dioxide 26 Anion Gap 18 BUN 51 H Creatinine 9.84 H* Estim Creat Clear Calc 13.5 Estimated GFR 6 Random Glucose 103 Calcium 8.1 L D Troponin I High Sens 60.0 H B-Natriuretic Peptide 147 H Discharge Plan Discharge Anticipated Discharge Date/Time: 10/20/23 08:37 Patient Disposition: Home, Self-Care Discharge Diagnosis: chf, esrd Referrals: Physician,Unknown J [Primary Care Provider] - 1 Week Discharge Medications: Continued amlodipine 10 mg tablet 10 mg PO DAILY Triphrocaps 1 mg capsule 1 cap PO DAILY calcium polycarbophil [Fiber-Lax] 625 mg tablet 625 mg PO BID ropinirole 0.5 mg tablet 0.5 mg PO BEDTIME fluticasone propionate 50 mcg/actuation spray,suspension 1 spray intranasal DAILY calcium acetate(phosphat bind) 667 mg capsule 1,334 mg PO TID sevelamer carbonate 800 mg tablet 800 mg PO TIDWMEAL calcium acetate(phosphat bind) 667 mg capsule 667 mg PO DAILY Rx Instructions: WITH SNACK fluticasone propion-salmeterol [Advair HFA] 45-21 mcg/actuation HFA aerosol inhaler 1 puff INHALATION BID lorazepam 1 mg tablet 1.5 mg PO DAILY PRN (Reason: panic attack) aspirin 81 mg tablet,delayed release (DR/EC) 81 mg PO DAILY ergocalciferol (vitamin D2) [Vitamin D2] 1,250 mcg (50,000 unit) capsule 1,250 mcg PO FRASER docusate sodium 100 mg capsule 100 mg PO BID atorvastatin 20 mg tablet 20 mg PO BEDTIME gabapentin 100 mg capsule 200 mg PO BID montelukast 10 mg tablet 10 mg PO DAILY folic acid 1 mg tablet 1 mg PO DAILY carvedilol 12.5 mg tablet 12.5 mg PO DAILY duloxetine 60 mg capsule,delayed release(DR/EC) 60 mg PO DAILY ferrous sulfate [FeroSul] 325 mg (65 mg iron) tablet 325 mg PO DAILY albuterol sulfate [Ventolin HFA] 90 mcg/actuation HFA aerosol inhaler 2 puff inhalation Q4H PRN (Reason: Shortness Of Breath Or Wheezing) Velphoro 500 mg tablet,chewable 1,500 mg PO TID Discharge Orders: Discharge Order (Routine); Ordered 10/20/23 Ordered By: Jesus Newsome Diet: Low salt diet Activity on Discharge: As tolerated Stand Alone Forms: Patient Portal Discharge page Care Plan Goals: recovery Health Concerns: fluid overload Plan of Treatment: avoid excess salt or fluids, follow up with dialysis, weight loss recommended Assessment: see above
[2023-10-20] MEDS: Docusate Sodium 100 MG CAPSULE PO (08:39)
[2023-10-20] MEDS: Multivitamin TABLET 1 TAB PO (08:39)
[2023-10-20] MEDS: Gabapentin 100 MG CAPSULE 200 MG PO (08:39)
[2023-10-20] MEDS: DULoxetine HCl 60 MG CAPSULE.DR PO (08:39)
[2023-10-20] MEDS: amLODIPine Besylate 10 MG TABLET PO (08:39)
[2023-10-20] MEDS: Aspirin Enteric Coated 81 MG TABLET.DR PO (08:39)
[2023-10-20] MEDS: carvediloL 12.5 MG TABLET PO (08:39)
[2023-10-20] MEDS: Ferrous Sulfate 324 MG TABLET.DR PO (08:39)
[2023-10-20] MEDS: Folic Acid 1 MG TABLET PO (08:39)
[2023-10-20] MEDS: Benzonatate 100 MG CAPSULE PO (08:39)
[2023-10-20] MEDS: 0.9 % Sodium Chloride Flush 3 ML SYRINGE IVFLUSH (08:39)
[2023-10-20] MEDS: Calcium Acetate 667 MG CAPSULE 1334 MG PO (08:42)
== END 2023-10-20 08:54 | disposition home or self-care (01) | DRG 291 ==
LOC: HO.ED 12:02 → HO.EDOVER 14:42 → HO.IMC 14:55
PROVIDERS: Physician Assistant Medical; Admitting Provider Student in an Organized Health Care Education/Training Program; Emergency Provider Emergency Medicine; Visit Provider Internal Medicine
DX: I13.2 Hypertensive heart and chronic kidney disease with heart failure and with stage 5 chronic kidney disease, or end stage renal disease (principal); I50.33 Acute on chronic diastolic (congestive) heart failure; N18.6 End stage renal disease; Z68.43 Body mass index [BMI] 50.0-59.9, adult; D50.9 Iron deficiency anemia, unspecified; D63.1 Anemia in chronic kidney disease; E66.01 Morbid (severe) obesity due to excess calories; J45.40 Moderate persistent asthma, uncomplicated; Z99.2 Dependence on renal dialysis; G47.33 Obstructive sleep apnea (adult) (pediatric); Z79.51 Long term (current) use of inhaled steroids; Z79.82 Long term (current) use of aspirin; Z79.899 Other long term (current) drug therapy
CPT/HCPCS: 36415; 71046; 80048; 80053; 83880; 84484; 85025; 87502; 87635; 90999; 93005; 93970; 94640; 94660; 99232; 99285; J1644; J1940

== ENCOUNTER → 2023-10-19 06:02 | Outpatient (BNV) | payer OTHER, SELFPAY | PROVIDERS: Emergency Provider Emergency Medicine; Visit Provider Internal Medicine Cardiovascular Disease | DX: R94.31 Abnormal electrocardiogram [ECG] [EKG] (principal) | CPT/HCPCS: 93010 ==

== ENCOUNTER → 2023-10-19 14:25 | Outpatient (BNV) | payer OTHER, SELFPAY | PROVIDERS: Admitting Provider Student in an Organized Health Care Education/Training Program; Emergency Provider Emergency Medicine; Visit Provider Student in an Organized Health Care Education/Training Program | DX: N18.6 End stage renal disease (principal); Z99.2 Dependence on renal dialysis; J96.01 Acute respiratory failure with hypoxia; I50.33 Acute on chronic diastolic (congestive) heart failure | CPT/HCPCS: 99223; 99239 ==

== ENCOUNTER 2024-03-25 12:05 | Outpatient (AMB) | payer OTHER, SELFPAY ==
[2024-03-25 12:31] VITALS: BP 120/68; PULSE 99; BMI 48.8
--- NOTE | 2024-03-25 12:31 | A.OFFVIS_ITS ---
Vital Signs 03/25/24 12:31 Height 5 ft 9 in Weight 330 lb 11.094 oz BMI 48.8 BP 120/68 Blood Pressure Location Rt brachial Pulse 99 Pulse Source Pulse Oximeter Intake Visit Reasons: r/s from [id number] Intake Note: pt is here for follow up pt Center Lead Consultant Required: Yes Center Lead Consultant Name: MARI [id number] Allergies iodine [IODINE] Allergy (Severe, Verified 10/09/23 12:46) THROAT SWELLING iron [IRON] Allergy (Unknown, Verified 10/09/23 12:46) HOT FEELING, ANXIETY, SOB,M TACHYCARDIA shellfish derived [SHELLFISH DERIVED] Allergy (Unknown, Verified 10/09/23 12:46) UNKNOWN Benadryl Allergy (Unknown, Uncoded 10/09/23 12:46) hyperactive Medication List - Last Reconciled 03/25/24 by Reinier Arroyo MD albuterol sulfate 90 mcg/actuation (Ventolin HFA) 2 puffs inhalation Q4H PRN amlodipine 10 mg PO DAILY aspirin 81 mg PO DAILY atorvastatin 20 mg PO BEDTIME B complex with C 20-folic acid 1 mg (Triphrocaps) 1 cap PO DAILY calcium acetate(phosphat bind) 667 mg PO DAILY calcium acetate(phosphat bind) 1,334 mg PO TID calcium polycarbophil (Fiber-Lax) 625 mg PO BID carvedilol 12.5 mg PO DAILY docusate sodium 100 mg PO BID duloxetine 60 mg PO DAILY ergocalciferol (vitamin D2) (Vitamin D2) 1,250 mcg PO FRASER ferrous sulfate (FeroSul) 325 mg PO DAILY fluticasone propion-salmeterol 45-21 mcg/actuation (Advair HFA) 1 puff inhalation BID fluticasone propionate 50 mcg/actuation 1 spray intranasal DAILY folic acid 1 mg PO DAILY gabapentin 200 mg PO BID lorazepam 1.5 mg PO DAILY PRN montelukast 10 mg PO DAILY ropinirole 0.5 mg PO BEDTIME sevelamer carbonate 800 mg PO TIDWMEAL sucroferric oxyhydroxide (Velphoro) 1,500 mg PO TID HPI Comments Details: Omari comes for follow-up after 1 year. History was obtained with help of a timber setter over the telephone. He had intervening admission in October with what appears to be decompensated congestive heart failure. Etiology is unclear. He was dialyzed and subsequently did well. He comes for follow-up today. Denies any worsening exertional shortness of breath or chest discomfort. Denies any clear orthopnea, PND, leg edema. Says intermittently does get cramps at nighttime. Dialysis 3 days a week with dry weight around 146.5 kg as per him. He denies any prolonged palpitation irregular heartbeat. Takes all his medications. He uses CPAP at nighttime. [facility] Medical History (Updated 03/25/24 @ 12:54 by Reinier Arroyo MD) (HFpEF) heart failure with preserved ejection fraction CHF (congestive heart failure) Asthma AIDA on CPAP Pulmonary edema End stage chronic kidney disease HTN (hypertension) Asthma Dialysis patient Surgical History History of surgery Family History Mother Diabetes Father Heart problem Diabetes Social History Household Members: Family Housing: Apartment Do you presently have visiting nurse or other home services: Yes (drt is [employer]) Alcohol intake: never Patient Tobacco Use Status: Never used Tobacco Advance Directives Date on File: 10/12/23 service: No Current occupational status: disabled Current occupation: rt handed Review of Systems Const Denies weakness ENT Denies dizziness Card Denies chest pain, Denies chest pain with activity, Denies syncope, Denies rapid heart rate, Denies pedal edema, Denies edema, Denies leg edema, Denies lightheadedness, Denies palpitations, Denies dyspnea, Denies dyspnea on exertion and Denies orthopnea Resp Denies cough, Denies dyspnea and Denies dyspnea on exertion GI Denies hematochezia and Denies change in stool character Musc Denies abnormal gait, Denies muscle cramps, Denies muscle weakness, Denies numbness, Denies radiating pain into limb and Denies tingling Neuro Denies abnormal gait, Denies dizziness, Denies syncope, Denies numbness, Denies tingling and Denies weakness Endo Denies palpitations Physical Exam Vital Signs: Last Vital Signs Pulse 99 03/25/24 12:31 BP 120/68 03/25/24 12:31 BMI result Body Mass Index 48.8 Const General: cooperative, comfortable, no acute distress, alert and awake Nutritional Appearance: obese morbidly obese Orientation/consciousness: patient oriented x3 Neck Neck: Yes trachea midline, Yes supple and Yes no JVD Resp Effort & Inspection: normal respiratory effort Auscultation: clear to auscultation bilaterally Cardio Jugular venous distension: no JVD Rate: regular rate Rhythm: regular rhythm Heart sounds: S1 normal heart sound present, S2 normal heart sound present, no click, no gallops, no murmurs and no rubs Skin General skin exam: no rashes or lesions noted Neuro General: patient oriented x3 and no focal motor deficits Extrem General: Yes no clubbing, cyanosis or edema and Yes other (Functioning fistula in the left forearm) Assessment & Plan Assessment & Plan (1) (HFpEF) heart failure with preserved ejection fraction: Code(s): I50.30 - Unspecified diastolic (congestive) heart failure Category: Medical Plan: Heart failure preserved ejection fraction this middle-aged man with multiple comorbidities including morbid obesity, prior hypertension with hypertensive heart disease with diastolic dysfunction as well as end-stage renal disease on hemodialysis. Clinically today appears to be euvolemic and well compensated. His major risk factor remain chronic kidney disease. This was discussed with him. He is advised to continue religiously with his dialysis sessions and maintain his current dry weight. Signs and symptoms of heart failure were discussed. Importance of compliance with medication especially with blood pressure control was discussed. He is advised to carry his medication list with him. Target goal blood pressure less than 130/84 at all times. Daily weight monitoring is advised. Avoidance of salt loading was discussed. Importance of CPAP compliance was discussed as well. Understands agrees. Advise aggressive weight loss program. Follow up in the clinic in 1 year's time, sooner p.r.n.. Thank you for allowing me to partake in his care Coding Level of Care Code Est Pt Level 4 (21945) Diagnoses (HFpEF) heart failure with preserved ejection fraction I50.30
== END 2024-03-25 12:59 | disposition home or self-care (01) ==
PROVIDERS: Visit Provider Internal Medicine Cardiovascular Disease
DX: I50.30 Unspecified diastolic (congestive) heart failure (principal)
CPT/HCPCS: 99214

== ENCOUNTER → 2024-03-25 12:05 | Outpatient (BNVA) | payer OTHER, SELFPAY | PROVIDERS: Visit Provider Internal Medicine Cardiovascular Disease | DX: I50.30 Unspecified diastolic (congestive) heart failure (principal) | CPT/HCPCS: 99212 ==

== ENCOUNTER 2024-08-12 10:04 | Outpatient (REF) | payer OTHER, SELFPAY ==
--- NOTE | ~2024-08-12 | US_ITS ---
EXAMINATION: US VENOUS BILATERAL LOWER EXTREMITIES (REFLUX EXAM) CLINICAL INDICATION: Leg pain and varicose veins. COMPARISON: None available. TECHNIQUE: Color-flow triplex imaging and compression Doppler was performed to evaluate both the deep and the superficial systems bilaterally. To evaluate the superficial system, the examination was performed in the upright position. Color-flow Doppler ultrasound and compression ultrasound were utilized. In addition, maneuvers were utilized to demonstrate reflux. FINDINGS: 1. DEEP VENOUS ULTRASOUND OF THE RIGHT LOWER EXTREMITY: Respiratory variation, normal compression and augmented flow are noted in the right common femoral vein as well as the right popliteal vein and there is no evidence of deep venous thrombosis at these locations. There is no evidence of reflux in the deep system in either the common femoral vein or the popliteal vein. There is no evidence of a Bryant's cyst. 2. SUPERFICIAL ULTRASOUND WITH DOPPLER OF RIGHT LOWER EXTREMITY: The right great saphenous vein at the saphenofemoral junction measures 6 mm, at the proximal thigh 5 mm, at the mid thigh 4 mm, above the knee 4 mm, at the knee 4 mm, pifgl-adc-hmki 3 mm, midcalf 1 mm and at the ankle measures 1 mm. Segmental reflux [id number]-[id number] of 1.7 seconds. Duplicated Right Great Saphenous Vein: There is a 4 mm lateral accessory saphenous without reflux. The right small saphenous vein measures 4 mm and shows no reflux. Accessory Vein of Giacomini: None. Incompetent Perforators: None. Varices Present: 2 mm sized varix arising from great saphenous vein with 1.5 seconds of reflux. 3. DEEP VENOUS ULTRASOUND OF THE LEFT LOWER EXTREMITY: Respiratory variation, normal compression and augmented flow are noted in the left common femoral vein as well as the left popliteal vein and there is no evidence of deep venous thrombosis at these locations. There is no evidence of reflux in the deep system in either the common femoral vein or the popliteal vein. There is no evidence of a Bryant's cyst. 4. SUPERFICIAL ULTRASOUND WITH DOPPLER OF LEFT LOWER EXTREMITY: Left great saphenous vein at the saphenofemoral junction measures 7 mm, at the proximal thigh 5 mm, at the mid thigh 4 mm, above the knee 4 mm, at the knee 3 mm, upifi-[id number] 2 mm, midcalf 3 mm and at the ankle measures 2 mm. There is no reflux demonstrated in the left great saphenous vein. Duplicated Left Great Saphenous Vein: There is a 4 mm lateral accessory saphenous without reflux. The left small saphenous vein measures 2 mm and demonstrates 1.1 seconds of reflux proximally. Accessory Vein of Giacomini: None. Incompetent Perforators: None. Varices Present: Multiple varices seen ranging in size from 3-4 mm with at least one demonstrating 0.8 seconds of reflux. US/US venous insuf bilat IMPRESSION: 1. No evidence of reflux or thrombus in the common femoral veins or popliteal veins bilaterally. 2. Segmental reflux in the right great saphenous vein [id number] with reflux in the left small saphenous vein at the saphenofemoral junction. Electronically signed by: Frankie Hale MD 08/19/2024 12:40 PM DAT BUENROSTRO
== END 2024-08-12 10:05 | disposition home or self-care (01) ==
LOC: HO.US 10:04
PROVIDERS: PCP Family Medicine; Visit Provider Family Medicine
DX: R25.2 Cramp and spasm (principal); M79.604 Pain in right leg; M79.605 Pain in left leg
CPT/HCPCS: 93970

== ENCOUNTER 2024-10-14 14:32 | Outpatient (REF) | payer OTHER, SELFPAY ==
[2024-10-14 16:44] LABS: Estimated Average Glucose 103 mg/dL; Hemoglobin A1C 129.8222 umol/L; Hemoglobin A1c % 5.2 % (<6.0); Total Hemoglobin (HGBA1C) 3944.1634 umol/L
[2024-10-14 16:52] LABS: Alanine Aminotransferase 19 U/L (0-40); Albumin Level 4.1 g/dL (3.5-5.0); Alkaline Phosphatase 78 U/L (39-117); Aspartate Amino Transferase 16 U/L (5-37); Bilirubin Direct 0.2 mg/dL (0.0-0.5); Bilirubin Total 0.5 mg/dL (0.0-1.0); Cholesterol 126 mg/dL (<200); HDL Cholesterol 32 mg/dL (>40); LDL Cholesterol Calculated 67 mg/dL (<100); Total Protein 8.3 g/dL (6.5-8.0); Triglycerides 136 mg/dL (<150)
--- OUTSIDE RECORDS SUMMARY | 2024-10-14 19:01 | XMS_ITS | Encounter Summary ---
Author Organization [employer] Address [address] [facility] [address] [place] [address] Care Team Providers Care Float Operator Name Role Phone Debbie Gallardo MD Primary Care Provider [phone] Reason for Visit * Reason Onset Date Comments Appointment Request 07/05/2024 Encounter Details Date Type Department Care Team ([facility] Contact Info) Description 07/05/2024 Telephone [facility] [address] [place], [place] [phone] Debbie Gallardo MD [address] [place], [place] [phone] Appointment Request Social History Tobacco Use Types Packs/Day Years Used Date Smoking Tobacco: Never Passive Smoke Exposure: Never Smokeless Tobacco: Never Alcohol Use Standard Drinks/Week Comments Never 0 (1 standard drink = 0.6 oz pur e alcohol) Alcohol Answer Date Recorded Frequency of Alcohol Consumption Not on file 07/09/2024 Average Number of Drinks Not on file 024 Frequency of Binge Drinking Not on file 06/19 Score 0 07/09/2024 Depression Answer Date Recorded Patient Health Questionnaire-9 Score 4 07/09/2024 Patient Health Questionnaire-9 Score 4 07/09/2024 Last PHQ-9: Questionnaire Data Not on file 1 Housing Stability Answer Date Recorded What is your housing situation today? I do not have housing (Staying with others, in a hotel, in a skilled nursing, living outside on the street, on a beach, in a car, or in a park 10/12/[address] you li ve. Do you have problems with any of the following? None of the above 10/12/2023 Food Insecurity Answer Date Recorded Within the past 12 months, y ou worried that your food would run out before you got money to buy more: Never True 10/12/2023 Within the past 12 months,th e food you bought just didn't last and you didn't have enough money to get more: Never True Transportation Answer Date Recorded In the past 12 months, has l ack of transportation kept you from medical appts, meetings, work or from getting things needed for daily living? No 10/12/2023 Utilities Answer Date Recorded In the past 12 months, has t he electric, gas, oil or water company threatened to shut off services in your home? No 10/12/2023 Depression Answer Date Recorded Patient Health Questionnaire-2 Score 2 07/09/2024 Sex and Gender Information Value Date Recorded Sex Assigned at Male 07/18/2022 10:21 AM EDT Legal Sex Male 10:21 AM EDT Gender Identity Male 07/18/2022 10:21 AM EDT Sexual Orientation Choose not to disclose 2021 10:21 AM EDT documented as of this encounter Miscellaneous Notes * Telephone Encounter - Joe Watkins - 07/05/2024 11:18 AM EDT Tc from patient calling to reschedule missed appt from 04/01 however there is no availability documented in this encounter Plan of Treatment Not on file documented as of this encounter Visit Diagnoses Not on filedocumented in this encounter Additional Health Concerns Assessment Noted Time PHQ-9 Depression Total Score: 8 10/10/19 23 9:03 AM EST documented as of this encounter Care Teams Float Operator Relationship Specialty Start Date End Date Debbie Gallardo MD [address] [place] [id number] PCP - General Family Medicine 09/18/18 documented as of this encounter
--- OUTSIDE RECORDS SUMMARY | 2024-10-14 19:01 | XMS_ITS | Encounter Summary ---
Author Organization [employer] Address [address] [place] [address] Care Team Providers Care Baker Name Role Phone Debbie Gallardo MD Primary Care Provider [phone] Encounter Details Date Type Department Care Team (Latest Contact Info) Description 10/14/2024 Travel Social History Tobacco Use Types Packs/Day Years [...] What is your housing situation today? I have cooper fuller 10/14/[address] you li ve. Do you have problems with any of the following? None of the above 10/14/2024 Food Insecurity Answer Date Recorded Within the past 12 months, y ou worried that your food would run out before you got money to buy more: Never True 10/14/2024 Within the past 12 months,th e food you bought just didn't last and you didn't have enough money to get more: Never True Transportation Answer Date Recorded In the past 12 months, has l ack of transportation kept you from medical appts, meetings, work or from getting things needed for daily living? No 10/14/2024 Utilities Answer Date Recorded In the past 12 months, has t he electric, gas, oil or water company threatened to shut off services in your home? No 10/14/2024 Depression Answer Date Recorded Patient Health Questionnaire-2 Score 2 07/09/2024 Sex and Gender Information Value Date Recorded Sex Assigned at Male 07/18/2022 10:21 AM EDT Legal Sex Male 10:21 AM EDT Gender Identity Male 07/18/2022 10:21 AM EDT Sexual Orientation Choose not to disclose 2021 10:21 AM EDT documented as of this encounter Plan of Treatment Not on file documented as of this encounter Visit Diagnoses Not on filedocumented in this encounter Additional Health Concerns Assessment Noted Time PHQ-9 Depression Total Score: 4 07/09/20 24 1:26 PM EDT documented as of this encounter Care Teams Baker Relationship Specialty Start Date End Date Debbie Gallardo MD [address] [place] [id number] PCP - General Family Medicine 09/18/18 documented as of this encounter
--- OUTSIDE RECORDS SUMMARY | 2024-10-14 19:01 | XMS_ITS | Encounter Summary ---
Author Organization [employer] Address [address] [facility] [address] [place] [address] Care Team Providers Care Catalog Specialist Name Role Phone Debbie Gallardo MD Primary Care Provider [phone] Encounter Details Date Type Department Care Team ([facility] st Contact Info) Description 01/20/2023 Orders Only [facility] MEDICINE [address] [place], [place] [phone] Debbie Gallardo MD [address] [place], [place] [phone] Vision problem (Primary Dx) Social History Tobacco Use Types Packs/Day Years Used Date Smoking Tobacco: Never Alcohol Use Standard Drinks/Week Comments Never 0 (1 standard drink = 0.6 oz pur e alcohol) Depression Answer Date Recorded Patient Health Questionnaire-9 Score 8 10/10/2022 Depression Answer Date Recorded Patient Health Questionnaire-2 Score 2 10/10/2022 Sex and Gender Information Value Date Recorded Sex Assigned at Male 07/18/2022 10:21 AM EDT Legal Sex Male 10:21 AM EDT Gender Identity Male 07/18/2022 10:21 AM EDT Sexual Orientation Choose not to disclose 2021 10:21 AM EDT documented as of this encounter Plan of Treatment Not on file documented as of this encounter Visit Diagnoses Diagnosis Vision problem- Primary Problems with sight documented in this encounter Additional Health Concerns Assessment Noted Time PHQ-9 Depression Total Score: 8 10/10/19 23 9:03 AM EST documented as of this encounter Care Teams Catalog Specialist Relationship Specialty Start Date End Date Debbie Gallardo MD [address] [place], [place] [phone] PCP - General Family Medicine 09/18/18 documented as of this encounter
--- OUTSIDE RECORDS SUMMARY | 2024-10-14 19:01 | XMS_ITS | Encounter Summary ---
Author Organization [employer] Address [address] [facility] 7[address] [place] [address] Care Team Providers Care Locomotive Pipe Fitter Name Role Phone Debbie Gallardo MD Primary Care Provider [phone] Encounter Details Date Type Department Care Team ([facility] st Contact Info) Description 10/14/2024 1:45 PM EST Office Visit [facility] [address], [place] [phone] Debbie Gallardo MD [address] [place], [place] [phone] Obstructive sleep apnea syndrome (Primary Dx); Restless leg syndrome; Neuropathy involving both lower extremities; Chronic obstructive pulmonary disease, unspecified COPD type (CMS/HCC); Moderate persistent asthma without complication; Primary hypertension; Chronic heart failure with preserved ejection fraction (CMS/HCC); Chronic idiopathic constipation; End-stage renal disease on hemodialysis ([facility]); Iron deficiency anemia, unspecified iron deficiency anemia type; Chronic low back pain, unspecified back pain laterality, unspecified whether sciatica present; Hypertriglyceridemia; Chronic gout due to renal impairment without tophus, unspecified site; Persistent depressive disorder; Panic attack; Allergic rhinitis, unspecified seasonality, unspecified trigger; Dependence on renal dialysis (CMS/HCC); Leg cramp Social History Tobacco Use Types Packs/Day Years Used Date Smoking Tobacco: Never Passive Smoke Exposure: Never Smokeless Tobacco: Never Tobacco Cessation:Counseling Given: Not Answered Alcohol Use Standard Drinks/Week Comments Never 0 [...] AM EDT documented as of this encounter Last Filed Vital Signs Vital Sign Reading Time Taken Comments Blood Pressure 161/100 10/14/2024 1:47 PM EST Pulse 96 10/14/2024 1:47 PM EST Temperature 36.2 ??C (97.1 ??F) 10/14/2024 1:47 PM ES T Respiratory Rate 18 10/14/2024 1:47 PM EST Oxygen Saturation 98% 10/14/2024 1:47 PM EST Inhaled Oxygen Concentration - - Weight 148 kg (326 lb 9.6 oz) 10/14/2024 1:47 PM EST Height 175.3 cm (5' 9 ) 10/14/2024 1:47 PM EST Body Mass Index 48.23 10/14/2024 1:47 PM EST documented in this encounter Miscellaneous Notes * Assessment & Plan Note - Anhtony Borges - 10/14/2024 2:56 PM ESTAssociated Problem(s): Persistent depressive disorder - following with S provider - continue duloxetine - continue lorazepam - continue CBT with S provider * Assessment & Plan Note - Anthony Borges - 10/14/2024 2:56 PM ESTAssociated Problem(s): Panic attack - continue judicious use of lorazepam * Assessment & Plan Note - Anthony Borges - 10/14/2024 2:56 PM ESTAssociated Problem(s): Hypertriglyceridemia -continue Atorvastatin -continue working on lifestyle modifications * Assessment & Plan Note - Anthony Borges - 10/14/2024 2:56 PM ESTAssociated Problem(s): Gout - currently not on any medication; previously allopurinol, which was discontinued by loan auditor. - low purine diet - consider restarting allopurinol or starting febuxostat; will consult with loan auditor * Assessment & Plan Note - Anthony Borges - 10/14/2024 2:55 PM ESTAssociated Problem(s): Chronic low back pain - multifactorial - continue gabapentin - continue duloxetine for fibromyalgia / chronic pain component - increase physical activity / home exercise program * Assessment & Plan Note - Anthony Borges - 10/14/2024 2:55 PM ESTAssociated Problem(s): Allergic rhinitis - continue montelukast - continue cetirizine at renal dose - continue fluticasone nasal * Assessment & Plan Note - Anthony Borges - 10/14/2024 2:55 PM ESTAssociated Problem(s): Anemia - continue iron supplementation - treatment per loan auditor * Assessment & Plan Note - Anthony Borges - 10/14/2024 2:55 PM ESTAssociated Problem(s): Leg cramp - history of neuropathy - currently treating with gabapentin - continue compression stockings - will evaluate with venous study - will refer to vascular specialist * Assessment & Plan Note - Anthony Borges - 10/14/2024 2:55 PM ESTAssociated Problem(s): End-stage renal disease on hemodialysis ([facility]) -Dialysis center: [facility] Renal Transplant -Dialysis schedule: , , and Mon - He is working on weight reduction so that he can have renal transplant. * Assessment & Plan Note - Anthony Borges - 10/14/2024 2:54 PM ESTAssociated Problem(s): Constipation - continue fiber and colace - continue fiber-rich diet - colonoscopy on 05/20/16 at [facility] * Assessment & Plan Note - Anthony Borges - 10/14/2024 2:54 PM ESTAssociated Problem(s): Hypertension -Goal BP < 140/90 per JNC-8 guideline, < 130/80 per ACC/AHA guideline -BP not at goal today -Discussed about the importance of lifestyle modification and medication adherence. -Continue Carvedilol 12.5 mg once daily -Continue Amlodipine 10 mg daily -pt was advised to check BP at home daily. -follow up in 4-6 mo or sooner prn * Assessment & Plan Note - Anthony Borges - 10/14/2024 2:54 PM ESTAssociated Problem(s): Chronic heart failure with preserved ejection fraction (CMS/HCC) - [facility], last seen by Dr. Arroyo on 01/09/23 - Continue treatment plan per naval aircrewman mechanical - 02/06/23 TTE normal LV function, EF 55-60% - continue risk factor management * Assessment & Plan Note - Anthony Borges - 10/14/2024 2:54 PM ESTAssociated Problem(s): COPD (chronic obstructive pulmonary disease) (CMS/HCC) - previously on Incruse - check adherence * Assessment & Plan Note - Anthony Borges - 10/14/2024 2:53 PM ESTAssociated Problem(s): Asthma - currently having mild exacerbation; will prescribe 3 day prednisone burst - continue montelukast - change Flovent to Anuity - continue DuoNeb prn - continue albuterol HFA prn * Assessment & Plan Note - Anthony Borges - 10/14/2024 2:53 PM ESTAssociated Problem(s): Restless leg syndrome -Continue Ropinirole -Pt states gabapentin has been more effective than ropinirole to treat RLS -Advised to discuss w/ Conference Organizer to increase Gabapentin -Will discuss discontinue of ropinirole, if gabapentin increased -EMG/NCT in 2019 showed peripheral neuropathy * Assessment & Plan Note - Anthony Borges - 10/14/2024 2:53 PM ESTAssociated Problem(s): Obstructive sleep apnea syndrome -Most recent Sleep Study 04/2022 -BiPAP -Recommended Iron Supplementation for Restless Leg Syndrome * Assessment & Plan Note - Anthony Borges - 10/14/2024 2:53 PM ESTAssociated Problem(s): Neuropathy involving both lower extremities EMG/NCT showed peripheral neuropathy Continue gabapentin 300mg bid documented in this encounter Plan of Treatment Not on file documented as of this encounter Visit Diagnoses Diagnosis Obstructive sleep apnea syndrome- Primary Obstructive sleep apnea (adult) (pediatric) Restless leg syndrome Restless legs syndrome (RLS) Neuropathy involving both lower extremities Chronic obstructive pulmonary disease, unspecified COPD type (CMS/HCC) Moderate persistent asthma without complication Primary hypertension Unspecified essential hypertension Chronic heart failure with preserved ejection fraction (CMS/HCC) Chronic idiopathic constipation Unspecified constipation End-stage renal disease on hemodialysis (CMS/HCC) Iron deficiency anemia, unspecified iron deficiency anemia type Chronic low back pain, unspecified back pain laterality, unspecified whether sciatica present Hypertriglyceridemia Pure hyperglyceridemia Chronic gout due to renal impairment without tophus, unspecified site Persistent depressive disorder Panic attack Panic disorder without agoraphobia Allergic rhinitis, unspecified seasonality, unspecified trigger Dependence on renal dialysis (CMS/HCC) Renal dialysis status Leg cramp Cramp of limb documented in this encounter Additional Health Concerns Assessment Noted Time PHQ-9 Depression Total Score: 4 07/09/20 24 1:26 PM EDT documented as of this encounter Care Teams Locomotive Pipe Fitter Relationship Specialty Start Date End Date Debbie Gallardo MD [address] [place] [id number] PCP - General Family Medicine 09/18/18 documented as of this encounter
--- OUTSIDE RECORDS SUMMARY | 2024-10-14 19:01 | XMS_ITS | Encounter Summary ---
Author Organization [employer] Address [address] [facility] [address] [place] [address] Care Team Providers Care Reiki Practitioner Name Role Phone Debbie Gallardo MD Primary Care Provider [phone] Reason for Visit * Reason Onset Date Comments Nurse Triage 05/08/2024 Encounter Details Date Type Department Care Team ([facility] st Contact Info) Description 05/08/2024 Telephone [facility] [address] [place], [place] [phone] Debbie Gallardo MD [address] [place], [place] [phone] Nurse Triage Social History Tobacco Use Types Packs/Day Years Used Date Smoking Tobacco: Never Passive Smoke Exposure: Never Smokeless Tobacco: Never Alcohol Use Standard Drinks/Week Comments Never 0 (1 standard drink = 0.6 oz pur e alcohol) Depression Answer Date Recorded Patient Health Questionnaire-9 Score 8 10/10/2022 Housing Stability Answer Date Recorded What is your housing situation today? I do not have housing (Staying with others, in a hotel, in a fpc, living outside on the street, on a [...] encounter Miscellaneous Notes * Telephone Encounter - Laverne Melendrez RN - 05/08/2024 4:25 PM EDT Triage call with [employer] Representative [place] [id number] Pt reports leg cramping/discomfort which is getting worse recently especially after dialysis which is done 3x per week. Pt reports using compression stockings in hope to help this but, it is not effective. Pt is asking to see provider for help to stop this constant cramping. Pt is advised to come to [facility] open till 8pm or tomorrow 830am -400pm, No appts available in office at this point. [facility] with disposition and home care already implemented. Insurance is verified as active. Protocol Used: Leg Pain (Adult) Protocol-Based Disposition: See in Office or Video Visit within 3 Days Video visit not offered Positive Triage Question: * Moderate pain (e.g., interferes with normal activities, limping) and present > 3 days * All higher-acuity triage questions were negative Care Advice Discussed: * Reassurance and Education - Leg Pain * Pain Medicines * Pain Medicines - Extra Notes and Warnings * Reasons To Call Back - Moderate pain (e.g., limping) lasts more than 3 days - Mild pain lasts more than 7 days - Signs of infection occur (e.g., spreading redness, warmth, fever) - You become worse * Use a Cold Pack for Pain * Use Heat After 48 Hours for Pain * Telephone Encounter - Beto Yap - 05/08/2024 3:41 PM EDT TC from pt reports worsening leg cramping at night . States needs to discuss with a provider екатерина . [place]i speaking . documented in this encounter Plan of Treatment Not on file documented as of this encounter Visit Diagnoses Not on filedocumented in this encounter Additional Health Concerns Assessment Noted Time PHQ-9 Depression Total Score: 8 10/10/19 23 9:03 AM EST documented as of this encounter Care Teams Reiki Practitioner Relationship Specialty Start Date End Date Debbie Gallardo MD [address] [place] [id number] PCP - General Family Medicine 09/18/18 documented as of this encounter
--- OUTSIDE RECORDS SUMMARY | 2024-10-14 19:01 | XMS_ITS | Clinical Summary ---
Author Organization [employer] Address [address] [facility] [address] [place] [address] Care Team Providers Care Concrete Block Maker Name Role Phone Debbie Gallardo MD Primary Care Provider [phone] Allergies Active Allergy Reactions Criticality Noted Date Comments Diphenhydramine 03/16/2012 Other reaction(s): Other (see comments) Other reaction(s): hyperactive, very anxious Iodine High 10/09/2023 Other reaction(s): THROAT SWELLING Iron Unknown 03/08/2023 Other reaction(s): HOT FEELING, ANXIETY, SOB,M TACHYCARDIA Latex 01/12/2022 Other reaction(s): Other (see comments) Shellfish Allergy Shortness of breath High 4 Zolpidem 07/17/2019 Medications amLODIPine (Norvasc) 10 MG tablet take 1 tablet by oral route every day Active B Nazjjpg-M-Mojgx Acid (Renal) 1 MG capsule take 1 capsule by oral route every day Active Capsaicin-Menth ol (Capzasin Quick Relief) 0.025-10 % gel use TID on affected area for muscle relief 021 Active carvedilol (Coreg) 12.5 MG tablet take 1 tablet by oral route every morning with food Active ergocalciferol (Vitamin D-2) 1.25 MG (13488 UT) capsule take 1 capsule by oral route every week Active famotidine (Pepcid) 40 MG tablet take 1 tablet by oral route every bedtime at bedtime 022 Active LORazepam (Ativan) 1 MG tablet take 1.5 tablet by oral route every day as needed Active DULoxetine (Cymbalta) [address] capsule Take 60 mg by mouth in the morning. 023 Active albuterol (ProAir HFA) 108 (90 Base) MCG/ACT inhaler inhale 2 puff by inhalation route every 4 - 6 hours as needed 18 g 1 023 Active terbinafine (LamISIL AT) 1 % cream Apply to affected areas, between toes, once daily 30 g 3 023 Active ammonium lactate (Lac-Hydrin) 12 % cream Apply to heels and dry skin once daily 385 g 3 023 Active ipratropium-alb uterol (Duo-Neb) 0.5-2.5 mg/3 mL nebulizer solution inhale 3 milliliter by nebulization route 4 times every day 180 mL 3 023 Active cinacalcet (Sensipar) 90 MG tablet Take 2 tablets by mouth 1 (one) time each day Active Advair HFA 45-21 MCG/ACT inhaler Active sevelamer carbonate (Renvela) 800 MG tablet 024 Active Lokelma 5 g packet MIX 1 PACKET DIRECTED AND TAKE ON MONDAY AND Monday 023 Active fluticasone (Flonase) 50 MCG/ACT nasal sprayIndication s:Allergic rhinitis, unspecified seasonality, unspecified trigger INSTILL 1 SPRAY IN EACH NOSTRIL ONCE DAILY 16 g 5 024 Active Aspirin Adult Low Strength 81 MG EC tablet TAKE 1 TABLET BY MOUTH EVERY MORNING 90 tablet 3 024 Active calcium acetate (Phoslo) 667 MG capsule TAKE 2 CAPSULES BY MOUTH THREE TIMES DAILY and TAKE 1 CAPSULE WITH SNACK Active cromolyn (Opticrom) 4 % ophthalmic solution USE 1 DROP INTO THE AFFECTED EYE(S) 4 TIMES A DAY IN THE MORNING, AT NOON, IN THE EVENING, AND AT BEDTIME NEEDED REDNESS / FOR ITCHING FOR UP TO 14 DAYS Active lanthanum (Fosrenol) 750 MG chewable tablet CHEW 1 TABLET BY MOUTH THREE TIMES DAILY WITH MEALS Active Velphoro 500 MG chewable tablet CHEW AND SWALLOW 2 TABLETS BY MOUTH THREE TIMES DAILY WITH MEALS Active Xphozah 30 MG tablet Active docusate sodium (Colace) 100 MG capsuleIndicati ons:Constipatio n, unspecified constipation type TAKE 1 CAPSULE BY MOUTH TWICE DAILY IN THE MORNING AND AT BEDTIME 180 capsule 3 024 Active ketoconazole (NIZOral) 2 % cream Apply topically Once per day. 30 g 024 Active ammonium lactate (Amlactin) 12 % cream Apply topically if needed for dry skin. 385 g 024 2024 Active FeroSul 325 (65 Fe) MG tablet TAKE 1 TABLET BY MOUTH EVERY MORNING (WITH vitamina c) 90 tablet 3 024 Active Fiber-Lax 625 MG tablet TAKE 1 TABLET BY MOUTH TWICE DAILY IN THE MORNING AND AT BEDTIME 180 tablet 3 024 Active atorvastatin (Lipitor) 20 MG tablet TAKE 1 TABLET BY MOUTH AT BEDTIME 90 tablet 3 024 Active rOPINIRole (Requip) 0.5 MG tablet TAKE 1 TABLET BY MOUTH 1-3 HOURS BEFORE BEDTIME 90 tablet 3 024 Active folic acid (Folvite) 1 MG tabletIndicatio ns:Folate deficiency TAKE 1 TABLET BY MOUTH EVERY MORNING 90 tablet 024 Active montelukast (Singulair) 10 MG tablet TAKE 1 TABLET BY MOUTH EVERY EVENING 90 tablet 1 024 Active gabapentin (Neurontin) 300 MG capsule TAKE 1 CAPSULE BY MOUTH TWICE DAILY IN THE MORNING AND IN THE EVENING 60 capsule 1 025 Active Tirzepatide-Alfonzo ght Management (Zepbound) 5 MG/0.5ML solution auto-injector Inject 0.5 mL (5 mg) under the skin 1 (one) time per week. 2 mL 11 025 Active gabapentin (Neurontin) 300 MG capsule TAKE 1 CAPSULE BY MOUTH TWICE DAILY IN THE MORNING AND IN THE EVENING 60 capsule 1 024 2024 Discontinued Ozempic, 2 MG/DOSE, 8 MG/3ML solution pen-injector INJECT 2 MG UNDER THE SKIN PER WEEK 024 2024 Discontinued(A lternate therapy) Active Problems Problem Noted Date Diagnosed Date Leg cramp 07/09/2024 Assessment & Plan (10/14/2024 2:55 PM EST): - history of neuropathy - currently treating with gabapentin - continue compression stockings - will evaluate with venous study - will refer to vascular specialist Assessment & Plan (07/09/2024 1:23 PM EDT): - history of neuropathy - currently treating with gabapentin - continue compression stockings - will evaluate with venous study - will refer to vascular specialist Hyperkeratosis of sole 05/08/2024 Assessment & Plan (05/08/2024 7:49 PM EDT): Use AmLactin cream daily to both feet Neuropathy involving both lower extremities 04/19 Assessment & Plan (10/14/2024 2:53 PM EST): EMG/NCT showed peripheral neuropathy Continue gabapentin 300mg bid Assessment & Plan (07/14/2024 4:28 PM EDT): EMG/NCT showed peripheral neuropathy Continue gabapentin 300mg bid Assessment & Plan (05/08/2024 7:48 PM EDT): Increase Gabapentin to 300mg bid Treat tinea and fu with PCP Dysuria 03/08/2023 Assessment & Plan (03/09/2023 6:38 AM EDT): Normal Penile Exam -Pt unable to provide urine specimen d/t being anuric -Send GC and CT testing (likely negative) -will refer him to Urology for further evaluation -will check PSA Choking 02/06/2023 Assessment & Plan (02/06/2023 6:15 PM EDT): - Symptomss started after subtotal parathyroidectomy in Aug 2021 - associated conditions: AIDA; GERD; Anxiety - refer to ENT Specialist for further evaluation Tinea pedis of both feet 02/06/2023 Assessment & Plan (05/08/2024 7:49 PM EDT): Ketoconazole cream bid (sent to [facility] pharmacy tonight at pat's request) Keep feet and interdigital areas clean and dry Avoid compression stockings for few hours per day, make sure that they're washed (ideally with vinegar and /or baking soda)daily. Assessment & Plan (02/06/2023 10:38 AM EDT): -Will treat with Topical Antifungal cream Onychomycosis 02/06/2023 Assessment & Plan (02/06/2023 6:18 PM EDT): -Discussed about treatment options, including PO terbinafine -will refer to [facility] for nail removal and foot care Fissure in skin of foot 02/06/2023 Assessment & Plan (02/06/2023 6:18 PM EDT): - proactive moisturization / foot care - refer to metal worker Restless leg syndrome 10/10/2022 Assessment & Plan (10/14/2024 2:53 PM EST): -Continue Ropinirole -Pt states gabapentin has been more effective than ropinirole to treat RLS -Advised to discuss w/ Marketing And Development Coordinator to increase Gabapentin -Will discuss discontinue of ropinirole, if gabapentin increased -EMG/NCT in 2019 showed peripheral neuropathy Assessment & Plan (07/14/2024 4:27 PM EDT): -Continue Ropinirole -Pt states gabapentin has been more effective than ropinirole to treat RLS -Advised to discuss w/ Marketing And Development Coordinator to increase Gabapentin -Will discuss discontinue of ropinirole, if gabapentin increased -EMG/NCT in 2019 showed peripheral neuropathy Assessment & Plan (09/24/2023 11:43 AM EST): -Continue Ropinmorol to 0.5mg -Cont iron supplementation -Pt states gabapentin more effective to treat RLS -Advised to discuss w/ Marketing And Development Coordinator to increase Gabapentin -Will discuss discontinue of ropinirole, if gabapentin increased Assessment & Plan (10/10/2022 9:57 AM EST): -Continue Ropinmorol to 0.5mg -Cont iron supplementation -Pt states gabapentin more effective to treat RLS -Advised to discuss w/ Marketing And Development Coordinator to increase Gabapentin -Will discuss discontinue of ropinirole, if gabapentin increased Persistent depressive disorder 10/10/2022 Assessment & Plan (10/14/2024 2:56 PM EST): - following with [facility] provider - continue duloxetine - continue lorazepam - continue CBT with [facility] provider Assessment & Plan (09/24/2023 11:39 AM EST): - following with [facility] provider - continue duloxetine - continue lorazepam - continue CBT with [facility] provider Assessment & Plan (02/06/2023 6:19 PM EDT): - following with [facility] provider - continue duloxetine - continue lorazepam - continue CBT with [facility] provider Assessment & Plan (10/10/2022 6:32 PM EST): - following with [facility] provider - continue duloxetine - continue lorazepam - continue CBT with [facility] provider COPD (chronic obstructive pulmonary disease) Assessment & Plan (10/14/2024 2:54 PM EST): - previously on Incruse - check adherence Assessment & Plan (09/24/2023 11:32 AM EST): - previously on Incruse - check adherence Assessment & Plan (03/09/2023 6:39 AM EDT): - previously on Incruse - check adherence Assessment & Plan (02/06/2023 10:01 AM EDT): - previously on Incruse - check adherence Assessment & Plan (10/10/2022 6:36 PM EST): - previously on Incruse - check adherence Cardiomyopathy 07/18/2016 Erectile dysfunction due to diseases classified elsewhere 07/18/2016 Chronic low back pain 01/18/2016 Assessment & Plan (10/14/2024 2:55 PM EST): - multifactorial - continue gabapentin - continue duloxetine for fibromyalgia / chronic pain component - increase physical activity / home exercise program Assessment & Plan (09/24/2023 11:40 AM EST): - multifactorial - continue gabapentin - continue duloxetine for fibromyalgia / chronic pain component - increase physical activity / home exercise program Assessment & Plan (10/10/2022 6:34 PM EST): - multifactorial - continue gabapentin - continue duloxetine for fibromyalgia / chronic pain component - increase physical activity / home exercise program Gastroesophageal reflux disease 01/18/2016 Assessment & Plan (09/24/2023 11:37 AM EST): - 05/20/16 EGD by [facility] - continue famotidine Assessment & Plan (10/10/2022 6:40 PM EST): - 05/20/16 EGD by [facility] - continue famotidine Constipation 04/22/2015 Assessment & Plan (10/14/2024 2:54 PM EST): - continue fiber and colace - continue fiber-rich diet - colonoscopy on 05/20/16 at [facility] Assessment & Plan (09/24/2023 11:38 AM EST): - continue fiber and colace - continue fiber-rich diet - colonoscopy on 05/20/16 at [facility] Assessment & Plan (10/10/2022 6:39 PM EST): - continue fiber and colace - continue fiber-rich diet - colonoscopy on 05/20/16 at [facility] Asthma 12/29/2014 Assessment & Plan (10/14/2024 2:53 PM EST): - currently having mild exacerbation; will prescribe 3 day prednisone burst - continue montelukast - change Flovent to Anuity - continue DuoNeb prn - continue albuterol HFA prn Assessment & Plan (09/24/2023 11:33 AM EST): - currently having mild exacerbation; will prescribe 3 day prednisone burst - continue montelukast - change Flovent to Anuity - continue DuoNeb prn - continue albuterol HFA prn Assessment & Plan (03/08/2023 12:58 PM EDT): - continue montelukast - continue Flovent - continue DuoNeb prn - continue albuterol HFA prn Assessment & Plan (10/10/2022 6:35 PM EST): - continue montelukast - continue Flovent - continue DuoNeb prn - continue albuterol HFA prn Chronic heart failure with preserved ejection fr action 12/31/2013 Assessment & Plan (10/14/2024 2:54 PM EST): - [facility] Cardiology, last seen by Dr. Arroyo on 01/09/23 - Continue treatment plan per ladies suit operator - 02/06/23 TTE normal LV function, EF 55-60% - continue risk factor management Assessment & Plan (07/09/2024 1:23 PM EDT): - [facility] Cardiology, last seen by Dr. Arroyo on 01/09/23 - Continue treatment plan per ladies suit operator - 02/06/23 TTE normal LV function, EF 55-60% - continue risk factor management Assessment & Plan (09/24/2023 11:37 AM EST): - [facility] Cardiology, last seen by Dr. Arroyo on 01/09/23 - Continue treatment plan per ladies suit operator - 02/06/23 TTE normal LV function, EF 55-60% - continue risk factor management Assessment & Plan (03/09/2023 6:42 AM EDT): - [facility] Cardiology, last seen by Dr. Arroyo on 01/09/23 - Continue treatment plan per ladies suit operator - 02/06/23 TTE normal LV function, EF 55-60% - continue risk factor management Assessment & Plan (02/06/2023 6:16 PM EDT): - [facility] Cardiology, last seen by Dr. Arroyo on 01/09/23 - Continue treatment plan per ladies suit operator - Pt had Echocardiogram today - continue risk factor management - recommended to discuss with pulp drier firer if they approve of changing carvedilol Assessment & Plan (10/10/2022 6:37 PM EST): - continue following with ladies suit operator - continue risk factor management Panic attack 10/28/2013 Assessment & Plan (10/14/2024 2:56 PM EST): - continue judicious use of lorazepam Assessment & Plan (09/24/2023 11:39 AM EST): - continue judicious use of lorazepam Assessment & Plan (02/06/2023 6:20 PM EDT): - continue judicious use of lorazepam Assessment & Plan (10/10/2022 6:32 PM EST): - continue judicious use of lorazepam Anemia 11/02/2012 Assessment & Plan (10/14/2024 2:55 PM EST): - continue iron supplementation - treatment per pulp drier firer Assessment & Plan (10/10/2022 6:41 PM EST): - continue iron supplementation - treatment per pulp drier firer Dependence on renal dialysis 05/18/2012 End-stage renal disease on hemodialysis 05/18/20 12 Assessment & Plan (10/14/2024 2:55 PM EST): -Dialysis center: [facility] -Dialysis schedule: Tu, Th, and Sat - He is working on weight reduction so that he can have renal transplant. Assessment & Plan (07/09/2024 1:24 PM EDT): -Dialysis center: [facility] -Dialysis schedule: Tu, Th, and Sat - He is working on weight reduction so that he can have renal transplant. Assessment & Plan (09/24/2023 11:38 AM EST): -Dialysis center: [facility] -Dialysis schedule: Tu, Th, and Sat - He is working on weight reduction so that he can have renal transplant. Assessment & Plan (03/08/2023 12:23 PM EDT): -Dialysis center: [facility] -Dialysis schedule: Tu, Th, and Sat - He is working on weight reduction so that he can have renal transplant. Assessment & Plan (02/06/2023 10:01 AM EDT): -Dialysis center: [facility] -Dialysis schedule: Tu, Th, and Sat - He is working on weight reduction so that he can have renal transplant. Assessment & Plan (10/10/2022 9:54 AM EST): -Dialysis center: [facility] -Dialysis schedule: Tu, Th, and Sat - He is working on weight reduction so that he can have renal transplant. Gout 03/16/2012 Assessment & Plan (10/14/2024 2:56 PM EST): - currently not on any medication; previously allopurinol, which was discontinued by pulp drier firer. - low purine diet - consider restarting allopurinol or starting febuxostat; will consult with pulp drier firer Assessment & Plan (09/24/2023 11:47 AM EST): - currently not on any medication; previously allopurinol, which was discontinued by pulp drier firer. - low purine diet - consider restarting allopurinol or starting febuxostat; will consult with pulp drier firer Allergic rhinitis 03/07/2012 Assessment & Plan (10/14/2024 2:55 PM EST): - continue montelukast - continue cetirizine at renal dose - continue fluticasone nasal Assessment & Plan (09/24/2023 11:41 AM EST): - continue montelukast - continue cetirizine at renal dose - continue fluticasone nasal Assessment & Plan (02/06/2023 10:34 AM EDT): - continue montelukast - continue cetirizine at renal dose - continue fluticasone nasal Assessment & Plan (10/10/2022 6:34 PM EST): - continue montelukast - continue cetirizine at renal dose - continue fluticasone nasal Hypertension 03/07/2012 Assessment & Plan (10/14/2024 2:54 PM EST): -Goal BP < 140/90 per JNC-8 guideline, < 130/80 per ACC/AHA guideline -BP not at goal today -Discussed about the importance of lifestyle modification and medication adherence. -Continue Carvedilol 12.5 mg once daily -Continue Amlodipine 10 mg daily -pt was advised to check BP at home daily. -follow up in 4-6 mo or sooner prn Assessment & Plan (07/09/2024 2:49 PM EDT): -Goal BP < 140/90 per JNC-8 guideline, < 130/80 per ACC/AHA guideline -BP not at goal today -Discussed about the importance of lifestyle modification and medication adherence. -Continue Carvedilol 12.5 mg once daily -Continue Amlodipine 10 mg daily -pt was advised to check BP at home daily. -follow up in 4-6 mo or sooner prn Assessment & Plan (09/24/2023 11:35 AM EST): -Goal BP < 140/90 per JNC-8 guideline, < 130/80 per ACC/AHA guideline, BP not at goal -Discussed about the importance of lifestyle modification and medication adherence. -Continue Carvedilol 12.5 mg once daily -Continue Amlodipine 10 mg daily -pt was advised to check BP at home daily. -follow up in 4-6 mo or sooner prn Assessment & Plan (03/08/2023 12:24 PM EDT): -Goal BP < 140/90 per JNC-8 guideline, < 130/80 per ACC/AHA guideline, BP not at goal -Discussed about the importance of lifestyle modification and medication adherence. -Currently Rx Carvedilol 12.5 mg once daily; Resident Care Supervisor recommends 6.25mg twice daily, rec to discuss with Marketing And Development Coordinator at next dialysis session -Continue Amlodipine 10 mg daily -pt was advised to check BP at home daily. -follow up in 4-6 mo or sooner prn Assessment & Plan (02/06/2023 6:17 PM EDT): -Goal BP < 140/90 per JNC-8 guideline, < 130/80 per ACC/AHA guideline, BP not at goal -Discussed about the importance of lifestyle modification and medication adherence. -Currently Rx Carvedilol 12.5 mg once daily; Resident Care Supervisor recommends 6.25mg twice daily, rec to discuss with Marketing And Development Coordinator at next dialysis session -Continue Amlodipine 10 mg daily -pt was advised to check BP at home daily. -follow up in 4-6 mo or sooner prn Assessment & Plan (10/10/2022 9:53 AM EST): -Goal BP < 130/80, BP not at goal -Discussed about the importance of lifestyle modification and medication adherence. -Continue carvedilol 25 mg bid -Continue amlodipine to 5 mg daily, on non-dialysis days. -pt was advised to check BP at home daily. Hypertriglyceridemia 03/07/2012 Assessment & Plan (10/14/2024 2:56 PM EST): -continue Atorvastatin -continue working on lifestyle modifications Assessment & Plan (09/24/2023 11:39 AM EST): -continue Atorvastatin -continue working on lifestyle modifications Assessment & Plan (03/08/2023 12:35 PM EDT): -continue Atorvastatin -continue working on lifestyle modifications Assessment & Plan (10/10/2022 6:32 PM EST): - continue working on lifestyle modifications - continue atorvastatin Obesity 03/07/2012 Assessment & Plan (09/24/2023 11:39 AM EST): - continue working on lifestyle modifications Assessment & Plan (10/10/2022 6:25 PM EST): - continue working on lifestyle modifications Obstructive sleep apnea syndrome 03/07/2012 Assessment & Plan (10/14/2024 2:53 PM EST): -Most recent Sleep Study 04/2022 -BiPAP -Recommended Iron Supplementation for Restless Leg Syndrome Assessment & Plan (07/09/2024 1:23 PM EDT): -Most recent Sleep Study 04/2022 -BiPAP -Recommended Iron Supplementation for Restless Leg Syndrome Assessment & Plan (09/24/2023 11:31 AM EST): -Most recent Sleep Study 04/2022 -BiPAP -Recommended Iron Supplementation for Restless Leg Syndrome Assessment & Plan (03/09/2023 6:38 AM EDT): -Most recent Sleep Study 04/2022 -BiPAP -Recommended Iron Supplementation for Restless Leg Syndrome Assessment & Plan (02/06/2023 10:01 AM EDT): -Most recent Sleep Study 04/2022 -BiPAP -Recommended Iron Supplementation for Restless Leg Syndrome Assessment & Plan (10/10/2022 6:40 PM EST): -Most recent Sleep Study 04/2022 -BiPAP -Recommended Iron Supplementation for Restless Leg Syndrome Resolved Problems Problem Noted Date Diagnosed Date Resolved Date Acute cough 03/08/2023 06/06/2023 Assessment & Plan (03/09/2023 6:39 AM EDT): COVID Negative today Has worsened since last week when there was smoke from the [place]. Lung Exam was normal today - will prescribe Guaifenesin - pt can use Nebulizer treatments Pulmonary edema 10/10/2013 07/09/2024 Encounters Date Type Department Care Team Description 10/14/2024 1:45 PM EST Office Visit [facility] [address] [place] [phone] Debbie Gallardo MD Obstructive sleep apnea syndrome (Primary Dx); Restless leg syndrome; Neuropathy involving both lower extremities; Chronic obstructive pulmonary disease, unspecified COPD type ([facility]); Moderate persistent asthma without complication; Primary hypertension; Chronic heart failure with preserved ejection fraction ([facility]); Chronic idiopathic constipation; End-stage renal disease on hemodialysis ([facility]); Iron deficiency anemia, unspecified iron deficiency anemia type; Chronic low back pain, unspecified back pain laterality, unspecified whether sciatica present; Hypertriglyceridemia; Chronic gout due to renal impairment without tophus, unspecified site; Persistent depressive disorder; Panic attack; Allergic rhinitis, unspecified seasonality, unspecified trigger; Dependence on renal dialysis ([facility]); Leg cramp 10/14/2024 Travel 10/02/[address] [facility] [address] [place] [phone] Debbie Gallardo MD 09/03/[address] [facility] [address] [place], [place] [id number] Debbie Gallardo MD 09/02/[address] [facility] [address] [place] [id number] Al Fernandez MA DME from [facility] 08/22/[address] [facility] [address] [place] [phone] Lora Pa MA Durable Medical Equipment 08/22/[address] [facility] [address] [place] [phone] Kandy Mendoza RN Results; Referral 07/31/[address] [facility] [address] [place] [address] Debbie Gallardo MD Folate deficiency from Last 3 Months Immunizations Name Administration Dates Next Due Hep B, adult 04/27/2023 Influenza injectable quadriv alent IIV4 with preservative 06/17/2023,10/30/2017 Influenza injectable quadriv alent preservative free 06/20/2022,06/21/2021,07/20/2020 Influenza, Split (incl. angelica fied surface antigen) 05/18/2012 Moderna Covid-19 Vaccine 12+ 08/31/2021,12/11/19 21,10/29/2020 Novel [id number] 07/04/2024 Pfizer Covid-19 Vaccine 12+ 07/09/2024 Pneumococcal Conjugate PCV 13 02/17/2022 Pneumococcal Conjugate PCV 20 02/06/2023 Pneumococcal Polysaccharide PPSV23 04/21/2022,,11/08/2011 TD (adult), 2 Lf tetanus tox oid, preservative free, adsorbed 06/20/2022 Tdap 05/18/2012 Social History Tobacco Use Types Packs/Day Years [...] is your housing situation today? I have cooperedu fuller 10/14/[address] you [...] not to disclose 2021 10:21 AM EDT Last Filed Vital Signs Vital Sign Reading [...] Mass Index 48.23 10/14/2024 1:47 PM EST Plan of Treatment Health Maintenance Due Date Last Done Comments CT Colonography 1974 FIT DNA/Cologuard 1974 FIT 1974 FOBT 1974 Sigmoidoscopy 1974 Family Planning (PISQ) 1989 Zoster Vaccines (1 of 2) 2024 SDOH Screening 10/12/2024 10/12/2023 Alcohol/Substance Use Screening 07/09/2025 07/09/2024 Depression Screening 07/09/2025 07/09/2024, 07/09/20 24 Tobacco Screening 10/14/2025 10/14/2024 Colonoscopy 05/20/2026 05/20/2016 Colorectal Cancer Screening 05/20/2026 Lipid Panel 10/14/2029 10/14/2024, 06/09/2022, 08/07/2020 DTaP/Tdap/Td Vaccines (4 - Td or Tdap) 06/20/2032 06/20/2022, 11/21/2016, 05/18/2012 RSV Patients and Patients Aged 60 years or older (1 - 1-dose 75+ series) 2049 Pneumococcal Vaccine: Pediatrics (0 to 5 Years) and At-Risk Patients (6 to 64 Years) Completed 02/06/2023, 04/21/2022, 02/17/2022, Additional history exists Hepatitis B Vaccines Discontinued 04/27/2023, 09/13/2016, 06/23/2016 Influenza Vaccine Completed 07/06/2024, , 06/17/2023, Additional history exists COVID-19 Vaccine Completed 07/09/2024, , 08/31/2021, Additional history exists HIB Vaccines Aged Out No longer eligi ble based on patient's age to complete this topic HIV Screening Discontinued HPV Vaccines Aged Out No longer eligi ble based on patient's age to complete this topic Hepatitis A Vaccines Aged Out No long er eligible based on patient's age to complete this topic Hepatitis C Screening Discontinued IPV Vaccines Aged Out No longer eligi ble based on patient's age to complete this topic Meningococcal Vaccine Aged Out No ike holley eligible based on patient's age to complete this topic RSV under 20 months Aged Out No longe r eligible based on patient's age to complete this topic Rotavirus Vaccines Aged Out No longer eligible based on patient's age to complete this topic Procedures Procedure Name Priority Date/Time Associated Diagnosis Comments HEMOGLOBIN A1C Routine 10/14/2024 2:35 PM EST Hypertriglyceridem ia LIPID PANEL WITH REFLEX TO DIRECT LDL Routine 10/14/2024 2:35 PM EST Hypertriglyceridem ia HEPATIC FUNCTION PANEL Routine 2:35 PM EST Hypertriglyceridem ia VASC US LOWER EXTREMITY VENOUS INSUFFICIENCY BILATERAL Routine 08/12/2024 10:40 AM EST Leg cramp HM COLONOSCOPY Routine 05/20/2016 from Last 3 Months or Most Recently Relevant to Health Maintenance Results * Hemoglobin A1c (10/14/2024 2:35 PM EST) Hemoglobin A1c 5.2 <6.0 % [facility] Comment:Hemoglobin A1C Refer ence Range Adults: 4.8 - 6.0 % Non diabetic: < 6.0 % Goal: < 7.0 %Additional Action Suggested: > 8.0 %Note: Hemoglobin A1c results are invalid for patients with abnormal amounts of HbF. Blood transfusions may impact the HbA1c concentration in the patient sample. Estimated Average Glucose 103 mg/dL [facility] Comment:eAG = Estimated ave rage glucose which is %A1C expressed asaverage glucose, using the formula of the S9F-FnjafgvRxvxwgj Glucose study (ADAG), Diabetes Care, Vol.31,#8,Apr. 2007 Blood Venous blood specimen / Unknown 10/14/2024 2:35 PM EST 10/14/2024 4:20 PM EST us Debbie Gallardo MD LAB BLOOD ORDERABLES Final Resul t [facility] [address] [place] [address] [phone] * VASC US Lower Extremity Venous Insufficiency Bilateral (08/12/2024 10:40 AM EST) 08/12/2024 10:4 0 AM EST Narrative [facility] - 08/19/2024 12:44 PM EST ? [facility] ?[address] ?[place] [address] ? Ultrasound Report ? Signed ? Patient: Omari Mares ?MR#: ?? [id number] ? : 1975 ?Acct:[id number] ? Age/Sex: 49 / M ?ADM Date: 08/12/24 ? Loc: HO.US ? Attending Dr: Debbie Gallardo MD ? Ordering Physician: Debbie Gallardo MD ?? Date of Service: 08/12/24 ?? Procedure(s): US venous insuf bilat ?? Accession Number(s): [id number] ? cc: Debbie Gallardo MD ? EXAMINATION: ?? US VENOUS BILATERAL LOWER EXTREMITIES (REFLUX EXAM) ? CLINICAL INDICATION: ?? Leg pain and varicose veins. ? COMPARISON: ?? None available. ? TECHNIQUE: ?? Color-flow triplex imaging and compression Doppler was performed to ?? evaluate both the deep and the superficial systems bilaterally. To ?? evaluate the superficial system, the examination was performed in the ?? upright position. Color-flow Doppler ultrasound and compression ?? ultrasound were utilized. In addition, maneuvers were utilized to ?? demonstrate reflux. ? FINDINGS: ? 1. DEEP VENOUS ULTRASOUND OF THE RIGHT LOWER EXTREMITY: Respiratory ?? variation, normal compression and augmented flow are noted in the right ?? common femoral vein as well as the right popliteal vein and there is no ?? evidence of deep venous thrombosis at these locations. There is no ?? evidence of reflux in the deep system in either the common femoral vein ?? or the popliteal vein. There is no evidence of a Bryant's cyst. ? 2. SUPERFICIAL ULTRASOUND WITH DOPPLER OF RIGHT LOWER EXTREMITY: The ?? right great saphenous vein at the saphenofemoral junction measures 6 ?? mm, at the proximal thigh 5 mm, at the mid thigh 4 mm, above the knee 4 ?? mm, at the knee 4 mm, aqfpl-its-nytv 3 mm, midcalf 1 mm and at the ?? ankle measures 1 mm. Segmental reflux nerda-gth-nigz of 1.7 seconds. ? Duplicated Right Great Saphenous Vein: There is a 4 mm lateral ?? accessory saphenous without reflux. ? The right small saphenous vein measures 4 mm and shows no reflux. ? Accessory Vein of Giacomini: None. ? Incompetent Perforators: None. ? Varices Present: 2 mm sized varix arising from great saphenous vein ?? with 1.5 seconds of reflux. ? 3. DEEP VENOUS ULTRASOUND OF THE LEFT LOWER EXTREMITY: ? Respiratory variation, normal compression and augmented flow are noted ?? in the left common femoral vein as well as the left popliteal vein and ?? there is no evidence of deep venous thrombosis at these locations. ?? There is no evidence of reflux in the deep system in either the common ?? femoral vein or the popliteal vein. There is no evidence of a Bryant's ?? cyst. ? 4. SUPERFICIAL ULTRASOUND WITH DOPPLER OF LEFT LOWER EXTREMITY: Left ?? great saphenous vein at the saphenofemoral junction ??measures 7 mm, at ?? the proximal thigh 5 mm, at the mid thigh 4 mm, above the knee 4 mm, at ?? the knee 3 mm, vynzx-jtz-kcwl 2 mm, midcalf 3 mm and at the ankle ?? measures 2 mm. There is no reflux demonstrated in the left great ?? saphenous vein. ? Duplicated Left Great Saphenous Vein: There is a 4 mm lateral accessory ?? saphenous without reflux. ? The left small saphenous vein measures 2 mm and demonstrates 1.1 ?? seconds of reflux proximally. ? Accessory Vein of Giacomini: None. ? Incompetent Perforators: None. ? Varices Present: Multiple varices seen ranging in size from 3-4 mm with ?? at least one demonstrating 0.8 seconds of reflux. ? / venous insuf bilat ?? IMPRESSION: ?? 1. No evidence of reflux or thrombus in the common femoral veins or ?? popliteal veins bilaterally. ? 2. Segmental reflux in the right great saphenous vein jwpml-evg-duqc ?? with reflux in the left small saphenous vein at the saphenofemoral ?? junction. ? Electronically signed by: ??Frankie Hale MD ??08/19/2024 12:40 PM EST ? Dictated By: ?Frankie Hale MD ? Signed By: ?<Electronically signed by Frankie Hale MD in OV> ? 08/19/24 1240 ? DD/ 1040 ? TD/TT: 08/12/24 1147 ? Inspector Final Assembly Electrical: SS ? Procedure Note [place], Image - 08/19/2024 [place] [address] Ultrasound Report Signed Patient: Omari Mares MMR#: [id number] : 1975Acct:[id number] Age/Sex: 49 / MADM Date: 08/12/24 Loc: HO.US Attending Dr: Debbie Gallardo MD Ordering Physician: Debbie Gallardo MD Date of Service: 08/12/24 Procedure(s): US venous insuf bilat Accession Number(s): [id number] cc: Debbie Gallardo MD EXAMINATION: US VENOUS BILATERAL LOWER EXTREMITIES (REFLUX EXAM) CLINICAL INDICATION: Leg pain and varicose veins. COMPARISON: None available. TECHNIQUE: Color-flow triplex imaging and compression Doppler was performed to evaluate both the deep and the superficial systems bilaterally. To evaluate the superficial system, the examination was performed in the upright position. Color-flow Doppler ultrasound and compression ultrasound were utilized. In addition, maneuvers were utilized to demonstrate reflux. FINDINGS: 1. DEEP VENOUS ULTRASOUND OF THE RIGHT LOWER EXTREMITY: Respiratory variation, normal compression and augmented flow are noted in the right common femoral vein as well as the right popliteal vein and there is no evidence of deep venous thrombosis at these locations. There is no evidence of reflux in the deep system in either the common femoral vein or the popliteal vein. There is no evidence of a Bryant's cyst. 2. SUPERFICIAL ULTRASOUND WITH DOPPLER OF RIGHT LOWER EXTREMITY: The right great saphenous vein at the saphenofemoral junction measures 6 mm, at the proximal thigh 5 mm, at the mid thigh 4 mm, above the knee 4 mm, at the knee 4 mm, dzghw-chp-zddy 3 mm, midcalf 1 mm and at the ankle measures 1 mm. Segmental reflux gbszh-sbi-iith of 1.7 seconds. Duplicated Right Great Saphenous Vein: There is a 4 mm lateral accessory saphenous without reflux. The right small saphenous vein measures 4 mm and shows no reflux. Accessory Vein of Giacomini: None. Incompetent Perforators: None. Varices Present: 2 mm sized varix arising from great saphenous vein with 1.5 seconds of reflux. 3. DEEP VENOUS ULTRASOUND OF THE LEFT LOWER EXTREMITY: Respiratory variation, normal compression and augmented flow are noted in the left common femoral vein as well as the left popliteal vein and there is no evidence of deep venous thrombosis at these locations. There is no evidence of reflux in the deep system in either the common femoral vein or the popliteal vein. There is no evidence of a Bryant's cyst. 4. SUPERFICIAL ULTRASOUND WITH DOPPLER OF LEFT LOWER EXTREMITY: Left great saphenous vein at the saphenofemoral junction measures 7 mm, at the proximal thigh 5 mm, at the mid thigh 4 mm, above the knee 4 mm, at the knee 3 mm, wptwl-qhp-vdya 2 mm, midcalf 3 mm and at the ankle measures 2 mm. There is no reflux demonstrated in the left great saphenous vein. Duplicated Left Great Saphenous Vein: There is a 4 mm lateral accessory saphenous without reflux. The left small saphenous vein measures 2 mm and demonstrates 1.1 seconds of reflux proximally. Accessory Vein of Giacomini: None. Incompetent Perforators: None. Varices Present: Multiple varices seen ranging in size from 3-4 mm with at least one demonstrating 0.8 seconds of reflux. US/US venous insuf bilat IMPRESSION: 1. No evidence of reflux or thrombus in the common femoral veins or popliteal veins bilaterally. 2. Segmental reflux in the right great saphenous vein ckshr-zyd-ltoe with reflux in the left small saphenous vein at the saphenofemoral junction. Electronically signed by: Frankie Hale MD 08/19/2024 12:40 PM [facility] Dictated By: Frankie Hale MD Signed By: <Electronically signed by Frankie Hale MD in OV> 08/19/24 1240 DD/ 1040 TD/TT: 08/12/24 1147 Inspector Final Assembly Electrical: Debbie Gallardo MD CV VASCULAR PROCEDURES Final Res ult [facility] [address] [place] [phone] * Colonoscopy (05/20/2016) Colonoscopy Normal Normal Historical Provider HEALTH MAINTENANCE Final Result from Last 3 Months or Most Recently Relevant to Health Maintenance Insurance [facility] Care Teams Concrete Block Maker Relationship Specialty Start Date End Date Debbie Gallardo MD [address] [place] [phone] PCP - General Family Medicine 09/18/18
--- OUTSIDE RECORDS SUMMARY | 2024-10-14 19:01 | XMS_ITS | Encounter Summary ---
Author Organization [employer] Address [address] [facility] 7t [place] [address] Care Team Providers Care Inspector Automatic Typewriter Name Role Phone Debbie Gallardo MD Primary Care Provider [phone] Reason for Visit * Reason Comments Med Refill Encounter Details Date Type Department Care Team ([facility] st Contact Info) Description 10/02/2024 Refill [facility] [address] [place] [address] [phone] Debbie Gallardo MD [address] [place], [place] [phone] Social History Tobacco Use Types Packs/Day Years [...] with others, in a hotel, in a residential, living outside on the street, on a [...] documented as of this encounter Care Teams Inspector Automatic Typewriter Relationship Specialty Start Date End Date Debbie Gallardo MD [address] [place] [address] PCP - General Family Medicine 09/18/18 documented as of this encounter
--- OUTSIDE RECORDS SUMMARY | 2024-10-14 19:01 | XMS_ITS | Encounter Summary ---
Author Organization [employer] Address [address] [facility] [address] [place] [address] Care Team Providers Care Tube Tester Name Role Phone Debbie Gallardo MD Primary Care Provider [phone] Encounter Details Date Type Department Care Team (Latest Contact Info) Description 01/29/2024 Orders Only [facility] [address] [place], [place] [phone] Debbie Gallardo MD [address] [place], [place] [phone] Hypertriglyceridemia (Primary Dx) Social History Tobacco Use Types [...] with others, in a hotel, in a correction, living outside on the street, on a [...] as of this encounter Plan of Treatment Pending Results Name Type Priority Associated Diagnoses Date /Time Hepatic Function Panel Lab Routine Hypertriglyceridemia 10/14/2024 2:35 PM EST Lipid Panel with Reflex to Direct LDL Lab Routine Hypertriglyceridemia 10/14/2024 2:35 PM EST documented as of this encounter Procedures Procedure Name Priority Date/Time Associated Diagnosis Comments LIPID PANEL WITH REFLEX TO DIRECT LDL Routine 10/14/2024 2:35 PM EST Hypertriglyceridemi a HEMOGLOBIN A1C Routine 10/14/2024 2:35 PM EST Hypertriglyceridemi a HEPATIC FUNCTION PANEL Routine 10/14/2024 2:35 PM EST Hypertriglyceridemi a documented in this encounter Results * Hemoglobin A1c (10/14/2024 2:35 PM EST) Hemoglobin A1c 5.2 <6.0 % [facility] Comment:Hemoglobin A1C Refer ence Range Adults: 4.8 - 6.0 % Non diabetic: < 6.0 % Goal: < 7.0 %Additional Action Suggested: > 8.0 %Note: Hemoglobin A1c results are invalid for patients with abnormal amounts of HbF. Blood transfusions may impact the HbA1c concentration in the patient sample. Estimated Average Glucose 103 mg/dL [facility] Comment:eAG = Estimated ave rage glucose which is %A1C expressed asaverage glucose, using the formula of the E2C-NjjbffxSqejzgd Glucose study (ADAG), Diabetes Care, Vol.31,#8,2007 Blood Venous blood specimen / Unknown 10/14/2024 2:35 PM EST 10/14/2024 4:20 PM EST us Debbie Gallardo MD LAB BLOOD ORDERABLES Final Resul t [facility] [address] [place] [address] [phone] documented in this encounter Visit Diagnoses Diagnosis Hypertriglyceridemia- Primary Pure hyperglyceridemia documented in this encounter Additional Health Concerns Assessment Noted Time PHQ-9 Depression Total Score: 8 10/10/19 23 9:03 AM EST documented as of this encounter Care Teams Tube Tester Relationship Specialty Start Date End Date Debbie Gallardo MD [address] [place] [phone] PCP - General Family Medicine 09/18/18 documented as of this encounter
--- OUTSIDE RECORDS SUMMARY | 2024-10-14 19:01 | XMS_ITS | Encounter Summary ---
Author Organization [employer] Address [address] [facility] [address]t [place] [address] Care Team Providers Care Regulatory Attorney Name Role Phone Debbie Gallardo MD Primary Care Provider [phone] Reason for Visit * Reason Comments Med Refill Encounter Details Date Type Department Care Team ([facility] st Contact Info) Description 04/17/2023 Refill [facility] [address] [place], [place] [phone] Debbie Gallardo MD [address] [place] [address] Social History Tobacco Use Types Packs/Day Years [...] documented as of this encounter Care Teams Regulatory Attorney Relationship Specialty Start Date End Date Debbie Gallardo MD [address] [place] [address] PCP - General Family Medicine 09/18/18 documented as of this encounter
--- OUTSIDE RECORDS SUMMARY | 2024-10-14 19:01 | XMS_ITS | Encounter Summary ---
Author Organization [facility] Address [address] [facility] [address]t [place] [address] Care Team Providers Care Manager Of Global Name Role Phone Debbie Gallardo MD Primary Care Provider [phone] Reason for Visit * Reason Onset Date Comments Referral 12/15/2022 Encounter Details Date Type Department Care Team ([facility] st Contact Info) Description 12/15/2022 Telephone [facility] [address] [place], [place] [phone] Debbie Gallardo MD [address] [place], [place] [phone] Referral Social History Tobacco Use Types Packs/Day Years [...] encounter Miscellaneous Notes * Telephone Encounter - Margarita Mann RN - 12/15/2022 10:16 AM EDT Wants eye care referral for glasses and routine eye exam. * Telephone Encounter - Margarita Mann RN - 12/15/2022 10:14 AM EDT T/C returned to pt re below message. Pt's daughter stated she was not too sure what they needed and to call her back in 3 minutes. Pt 'sdaughter verbalized understanding and denied having any further questions or concerns at this time. * Telephone Encounter - Yunior Aaron - 12/15/2022 9:35 AM EDT Tc from pt daughter requesting a referral for an ENT specialist. Please contact daughter at [phone] Hungarian Speaker documented in this encounter Plan of Treatment Not on file documented as of this encounter Visit Diagnoses Not on filedocumented in this encounter Additional Health Concerns Assessment Noted Time PHQ-9 Depression Total Score: 8 10/10/19 23 9:03 AM EST documented as of this encounter Care Teams Manager Of Global Relationship Specialty Start Date End Date Debbie Gallardo MD [address] [place] [phone] PCP - General Family Medicine 09/18/18 documented as of this encounter
[2024-10-14 19:06] LABS: Reflex LDLD? No
== END 2024-10-14 14:33 | disposition home or self-care (01) ==
LOC: HO.HHCL 14:32
PROVIDERS: Visit Provider Family Medicine
DX: E78.1 Pure hyperglyceridemia (principal); Z13.1 Encounter for screening for diabetes mellitus
CPT/HCPCS: 36415; 80061; 80076; 83036

== ENCOUNTER → 2025-03-19 07:36 | Outpatient (REF) | payer OTHER, SELFPAY ==
--- OUTSIDE RECORDS SUMMARY | 2025-03-19 07:38 | XMS_ITS | Encounter Summary ---
Author Organization [employer] Address [address] [facility] [address] [place] [address] Care Team Providers Care Interactive Video Technician Name Role Phone Debbie Gallardo MD Primary Care Provider [phone] Reason for Visit * Reason Comments Med Refill Encounter Details Date Type Department Care Team ([facility] st Contact Info) Description 04/17/[address] [facility] [address] [place], [place] [phone] Debbie Gallardo MD [address] [place] [address] Social History Tobacco Use Types Packs/Day Years [...] documented as of this encounter Care Teams Interactive Video Technician Relationship Specialty Start Date End Date Debbie Gallardo MD [address] [place] [address] PCP - General Family Medicine 09/18/18 documented as of this encounter
--- OUTSIDE RECORDS SUMMARY | 2025-03-19 07:38 | XMS_ITS | Clinical Summary ---
Author Organization [facility] Address [address] [phone] Phone Care Team Providers Care Placement Interviewer Name Role Phone Unavailable Primary Care Provider Unavailabl e Allergies Active Allergy Reactions Criticality Noted Date Comments Diphenhydramine Other (see comments) 01/12/2022 Latex Other (see comments) 01/12/2022 Medications albuterol (2.5 MG/3ML) 0.083% nebulizer solution Take 1 vial by nebulization 4 (four) times a day 7 Active aspirin 81 MG chewable tablet Chew 1 tablet 1 (one) time each day Active atorvastatin (LIPITOR) 20 MG tablet Take 1 tablet by mouth at bed time Active cetirizine (ZyrTEC) 5 MG tablet Take 1 tablet by mouth 1 (one) time each day 7 Active cinacalcet (Sensipar) 90 MG tablet Take 2 tablets by mouth 1 (one) time each day Active docusate sodium (Colace) 100 MG capsule Take 1 capsule by mouth in the morning and 1 capsule in the evening. 7 Active DULoxetine (CYMBALTA) [address] capsule 2 Active famotidine (PEPCID) 40 MG tablet Take 40 mg by mouth at bed time 2 Active Ferric Citrate (Auryxia) 1 GM 210 MG(Fe) tablet 3 tablets 3 (three) times a day 8 Active fluticasone (FLONASE) 50 MCG/ACT nasal spray USE 1 SPRAY IN EACH NOSTRIL ONCE DAILY 2 Active fluticasone HFA (Flovent HFA) 110 MCG/ACT inhaler Inhale 2 puffs 2 (two) times a day 7 Active folic acid (FOLVITE) 1 MG tablet Comments: Patient Notes: 1 tab PO daily 2 Active Methylcellulose , Laxative, 500 MG tablet Comments: Patient Notes: 1 cap PO BID 2 Active montelukast (SINGULAIR) 10 MG tablet Take 1 tablet by mouth 8 Active omeprazole OTC (PriLOSEC OTC) 20 MG EC tablet Take 1 tablet by mouth 1 (one) time each day Active trimethoprim-po lymyxin b (POLYTRIM) ophthalmic solution Administer 1 drop into both eyes 4 (four) times a day 1 Active rOPINIRole (REQUIP) 0.25 MG tablet TAKE 1 TABLET BY MOUTH EVERY EVENING NEEDED 2 Active sevelamer carbonate (RENVELA) 800 MG tablet Take 3 tablets by mouth in the morning and 3 tablets in the evening and 3 tablets before bedtime. Active Umeclidinium [place] (Incruse Ellipta) 62.5 MCG/INH aerosol powder 1 puff by Other route 1 (one) time each day 8 Active LORazepam (ATIVAN) 1 MG tablet Take 1 tablet (1 mg total) by mouth 1 (one) time each day 90 tablet 1 2 Active Velphoro 500 MG chewable tablet CHEW AND SWALLOW 3 TABLETS THREE TIMES DAILY WITH MEALS 270 tablet 3 3 Active carvedilol (COREG) 12.5 MG tablet TAKE 1 TABLET BY MOUTH EVERY MORNING 90 tablet 3 3 Active Vitamin D, Ergocalciferol, 18450 units capsule TAKE 1 CAPSULE BY MOUTH ONCE WEEKLY ON Monday 12 capsule 3 3 Active amLODIPine (NORVASC) 10 MG tabletIndicatio ns:Hypertension ,Type 2 diabetes mellitus with diabetic chronic kidney disease (HCC) Take 1 tablet (10 mg total) by mouth 1 (one) time each day 90 tablet 4 4 Active gabapentin (NEURONTIN) 100 MG capsule Take 2 capsules (200 mg total) by mouth in the morning and 2 capsules (200 mg total) in the evening. 360 capsule 3 4 Active Semaglutide, 2 MG/DOSE, (Ozempic, 2 MG/DOSE,) 8 MG/3ML solution pen-injector Inject 2 mg under the skin per week 8 mL 1 4 Active Active Problems No known active problems Encounters Date Type Department Care Team Description 03/13/2025 Treatment [facility] [address] [phone] Salvador Jacome MD End stage renal disease; Dependence on renal dialysis 03/06/2025 Treatment [facility] [address] [phone] Salvador Jacome MD End stage renal disease; Dependence on renal dialysis 02/27/2025 Treatment [facility] [address] [phone] Savlador Jacome MD End stage renal disease; Dependence on renal dialysis 02/18/2025 Treatment [facility] [address] [phone] Salvador Jacome MD End stage renal disease; Dependence on renal dialysis 02/08/2025 Treatment [facility] [address] [phone] Salvador Jacome MD End stage renal disease; Dependence on renal dialysis 02/06/2025 Treatment [facility] [address] [phone] Salvador Jacome MD End stage renal disease; Dependence on renal dialysis 01/30/2025 Treatment [facility] [address] [phone] Salvador Jacome MD End stage renal disease; Dependence on renal dialysis 01/23/2025 Treatment [facility] [address] [phone] Salvador Jacome MD End stage renal disease; Dependence on renal dialysis 01/09/2025 Treatment [facility] [address] [phone] Salvador Jacome MD End stage renal disease; Dependence on renal dialysis 01/04/2025 Treatment [facility] [address] [phone] Salvador Jacome MD End stage renal disease; Dependence on renal dialysis 12/24/2024 Treatment [facility] [address] [phone] Salvador Jacome MD End stage renal disease; Dependence on renal dialysis from Last 3 Months Social History Tobacco Use Types Packs/Day Years Used Date Smoking Tobacco: Never Smokeless Tobacco: Never Alcohol Use Standard Drinks/Week Comments Not Currently 0 (1 standard drink = 0.6 oz pur e alcohol) Sex and Gender Information Value Date Recorded Sex Assigned at Not on file Legal Sex Male 5:07 PM EST Gender Identity Not on file Sexual Orientation Not on file Last Filed Vital Signs Vital Sign Reading Time Taken Comments Blood Pressure 148/67 12/11/2018 12:00 PM EDT Pulse 91 01/12/2022 1:30 PM EDT Temperature - - Respiratory Rate - - Oxygen Saturation 99% 01/12/2022 1:30 PM EDT Inhaled Oxygen Concentration - - Weight 153 kg (338 lb) 01/12/2022 1:30 PM EDT Height 175.3 cm (5' 9 ) 12/11/2018 12:00 PM EDT Body Mass Index 49.91 12/11/2018 12:00 PM EDT Plan of Treatment Health Maintenance Due Date Last Done Comments Hepatitis B Vaccine (1 of 5 - Risk Dialysis 4-dose series) 1995 04/27/2023 Colorectal Cancer Screening: Annual FOBT 2023 Colorectal Cancer Screening: Colonoscopy 2023 Colorectal Cancer Screening: Sigmoidoscopy 2023 Influenza Vaccine (Season Ended) 2025 06/17/2023, 06/20/2022, 06/21/2021, Additional history exists Pneumococcal Vaccine: 50+ Years Completed 02/06/2023, 04/21/2022, 02/17/2022, Additional history exists Pneumococcal Vaccine: Peds ( 0 to 5 Years) and At-Risk Patients (6 to 49 Years) Discontinued 02/06/2023, 04/21/2022, 02/17/2022, Additional history exists Insurance ([id number]) [facility] ([id number])
--- NOTE | 2025-03-19 07:39 | CA_ITS ---
Transthoracic Echocardiogram Patient (Last, First, Middle): Omari Mares M Gender: Male Date of : 1975 Age: 49 Procedure Date: 03/19/2025 Procedure Type: Transthoracic Echocardiogram Location: OP Height: 175.26 cm Weight: 156.49 kg BSA: 2.60 m2 Heart Rate: 79 bpm BP: 120 / 68 mmHg Driver Salesman: SB Referring MD: Reinier Arroyo MD Brick Layer: Reinier Arroyo MD Symptoms: I50.30 - Unspecified diastolic (congestive) heart failure Study Quality: Adequate w contrast ECG Rhythm: Sinus Conclusions: - 1. Mildly to moderately reduced LV ejection fraction of 40-45% with pseudonormal filling pattern 2. Calcific mitral valve changes noted with normal cardiac valvular Dopplers 3. No gross pericardial effusion Findings Procedure Information Contrast agent, definity, is being given per protocol without apparent complications. The quality of the study was technically difficult. The study quality is limited by patients body habitus. Left Ventricle Normal left ventricular cavity size. There is normal left ventricular wall thickness. The left ventricular systolic function is mild to moderately decreased. The visually estimated ejection fraction is between 40-45%. Spectral Doppler is indicative of a pseudonormal filling pattern. E/E prime ratio is between 8 and 15 consistent with indeterminate filling pressures. Right Ventricle The right ventricle was not well visualized. Atria The left atrium is normal in size. Interatrial shunt cannot be excluded. The right atrium was not well visualized. Aortic Valve The aortic valve structure and function is likely normal. There is no aortic valve stenosis. There is no aortic valve regurgitation. Mitral Valve There is mild anterior and moderate posterior mitral leaflet thickening. The posterior mitral leaflet has restricted mobility. There is moderate mitral annular calcification. There is trace mitral valve regurgitation. There is no mitral valve stenosis. Pulmonic Valve The pulmonic valve was not well visualized. Tricuspid Valve Likely normal tricuspid valve structure and function. Great Vessels All visible segments of the aorta are normal in size. The pulmonary artery was not well visualized. There is no dilatation of the ascending aorta measuring 3.00 cm. Venous The inferior vena cava is normal in size and collapses greater than 50% with inspiration. Pericardium/Pleural There is no evidence of pericardial effusion. Prior Study Comparison Changes noted compared to prior study dated: 10/10/2023. LV function has reduced Measurements 2D Linear Measurements IVSd: 0.94 0.6-0.9/0.6-1.0 cm LVIDd: 5.61 3.9-5.3/4.2-5.9 cm LVIDd Index: 2.16 2.4-3.2/2.2-3.1 cm/m2 LVIDs: 4.27 2.0-3.6 cm LVPWd: 0.77 0.7-1.1 cm LA Diam: 4.00 2.7-3.8/3.0-4.0 cm LAIDs Index: 1.54 1.5-2.3 cm/m2 LV Mass: 223.79 67-162/88-224 g LV Mass Index: 86.07 43-95/49-115 g/m2 LVOT Diam: 2.10 3.0+(-)1.3 cm 2D Systolic Function EF 4C: 41.60 >55% EF 2C: 43.30 >55% EF BiP: 42.80 >55% Mitral Valve MV Pk E: 0.96 MV PK A: 0.85 MV Decel Time: 183.00 E/A: 1.10 E'Lateral: 8.27 E'Medial: 5.87 E/E' Med: 16.40 E/E' Lat: 11.60 PHT: 54.00 MVA PHT: 4.07 Decel [place]: 5.24 Aortic Valve AoV Pk Tan: 1.40 AoV Pk Grad: 8.00 RUMA: 2.32 LVOT LVOT Pk Tan: 0.94 LVOT Mn Tan: 0.67 LVOT VTI: 0.21 LVOT Pk Grad: 4.00 LVOT Mn Grad: 2.00 LVOT Diam: 2.10 LVOT Area: 3.46 Diastolic Function MV Pk E: 0.96 MV Pk A: 0.85 E/A: 1.10 E'Medial: 5.87 E/E' Med: 16.40 E' Laterial: 8.27 E/E' Lat: 11.60 Right Ventricle TAPSE (mm): 20.30 TVS' Tan: 11.60 Tricuspid Valve RA Press: 3.00 Great Vessels Aorta Sinus of Valsalva: 2.80 2.0-3.5 cm Ao Asc: 3.00 2.1-3.4 cm Pulmonary Valve PV Pk Tan: 1.09 Peak PV Grad: 5.00 Updated in Other Vendor System with Status of Final Reinier Arroyo MD electronically signed on 03/20/2025 9:49:06 AM with status of Final
== END ==
LOC: HO.CARD 07:36
PROVIDERS: PCP Family Medicine; Visit Provider Internal Medicine Cardiovascular Disease
DX: I50.30 Unspecified diastolic (congestive) heart failure (principal)
CPT/HCPCS: 93306; Q9957

== ENCOUNTER → 2025-03-19 07:39 | Outpatient (BNV) | payer OTHER, SELFPAY | PROVIDERS: PCP Family Medicine; Visit Provider Internal Medicine Cardiovascular Disease | DX: I34.81 Nonrheumatic mitral (valve) annulus calcification (principal); I50.30 Unspecified diastolic (congestive) heart failure | CPT/HCPCS: 93306 ==

== ENCOUNTER 2025-04-03 11:10 | Emergency (ER) | payer OTHER, SELFPAY ==
[2025-04-03] VITALS (12 sets, daily range): BP systolic 78–115; BP diastolic 40–76; PULSE 85–103; RESP 14–20; TEMP 36.3–36.7; O2SAT 92–98; BMI 45.6
--- NOTE | ~2025-04-03 | XR_ITS ---
EXAMINATION: XR CHEST 1 VIEW HISTORY: dyspnea COMPARISON: Comparison is made with the prior examination dated 10/19/2023. FINDINGS: A single AP portable view of the chest performed at 12:26 PM is submitted. There are low lung volumes. The lungs are grossly clear. There is no pleural effusion, pneumothorax, or pulmonary vascular congestion. The heart is normal in size. There is degenerative disc disease of the spine. Calcifications adjacent to the right humeral head may be related to the rotator cuff. XR/XR chest 1V IMPRESSION: Low lung volumes. The lungs are grossly clear. Electronically signed by: Ronny Rocha MD 04/03/2025 12:38 PM EDT
--- NOTE | 2025-04-03 11:14 | ECG_ITS ---
Test Reason : HYPOTENSION Blood Pressure : */* mmHG Vent. Rate : 88 BPM Atrial Rate : 88 BPM P-R Int : 154 ms QRS Dur : 80 ms QT Int : 378 ms P-R-T Axes : 49 1 55 degrees QTcB Int : 457 ms Normal sinus rhythm Low voltage QRS Inferior infarct (cited on or before 19-Oct-2023) Possible Anterolateral infarct (cited on or before 30-Apr-2022) Abnormal ECG When compared with ECG of 19-Oct-2023 06:02, Questionable change in initial forces of Lateral leads Referred By: Jeanne Collado Electronically Signed By: EMIGDIO HERNANDEZ
[2025-04-03 11:36] LABS: MANUAL DIFF FLAG NO
[2025-04-03 11:38] LABS: Hematocrit 46.3 % (42.0-52.0); Hemoglobin 15.3 g/dl (14.0-18.0); Imm Gran Abs Auto 0.04 X10*3/uL (0.00-0.03); Imm Gran Pct Auto 0.4 % (0.0-0.4); Lymphocytes Absolute Auto 1.5 X10*3/uL (1.2-4.9); Mean Corpuscular HGB Conc 33.0 g/dl (31.0-36.0); Mean Corpuscular Hemoglobin 29.9 pg (27.0-33.0); Mean Corpuscular Volume 90.6 fL (80.0-98.0); NRBC Abs Auto 0.000 X10*3/uL (0.0-0.012); NRBC Pct Auto 0.0 /100WBC (0.0-0.2); Platelet Count 204 X10*3/uL (160-400); Red Blood Count 5.11 X10*6/uL (4.60-5.80); White Blood Count 9.3 X10*3/uL (4.8-10.8)
[2025-04-03 11:59] LABS: Alanine Aminotransferase 17 U/L (0-40); Albumin Level 3.7 g/dL (3.5-5.0); Alkaline Phosphatase 60 U/L (39-117); Anion Gap 16 (12-20); Aspartate Amino Transferase 30 U/L (5-37); Blood Urea Nitrogen 24 mg/dL (9-16); Calcium 7.7 mg/dL (8.4-10.2); Carbon Dioxide 22 mmol/L (22-29); Chloride 106 mmol/L (96-108); Creatinine Clr Calc Pharmacy 17.6; Estimated Glomerular Filt Rate 8; Magnesium 1.8 mg/dL (1.6-2.6); Potassium 3.8 mmol/L (3.3-5.1); Sodium 140 mmol/L (135-145); Total Protein 7.2 g/dL (6.5-8.0)
[2025-04-03 12:00] LABS: Troponin-I High Sensitivity 22.9 ng/L (<3.5-35.0)
--- NOTE | 2025-04-03 12:51 | ED.DIZZY ---
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 He notes he felt really tired this AM and slept hard and almost missed his HD. He feels weak and dizzy now. No GIB. He denies CP/SOB, cough, fever, n/v/d. No black or bloody stools. Patient was given 150NS by EMS en route. He notes last night and yesterday he was outside in the heat and felt he was drinking enough. He notes he no longer makes urine. I asked if he had any orthopnea or leg swelling and he notes no. On exam he has no edema at all. MD elicited complaint: dizziness and lightheadedness Onset (ago): hour(s) (1) Timing: gradual onset Severity: moderate Description: sense of movement and lightheadedness Context: change in body position History of similar symptoms: Yes Exacerbating factors: movement/ambulation Relieving factors: remaining still Associated symptoms: weakness Related Data Home Medications ?Medication ?Instructions ?Recorded ?Confirmed aspirin 81 mg tablet,delayed 81 mg PO DAILY 05/10/21 03/25/24 release atorvastatin 20 mg tablet 20 mg PO BEDTIME 05/10/21 03/25/24 docusate sodium 100 mg capsule 100 mg PO BID 05/10/21 03/25/24 ergocalciferol (vitamin D2) 1,250 1,250 mcg PO FRASER 05/10/21 03/25/24 mcg (50,000 unit) capsule (Vitamin D2) folic acid 1 mg tablet 1 mg PO DAILY 05/10/21 03/25/24 gabapentin 100 mg capsule 200 mg PO BID 05/10/21 03/25/24 lorazepam 1 mg tablet 1.5 mg PO DAILY PRN panic attack 05/10/21 03/25/24 montelukast 10 mg tablet 10 mg PO DAILY 05/10/21 03/25/24 albuterol sulfate 90 mcg/actuation 2 puff inhalation Q4H PRN 01/20/23 07/08/24 aerosol inhaler (Ventolin HFA) Shortness Of Breath Or Wheezing duloxetine 60 mg capsule,delayed 60 mg PO DAILY 10/07/22 03/25/24 release ferrous sulfate 325 mg (65 mg 325 mg PO DAILY 10/07/22 03/25/24 iron) tablet (FeroSul) sucroferric oxyhydroxide 500 mg 1,500 mg PO TID 10/07/22 03/25/24 chewable tablet (Velphoro) amlodipine 10 mg tablet 10 mg PO DAILY 01/09/23 03/25/24 carvedilol 12.5 mg tablet 12.5 mg PO DAILY 01/09/23 03/25/24 vitamin B complex and vitamin C 1 cap PO DAILY 10/09/23 03/25/24 no.20-folic acid 1 mg capsule (Triphrocaps) calcium acetate(phosphat bind) 667 1,334 mg PO TID 10/19/23 03/25/24 mg capsule calcium acetate(phosphat bind) 667 667 mg PO DAILY 10/19/23 03/25/24 mg capsule calcium polycarbophil 625 mg 625 mg PO BID 10/19/23 03/25/24 tablet (Fiber-Lax) fluticasone propionate 45 1 puff inhalation BID 10/19/23 03/25/24 mcg-salmeterol 21 mcg/actuation HFA inhaler (Advair HFA) fluticasone propionate 50 1 spray intranasal DAILY 10/19/23 03/25/24 mcg/actuation nasal spray,suspension ropinirole 0.5 mg tablet 0.5 mg PO BEDTIME 10/19/23 03/25/24 sevelamer carbonate 800 mg tablet 800 mg PO TIDWMEAL 10/19/23 03/25/24 Allergies Allergy/AdvReac Type Severity Reaction Status Date / Time iodine (IODINE) Allergy Severe THROAT Verified 04/03/25 11:20 SWELLING iron (IRON) Allergy Unknown HOT Verified 04/03/25 11:20 FEELING, ANXIETY, SOB,M TACHYCARDIA shellfish derived (SHELLFISH Allergy Unknown UNKNOWN Verified 04/03/25 11:20 DERIVED) Benadryl Allergy Unknown hyperactive Uncoded 10/09/23 12:46 Review of Systems Review of Systems: Constitutional : No Fever, No Chills, No Fatigue ENT/Mouth : No sore throat, No Rhinorrhea Eyes: No Eye Pain, No Swelling, No Redness Cardiovascular : No Chest Pain, No SOB, No Dyspnea on Exertion Respiratory : No Cough, No Sputum Gastrointestinal : No Nausea, No Vomiting, No Diarrhea, No abdominal Pain Genitourinary : No Dysuria, No Urinary Frequency, No Hematuria, Musculoskeletal : No joint pain, No Myalgias, No Joint Swelling Skin : No Skin Lesions, No rash Neuro : pos Weakness, No Numbness, No Dizziness, no All other systems reviewed and are negative [facility] Past Medical History Attestation statement: The following information was validated with the patient. 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 Oriented X3. No acute distress. Eyes: Pupils equal, round and reactive to light. ENT: Pharynx normal. Neck: Normal inspection. Neck supple. CVS: Normal heart rate and rhythm. Pulses normal. Respiratory: No respiratory distress. Breath sounds normal. No rales/crackles Abdomen: Soft and nontender. Skin: Skin warm and dry. Normal skin color. Normal skin turgor. Extremities: No lower extremity edema. He has no edema on exam Neuro: Oriented X 3. No motor deficit. No sensory deficit. CN2-12 intact Course Course Course Narrative: hypotension due to volume depletion and not infection or severe sepsis Cr is chronic and not due to i nfection or severe sepsis. Reevaluation(s) Reevaluation #1: lactic acidisosis due to chronic renal failure and not infection or severe sepsis his labs point to hemoconcentration have given fluids gently over a few hours to see how he responds. Reevaluation #2: 419pm added on additional 500cc fluid and albumin he is responding well has no symptoms now - discussed plan with patient if this continues to improve and orthostatics negative will DC home Medications Administered Discontinued Medications Generic Name Dose Route Start Last Admin Trade Name Freq PRN Reason Stop Dose Admin Sodium Chloride 500 mls @ 500 mls/hr 04/03/25 11:24 04/03/25 12:49 Ns IV 04/03/25 12:23 Infused .Q1H ONE Infusion Sodium Chloride 500 mls @ 500 mls/hr 04/03/25 14:24 04/03/25 15:54 Ns IV 04/03/25 15:23 Infused .Q1H ONE Infusion Albumin Human 100 mls @ 133.333 mls/hr 04/03/25 15:00 04/03/25 15:54 Kedbumin 25 % IV 04/03/25 16:44 133.33 mls/hr Q1H SMILEY Administration Midodrine 5 mg 04/03/25 12:44 04/03/25 12:51 Midodrine Hcl 5 Mg Tablet PO 04/03/25 12:45 5 mg ONCE ONE Administration Medical Decision Making Medical Decision Making [facility] Narrative: yo male with PMH of HTN, HLD, asthma CHF, ESRD on HD TuThS now here with hypotension post HD no GIB symptoms no infections at this time suspect dehdyration and not infectiont or severe sepsis. I suspect he will need gentle fluids, midodrine. Will obtain puri labs, CXR, EKG. Differential Diagnosis Differential Diagnoses: The differential diagnosis associated with the presentation includes anemia, dehydration, orthostatic, dysequilibrium syndrome Admission/Observation Consideration of admission/observation: Escalation of care including admission/observation considered ortho VS reassuring lactic acidosis due to renal failure he has no symptoms and is eager to go home will hold his amlodipine for 24 hours he declines further observation he has a blood pressure machine at home family will stay with him he states he feels fine and his BP is normal and he is able to stand has no symptoms Lab Data MDM Lab Attestation statement: I reviewed the patient's lab results. he is hemoconcentrated and still has Cr of 6 even after HD. 04/03/25 11:29 04/03/25 11:29 Labs: Lab Results 04/03/25 04/03/25 04/03/25 Range/Units 11:29 11:40 14:12 WBC 9.3 (4.8-10.8) X10*3/uL RBC 5.11 D (4.60-5.80) X10*6/uL Hgb 15.3 D (14.0-18.0) g/dl Hct 46.3 D (42.0-52.0) % MCV 90.6 (80.0-98.0) fL MCH 29.9 (27.0-33.0) pg MCHC 33.0 (31.0-36.0) g/dl RDW 15.7 (11.0-16.0) % Plt Count 204 D (160-400) X10*3/uL MPV 10.1 (9.4-12.4) fL Immature Gran % (Auto) 0.4 (0.0-0.4) % Neut % (Auto) 73.7 H (45-73) % Lymph % (Auto) 15.6 L (20-40) % [place] % (Auto) 9.0 (2-11) % Eos % (Auto) 1.0 (0-4) % Baso % (Auto) 0.3 (0-2) % Lymph # (Auto) 1.5 (1.2-4.9) X10*3/uL [place] # (Auto) 0.8 (0.1-1.2) X10*3/uL Eos # (Auto) 0.1 (0.0-0.4) X10*3/uL Baso # (Auto) 0.0 (0.0-0.2) X10*3/uL Abs Immat Gran (auto) 0.04 H (0.00-0.03) X10*3/uL Absolute Neuts (auto) 6.8 (2.0-8.3) x10*3/uL Absolute Nucleated RBC 0.000 (0.0-0.012) X10*3/uL Nucleated RBC % (auto) 0.0 (0.0-0.2) /100WBC Sodium 140 (135-145) mmol/L Potassium 3.8 (3.3-5.1) mmol/L Chloride 106 (96-108) mmol/L Carbon Dioxide 22 (22-29) mmol/L Anion Gap 16 (12-20) BUN 24 H (9-16) mg/dL Creatinine 6.98 H* (0.5-1.4) mg/dL Estim Creat Clear Calc 17.6 Estimated GFR 8 Random Glucose 88 (60-115) mg/dL Lactic Acid 2.3 H* (0.5-2.0) mmol/L Lactic Acid F/U @ 2Hr 2.8 H* (0.5-2.0) mmol/L Calcium 7.7 L (8.4-10.2) mg/dL Magnesium 1.8 (1.6-2.6) mg/dL Total Bilirubin 0.5 (0.0-1.0) mg/dL AST 30 (5-37) U/L ALT 17 (0-40) U/L Alkaline Phosphatase 60 (39-117) U/L Total Creatine Kinase 116 (38-174) U/L Troponin I High Sens 22.9 D (<3.5-35.0) ng/L C-Reactive Protein 4.79 H (< or = 0.50) mg/dL Total Protein 7.2 (6.5-8.0) g/dL Albumin 3.7 (3.5-5.0) g/dL Blood Type B Positive Antibody Screen NEGATIVE Independent Interpretation I performed an independent interpretation of an: EKG and Plain X-Ray (normal ) Interpretation: Rate: 88 Rhythm: NSR [place]: normal Normal P waves. Normal CABRERA. Normal QRS complex. Poor R wave progression ST T wave : normal no MARITA qTC: 457 prior studies: no acute ischemia The study has been interpreted contemporaneously by me. . Radiology Impression Discussion of test interpretation with radiology: I have reviewed the radiologist's reading. Independent Historian Clinical information obtained from an independent historian. History obtained from or confirmed by: EMS and Other External Record Review External record reviewed: Inpatient record and Outpatient record Critical Care Time Critical Care Time Critical Care Time: Yes Total Critical Care Time: 45 Attestation: Time is exclusive of separately billable procedures. Time includes: direct patient care, patient reassessment, coordination of patient care, interpretation of data (laboratory data, pulse oximetry, and chest xrays), review of patient's medical records, medical consultation and documentation of patient care. repeat IVF, repeat labs. Procedures excluded from critical care time: electrocardiography. I attest to this time spent taking care of the patient Discharge Plan Discharge Clinical Impression: Acute hypotension Patient Disposition: Home, Self-Care Instructions: How to Take a Blood Pressure Reading (ED), Hypotension (ED) Additional Instructions: hold all blood pressure medications for 24 hours - AMLODIPINE, CARVEDILOL return for worsening symptoms or concerns rest and stay hydrated avoid the heat Prescriptions: No Action amlodipine 10 mg tablet 10 mg PO DAILY Triphrocaps 1 mg capsule 1 cap PO DAILY calcium polycarbophil [Fiber-Lax] 625 mg tablet 625 mg PO BID ropinirole 0.5 mg tablet 0.5 mg PO BEDTIME fluticasone propionate 50 mcg/actuation spray,suspension 1 spray intranasal DAILY calcium acetate(phosphat bind) 667 mg capsule 1,334 mg PO TID sevelamer carbonate 800 mg tablet 800 mg PO TIDWMEAL calcium acetate(phosphat bind) 667 mg capsule 667 mg PO DAILY Rx Instructions: WITH SNACK fluticasone propion-salmeterol [Advair HFA] 45-21 mcg/actuation HFA aerosol inhaler 1 puff INHALATION BID lorazepam 1 mg tablet 1.5 mg PO DAILY PRN (Reason: panic attack) aspirin 81 mg tablet,delayed release (DR/EC) 81 mg PO DAILY ergocalciferol (vitamin D2) [Vitamin D2] 1,250 mcg (50,000 unit) capsule 1,250 mcg PO FRASER docusate sodium 100 mg capsule 100 mg PO BID atorvastatin 20 mg tablet 20 mg PO BEDTIME gabapentin 100 mg capsule 200 mg PO BID montelukast 10 mg tablet 10 mg PO DAILY folic acid 1 mg tablet 1 mg PO DAILY carvedilol 12.5 mg tablet 12.5 mg PO DAILY duloxetine 60 mg capsule,delayed release(DR/EC) 60 mg PO DAILY ferrous sulfate [FeroSul] 325 mg (65 mg iron) tablet 325 mg PO DAILY albuterol sulfate [Ventolin HFA] 90 mcg/actuation HFA aerosol inhaler 2 puff inhalation Q4H PRN (Reason: Shortness Of Breath Or Wheezing) Velphoro 500 mg tablet,chewable 1,500 mg PO TID Print Language: [place]
--- OUTSIDE RECORDS SUMMARY | 2025-04-03 12:59 | XMS_ITS | Clinical Summary ---
Author Organization [facility] Address [address] [address] Phone Care Team Providers Care Music Publisher Name Role Phone Unavailable Primary Care Provider [...] and 3 tablets before bedtime. Active Umeclidinium [place] (Incruse Ellipta) 62.5 MCG/INH aerosol powder 1 [...] tablet 3 3 Active Vitamin D, Ergocalciferol, 90794 units capsule TAKE 1 CAPSULE BY MOUTH [...] Encounters Date Type Department Care Team Description 03/25/2025 Treatment [facility] [address] [phone] Salvador Jacome MD End stage renal disease; Dependence on renal dialysis 03/22/2025 Treatment [facility] [address] [phone] Salvador Jacome MD End stage renal disease; Dependence on renal dialysis 03/13/2025 Treatment [facility] [address] [phone] Salvador Jacome MD End stage renal disease; Dependence on renal dialysis 03/06/2025 Treatment [facility] [address] [phone] Salvador Jacome MD End stage renal disease; Dependence on renal dialysis 02/27/2025 Treatment [facility] [address] [phone] Salvador Jacome MD End stage renal disease; Dependence on renal dialysis 02/18/2025 Treatment [facility] [address] [phone] Salvador Jacome MD End stage renal disease; Dependence on renal dialysis 02/08/2025 Treatment [facility] [address] [phone] Salvador Jacome MD End stage renal disease; Dependence on renal dialysis 02/06/2025 Treatment [facility] [address] [phone] Salvador Jacome MD End stage renal disease; Dependence on renal dialysis 01/30/2025 Treatment [facility] [address] [phone] Salvador Jacome MD End stage renal disease; Dependence on renal dialysis 01/23/2025 Treatment [facility] [address] [phone] Salvador Jacome MD End stage renal disease; Dependence on renal dialysis 01/09/2025 Treatment [facility] [address] [phone] Salvador Jacome MD End stage renal disease; Dependence on renal dialysis 01/04/2025 Treatment [facility] [address] [phone] Salvador Jacome MD End stage renal disease; [...] Colorectal Cancer Screening: Sigmoidoscopy 2023 Influenza Vaccine (#1) 2025 , 06/20/2022, 06/21/2021, Additional history exists Pneumococcal Vaccine: 50+ Years Completed 02/06/2023, 04/21/2022, 02/17/2022, Additional history exists Pneumococcal Vaccine: Peds ( 0 to 5 Years) and At-Risk Patients (6 to 49 Years) Discontinued 02/06/2023, 04/21/2022, 02/17/2022, Additional history exists Insurance [facility] ([id number]) [facility] ([id number])
--- OUTSIDE RECORDS SUMMARY | 2025-04-03 12:59 | XMS_ITS | Data Portability ---
Author Organization Andre [facility] [employer] [facility] [facility] Address [address] [place] [address] Care Team Providers Care Security Controls Assessor Name Role Phone [facility] Referring Provider [facility] Referring Provider Assessment Encounter Date Assessment Date Assessment LastModified by Organization Details LastModified Time 11/19/2021 11/19/2021 Information obtained by interventional physiatrist. Evaluated dialysis pt that c/o x6 days of intermittent numbness/tingling to feet, hands, and face- Becoming worse yesterday when these symptoms became constant and are keeping him up at night. Pt contacted PCP this AM who activated [facility] visit. Pt is awake and alert, airway open and patent, breathing regular. Skin is pink, warm, and dry. Pt appears anxious, tapping feet/balling fists trying to get sensation. Neuro exam unremarkable-No facial droop, clear speech, equal supervisor type photography, Pt denies unilateral symptoms, headache, or new vision changes. No hx of DM or neuropathy. Ran POC CMP, results are listed in [facility] and sent to [facility]. Family member called dialysis center to get yesterday's labs to compare to today's result. Yesterday's CRE was 13.8 and has trended down since yesterday. Baseline CRE 10-11. [facility] advised that pt follow up with PCP DEMETRI for further evaluation and present to ER if symptoms change/worsen/or pt feels he is unsafe to remain at home. Remained on scene while family member called PCP office and triage nurse is scheduled to call back to set up DEMETRI appt. Went over red flags- No further questions or concerns at this time. Not available 11/19/2021 18:54:39 10/23/2023 10/23/2023 As noted, we justin e called to see this patient regarding concerns of shob. Evaluation in the field was performed by my interventional physiatrist colleague, as noted above, I provided real-time direction and supervision for this visit. The evaluation revealed 48y M with CHF, CKD on dialysis, s/p 2 hospitalizations thi syear already for hypoxia iso pulm congestion 2/2 CHF. Today, presentatoin not clearly c/w CHF, and regardless, patient oliguric so outpatient diuresis not feasible. he does go to dialysis tomorrow, but he is showing mild vital sign instability w SpO2 93%, HR>100, and RR 24. Also, some mild viral URI sxs, so this could also be developing pneumonia. no fever, covid/flu neg. Refer to ER for evaluation. [email or web address] Not available 10/23/2023 19:12:27 Plan of Treatment Reminders Order Date Submit Date Provider Last Modified By Organization Details Last Modified Time Details Appointments None record ed. Lab None record ed. Referral None record ed. Procedures None record ed. Surgeries None record ed. Imaging None record ed. Medication Orders None record ed. Patient TargetsNo targets recorded. Patient InstructionsNo instructions recorded. Reason for Referral None Reported. Medical Equipment None Reported. Medications Name Sig Start Date Stop Date Status Note LastModified by Organization Details LastModified Time acetaminophe n 325 mg tablet TAKE 2 TABLETS BY MOUTH EVERY 4 HOURS active Not Available Not Available No t Available atorvastatin 20 mg tablet TAKE 1 TABLET BY MOUTH AT BEDTIME active Not Available Not Available No t Available carvedilol 12.5 mg tablet TAKE 1 TABLET BY MOUTH EVERY MORNING active Not Available Not Available No t Available famotidine 40 mg tablet TAKE 1 TABLET BY MOUTH AT BEDTIME active Not Available Not Available No t Available amlodipine 2.5 mg tablet TAKE 1 TABLET BY MOUTH EVERY MORNING en los garcia de no dialysis active Not Available Not Available Not Available amlodipine 5 mg tablet TAKE 1 TABLET BY MOUTH EVERY MORNING active Not Available Not Available No t Available aspirin 81 mg tablet,delay ed release TAKE 1 TABLET BY MOUTH EVERY MORNING active Not Available Not Available No t Available TobraDex 0.3 %-0.1 % eye ointment APPLY 1/2 INCH RIBBON TO LOWER LID OF AFFECTED EYE(S) TWICE DAILY DIRECTED active Not Available Not Available Not Available oxycodone-ac etaminophen 5 mg-325 mg tablet TOME WHIT TABLETA KISHA VECES AL D A CUANDO SEA NECESARIO PARA EL DOLOR active Not Available Not Available No t Available methocarbamo l 750 mg tablet TAKE 1 TABLET BY MOUTH TWICE DAILY active Not Available Not Available No t Available calcium 500 mg (as calcium carbonate 1,250 mg) tablet PLEASE SEE ATTACHED FOR DETAILED DIRECTIONS active Not Available Not Available N ot Available ropinirole 0.25 mg tablet TAKE 2 TABLETS BY MOUTH EVERY DAY IN THE EVENING active Not Available Not Available No t Available amlodipine 10 mg tablet TAKE 1 TABLET BY MOUTH EVERY MORNING active Not Available Not Available No t Available benzonatate 100 mg capsule TOME WHIT C PSULA KISHA VECES AL D A CUANDO SEA NECESARIO FOR COUGH active Not Available Not Available No t Available calcitriol 0.5 mcg capsule TOME WHIT C PSULA CADA 12 HORAS - ALLAN PA, OFFICE AWARE active Not Available Not Available No t Available polymyxin B sulfate 10,000 unit-trimeth oprim 1 mg/mL eye drops INSTILL 1 DROP IN EACH EYE FOUR TIMES DAILY FOR 5 DAYS active Not Available Not Available No t Available docusate sodium 100 mg capsule TAKE 1 TABLET BY MOUTH TWICE DAILY IN THE MORNING AND AT BEDTIME active Not Available Not Available No t Available folic acid 1 mg tablet TAKE 1 TABLET BY MOUTH EVERY MORNING active Not Available Not Available No t Available montelukast 10 mg tablet TAKE 1 TABLET BY MOUTH EVERY EVENING active Not Available Not Available No t Available gabapentin 100 mg capsule TAKE 2 CAPSULES BY MOUTH TWICE DAILY IN THE MORNING AND AT BEDTIME active Not Available Not Available No t Available lorazepam 1 mg tablet TAKE 1 AND 1/2 TABLETS BY MOUTH EVERY DAY NEEDED PANIC ATTACK active Not Available Not Available No t Available Vitamin D2 1,250 mcg (50,000 unit) capsule TAKE 1 CAPSULE BY MOUTH ONCE WEEKLY ON MONDAY MORNING active Not Available Not Available No t Available fluticasone propionate 50 mcg/actuatio n nasal spray,suspen maría elena USE 1 SPRAY IN EACH NOSTRIL ONCE DAILY active Not Available Not Available N ot Available oxycodone 5 mg tablet TAKE 1 TABLET BY MOUTH EVERY 6 HOURS NEEDED FOR SEVERE PAIN active Not Available Not Available Not Available duloxetine 20 mg capsule,sunny yed release TAKE 1 CAPSULE BY MOUTH EVERY MORNING active Not Available Not Available No t Available duloxetine 30 mg capsule,sunny yed release TAKE 1 CAPSULE BY MOUTH EVERY MORNING active Not Available Not Available No t Available Fiber Laxative (methylcellu lose) 500 mg tablet TAKE 1 TABLET BY MOUTH TWICE DAILY IN THE MORNING AND AT BEDTIME active Not Available Not Available No t Available calcium 315 mg (as citrate)-vit stauffer D3 6.25 mcg (250 unit) tablet TOME CUATRO TABLETAS POR V A ORAL CUATRO VECES AL D A active Not Available Not Available No t Available Triphrocaps 1 mg capsule TAKE 1 CAPSULE BY MOUTH EVERY MORNING active Not Available Not Available No t Available lidocaine 5 % topical ointment APPLY TWICE DAILY TO AFFECTED AREA(S) FOR PAIN active Not Available Not Available No t Available Vitals Date Recorded Oxygen saturation Oxygen saturation in Arterial blood by Pulse oximetry Body temperature Respiratory rate Heart rate Systolic And Diastolic Provider Name and Address Organization Details Last Updated DateTime 4 93 % 93 % 98.5 [degF] 24 /min 102 /min 148/88 mm[Hg] Not Available [employer] [facility] [employer] 4 18:59:49 Date Recorded Heart rate Respiratory rate Oxygen saturation Oxygen saturation in Arterial blood by Pulse oximetry Body temperature Systolic And Diastolic Provider Name and Address Organization Details Last Updated DateTime 2 91 /min 18 /min 99 % 99 % 98.59 [degF] 119/73 mm[Hg] Davonte Corona MD [address] [place] [address],[address], [place], [phone] [place] [address] [employer] [facility] 2 18:46:44 Social History None recorded. Functional Status None recorded. Mental Status None recorded. Family History Nothing Reported. Medical History No medical history recorded. Past Encounters Encounter ID Performer Location Encounter Start Date Encounter Closed Date Diagnosis/Indication Diagnosis SNOMED-CT Code Diagnosis ICD10 Code Diagnosis Note 320 Davonte Corona MD [address] [phone] 11/19/2021 18:45:28 07/03/2022 14:40:52 [id number] Asha Edwards MD [address] [phone] 10/23/2023 18:52:08 10/24/2023 10:17:31 Dyspnea 794285203 R06.00 Health Concerns Section Related Observation LastModified by Organization Detai ls LastModified Time None Recorded Concern Status LastModified by Organization Details LastModified Time None Recorded Advance Directives Directive None Recorded Payers Insurance Date Sequence Insurance Name Policy Number Policy Hoyt Covered Member ID Hoyt Member ID Guarantor Name 10/23/2023 1 [facility] - DOS PRIOR TO 2022 - DUAL ELIGIBLE (MEDICARE REPLACEMENT/ADV ANTAGE - HMO) Omari Pickens Tiny Echevarria [id number] Omari Pickens Tiny Echevarria 11/12/2023 1 [facility] - DOS ON OR AFTER 2022 - DUAL ELIGIBLE - [facility] OPTIONS AND ONE CARE (MEDICARE REPLACEMENT/ADV ANTAGE - HMO) Omari Tiny Echevarria [id number] DreNelia Echevarria Notes Date Note Type Note Provider Name and Address Organization Details Recorded Time 10/23/2023 text/html CRC Nurse Triage Notes (Charla Gomes): Chief Complaints: Shortness of Breath/Dyspnea PMH: CHF, Heart Disease, Hypertension Comments: Worsening shortness of breath over the last 2 days. Hospitalized last week for CHF exacerbation. Patient receives dialysis 3x/wk. + chills, productive cough. Member experiencing chest tightness. [facility] HPI: SOB, with 2 hospitalizations already this yearhas had a cough and congestion since Mondayno diuretics, just dialysisno known lung disease Asha Edwards MD [address] [facility],[address], [place], [address], Andre Phillipe - [employer], [employer] 10/23/2023 19:12:37
--- OUTSIDE RECORDS SUMMARY | 2025-04-03 12:59 | XMS_ITS | Encounter Summary ---
Author Organization [employer] Address [address] [place] [address] [address] [place] [address] Care Team Providers Care Shoe Sprayer Name Role Phone Debbie Gallardo MD Primary Care Provider [phone] Reason for Visit * Reason Comments Med Refill Encounter Details Date Type Department Care Team ([facility] Contact Info) Description 04/17/2023 Refill [facility] CHC MED & PEDS [address] [place], [place] [phone] Debbie Gallardo MD [address] [place], [place] [phone] Social History Tobacco Use Types Packs/Day Years [...] as of this encounter Plan of Treatment Upcoming Encounters Date Type Department Care Team ([facility] Contact Info) Description 05/12/2025 11:30 AM EDT Office Visit [facility] MEDICINE [address] [place], [place] [phone] Debbie Gallardo MD [address] [place], [place] [phone] documented as of this encounter Visit Diagnoses Not on filedocumented in this encounter Additional Health Concerns Assessment Noted Time PHQ-9 Depression Total Score: 8 10/10/19 23 9:03 AM EST documented as of this encounter Care Teams Shoe Sprayer Relationship Specialty Start Date End Date Debbie Gallardo MD [address] [place] [address] PCP - General Family Medicine 09/18/18 documented as of this encounter
[2025-04-03 13:34] LABS: Reflex Lactate? Lactic Acid Added
[2025-04-03 14:43] LABS: ~Lactic Acid-LAB USE ONLY 2.8 mmol/L (0.5-2.0)
[2025-04-03] MEDS: Albumin Human 25 % 100 ML 133.33 ML IV ×2 (15:07→15:54)
[2025-04-03 16:17] LABS: Reflex Lactate? 2 Y
== END 2025-04-03 16:05 | disposition home or self-care (01) ==
PROVIDERS: Physician Assistant Medical; Emergency Provider Emergency Medicine; PCP Family Medicine
DX: I95.9 Hypotension, unspecified (principal); R94.31 Abnormal electrocardiogram [ECG] [EKG]; R42 Dizziness and giddiness; E86.9 Volume depletion, unspecified; E87.20 Acidosis, unspecified; I10 Essential (primary) hypertension; Z79.899 Other long term (current) drug therapy
CPT/HCPCS: 36415; 71045; 80053; 82550; 83605; 83735; 84484; 85025; 86140; 86850; 86900; 86901; 87040; 93005; 96361; 96365; 96366; 99285; 99291; P9047

== ENCOUNTER → 2025-04-03 11:14 | Outpatient (BNV) | payer OTHER, SELFPAY | PROVIDERS: Emergency Provider Emergency Medicine; PCP Family Medicine; Visit Provider Internal Medicine | DX: I25.2 Old myocardial infarction (principal) | CPT/HCPCS: 93010 ==

== ENCOUNTER → 2025-04-03 11:17 | Outpatient (BNV) | payer OTHER, SELFPAY | PROVIDERS: Emergency Provider Emergency Medicine; PCP Family Medicine; Visit Provider Radiology Diagnostic Radiology | DX: J98.4 Other disorders of lung (principal) | CPT/HCPCS: 71045 ==

== ENCOUNTER → 2025-05-09 08:26 | Outpatient (REF) | payer OTHER, SELFPAY ==
--- NOTE | ~2025-05-09 | NM_ITS ---
Lexiscan Myocardial perfusion study Indication: Heart failure Technique: The patient was brought in for a Lexiscan perfusion study on 05/09/2025 and was injected 0.4 mg of Lexiscan intravenously. Within a minute of this injection 45 mCi of sestamibi was given intravenously. Images were obtained using the SPECT gamma camera interlaced with the gating device. Images were obtained in supine position. Resting perfusion study was performed on 05/12/2025. Patient was administered 45 mCi of sestamibi intravenously at rest. Images were then obtained in supine position. Total DLP 156 mGy-cm. Images were processed with the software and compared side to side in short axis, horizontal long axis and vertical long axis views. Findings: Raw aquisition reviewed. The stress perfusion study showed decreased tracer uptake along the inferior wall and mid anterior wall. With CT attenuation correction, some improvement in the inferior wall uptake which could indicate components of diaphragmatic attenuation artifact. The gated study shows diminished LV systolic function with calculated LVEF of 45%. LV cavity is normal in size. The gated study shows diminished contractility along the inferior wall. Resting study shows decreased tracer uptake along the inferior wall most prominent in the basal to midportion. Mildly reduced tracer uptake in the mid anterior wall. With CT attenuation correction, there is improved uptake in the inferior wall and hence could indicate components of diaphragmatic attenuation artifact. Gating at rest reveals reduced inferior wall contractility with ejection fraction at 52%. The findings are consistent with fixed perfusion defect in the basal to mid part of inferior wall with mild reversibility towards the apical part next midanterior defect. NM/NM cardiolite stress test Impression: 1. Myocardial perfusion imaging study shows probable nontransmural infarct along the inferior wall with mild ischemia towards the apical inferior portion. Possible nontransmural infarct in the mid anterior wall. These defects could also have artifactual components. 2. Gated LVEF is 45% during stress and 52% during rest. 3. Transient ischemic dilatation not present. EKG component of the test reported separately. Electronically signed by: Alexys Reece MD 05/13/2025 10:46 AM EDT
--- NOTE | 2025-05-09 08:28 | CA_ITS ---
Acquisition Time: 2025-05-09 08:56:26 Total Exercise Time: 00:02:00 Test Indications: HF Medications: SEE H&P Protocol: LEXISCAN Max HR: 97 BPM 57% of Pred: 170 BPM Max BP: 104/62 mmHG Max Work Load: 1.1 METS Pharmacological stress test with Juan guerraiel pt swings his legs in chair, with reports of dizziness, SOB and fatigue, without any arrythmias, with normotensive response to injection. Nondiagnostic EKG for ischemia. In recovery,pt treated with IVP Aminophylline 75 mg to reverse Lexiscan after which pt slowly feeling back to baseline. Nuclear images pending. Test reviewed with Dr. Arroyo. Referred By: Reinier Arroyo Electronically Signed By: Genaro Cooper
--- OUTSIDE RECORDS SUMMARY | 2025-05-09 08:39 | XMS_ITS | Encounter Summary ---
Author Organization [facility] Address [address] [place] [phone] Phone Care Team Providers Care Engineering Aide Name Role Phone Unavailable Primary Care Provider Unavailabl e Encounter Details Date Type Department Care Team ([facility] st Contact Info) Description 05/08/2025 Treatment [facility] [address] [place] [phone] Patience Jacome MD [address] [place] [phone] End stage renal disease; Dependence on renal dialysis Social History Tobacco Use Types Packs/Day Years Used Date Smoking Tobacco: Never Smokeless Tobacco: Never Alcohol Use Standard Drinks/Week Comments Not Currently 0 (1 standard drink = 0.6 oz pur e alcohol) Sex and Gender Information Value Date Recorded Sex Assigned at Not on file Legal Sex Male 5:07 PM EST Gender Identity Not on file Sexual Orientation Not on file documented as of this encounter Miscellaneous Notes * Dialysis Note - Patience Jacome MD - 05/08/2025 12:00 AM EDT BASIC NOTE Patient: Omari Davilavalle : 1975 Note Author: PATIENCE JACOME MD Service Date: 05/08/2025 This patient was personally seen for a basic visit as part of routine monthly dialysis care for end stage renal disease. Attending Senior Risk Analyst: PATIENCE JACOME MD Dialysis Location: [facility] Schedule: Shift: 1 OVERVIEW Patient is stable. HOME MEDICATIONS Current [facility] Outpatient Medications albuterol nebulizer solution 2.5 mg/3 mL (0.083%) Take 1 vial by nebulization 4 (four) times a day Start Date: 09/24/2016 amLODIPine (NORVASC) 10 MG tablet Take 1 tablet (10 mg total) by mouth 1 (one) time each day Start Date: 09/26/2023 aspirin chewable tablet 81 mg Chew 1 tablet 1 (one) time each day Start Date: atorvastatin (LIPITOR) tablet Take 1 tablet by mouth at bed time Start Date: AURYXIA 1 GM 210 MG(FE) PO TABS 3 tablets 3 (three) times a day Start Date: 2018 carvedilol (COREG) 12.5 MG tablet TAKE 1 TABLET BY MOUTH EVERY MORNING Start Date: 02/27/2023 cetirizine (ZyrTEC) tablet Take 1 tablet by mouth 1 (one) time each day Start Date: 09/24/2016 cinacalcet (SENSIPAR) tablet Take 2 tablets by mouth 1 (one) time each day Start Date: docusate sodium (COLACE) capsule Take 1 capsule by mouth in the morning and 1 capsule in the evening. Start Date: 09/24/2016 DULoxetine (CYMBALTA) DR capsule Start Date: 11/01/2021 famotidine (PEPCID) tablet Take 40 mg by mouth at bed time Start Date: 12/27/2021 FLOVENT HFA 110 MCG/ACT IN AERO Inhale 2 puffs 2 (two) times a day Start Date: 09/24/2016 fluticasone (FLONASE) nasal spray USE 1 SPRAY IN EACH NOSTRIL ONCE DAILY Start Date: 12/27/2021 folic acid (FOLVITE) tablet Comments: / Patient Notes: 1 tab PO daily Start Date: 11/08/2021 gabapentin (NEURONTIN) 100 MG capsule Take 2 capsules (200 mg total) by mouth in the morning and 2 capsules (200 mg total) in the evening. Start Date: 01/15/2024 INCRUSE ELLIPTA 62.5 MCG/INH IN AEPB 1 puff by Other route 1 (one) time each day Start Date: 01/02/2018 LORazepam (ATIVAN) 1 MG tablet Take 1 tablet (1 mg total) by mouth 1 (one) time each day Start Date: 05/30/2022 METHYLCELLULOSE (LAXATIVE) 500 MG PO TABS Comments: / Patient Notes: 1 cap PO BID Start Date: 11/08/2021 montelukast (SINGULAIR) tablet 10 mg Take 1 tablet by mouth Start Date: 01/02/2018 omeprazole (PriLOSEC OTC) EC tablet 20 mg Take 1 tablet by mouth 1 (one) time each day Start Date: rOPINIRole (REQUIP) tablet TAKE 1 TABLET BY MOUTH EVERY EVENING NEEDED Start Date: 11/29/2021 Semaglutide, 2 MG/DOSE, (Ozempic, 2 MG/DOSE,) 8 MG/3ML solution pen-injector Inject 2 mg under the skin per week Start Date: 05/24/2024 sevelamer carbonate (RENVELA) tablet 800 mg Take 3 tablets by mouth in the morning and 3 tablets in the evening and 3 tablets before bedtime. Start Date: trimethoprim-polymyxin b (POLYTRIM) ophthalmic solution Administer 1 drop into both eyes 4 (four) times a day Start Date: 12/10/2020 Velphoro 500 MG chewable tablet CHEW AND SWALLOW 3 TABLETS THREE TIMES DAILY WITH MEALS Start Date: 02/16/2023 Vitamin D, Ergocalciferol, 62096 units capsule TAKE 1 CAPSULE BY MOUTH ONCE WEEKLY ON MONDAY MORNING Start Date: 04/12/2023 Current [facility] Epic Allergies Allergen: DIPHENHYDRAMINE Reaction: Other (see comments) Allergen: LATEX Reaction: Other (see comments) ADEQUACY ASSESSMENT Bicarbonate (CO2) 23 (05/01/25) BMM ASSESSMENT Calcium, Adjusted Total 7.8 05/06/25 Calcium 7.8 05/06/25 Phosphorus, Serum 11.8 05/06/25 Ca*PO4 92.0 05/06/25 Alkaline Phosphatase 102 04/29/25 NUTRITION ASSESSMENT Albumin 4.3 05/06/25 ADDITIONAL COMMENT COMMENTS: Note in dialysis retention manager Signed by: PATIENCE JACOME MD on 05/09/2025 at 05:22:50 AM Transcribed by: PATIENCE JACOME MD on 05/09/2025 at 05:22:50 AM documented in this encounter Plan of Treatment Not on file documented as of this encounter Visit Diagnoses Diagnosis End stage renal disease Dependence on renal dialysis documented in this encounter
--- OUTSIDE RECORDS SUMMARY | 2025-05-09 08:39 | XMS_ITS | Encounter Summary ---
Author Organization [employer] Address [address] [place] [address] [address] [place] [address] Care Team Providers Care Boat Outfitter Name Role Phone Debbie Gallardo MD Primary Care Provider [phone] Reason for Visit * Reason Comments Med Refill Encounter Details Date Type Department Care Team ([facility] Contact Info) Description 04/17/2023 Refill [facility] CH[facility] MED & PEDS [address] [place], [place] [phone] Debbie Gallardo MD [address] [place], [place] [phone] Social History Tobacco Use Types Packs/Day Years [...] Upcoming Encounters Date Type Department Care Team ([facility] Contact Info) Description 05/12/2025 11:30 AM EDT Office Visit [facility] MEDICINE [address] [place], [place] [phone] Debbie Gallardo MD [address] [place] [address] documented as of this encounter Visit Diagnoses Not on filedocumented in this encounter Additional Health Concerns Assessment Noted Time PHQ-9 Depression Total Score: 8 10/10/19 23 9:03 AM EST documented as of this encounter Care Teams Boat Outfitter Relationship Specialty Start Date End Date Debbie Gallardo MD [address] [place] [address] [place] [address] PCP - General Family Medicine 09/18/18 documented as of this encounter
== END ==
LOC: HO.CARD 08:26
PROVIDERS: PCP Family Medicine; Visit Provider Internal Medicine Cardiovascular Disease
DX: I50.30 Unspecified diastolic (congestive) heart failure (principal)
CPT/HCPCS: 78452; 93017; A9500; J0280; J2785

== ENCOUNTER → 2025-05-09 08:28 | Outpatient (BNV) | payer OTHER, SELFPAY | PROVIDERS: PCP Family Medicine | DX: I25.5 Ischemic cardiomyopathy (principal); I50.9 Heart failure, unspecified | CPT/HCPCS: 78452; 93016; 93018 ==